=== PATIENT | female | born 1950 | race African-American/Black ===

== ENCOUNTER 2016-11-06 23:57 | Emergency (ER) | payer MEDICARE, MEDICAID ==
[~2016-11-06] VITALS: Ht 160 cm; Wt 67.0 kg
[~2016-11-06 23:57] MED LIST: ALBU8I INH; ALPR1 PO; ATOR10TA PO; BACT2OIN TOP; BENZ100 PO; CARI350T19 PO; CLOP75 PO; ENAL5TAB PO; GABA800T PO; LEVEMIR SQ; LIDO 2% TOP; MACR100C PO; METF-324 PO; PERC10TA27 PO
[2016-11-07] VITALS: BP 117/75; PULSE 95; RESP 20; TEMP 99.1; O2SAT 99
[2016-11-07 05:11] LABS: BLOOD, URINE NEG (NEG); COMMENT (UR) CATH-CULTURE IND; CULTURE IF INDICATED CATH CULTURE IND; GLUCOSE,URINE 1000 mg/dL (NEG); KETONE, URINE TRACE mg/dL (NEG); NITRITE,URINE NEG (NEG); PH, URINE 5.5 (5.0-8.5); SQUAMOUS EPITHELIAL CELL URINE 1 /hpf (0-5); URINE COLOR LIGHT-YELLOW (YELLW/STRAW)
--- NOTE | 2016-11-07 05:24 | PD ---
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 Patient has indwelling urinary catheter secondary to neurogenic bladder. Patient states intermittently the device will leak and she has to have the catheter replaced. No fever no chills no nausea no vomiting no abdominal pain. Patient states that she also had a fall on [place] and contused her right chest wall but did not have it evaluated at that time. Patient reports that she's here she would like to have this evaluated as well. Patient denies other concerns or complaints. Patient rates overall discomfort 6 /10 in intensity. PFSH Past Medical History Narrative Medical Arthritis anxiety depression urinary retention myocardial infarction Plavix dyslipidemia COPD CVA diabetes GERD herniated disc of the back and neck uterine enlargement diabetic foot wound sleep apnea CABG 3 hysterectomy ganglion cyst excision no tobacco use nursing notes reviewed Hx Anticoagulant Therapy: Yes (ASA) Arthritis: Yes (BILATERAL HANDS) Asthma: Yes Autoimmune Disease: No Anxiety: Yes Depression: Yes Heart Rhythm Problems: No Cancer: No Cardiovascular Problems: Yes (HTN, STENT, BY-PASS SURGERY) High Cholesterol: Yes Chest Pain: No Congestive Heart Failure: No COPD: Yes Cerebrovascular Accident: Yes Diabetes: Yes Patient Takes Glucophage: Yes Diminished Hearing: No GERD: Yes Genitourinary: No Headaches: No Hiatal Hernia: No Hypertension: Yes Implanted Vascular Access Dvce: No Musculoskeletal: Yes ("herniated discs,back and neck") Neurologic: Yes Psychiatric: Yes (GOES TO ACT EVERY 3 MONTHS) Reproductive: Yes (ENLARGED UTERUS) Respiratory: Yes (COPD) Integumentary: Yes (diabetic wound to right foot) Immunizations Current: No Migraines: No Myocardial Infarction: Yes Seizures: No Sleep Apnea: Yes Thyroid Disease: No Ulcer: No Tetanus Vaccination: > 5 Years Influenza Vaccination: No ?: Not Menopausal: Yes Past Surgical History Abdominal Surgery: Yes (CYST REMOVED) Cardiac Surgery: Yes Coronary Artery Bypass Graft: Yes (X3) Ear Surgery: No Endocrine Surgery: Yes (HYSTERECTOMY) Eye Surgery: Yes ("bilateral,retinopathy") Genitourinary Surgery: Yes (retention, damaged bladder) Hysterectomy: Yes Neurologic Surgery: No Oral Surgery: No Thoracic Surgery: No Other Surgery: Yes ("ganglion cyst removed from right arm" "cysts removed from back",axilla) Social History Alcohol Use: No Tobacco Use: No (QUIT 4 YEARS AGO) Substance Use: No Allergies-Medications (Allergen,Severity, Reaction): Coded Allergies: Contrast Media (Verified Allergy, Severe, 11/07/16) Sulfa (Verified Allergy, Unknown, 11/07/16) Penicillin (Verified Adverse Reaction, Severe, NAUSEA,DIZZINESS, 11/07/16) Reported Meds & Prescriptions Reported Meds & Active Scripts Active Macrobid (Nitrofurantoin Monoh/Nitrofur Macro) 100 Mg Cap 100 Mg PO BID 10 Days Macrobid (Nitrofurantoin Macrocrystals) 100 Mg Cap 100 Mg PO BID Tessalon [id number] 100 Mg Cap 100 Mg PO TID PRN Ventolin Hfa (Albuterol Sulfate) 8 Gm Aero 1 Puff INH Q4-6H PRN * SHAKE WELL BEFORE USE * Reported Percocet 10-325 mg (Oxycodone-Acetaminophen 10-325 mg) 1 Tab 1 Tab PO Q6H PRN Enalapril Maleate 5 Mg Tab 5 Mg PO DAILY Atorvastatin 10 mg (Atorvastatin Calcium) 10 Mg Tab 10 Mg PO HS 30 Days Levemir (Insulin Detemir) Inj 25 Units SQ DAILY Lidocaine Hcl [id number] 2 % Gel 1 Applic TOP DIRECTED FOR USE WITH WOUND CARE Mupirocin 2% Oint (22 gm) (Mupirocin) 2 % Oin 1 Applic TOP DIRECTED APPLY TO AFFECTED AREA(S) Ventolin Hfa (Albuterol Sulfate) 8 Gm Aero 1 Puff INH DIRECTED * SHAKE WELL BEFORE USE * Metformin ER 24 HR (Metformin HCl) 1,000 Mg Tab 1,000 Mg PO BID Xanax 1 Mg Tab (Alprazolam) 1 Mg Tab 1 Mg PO BID Carisoprodol 350 Mg Tab 350 Mg PO BID [id number] 800 Mg Tab 800 Mg PO TID Plavix (Clopidogrel Bisulfate) 75 Mg Tab 75 Mg PO DAILY Review of Systems Except as stated in HPI: all other systems reviewed are Neg General / Constitutional: No: Fever, Chills HENT: No: Congestion Cardiovascular: No: Chest Pain or Discomfort Respiratory: Positive: Pleuritic Pain (right rib pain), No: Cough, Shortness of Breath Gastrointestinal: No: Nausea, Vomiting, Abdominal Pain Genitourinary: No: Dysuria Musculoskeletal: No: Myalgias, Arthralgias Skin: No Rash Neurologic: No: Weakness Endocrine: No: Polyuria Hematologic/Lymphatic: No: Lymph Node Enlargement Physical Exam Narrative GENERAL: SKIN: Warm and dry. HEAD: Normocephalic. EYES: No scleral icterus. No injection or drainage. NECK: Supple, trachea midline. No JVD or lymphadenopathy. CARDIOVASCULAR: Regular rate and rhythm without murmurs, gallops, or rubs. RESPIRATORY: Breath sounds equal bilaterally. No accessory muscle use. GASTROINTESTINAL: Abdomen soft, non-tender, nondistended. MUSCULOSKELETAL: No cyanosis, or edema. BACK: Nontender without obvious deformity. No CVA tenderness. Data Data Last Documented VS Vital Signs Date Time Temp Pulse Resp B/P Pulse Ox O2 Delivery O2 Flow Rate FiO2 11/07/16 00:00 99.1 95 20 117/75 99 Orders Ribs, Uni (W/Exp Cxr-Min 3vw) (11/07/16 ) Urinary Catheter Insert/Apply (11/07/16 04:23) Remove Urinary Catheter .ONCE (11/07/16 04:23) Urinalysis - C+S If Indicated (11/07/16 04:23) Urine Culture (11/07/16 04:20) Nitrofurantoin Monohyd Macrocr (Macrobid (11/07/16 06:00) Labs Laboratory Tests Test 11/07/16 04:20 Urine Color LIGHT-YELLOW Urine Turbidity CLEAR Urine pH 5.5 Urine Specific [place] 1.022 Urine Protein TRACE mg/dL Urine Glucose (UA) 1000 mg/dL Urine Ketones TRACE mg/dL Urine Occult Blood NEG Urine Nitrite NEG Urine Bilirubin NEG Urine Urobilinogen LESS THAN 2.0 MG/DL Urine Leukocyte Esterase MOD Urine RBC 4 /hpf Urine WBC 20 /hpf Urine Squamous Epithelial 1 /hpf Cells Urine Yeast (Budding) OCC Microscopic Urinalysis Comment CATH-CULTURE IND MDM Medical Decision Making Medical Screen Exam Complete: Yes Emergency Medical Condition: Yes Medical Record Reviewed: Yes Interpretation(s) Laboratory Tests Test 11/07/16 04:20 Urine Color LIGHT-YELLOW Urine Turbidity CLEAR Urine pH 5.5 Urine Specific [place] 1.022 Urine Protein TRACE mg/dL Urine Glucose (UA) 1000 mg/dL Urine Ketones TRACE mg/dL Urine Occult Blood NEG Urine Nitrite NEG Urine Bilirubin NEG Urine Urobilinogen LESS THAN 2.0 MG/DL Urine Leukocyte Esterase MOD Urine RBC 4 /hpf Urine WBC 20 /hpf Urine Squamous Epithelial 1 /hpf Cells Urine Yeast (Budding) OCC Microscopic Urinalysis Comment CATH-CULTURE IND right rib xr: FINDINGS: Multiple views of the right ribs were performed. There is no evidence of displaced fracture. No destructive lesions or areas of periosteal thickening are seen. Expiratory view of the chest is negative for pneumothorax. The mediastinal structures are midline. CONCLUSION: No acute disease. Ruel Saeed Jr., MD on November 07, 2016 at 5:44 Board Certified Radiologist. This report was verified electronically. Differential Diagnosis Urinary bladder dysfunction UTI urinary retention atonic bladder rib fracture pneumothorax Narrative Course Urinary catheter exchanged; urinalysis ordered; right rib films ordered Chest x-ray right rib series does not reveal pneumothorax or rib fracture; urinalysis is abnormal and consistent with urinary tract infection patient given first dose of Macrobid in the emergency department Patient is stable for outpatient management Diagnosis Primary Impression: Complication, blocked Chavira catheter Qualified Code: T83.091A - Complication, blocked Chavira catheter, initial encounter Additional Impressions: UTI (urinary tract infection) Qualified Code: N39.0 - Urinary tract infection without hematuria, site unspecified Chest wall contusion Qualified Code: S20.211A - Chest wall contusion, right, initial encounter Referrals: Primary Care Physician call for appointment Urologist call for appointment Patient Instructions: General Instructions Additional Instructions: Follow-up with your primary care physician and your urologist Complete course of antibiotic as prescribed Return to the emergency department for any concerns or change in condition Take as tolerated acetaminophen/Tylenol for mild chest wall pain Med/Other Pt SpecificInfo: Prescription(s) given Scripts Nitrofurantoin Monohydrate Macrocrystals (Macrobid)100 Mg [id number] Mg PO BID 10 Days Ref 0 Prov:Lisset Kessler MD 11/07/16 Disposition: 01 DISCHARGE HOME Condition: Stable Lisset Kessler MD Nov 07, 2016 05:24
--- NOTE | 2016-11-07 05:46 | RADRPT ---
EXAM DATE/TIME: 11/07/2016 04:36 [facility] COMPARISON: No previous studies available for comparison. INDICATIONS : Right sided chest and rib pain post fall on 10/28/16. MEDICAL HISTORY : Congestive heart failure. SURGICAL HISTORY : CABG. ENCOUNTER: Initial ACUITY: 1 week PAIN SCORE: 7/10 LOCATION: Right ribs. FINDINGS: Multiple views of the right ribs were performed. There is no evidence of displaced fracture. No russell tructive lesions or areas of periosteal thickening are seen. Expiratory view of the chest is negativ e for pneumothorax. The mediastinal structures are midline. CONCLUSION: No acute disease. Ruel Saeed Jr., MD on November 07, 2016 at 5:44 Board Certified Radiologist. This report was verified electronically.
[2016-11-07] MEDS ORDERED: MACR100C2 PO (05:50)
[2016-11-07] MEDS ORDERED: NITROFURANTOIN MONOHYD MACROCR 100 MG CAP PO ONE (06:00)
== END 2016-11-07 07:09 | disposition home or self-care (01) ==
LOC: NEPC 23:57
DX: T83.098A Other mechanical complication of other urinary catheter, initial encounter (principal); N39.0 Urinary tract infection, site not specified; B95.7 Other staphylococcus as the cause of diseases classified elsewhere; R33.9 Retention of urine, unspecified; S20.211A Contusion of right front wall of thorax, initial encounter; S91.301A Unspecified open wound, right foot, initial encounter; E13.69 Other specified diabetes mellitus with other specified complication; W19.XXXA Unspecified fall, initial encounter; Y93.9 Activity, unspecified; Y92.9 Unspecified place or not applicable; Y99.9 Unspecified external cause status; I25.2 Old myocardial infarction; Z95.1 Presence of aortocoronary bypass graft; K21.9 Gastro-esophageal reflux disease without esophagitis; J44.9 Chronic obstructive pulmonary disease, unspecified; G47.30 Sleep apnea, unspecified; I10 Essential (primary) hypertension
CPT/HCPCS: 51702; 71101; 81001; 86403; 87077; 87086; 87186

== ENCOUNTER 2017-01-20 14:04 | Inpatient (IN) | payer MEDICARE, MEDICAID ==
[~2017-01-20] VITALS: Ht 160 cm; Wt 81.1 kg
[~2017-01-20 14:04] MED LIST changes: +MACR100C2 PO
[2017-01-20 14:06] VITALS: BP 82/45; PULSE 114; TEMP 98.3; O2SAT 99
[2017-01-20 15:00] VITALS: BP 128/86; PULSE 85; RESP 20; O2SAT 99
[2017-01-20] MEDS ORDERED: MORPHINE SULFATE 4 MG/ML INJ IV PUSH ONE ×2 (15:00→16:45)
[2017-01-20] MEDS ORDERED: CLINDAMYCIN INJ 600 MG in SODIUM CHLORIDE 0.9% INJ 100 ML IV ONE (15:00)
[2017-01-20] MEDS ORDERED: CIPROFLOXACIN 400 MG PREMIX 200 ML IV ONE (15:00)
[2017-01-20] MEDS ORDERED: SODIUM CHLOR 0.9% 1000 ML INJ 1,000 ML IV ONE ×2 (15:00→19:45)
[2017-01-20] MEDS ORDERED: PLAV75TA29 PO (15:09)
[2017-01-20] MEDS ORDERED: XANA1TAB2 PO (15:09)
[2017-01-20] MEDS ORDERED: METF1000 PO (15:09)
[2017-01-20] MEDS ORDERED: PERC10TA27 PO (15:09)
[2017-01-20] MEDS ORDERED: LEVEMIR SQ (15:09)
[2017-01-20] MEDS ORDERED: GABA800T PO (15:09)
[2017-01-20] MEDS ORDERED: VENTAER INH (15:09)
[2017-01-20] MEDS ORDERED: SOMA350T PO (15:09)
[2017-01-20] MEDS ORDERED: ATOR10TA15 PO (15:09)
[2017-01-20] MEDS ORDERED: ENAL5TAB98 PO (15:09)
[2017-01-20] MEDS ORDERED: ASPI1TAB91 PO (15:10)
--- NOTE | 2017-01-20 15:29 | RADRPT ---
EXAM DATE/TIME: 01/20/2017 15:13 [facility] COMPARISON: CHEST SINGLE AP, January 18, 2014, 5:53. INDICATIONS : Evaluate lung status. Possible UTI. MEDICAL HISTORY : Hypertension. Diabetes mellitus type II. Chronic obstructive pulmonary disease. SURGICAL HISTORY : CABG. ENCOUNTER: Initial ACUITY: 4 - 6 days PAIN SCORE: 0/10 LOCATION: Bilateral chest FINDINGS: A single view of the chest demonstrates the lungs to be symmetrically aerated without evidence of mas s, infiltrate or effusion. The cardiomediastinal contours are unremarkable. Osseous structures are intact. The patient is status post median sternotomy. CONCLUSION: No acute disease. Tavares Flores MD on January 20, 2017 at 15:28 Board Certified Radiologist. This report was verified electronically.
--- NOTE | 2017-01-20 15:33 | RADRPT ---
EXAM DATE/TIME: 01/20/2017 15:15 [facility] COMPARISON: No previous studies available for comparison. INDICATIONS : Right foot pain and inflammation. MEDICAL HISTORY : Diabetes mellitus type II. SURGICAL HISTORY : 5th digit amputation. ENCOUNTER: Initial ACUITY: 3 weeks PAIN SCORE: 10/10 LOCATION: Right foot. FINDINGS: AP, lateral and oblique views of the right foot were obtained and demonstrate the patient is status p ost amputation of the fifth digit to the level of the metatarsal head. There is diffuse osteopenia wi th no acute fracture or malalignment. There is no destructive change or periosteal new bone formation . There is diffuse osteopenia and mild osteoarthritic change. There is mild soft tissue swelling and apparent gas along the medial foot adjacent to the first metatarsal phalangeal joint. There are no ra diopaque foreign bodies. CONCLUSION: 1. That is post amputation of the fifth digit to the level of the metatarsal head. 2. Mild soft tissue swelling and gas over the medial first metatarsal phalangeal joint with no destru ctive change. Tavares Flores MD on January 20, 2017 at 15:29 Board Certified Radiologist. This report was verified electronically.
--- NOTE | 2017-01-20 15:38 | PD ---
HPI Chief Complaint: Complaint Time Seen by Provider: 14:23 Travel History International Travel<30 days: No Contact w/Intl Traveler<30days: No Traveled to known affect area: No History of Present Illness HPI 66-year-old woman with diabetes and peripheral vascular disease presents emergency department worsening pain from her right foot which she is a draining ulcerated wound. He was recently debrided a couple days ago and an outpatient office. She is on clindamycin and Cipro. She is having worsening pain in the foot. She is a trouble with diabetic foot infections in the past. History Past Medical History Narrative Medical Hypertension Diabetes, neuropathy PVD COPD Influenza Vaccination: No Menopausal: Yes : 1 Para: 1 Social History Alcohol Use: No Tobacco Use: No Allergies-Medications (Allergen,Severity, Reaction): Coded Allergies: Contrast Media (Verified Allergy, Severe, 01/20/17) Sulfa (Verified Allergy, Unknown, 01/20/17) Penicillin (Verified Adverse Reaction, Severe, NAUSEA,DIZZINESS, 01/20/17) Reported Meds & Prescriptions Reported Meds & Active Scripts Active Reported Aspirin Adult Low Strength (Aspirin) 81 Mg Tabdr 81 Mg PO DAILY Percocet (Oxycodone-Acetaminophen) 10-325 mg Tab 1 Tab PO Q6H PRN Metformin (Metformin HCl) 1,000 Mg Tab 1,000 Mg PO BID With meals Levemir Inj (Insulin Detemir) 1,000 unit/ 10 ML Vial 35 Units SQ DAILY Do not mix with any other Insulin. Gabapentin 800 Mg Tab 800 Mg PO TID Vasotec (Enalapril Maleate) 5 Mg Tab 5 Mg PO DAILY Plavix (Clopidogrel Bisulfate) 75 Mg Tab 75 Mg PO DAILY Soma (Carisoprodol) 350 Mg Tab 350 Mg PO BID Atorvastatin (Atorvastatin Calcium) 10 Mg Tab 10 Mg PO HS Xanax (Alprazolam) 1 Mg Tab 1 Mg PO BID Ventolin Hfa 18 GM Inh (Albuterol Sulfate) 90 Mcg/Act Aer 1 Puff INH Q4H PRN Review of Systems Except as stated in HPI: all other systems reviewed are Neg Physical Exam Narrative GENERAL: 66-year-old woman, appears chronically ill. SKIN: Warm and dry. HEAD: Atraumatic. Normocephalic. CARDIOVASCULAR: Heart rate rapid. No murmurs. RESPIRATORY: No accessory muscle use. Clear to auscultation. Breath sounds equal bilaterally. GASTROINTESTINAL: Abdomen soft, non-tender, nondistended. Hepatic and splenic margins not palpable. MUSCULOSKELETAL: No obvious deformities. Her right small toe is been amputated. She has an ulceration on the medial aspect of the foot. It tracks all the way down superficially and entire plantar surface of the foot with a purulent wound. There is malodorous purulent drainage coming from the wound. NEUROLOGICAL: Awake and alert. No obvious cranial nerve deficits. Motor grossly within normal limits. Normal speech. PSYCHIATRIC: Appropriate mood and affect; insight and judgment normal. Data Data Last Documented VS Vital Signs Date Time Temp Pulse Resp B/P Pulse Ox O2 Delivery O2 Flow Rate FiO2 01/20/17 15:45 20 01/20/17 14:06 98.3 114 82/45 99 Orders Complete Blood Count With Diff (01/20/17 14:51) Comprehensive Metabolic Panel (01/20/17 14:51) Westergren Sedimentation Rate (01/20/17 14:51) C-Reactive Protein (Crp) (01/20/17 14:51) Wound Culture And Gram Stain (01/20/17 14:51) Foot, Complete ([id number]) (01/20/17 ) Chest, Single Ap (01/20/17 ) Iv Access Insert/Monitor (01/20/17 14:51) Morphine Inj (Morphine Inj) (01/20/17 15:00) Ciprofloxacin 400 Mg Premix (Cipro 400 M (01/20/17 15:00) Clindamycin Inj (Cleocin Inj) (01/20/17 15:00) Sodium Chlor 0.9% 1000 Ml Inj (Ns 1000 M (01/20/17 15:00) Lactic Acid (01/20/17 14:54) Insulin Aspart Inj (Novolog Inj) (01/20/17 16:45) Morphine Inj (Morphine Inj) (01/20/17 16:45) Lactic Acid (01/20/17 17:30) Diet Diabetic (01/20/17 Dinner) Blood Gas Venous (Vbg) (01/20/17 16:54) Beta Hydroxybutyrate (Acetone) (01/20/17 16:54) Admit Order (Ed Use Only) (01/20/17 ) Urinalysis - C+S If Indicated (01/20/17 16:56) Labs Laboratory Tests Test 01/20/17 15:30 White Blood Count 23.4 TH/MM3 Red Blood Count 4.69 MIL/MM3 Hemoglobin 12.8 GM/DL Hematocrit 39.4 % Mean Corpuscular Volume 83.9 FL Mean Corpuscular Hemoglobin 27.2 PG Mean Corpuscular Hemoglobin 32.5 % Concent Red Cell Distribution Width 13.3 % Platelet Count 361 TH/MM3 Mean Platelet Volume 10.1 FL Neutrophils (%) (Auto) 89.9 % Lymphocytes (%) (Auto) 4.2 % Monocytes (%) (Auto) 5.6 % Eosinophils (%) (Auto) 0.0 % Basophils (%) (Auto) 0.3 % Neutrophils # (Auto) 21.0 TH/MM3 Lymphocytes # (Auto) 1.0 TH/MM3 Monocytes # (Auto) 1.3 TH/MM3 Eosinophils # (Auto) 0.0 TH/MM3 Basophils # (Auto) 0.1 TH/MM3 CBC Comment DIFF FINAL Differential Comment Erythrocyte Sedimentation Rate 16 mm/hr Sodium Level 135 MEQ/L Potassium Level 4.4 MEQ/L Chloride Level 95 MEQ/L Carbon Dioxide Level 21.9 MEQ/L Anion Gap 18 MEQ/L Blood Urea Nitrogen 17 MG/DL Creatinine 1.25 MG/DL Estimat Glomerular Filtration 52 ML/MIN Rate Random Glucose 610 MG/DL Lactic Acid Level 2.4 mmol/L Calcium Level 9.8 MG/DL Total Bilirubin 0.7 MG/DL Aspartate Amino Transf 30 U/L (AST/SGOT) Alanine Aminotransferase 14 U/L (ALT/SGPT) Alkaline Phosphatase 163 U/L C-Reactive Protein 35.40 MG/DL Total Protein 8.6 GM/DL Albumin 2.3 GM/DL [facility] Medical Decision Making Medical Screen Exam Complete: Yes Emergency Medical Condition: Yes Interpretation(s) Chest x-ray: No acute disease. Foot x-ray: Status post indication fifth digit to the level of the metatarsal head. Small soft tissue swelling and gas over the medial first MTP joint with no distractive change. LABS: CBC remarkable for white count 23,000 Said rate 16 CMP remarkable for elevated glucose CRP 35 Lactate 2.4 Differential Diagnosis Diabetic foot infection, osteomyelitis, abscess, other Narrative Course Medical decision making INITIAL: This 66-year-old woman presents emergent arm with a diabetic foot infection. She has an ulceration it's more chronic she also has purulent abscess draining into the plantar surface of the midfoot. Squeezing the midfoot will express a some purulent drainage from the ulcerated wound. This wound needs evaluation by podiatry and possible debridement. She's been on antibiotics and seems to be worsening. We'll check labs, x-ray, likely admission. Diagnosis Primary Impression: Diabetic foot infection Dung Pete MD Jan 20, 2017 15:38
[2017-01-20 16:14] LABS: BASOPHIL # 0.1 TH/MM3 (0-0.2); BASOPHIL % 0.3 % (0.0-2.0); HEMATOCRIT 39.4 % (35.0-46.0); HEMO FLAGS DIFF FINAL; LYMPH % 4.2 % (9.0-44.0); MEAN CELL VOLUME 83.9 FL (80.0-100.0); MEAN CORPUSCULAR HEMOGLOBIN 27.2 PG (27.0-34.0); MEAN CORPUSCULAR HGB CONC 32.5 % (32.0-36.0); MONO % 5.6 % (0.0-8.0); NEUT % 89.9 % (16.0-70.0); PLATELET COUNT 361 TH/MM3 (150-450); RED BLOOD COUNT 4.69 MIL/MM3 (4.00-5.30); RED CELL DISTRIBUTION WIDTH 13.3 % (11.6-17.2); WHITE BLOOD COUNT 23.4 TH/MM3 (4.0-11.0)
[2017-01-20 16:23] LABS: ALKALINE PHOSPHATASE 163 U/L (45-117); ALT (GPT) 14 U/L (10-53); ANION GAP 18 MEQ/L (5-15); AST (GOT) 30 U/L (15-37); BICARBONATE 21.9 MEQ/L (21.0-32.0); BLOOD UREA NITROGEN 17 MG/DL (7-18); CHLORIDE 95 MEQ/L (98-107); GLOMERULAR FILTRATION RATE 52 ML/MIN (>89); SODIUM (NA) 135 MEQ/L (136-145); TOTAL BILIRUBIN ADULT 0.7 MG/DL (0.2-1.0)
[2017-01-20 16:29] LABS: POTASSIUM 4.4 MEQ/L (3.5-5.1)
[2017-01-20] MEDS ORDERED: INSULIN ASPART 1,000 UNITS/10 ML VIAL SQ ONE (16:45)
[2017-01-20 17:00] VITALS: BP 123/77; PULSE 88; RESP 20; O2SAT 99
[2017-01-20 17:41] LABS: BACTERIA, URINE RARE /hpf; BLOOD, URINE NEG (NEG); COMMENT (UR) CULT NOT INDICATED; CULTURE IF INDICATED CULT NOT INDICATED; GLUCOSE,URINE 1000 mg/dL (NEG); KETONE, URINE 40 mg/dL (NEG); MUCUS URINE FEW /lpf (OCC); NITRITE,URINE NEG (NEG); PH, URINE 5.5 (5.0-8.5); SQUAMOUS EPITHELIAL CELL URINE 4 /hpf (0-5); URINE COLOR LIGHT-YELLOW (YELLW/STRAW)
[2017-01-20 18:29] VITALS: BP 88/58; PULSE 89; RESP 20; O2SAT 99
[2017-01-20 18:58] VITALS: BP 93/65; PULSE 96; RESP 20; O2SAT 99
[2017-01-20 19:10] LABS: BLOOD GAS VENOUS HCO3 26 mmol/L (22-26); BLOOD GAS VENOUS O2 CONTENT 2.1 Vol % (9.0-17.0); BLOOD GAS VENOUS O2 HGB SAT 11 % (70-76); BLOOD GAS VENOUS PCO2 48 mmHg (44-48); BLOOD GAS VENOUS PO2 14 mmHg (35-40); BLOOD GAS VENOUS pH 7.35 (7.360-7.400); TEMP CORR TO 98.6
[2017-01-20 19:12] LABS: CRITICAL VALUE YES; DRAW SITE LINE; FIO2 21 %; STAT YES
--- NOTE | 2017-01-20 19:43 | HHI.HP ---
HPI Service [facility] Primary Care Physician Arjun Lipscomb MD Admission Diagnosis Diabetic Foot Infection Diagnoses: (1) Sepsis Diagnosis: Principal (2) Diabetic foot infection Diagnosis: Principal (3) Renal insufficiency Diagnosis: Principal (4) Hypotension Diagnosis: Principal (5) DM (diabetes mellitus) Diagnosis: Principal Travel History International Travel<30 Days: No Contact w/Intl Traveler <30 Da: No Traveled to Known Affected Are: No History of Present Illness This is a 66-year-old female with a PMH of HTN, DM, Chronic Right Foot Ulcer and PVD who presented to the ER with complaints of right foot drainage. States symptoms started approx 3wks ago, has been following w/ [employer] [facility] in [place], s/p I&D in office on and has been on Cipro/Clinda for approx 1wk per patient, reports compliance w/ medications. States for the last 2-3 days has had worsening pain and drainage from right foot. Denies fever or chills. On arrival, BP 82/45, HR 114, O2 sat 99% on RA, Afebrile. S/p IVF w/ repeat BP 93/65, HR 96, reports chronic hypotension with baseline BP 90s systolic. WBC 23.4. Creatinine 1.25, previously 1.07 on 08/01/16. BS 610. CO2 21. AG 18. Lactic Acid 2.4, repeat 1.8. CRP 35.4. UA negative for UTI. CXR no acute findings. Foot X-ray status post amputation of fifth digit to level metatarsal head, mild soft tissue swelling Medial First Metatarsophalangeal Joint with no destructive change. S/p Clinda/Cipro IV in ER. Review of Systems Except as stated in HPI: all other systems reviewed are Neg ROS: 14 point review of systems otherwise negative. Past Family Social History Past Medical History PMH: HTN, DM, Chronic Right Foot Ulcer and PVD Past Surgical History PAST SURGICAL HISTORY: CABG, 5th Toe Amputation Allergies: Coded Allergies: Contrast Media (Verified Allergy, Severe, 01/20/17) Sulfa (Verified Allergy, Unknown, 01/20/17) Penicillin (Verified Adverse Reaction, Severe, NAUSEA,DIZZINESS, 01/20/17) Family History PAST FAMILY HISTORY: Reviewed, positive for DM and CAD Social History PAST SOCIAL HISTORY: Negative for alcohol, tobacco or drugs. Physical Exam Vital Signs Vital Signs Date Time Temp Pulse Resp B/P Pulse Ox O2 Delivery O2 Flow Rate FiO2 01/20/17 18:58 96 20 93/65 99 Room Air 01/20/17 18:29 89 20 88/58 99 Room Air 01/20/17 17:00 88 20 123/77 99 Room Air 01/20/17 17:00 20 01/20/17 15:45 20 01/20/17 15:00 85 20 128/86 99 Room Air 01/20/17 14:06 98.3 114 82/45 99 Physical Exam PE: GENERAL: Pleasant middle-aged black female in no acute distress. HEENT: PERRLA, EOMI. No scleral icterus or conjunctival pallor. No lid lag or facial droop. CARDIOVASCULAR: Regular rate and rhythm. No obvious murmurs to auscultation. No chest tenderness to palpation. RESPIRATORY: No obvious rhonchi or wheezing. Clear to auscultation. Breath sounds equal bilaterally. GASTROINTESTINAL: Abdomen soft, non-tender, nondistended. BS normal. MUSCULOSKELETAL: Extremities without clubbing or edema. Right foot 1st toe medial ulcer w/ surrounding necrosis, +purulent drainage, right 5th toe amputation. NEUROLOGICAL: Awake, alert and oriented x4. No focal neurologic deficits. Moving both upper and lower extremities spontaneously. Laboratory Laboratory Tests Test 01/20/17 01/20/17 01/20/17 01/20/17 15:30 17:15 17:28 18:58 White Blood Count 23.4 Red Blood Count 4.69 Hemoglobin 12.8 Hematocrit 39.4 Mean Corpuscular Volume 83.9 Mean Corpuscular Hemoglobin 27.2 Mean Corpuscular Hemoglobin 32.5 Concent Red Cell Distribution Width 13.3 Platelet Count 361 Mean Platelet Volume 10.1 Neutrophils (%) (Auto) 89.9 Lymphocytes (%) (Auto) 4.2 Monocytes (%) (Auto) 5.6 Eosinophils (%) (Auto) 0.0 Basophils (%) (Auto) 0.3 Neutrophils # (Auto) 21.0 Lymphocytes # (Auto) 1.0 Monocytes # (Auto) 1.3 Eosinophils # (Auto) 0.0 Basophils # (Auto) 0.1 CBC Comment DIFF FINAL Differential Comment Erythrocyte Sedimentation Rate 16 Sodium Level 135 Potassium Level 4.4 Chloride Level 95 Carbon Dioxide Level 21.9 Anion Gap 18 Blood Urea Nitrogen 17 Creatinine 1.25 Estimat Glomerular Filtration 52 Rate Random Glucose 610 Lactic Acid Level 2.4 1.8 Calcium Level 9.8 Total Bilirubin 0.7 Aspartate Amino Transf 30 (AST/SGOT) Alanine Aminotransferase 14 (ALT/SGPT) Alkaline Phosphatase 163 C-Reactive Protein 35.40 Total Protein 8.6 Albumin 2.3 B-Hydroxybutyrate 5.32 Urine Color LIGHT-YELLOW Urine Turbidity CLEAR Urine pH 5.5 Urine Specific [place] 1.019 Urine Protein TRACE Urine Glucose (UA) 1000 Urine Ketones 40 Urine Occult Blood NEG Urine Nitrite NEG Urine Bilirubin NEG Urine Urobilinogen LESS THAN 2.0 Urine Leukocyte Esterase NEG Urine RBC 1 Urine WBC 1 Urine Squamous Epithelial 4 Cells Urine Bacteria RARE Urine Mucus FEW Microscopic Urinalysis Comment CULT NOT INDICATED Blood Gas Puncture Site LINE Blood Gas Patient Temperature 98.6 Venous Blood pH 7.35 Venous Blood Partial Pressure 48 CO2 Venous Blood Partial Pressure 14 O2 Venous Blood HCO3 26 Venous Blood Oxygen Saturation 11 Venous Blood Oxygen Content 2.1 Venous Blood Base Excess 1.0 Blood Gas Inspired Oxygen 21 Date/Time Procedure Status Source Growth 01/20/17 15:30 Gram Stain Received Wound Foot Pending 01/20/17 15:30 Wound Culture Received Wound Foot Pending Result Diagram: 01/20/17 1530 01/20/17 1530 Assessment and Plan Problem List: (1) Sepsis ICD Code: A41.9 Status: Acute (2) Diabetic foot infection ICD Code: E11.69 Status: Acute (3) Hypotension ICD Code: I95.9 Status: Acute (4) Renal insufficiency ICD Code: N28.9 Status: Acute (5) DM (diabetes mellitus) ICD Code: E11.9 Status: Acute Assessment and Plan A/P: 1. Sepsis: HR 114, WBC 23.14, Lactic Acid 2.4, repeat 1.8, Source-Right Foot Infection. S/p Wound Cultures, IV Cipro/Clinda in ER, follow up cultures, continue IV Abx. 2. Diabetic Foot Infection: Chronic. Right Foot Infection, w/ failed outpatient tx, on Cipro/Clinda PO x1 wk, following w/ [employer] [facility] in [place] s/p I&D in office on , ongoing purulent drainage, follow up cultures, continue IV Abx, consult Wound Management, Consult Podiatry for further evaluation. 3. Renal Insufficiency: Acute on Chronic. Creatinine 1.25, previously 1.07 on 08/01/16, U/a negative, IVF for hydration, repeat labs in am. 4. Hypotension: BP 82/45, HR 114 on arrival, s/p IVF w/ repeat BP currently 93 /65, HR 96. Reports baseline BP usually 90's systolic. IVF for hydration, will monitor BP. 5. DM: Uncontrolled. BS 610, CO2 21.9, AG 18, s/p Insulin 10u and IVF, check Hgb A1c, Sliding Scale w/ Accu-Cheks, resume home Levemir. 6. DVT Prophylaxis: Mechanical contraindication in light of foot wound/ infection 7. Social work for d/c planning as needed. 8. Case discussed w/ ER physician at length. Physician Certification 2 Midnight Certification Type: Admission for Inpatient Services Order for Inpatient Services The services are ordered in accordance with Medicare regulations or non- Medicare payer requirements, as applicable. In the case of services not specified as inpatient-only, they are appropriately provided as inpatient services in accordance with the 2-midnight benchmark. Estimated LOS (days): 2 days is the estimated time the patient will need to remain in the hospital, assuming treatment plan goals are met and no additional complications. Post-Hospital Plan: Not yet determined Johnna Menjivar MD Jan 20, 2017 19:43
[2017-01-20] MEDS ORDERED: GLUCAGON 1 MG/ML VIAL OTHER PRN (19:45)
[2017-01-20] MEDS ORDERED: SODIUM CHLORIDE 0.9% FLUSH 5 ML FLUSH FLUSH PRN (19:45)
[2017-01-20] MEDS ORDERED: DEXTROSE 50% IN WATER 50 ML VIAL(D50) IV PUSH PRN (19:45)
[2017-01-20] MEDS ORDERED: INSULIN DETEMIR 100 UNITS/ML VIAL SQ ONE (19:45)
[2017-01-20] MEDS ORDERED: BISACODYL 10 MG SUPP PR PRN (19:45)
[2017-01-20] MEDS ORDERED: ACETAMINOPHEN 325 MG TAB PO PRN (19:45)
[2017-01-20] MEDS ORDERED: MORPHINE SULFATE 4 MG/ML INJ IV PRN (19:45)
[2017-01-20] MEDS ORDERED: ONDANSETRON HCL 4 MG/2 ML VIAL IVP PRN (19:45)
[2017-01-20] MEDS: SODIUM CHLORIDE 0.9% FLUSH 5 ML FLUSH FLUSH SCH (21:00)
[2017-01-20] MEDS: SODIUM CHLOR 0.9% 1000 ML INJ 1,000 ML IV SCH (21:38)
[2017-01-20] MEDS: CARISOPRODOL 350 MG TAB PO SCH (21:39)
[2017-01-20] MEDS: ATORVASTATIN 10 MG TAB PO SCH (21:39)
[2017-01-20] MEDS: ALPRAZolam 1 MG TAB PO SCH (21:39)
[2017-01-20] MEDS: INSULIN ASPART SUPPLEMENTAL SCALE SQ SCH (21:40)
[2017-01-21] VITALS (7 sets, daily range): BP systolic 108–119; BP diastolic 57–82; PULSE 85–113; RESP 18–22; TEMP 96.6–100; O2SAT 94–98
[2017-01-21] MEDS: CLINDAMYCIN INJ 900 MG in SODIUM CHLORIDE 0.9% INJ 100 ML IV SCH ×3 (02:21→15:58)
[2017-01-21] MEDS: SODIUM CHLOR 0.9% 1000 ML INJ 1,000 ML IV SCH ×3 (05:23→19:45)
[2017-01-21] MEDS: oxyCODONE/ACETAMINOPHEN 10 MG/325 MG TAB PO PRN (06:32)
[2017-01-21] MEDS: INSULIN ASPART SUPPLEMENTAL SCALE SQ SCH ×4 (06:32→21:10)
[2017-01-21 07:37] LABS: AUTOMATED NEUTROPHIL # 22.8 TH/MM3 (1.8-7.7); BASOPHIL # 0.1 TH/MM3 (0-0.2); BASOPHIL % 0.5 % (0.0-2.0); EOSINOPHIL % 0.1 % (0.0-4.0); HEMATOCRIT 37.8 % (35.0-46.0); HEMO FLAGS DIFF FINAL; LYMPH % 3.7 % (9.0-44.0); LYMPHOCYTE # 0.9 TH/MM3 (1.0-4.8); MEAN CELL VOLUME 80.8 FL (80.0-100.0); MEAN CORPUSCULAR HEMOGLOBIN 27.5 PG (27.0-34.0); MEAN CORPUSCULAR HGB CONC 34.1 % (32.0-36.0); MONO % 4.2 % (0.0-8.0); NEUT % 91.5 % (16.0-70.0); PLATELET COUNT 329 TH/MM3 (150-450); RED BLOOD COUNT 4.68 MIL/MM3 (4.00-5.30); RED CELL DISTRIBUTION WIDTH 13.2 % (11.6-17.2)
[2017-01-21 07:58] LABS: ALKALINE PHOSPHATASE 160 U/L (45-117); ALT (GPT) 13 U/L (10-53); ANION GAP 12 MEQ/L (5-15); AST (GOT) 13 U/L (15-37); BICARBONATE 22.2 MEQ/L (21.0-32.0); BLOOD UREA NITROGEN 13 MG/DL (7-18); CHLORIDE 105 MEQ/L (98-107); GLOMERULAR FILTRATION RATE 82 ML/MIN (>89); POTASSIUM 3.5 MEQ/L (3.5-5.1); SODIUM (NA) 139 MEQ/L (136-145); TOTAL BILIRUBIN ADULT 0.4 MG/DL (0.2-1.0)
[2017-01-21] MEDS: ALPRAZolam 1 MG TAB PO SCH ×4 (08:38→21:00)
[2017-01-21] MEDS: CLOPIDOGREL 75 MG TAB PO SCH ×3 (08:38→12:03)
[2017-01-21] MEDS: ASPIRIN EC 81 MG TABEC PO SCH ×3 (08:38→12:04)
[2017-01-21] MEDS: CARISOPRODOL 350 MG TAB PO SCH ×4 (08:38→21:00)
[2017-01-21] MEDS: GABAPENTIN 400 MG CAP PO SCH ×4 (08:38→17:10)
[2017-01-21] MEDS: SODIUM CHLORIDE 0.9% FLUSH 5 ML FLUSH FLUSH SCH ×2 (08:39→21:00)
[2017-01-21] MEDS: INSULIN DETEMIR 100 UNITS/ML VIAL SQ SCH (08:39)
[2017-01-21 09:34] LABS: HEMOGLOBIN A1a 1.4 %; HEMOGLOBIN A1b 0.7 %; HEMOGLOBIN F 1.6 %; HEMOGLOBIN LA1C 1.9 %; HEMOGLOBIN P3 3.7 %
[2017-01-21] MEDS ORDERED: PHENYLEPH/NS 1000 MCG/10 ML SYR IV ONE (12:00)
[2017-01-21] MEDS ORDERED: PROPOFOL 200 MG/20 ML AMP IV ONE (12:00)
[2017-01-21] MEDS ORDERED: ePHEDrine/NS 25 MG/5 ML SYR IV ONE (12:00)
--- NOTE | 2017-01-21 12:39 | HHI.PR ---
Subjective Remarks f/u for sepsis and diabetic foot infection. patient has no complaints. Seems to be a poor historian. She stated she is seeing a [employer] in [place]. Per tech patient has been sleeping. Patient is AAO X 3 with no complaints. Objective Vitals Vital Signs Date Time Temp Pulse Resp B/P Pulse Ox O2 Delivery O2 Flow Rate FiO2 01/21/17 08:15 97.9 101 22 109/67 94 01/21/17 04:00 100.0 106 18 115/82 95 01/21/17 00:00 99.5 113 18 108/69 97 01/20/17 23:02 Room Air 01/20/17 18:58 96 20 93/65 99 Room Air 01/20/17 18:29 89 20 88/58 99 Room Air 01/20/17 17:00 88 20 123/77 99 Room Air 01/20/17 17:00 20 01/20/17 15:45 20 01/20/17 15:00 85 20 128/86 99 Room Air 01/20/17 14:06 98.3 114 82/45 99 I/O 01/20/17 01/20/17 01/20/17 01/21/17 01/21/17 01/21/17 07:00 15:00 23:00 07:00 15:00 23:00 Intake Total 300 ml 100 ml Output Total 300 ml Balance -300 ml 300 ml 100 ml Intake Oral 300 ml 100 ml Output Urine Total 300 ml # Voids 1 1 # Bowel Movements 0 Result Diagram: 01/21/17 0711 01/21/17 0711 Objective Remarks GENERAL: in NAD CARDIOVASCULAR: Regular rate and rhythm without murmurs, gallops, or rubs. RESPIRATORY: Breath sounds equal bilaterally. No accessory muscle use. GASTROINTESTINAL: Abdomen soft, non-tender, nondistended. MUSCULOSKELETAL: right foot with fluid collections and ulcer on the medial aspect of 5th toe with clean base. BACK: Nontender without obvious deformity. No CVA tenderness. Medications and IVs Current Medications Morphine Sulfate 4 mg 4 mg ONCE ONCE IV PUSH Last administered on 01/20/17 15 :39; Start 01/20/17 at 15:00; Stop 01/20/17 at 15:01; Status DC Ciprofloxacin/ Dextrose 200 ml @ 200 mls/hr ONCE ONCE IV Last administered on 01/20/17 15:38; Start 01/20/17 at 15:00; Stop 01/20/17 at 15:59; Status DC Clindamycin Phosphate 600 mg/ Sodium Chloride 104 ml @ 208 mls/hr ONCE ONCE IV Last administered on 01/20/17 17:26; Start 01/20/17 at 15:00; Stop at 15:29; Status DC Sodium Chloride (NS 1000 ml Inj) 1,000 ml @ 2,000 mls/hr Q30M ONCE IV Last administered on 01/20/17 15:39; Start 01/20/17 at 15:00; Stop 01/20/17 at 15:29 ; Status DC Insulin Aspart (NovoLOG INJ) 10 units ONCE ONCE SQ Last administered on 16:55; Start 01/20/17 at 16:45; Stop 01/20/17 at 16:46; Status DC Morphine Sulfate 4 mg 4 mg ONCE ONCE IV PUSH Last administered on 01/20/17 16 :55; Start 01/20/17 at 16:45; Stop 01/20/17 at 16:46; Status DC Clindamycin Phosphate/Sodium Chloride (Cleocin Inj/NS Inj) 106 ml @ 212 mls/hr Q8H IV Last administered on 01/21/17 08:39; Start 01/21/17 at 01:00 Dextrose (D50w (Vial) Inj) 25 ml UNSCH PRN IV PUSH HYPOGLYCEMIA-SEE COMMENTS; Start 01/20/17 at 19:45 Glucagon (Glucagon Inj) 1 mg UNSCH PRN OTHER HYPOGLYCEMIA-SEE COMMENTS; Start 01/20/17 at 19:45 Insulin Aspart 1 1 ACHS SLIDING SCALE SQ Last administered on 01/21/17 06:32 ; Start 01/20/17 at 21:00 Sodium Chloride (NS 1000 ml Inj) 1,000 ml @ 100 mls/hr Q10H IV Last administered on 01/21/17 05:23; Start 01/20/17 at 19:36 IV Flush (NS Flush) 2 ml UNSCH PRN FLUSH FLUSH AFTER USING IV ACCESS; Start at 19:45 IV Flush (NS Flush) 2 ml BID FLUSH ; Start 01/20/17 at 21:00 Ondansetron HCl (Zofran Inj) 4 mg Q6H PRN IVP NAUSEA OR VOMITING; Start at 19:45 Bisacodyl (Dulcolax Supp) 10 mg DAILY PRN LA CONSTIPATION; Start 01/20/17 at 19 :45 Acetaminophen (Tylenol) 650 mg Q6H PRN PO FEVER/PAIN SCALE 1 TO 2; Start at 19:45 Morphine Sulfate 2 mg 2 mg Q3H PRN IV Pain 6-10; Start 01/20/17 at 19:45 Sodium Chloride (NS 1000 ml Inj) 1,000 ml @ 999 mls/hr BOLUS ONCE IV Last administered on 01/20/17 20:19; Start 01/20/17 at 19:45; Stop 01/20/17 at 20:45 ; Status DC Albuterol Sulfate (Proair Hfa Inh) 1 puff Q4H PRN INH SHORTNESS OF BREATH; Start 01/20/17 at 19:45 Alprazolam (Xanax) 1 mg BID PO Last administered on 01/20/17 21:39; Start at 21:00 Aspirin (Ecotrin Ec) 81 mg DAILY PO ; Start 01/21/17 at 09:00 Atorvastatin Calcium (Lipitor) 10 mg HS PO Last administered on 01/20/17 21:39 ; Start 01/20/17 at 21:00 Carisoprodol (Soma) 350 mg BID PO Last administered on 01/20/17 21:39; Start 01/20/17 at 21:00 Clopidogrel Bisulfate (Plavix) 75 mg DAILY PO ; Start 01/21/17 at 09:00 Gabapentin (Neurontin) 800 mg TID PO ; Start 01/21/17 at 09:00 Insulin Detemir (Levemir Inj) 35 units DAILY SQ Last administered on 01/21/17 08:39; Start 01/21/17 at 09:00 Oxycodone/ Acetaminophen (Percocet 10-325 Mg) 1 tab Q6H PRN PO PAIN 3-5 Last administered on 01/21/17 06:32; Start 01/20/17 at 19:45 Insulin Detemir (Levemir Inj) 10 units ONCE ONCE SQ Last administered on 20:12; Start 01/20/17 at 19:45; Stop 01/20/17 at 19:51; Status DC A/P Problem List: (1) Sepsis ICD Code: A41.9 Status: Acute (2) Diabetic foot infection ICD Code: E11.69 Status: Acute (3) Hypotension ICD Code: I95.9 Status: Acute (4) Renal insufficiency ICD Code: N28.9 Status: Acute (5) DM (diabetes mellitus) ICD Code: E11.9 Status: Acute Assessment and Plan Sepsis with hypotension -IMPROVING. -HR 114, WBC 23.14, Lactic Acid 2.4, repeat 1.8, Source-Right Foot Infection. S /p Wound Cultures, IV Cipro/Clinda in ER, follow up cultures, continue IV Abx. - see treatment as below. patient is on IVFs. Diabetic Foot Infection - -fluid collection noted. abscess and osteomyelitics. will get MRI. consult [employer] and ID. Renal Insufficiency -Acute on Chronic. Creatinine 1.25, previously 1.07 on 08/01/16, U/a negative, IVF for hydration. -IMPROVING. -strict I/O. -continue with IVFs. T2DM insulin dependent. -BS improved drastically. -continue to monitor. -continue to SSI. -will address accordingly. DVT Prophylaxis -Mechanical contraindication in light of foot wound/infection. Discharge Planning patient most likely will require IV antibiotics for a few days pending recommendations from ID and Pod. Diamond Arboleda MD Jan 21, 2017 12:39
[2017-01-21] MEDS ORDERED: Vancomycin Consult Pharmacy 1 EA OTHER SCH (13:15)
--- NOTE | 2017-01-21 13:40 | PD.CONS ---
History of Present Illness Service Infectious disease Consult Requested By Dr Mac Hoang Reason for Consult Evaluate patient with sepsis and right foot infection Primary Care Physician Arjun Lipscomb MD Diagnoses: History of Present Illness Patient seen and examined. Records reviewed. Patient is very lethargic and unable to give any good history. She is a 66-year-old female, with history of diabetes, and apparently he has had this right foot ulcer. Patient stated she developed the ulcer about 3 weeks ago. She has been seeing a specialty foods cook in [place] who has been managing her ulcer. She reportedly had I and D in the office about 3 days ago and patient apparently has been on Cipro and clindamycin for about a week prior to admission. Over the last several days she 's developed worsening pain, and increasing right foot drainage. She denied any fever or chills or any nausea or vomiting. She has not had any other complaint is far as respiratory, GI or any urinary complaints. On presentation she had a white count of 23,000, creatinine 1.25. Her sedimentation rate 36, C- reactive protein is 35. Admission she's had temperature of about 100. There was a wound culture that is growing strep at the lactate. Her WBC is up to 25. X-ray of the foot showing some soft tissue swelling, and there are some gas along medial aspect of the foot but no evidence of bony destructive changes. I spoke with patient's nurse. Patient was apparently very awake and agitated earlier today. She received her medication which included some Percocet, Soma, and Xanax, and patient currently is lethargic. Infectious disease consultation is requested to evaluate the patient. Review of Systems ROS Limitations: Clinical Condition, Altered Mental Status, Poor Historian ( Patient very lethargic) Constitutional: COMPLAINS OF: Fever Musculoskeletal: COMPLAINS OF: Joint pain, Joint Swelling Past Family Social History Allergies: Coded Allergies: Contrast Media (Verified Allergy, Severe, 01/20/17) Sulfa (Verified Allergy, Unknown, 01/20/17) Penicillin (Verified Adverse Reaction, Severe, NAUSEA,DIZZINESS, 01/20/17) Past Medical History Diabetes Previous diabetic foot infection Peripheral vascular disease COPD, asthma GERD Anxiety disorder Degenerative disc disease in the back and the neck Retinopathy There was mention at some point that she has neurogenic bladder and problem with urinary retention - There was actually an ED visit November 2016 for a blocked Chavira and her Chavira catheter was changed at that time. - Could not really get any good history from the patient regarding when her Chavira was discontinued since she is quite lethargic. Past Surgical History Hysterectomy Eye surgery for retinopathy Amputation of the right fifth toe for diabetic foot infection Active Ordered Medications Tylenol Albuterol Xanax Aspirin Lipitor Dulcolax Soma Clindamycin Plavix Neurontin Insulin Morphine Zofran Percocet Social History Patient lives at home with her mother There is history of smoking, unclear if the patient has stopped smoking No alcohol abuse No illicit drug use Physical Exam Vital Signs Vital Signs Date Time Temp Pulse Resp B/P Pulse Ox O2 Delivery O2 Flow Rate FiO2 01/21/17 12:16 98.9 109 21 119/80 94 01/21/17 08:15 97.9 101 22 109/67 94 01/21/17 04:00 100.0 106 18 115/82 95 01/21/17 00:00 99.5 113 18 108/69 97 01/20/17 23:02 Room Air 01/20/17 18:58 96 20 93/65 99 Room Air 01/20/17 18:29 89 20 88/58 99 Room Air 01/20/17 17:00 88 20 123/77 99 Room Air 01/20/17 17:00 20 01/20/17 15:45 20 01/20/17 15:00 85 20 128/86 99 Room Air 01/20/17 14:06 98.3 114 82/45 99 Physical Exam GENERAL: This is a well-nourished, well-developed female, she is very lethargic , and briefly opens her eyes when stimulated, not in respiratory distress. SKIN: Warm and dry, no generalized rash. HEAD: Atraumatic. Normocephalic. No temporal or scalp tenderness. EYES: [place] conjunctivae. Pupils equal round and reactive. Extraocular motions intact. No scleral icterus. No injection or drainage. ENT: Nose without bleeding, or purulent drainage. Slightly dry oral mucosa, she is edentulous. Throat without erythema, tonsillar hypertrophy or exudate. Uvula midline. Airway patent. NECK: Trachea midline. No JVD or lymphadenopathy. Supple, nontender, no meningeal signs. CARDIOVASCULAR: Regular rate and rhythm without murmurs, gallops, or rubs. RESPIRATORY: Clear to auscultation. Breath sounds equal bilaterally. No wheezes , rales, or rhonchi. Decreased breath sounds at the bases. GASTROINTESTINAL: Abdomen soft, has a distended bladder, the top of the bladder palpated just below the umbilicus, tender. No guarding. No rebound. After Chavira catheter inserted, repeat abdominal exam was done and it soft, no distention, and no tenderness. MUSCULOSKELETAL: LLE: without clubbing, cyanosis, or edema. No joint tenderness, effusion, or edema noted. No calf tenderness.Has scars on her L leg. RLE: R foot is edematous with bullous lesion on dorsum with yellow fluid , and there is also fluid filled areas on medial aspect of her foot. There is an ulcer about 1 inch diameter over her R 1st MT with serosanguineous drainage. There is a callus over her 5th MTP on plantar aspect. The whole R foot is very tender to touch, warm all the way to her R leg. Negative Homans sign bilaterally. NO foul odor noted NEUROLOGICAL: Very lethargic PSYCH: Unable to assess : Chavira in place, urine looks clear LINE: PIV with no evidence of infection Laboratory Laboratory Tests Test 01/20/17 01/20/17 01/20/17 01/20/17 15:30 17:15 17:28 18:58 White Blood Count 23.4 Red Blood Count 4.69 Hemoglobin 12.8 Hematocrit 39.4 Mean Corpuscular Volume 83.9 Mean Corpuscular Hemoglobin 27.2 Mean Corpuscular Hemoglobin 32.5 Concent Red Cell Distribution Width 13.3 Platelet Count 361 Mean Platelet Volume 10.1 Neutrophils (%) (Auto) 89.9 Lymphocytes (%) (Auto) 4.2 Monocytes (%) (Auto) 5.6 Eosinophils (%) (Auto) 0.0 Basophils (%) (Auto) 0.3 Neutrophils # (Auto) 21.0 Lymphocytes # (Auto) 1.0 Monocytes # (Auto) 1.3 Eosinophils # (Auto) 0.0 Basophils # (Auto) 0.1 CBC Comment DIFF FINAL Differential Comment Erythrocyte Sedimentation Rate 16 Sodium Level 135 Potassium Level 4.4 Chloride Level 95 Carbon Dioxide Level 21.9 Anion Gap 18 Blood Urea Nitrogen 17 Creatinine 1.25 Estimat Glomerular Filtration 52 Rate Random Glucose 610 Lactic Acid Level 2.4 1.8 Calcium Level 9.8 Total Bilirubin 0.7 Aspartate Amino Transf 30 (AST/SGOT) Alanine Aminotransferase 14 (ALT/SGPT) Alkaline Phosphatase 163 C-Reactive Protein 35.40 Total Protein 8.6 Albumin 2.3 B-Hydroxybutyrate 5.32 Urine Color LIGHT-YELLOW Urine Turbidity CLEAR Urine pH 5.5 Urine Specific [place] 1.019 Urine Protein TRACE Urine Glucose (UA) 1000 Urine Ketones 40 Urine Occult Blood NEG Urine Nitrite NEG Urine Bilirubin NEG Urine Urobilinogen LESS THAN 2.0 Urine Leukocyte Esterase NEG Urine RBC 1 Urine WBC 1 Urine Squamous Epithelial 4 Cells Urine Bacteria RARE Urine Mucus FEW Microscopic Urinalysis Comment CULT NOT INDICATED Blood Gas Puncture Site LINE Blood Gas Patient Temperature 98.6 Venous Blood pH 7.35 Venous Blood Partial Pressure 48 CO2 Venous Blood Partial Pressure 14 O2 Venous Blood HCO3 26 Venous Blood Oxygen Saturation 11 Venous Blood Oxygen Content 2.1 Venous Blood Base Excess 1.0 Blood Gas Inspired Oxygen 21 Test 01/21/17 07:11 White Blood Count 25.0 Red Blood Count 4.68 Hemoglobin 12.9 Hematocrit 37.8 Mean Corpuscular Volume 80.8 Mean Corpuscular Hemoglobin 27.5 Mean Corpuscular Hemoglobin 34.1 Concent Red Cell Distribution Width 13.2 Platelet Count 329 Mean Platelet Volume 9.6 Neutrophils (%) (Auto) 91.5 Lymphocytes (%) (Auto) 3.7 Monocytes (%) (Auto) 4.2 Eosinophils (%) (Auto) 0.1 Basophils (%) (Auto) 0.5 Neutrophils # (Auto) 22.8 Lymphocytes # (Auto) 0.9 Monocytes # (Auto) 1.1 Eosinophils # (Auto) 0.0 Basophils # (Auto) 0.1 CBC Comment DIFF FINAL Differential Comment Sodium Level 139 Potassium Level 3.5 Chloride Level 105 Carbon Dioxide Level 22.2 Anion Gap 12 Blood Urea Nitrogen 13 Creatinine 0.84 Estimat Glomerular Filtration 82 Rate Random Glucose 268 Hemoglobin A1c 11.4 Calcium Level 9.5 Total Bilirubin 0.4 Aspartate Amino Transf 13 (AST/SGOT) Alanine Aminotransferase 13 (ALT/SGPT) Alkaline Phosphatase 160 Total Protein 8.1 Albumin 2.1 Date/Time Procedure Status Source Growth 01/20/17 15:30 Gram Stain - Final Resulted Wound Foot 01/20/17 15:30 Wound Culture - Preliminary Resulted Group B Beta Strep Result Diagram: 01/21/17 0711 01/21/17 0711 Imaging RADIOLOGY STUDIES/FILMS REVIEWED Foot X-Ray 01/20/17 0000 Signed Impressions: Service Date/Time: Friday, January 20, 2017 15:15 - CONCLUSION: 1. That is post amputation of the fifth digit to the level of the metatarsal head. 2. Mild soft tissue swelling and gas over the medial first metatarsal phalangeal joint with no destructive change. Tavares Flores MD Chest X-Ray 01/20/17 0000 Signed Impressions: Service Date/Time: Friday, January 20, 2017 15:13 - CONCLUSION: No acute disease. Tavares Flores MD Assessment and Plan Assessment and Plan IMPRESSION Sepsis on admission, due to severe DFI R foot - has fever, lethargy, low BP, tachycardia, elevated lactic acid, elevated creatinine DFI DM, PVD Urinary retention - previous records mentioned neurogenic blader and problem with urinary retention Renal insufficiency due to sepsis, ?underlying DM nephropathy RECOMMENDATION Broaden Abx for DFI Cefepime, Flagyl and Vancomycin podiatry to take patient to surgery Follow C/S Agree with BC Monitor temps Monitor CBC Monitor progress I will follow along with you Thank you for this consultation Discussed Condition With Discussed with RN Discussed with the podiatry, Nadja Connor MD Jan 21, 2017 13:40
[2017-01-21] MEDS: metroNIDAZOLE 500 MG INJ 100 ML IV SCH ×2 (14:00→22:05)
--- NOTE | 2017-01-21 14:11 | MB ---
cc: CARMINE WOUSU DPM DATE OF CONSULTATION: 01/21/2017. REASON FOR CONSULTATION: Likely diabetic right foot infection with sepsis. HISTORY OF PRESENT ILLNESS: This a 66-year-old female who comes from [place]. She has been seeing a Dr. Chin for wound debridement. She has had increasing pain and drainage from the foot. Currently I am seeing the patient bedside. She is a poor historian. She is retired. She is borderline lethargic. I cannot get much of a past medical history or a history of present illness from her. PAST MEDICAL HISTORY: 1. Hypertension. 2. Diabetes. 3. Chronic right foot ulcer. 4. Peripheral vascular disease. 5. Possible neurogenic bladder. PAST SURGICAL HISTORY: 1. CABG with fifth toe amputation in 2011. CODED ALLERGIES: 1. SULFA. 2. PENICILLIN. PHYSICAL EXAMINATION: VITAL SIGNS: Highest temperature is 100 at 4:00 a.m. today; however, currently 98.9, pulse rate is 109, respiratory rate is 21, blood pressure 119/80. She is satting 94% on room air. GENERAL: This is a borderline alert but oriented female seen bedside. Right lower extremity there is significant soft tissue blistering and edema of the dorsum of the foot. There is no gas. There is no crepitus felt within the tissue. However, there are obvious clinical signs of an abscess that appear to be at the dorsum of the foot and the plantar foot. There is an ulcer which appears to be borderline full thickness of the medial first MPJ with likely exposed joint capsule with mild eschar formation. The foot is warm. The toes do have capillary fill time absent fifth digit. Pulses are hard to palpate for the edema. Sensation decreased to light touch. It appears that the calf is nontender and nondistended. LABORATORY DATA: White blood cells 25, hemoglobin and hematocrit of 12 and 37, platelet count is 329,000. Chem-7: Sodium 139, potassium 3.5, chloride 105, carbon dioxide 22.2, BUN is 13, random glucose 268, hemoglobin A1c is 11.4. IMAGING STUDIES: Foot x-ray: There is significant soft tissue inflammation without any obvious bony destructive process. There is noted to be mild gas over the medial first MPJ. ASSESSMENT AND PLAN: Severe right diabetic foot infection with sepsis. Blood cultures ordered. Discussed the case with medicine and infectious disease. Surgery will take place within the next few hours to evacuate the abscess and attempt a diabetic foot and limb salvage. The prognosis is poor given the extent of the infection; however, an attempt at limb salvage will take place. This may the first of many surgeries depending on the patient's intraoperative bleeding postop vascular consult may be indicated. Furthermore, the patient may need to recover in the post-anesthesia care unit and then proceed to the unit for observation for the next 24 to 48 hours. Medicine agreed. I will see the patient within the next few hours for surgery. TONG Contreras/ALAINA /1:16 PM /2:02 PM [email or web address]
[2017-01-21] MEDS: CEFEPIME INJ 2,000 MG in SODIUM CHLORIDE 0.9% INJ 100 ML IV SCH (15:00)
[2017-01-21] MEDS ORDERED: GADODIAMIDE PF 287 MG/ML 5 ML VIAL (for RAD MRI) IV PUSH ONE (15:28)
[2017-01-21] MEDS ORDERED: VANCOMYCIN INJ 1,000 MG in SODIUM CHLOR 0.9% 250 ML INJ 250 ML IV ONE (16:00)
--- NOTE | 2017-01-21 17:02 | RADRPT ---
EXAM DATE/TIME: 01/21/2017 14:57 [facility] COMPARISON: No previous studies available for comparison. INDICATIONS : Osteomyelitis. CONTRAST: 13 cc Omniscan (gadodiamide) IV MEDICAL HISTORY : Diabetes mellitus type 2. Chronic obstructive pulmonary disease. SURGICAL HISTORY : CABG Hysterectomy. Coronary artery stent. Right fifth toe amputation. ENCOUNTER: Initial ACUITY: 1 week PAIN SCORE: 0/10 LOCATION: Right foot TECHNIQUE: Multiplanar, multisequence MRI examination was performed without contrast and after the intravenous a dministration of gadolinium. FINDINGS: A focal ulcer is again noted along the medial foot at the level of the first metatarsal head. There i s no drainable fluid collection in this region. There is abnormal signal and enhancement involving th e medial sesamoid bone consistent with osteomyelitis. There is a small area of abnormal signal and en hancement involving the first metatarsal neck as well. There is enhancement of the abductor hallux mu scle consistent with infection. There is surrounding soft tissue swelling. The other osseous structures demonstrate normal marrow signal. CONCLUSION: 1. Osteomyelitis involving the first medial sesamoid bone. 2. Small focal area of abnormal enhancement and signal in the first metatarsal head also of concern f or osteomyelitis. 3. Enhancement of the abductor hallux muscle consistent with infection. 4. Focal ulcer and soft tissue swelling. Tavares Flores MD on January 21, 2017 at 16:55 Board Certified Radiologist. This report was verified electronically.
[2017-01-21] MEDS ORDERED: BUPIVACAINE HCL PF 0.25% 30 ML VIAL ONE (17:48)
--- NOTE | 2017-01-21 19:23 | HHI.PR ---
Immediate Post Op Note Procedure Date: Jan 21, 2017 Pre Op Diagnosis: (1) Osteomyelitis of ankle or foot, right, acute (2) Diabetic foot infection Post Op Diagnosis: (1) Diabetic foot infection (2) Osteomyelitis of ankle or foot, right, acute Surgeon: Bassam Zhou Wool Hanker(s): James Procedure: Incision drainage expansile right foot with incision bone cortex hallux and 1st metatarsal Findings: Severe infection putrid odor Complications: None Specimen(s) removed: bn for path x2 proximal phalanx hallux and 1st metatarsal head, x2 wd cx, one from 1st met head and one form the deep tissue Anesthesia: General, Local Drains: Other Tourniquet time (min at mmHg) none Patient to: Other Patient Condition: Poor Implant/Devices: SEE IMPLANT LOG (if applicable) Date/Time of Procedure: SEE SURGICAL CARE RECORD Bassam Zhou DPM Jan 21, 2017 19:23
[2017-01-21] MEDS ORDERED: *morphine SULFATE 8 MG/ML PERIprocedure ONLY ONE (19:45)
[2017-01-21] MEDS ORDERED: DO NOT ADM ANY ANTICOAGULANT DRUGS XX PRN (19:45)
[2017-01-21] MEDS ORDERED: SODIUM CHLORID 0.9% 500 ML INJ 500 ML IV ONE (20:45)
[2017-01-21] MEDS: ATORVASTATIN 10 MG TAB PO SCH (21:00)
[2017-01-22] MEDS: CLINDAMYCIN INJ 900 MG in SODIUM CHLORIDE 0.9% INJ 100 ML IV SCH ×3 (01:24→19:00)
[2017-01-22] MEDS: ALBUTEROL SULFATE 90 MCG/ACT HFA 8 GM INHALER INH PRN (01:56)
[2017-01-22] MEDS: CEFEPIME INJ 2,000 MG in SODIUM CHLORIDE 0.9% INJ 100 ML IV SCH ×2 (03:20→16:21)
[2017-01-22 04:00] VITALS: BP 123/63; PULSE 93; RESP 20; TEMP 99.2; O2SAT 97
[2017-01-22] MEDS: metroNIDAZOLE 500 MG INJ 100 ML IV SCH ×3 (05:10→21:47)
[2017-01-22] MEDS: INSULIN ASPART SUPPLEMENTAL SCALE SQ SCH ×4 (05:17→21:51)
[2017-01-22 08:00] VITALS: BP 159/78; PULSE 110; RESP 24; TEMP 98.9; O2SAT 98
--- NOTE | 2017-01-22 08:09 | PD.POD ---
Subjective Pain score: 5 Remarks Awake, very alert very hungry, seen with grand daughter bedside. Past Med/Surg/Social History Social History Smoking Status: Former Smoker Objective Vital Signs Vital Signs Date Time Temp Pulse Resp B/P Pulse Ox O2 Delivery O2 Flow Rate FiO2 01/22/17 04:00 99.2 93 20 123/63 97 01/21/17 23:08 85 01/21/17 23:00 96.6 86 18 113/57 96 01/21/17 22:15 87 23 114/63 100 Nasal Cannula 2 01/21/17 22:00 98.5 97 14 119/65 98 Nasal Cannula 2 01/21/17 21:45 99 20 123/64 98 Nasal Cannula 2 01/21/17 21:30 92 23 126/65 98 Nasal Cannula 2 01/21/17 21:15 97 14 83/60 99 Nasal Cannula 2 01/21/17 21:00 98.8 93 23 85/58 99 Nasal Cannula 2 01/21/17 20:45 90 24 116/80 100 Nasal Cannula 2 01/21/17 20:30 93 19 82/55 100 Nasal Cannula 3 01/21/17 20:05 95 16 120/84 100 Nasal Cannula 3 01/21/17 20:00 98.1 98 14 88/53 100 Nasal Cannula 3 01/21/17 19:45 96 16 71/50 100 Nasal Cannula 3 01/21/17 19:30 105 20 117/74 97 Nasal Cannula 3 01/21/17 19:15 99.2 106 16 98/74 98 Nasal Cannula 3 01/21/17 16:40 98.4 91 20 109/70 98 01/21/17 12:16 98.9 109 21 119/80 94 01/21/17 08:15 97.9 101 22 109/67 94 Coded Allergies: Contrast Media (Verified Allergy, Severe, 01/20/17) Sulfa (Verified Allergy, Unknown, 01/20/17) Penicillin (Verified Adverse Reaction, Severe, NAUSEA,DIZZINESS, 01/20/17) Medications and IVs Administered Medications Medications (Trade) Dose Ordered Sig/Aliyah Route PRN Reason Start Time Stop Time Status Last Admin Dose Admin Clindamycin Phosphate 900 mg/ Sodium Chloride 106 ml @ 212 mls/hr Q8H IV 01/21/17 01:00 01/22/17 17:29 01/22/17 01:24 Sodium Chloride (NS 1000 ml Inj) 1,000 ml @ 100 mls/hr Q10H IV 01/20/17 19:36 01/21/17 19:45 Morphine Sulfate (Morphine Inj) 2 mg Q3H PRN IV Pain 6-10 01/20/17 19:45 01/22/17 01:50 Albuterol Sulfate (Proair Hfa Inh) 1 puff Q4H PRN INH SHORTNESS OF BREATH 01/20/17 19:45 01/22/17 01:56 Alprazolam (Xanax) 1 mg BID PO 01/20/17 21:00 01/21/17 12:04 Aspirin (Ecotrin Ec) 81 mg DAILY PO 01/21/17 09:00 01/21/17 12:04 Atorvastatin Calcium (Lipitor) 10 mg HS PO 01/20/17 21:00 01/20/17 21:39 Carisoprodol (Soma) 350 mg BID PO 01/20/17 21:00 01/21/17 12:04 Clopidogrel Bisulfate (Plavix) 75 mg DAILY PO 01/21/17 09:00 01/21/17 12:03 Gabapentin (Neurontin) 800 mg TID PO 01/21/17 09:00 01/21/17 12:03 Insulin Detemir (Levemir Inj) 35 units DAILY SQ 01/21/17 09:00 01/21/17 08:39 Oxycodone/ Acetaminophen 1 tab 1 tab Q6H PRN PO PAIN 3-5 01/20/17 19:45 01/21/17 06:32 Cefepime HCl 2000 mg/Sodium Chloride 100 ml @ 200 mls/hr Q12H IV 01/21/17 15:00 01/22/17 03:20 Metronidazole (Flagyl 500 Mg Inj) 100 ml @ 100 mls/hr Q8H IV 01/21/17 14:00 01/22/17 05:10 Other Results Laboratory Tests Test 01/20/17 01/21/17 15:30 07:11 White Blood Count 23.4 TH/MM3 25.0 TH/MM3 Red Blood Count 4.69 MIL/MM3 4.68 MIL/MM3 Hemoglobin 12.8 GM/DL 12.9 GM/DL Hematocrit 39.4 % 37.8 % Mean Corpuscular Volume 83.9 FL 80.8 FL Mean Corpuscular Hemoglobin 27.2 PG 27.5 PG Mean Corpuscular Hemoglobin 32.5 % 34.1 % Concent Red Cell Distribution Width 13.3 % 13.2 % Platelet Count 361 TH/MM3 329 TH/MM3 Mean Platelet Volume 10.1 FL 9.6 FL Neutrophils (%) (Auto) 89.9 % 91.5 % Lymphocytes (%) (Auto) 4.2 % 3.7 % Monocytes (%) (Auto) 5.6 % 4.2 % Eosinophils (%) (Auto) 0.0 % 0.1 % Basophils (%) (Auto) 0.3 % 0.5 % Neutrophils # (Auto) 21.0 TH/MM3 22.8 TH/MM3 Lymphocytes # (Auto) 1.0 TH/MM3 0.9 TH/MM3 Monocytes # (Auto) 1.3 TH/MM3 1.1 TH/MM3 Eosinophils # (Auto) 0.0 TH/MM3 0.0 TH/MM3 Basophils # (Auto) 0.1 TH/MM3 0.1 TH/MM3 CBC Comment DIFF FINAL DIFF FINAL Differential Comment Erythrocyte Sedimentation Rate 16 mm/hr Laboratory Tests Test 01/20/17 01/20/17 01/21/17 15:30 17:28 07:11 Sodium Level 135 MEQ/L 139 MEQ/L Potassium Level 4.4 MEQ/L 3.5 MEQ/L Chloride Level 95 MEQ/L 105 MEQ/L Carbon Dioxide Level 21.9 MEQ/L 22.2 MEQ/L Anion Gap 18 MEQ/L 12 MEQ/L Blood Urea Nitrogen 17 MG/DL 13 MG/DL Creatinine 1.25 MG/DL 0.84 MG/DL Estimat Glomerular Filtration 52 ML/MIN 82 ML/MIN Rate Random Glucose 610 MG/DL 268 MG/DL Lactic Acid Level 2.4 mmol/L 1.8 mmol/L Calcium Level 9.8 MG/DL 9.5 MG/DL Total Bilirubin 0.7 MG/DL 0.4 MG/DL Aspartate Amino Transf 30 U/L 13 U/L (AST/SGOT) Alanine Aminotransferase 14 U/L 13 U/L (ALT/SGPT) Alkaline Phosphatase 163 U/L 160 U/L C-Reactive Protein 35.40 MG/DL Total Protein 8.6 GM/DL 8.1 GM/DL Albumin 2.3 GM/DL 2.1 GM/DL Hemoglobin A1c 11.4 % Microbiology Date/Time Procedure Status Source Growth 01/20/17 15:30 Gram Stain - Final Resulted Wound Foot 01/20/17 15:30 Wound Culture - Preliminary Resulted Group B Beta Strep 01/21/17 18:55 Gram Stain Received Wound Foot Pending 01/21/17 18:55 Wound Culture Received Wound Foot Pending 01/21/17 18:55 Acid Fast Stain Received Wound Foot Pending 01/21/17 18:55 Mycobacterial Culture Received Wound Foot Pending 01/21/17 18:55 Fungal Smear Received Wound Foot Pending 01/21/17 18:55 Fungal Culture Received Wound Foot Pending 01/21/17 18:55 Gram Stain Received Wound Foot Pending 01/21/17 18:55 Wound Culture Received Wound Foot Pending 01/21/17 18:55 Acid Fast Stain Received Wound Foot Pending 01/21/17 18:55 Mycobacterial Culture Received Wound Foot Pending 01/21/17 18:55 Fungal Smear Received Wound Foot Pending 01/21/17 18:55 Fungal Culture Received Wound Foot Pending Last 72 hours Impressions Foot MRI 01/21/17 0000 Signed Impressions: Service Date/Time: Saturday, January 21, 2017 14:57 - CONCLUSION: 1. Osteomyelitis involving the first medial sesamoid bone. 2. Small focal area of abnormal enhancement and signal in the first metatarsal head also of concern for osteomyelitis. 3. Enhancement of the abductor hallux muscle consistent with infection. 4. Focal ulcer and soft tissue swelling. Tavares Flores MD Foot X-Ray 01/20/17 0000 Signed Impressions: Service Date/Time: Friday, January 20, 2017 15:15 - CONCLUSION: 1. That is post amputation of the fifth digit to the level of the metatarsal head. 2. Mild soft tissue swelling and gas over the medial first metatarsal phalangeal joint with no destructive change. Tavares Flores MD Chest X-Ray 01/20/17 0000 Signed Impressions: Service Date/Time: Friday, January 20, 2017 15:13 - CONCLUSION: No acute disease. Tavares Flores MD Exam-Podiatry Remarks Right LE- Medial and plantar incision with mild drainage, packing intact, no odor, + exposed tendon and muscle medial foot, ischemia changes of hallux noted, no swelling of fluctuance above the ankle. Assessment & Plan A/P Severe DM right foot infection with likely OM. SP I and D and bone bx -. Advanced diet, patient appears in general improving, packing to be removed tomorrow, KALYAN's ordered, will need likely some form of hallux amp with wound vac , Path and Micro is pending. Will sign off to Dr Porras who will start care . Bassam Mishra DPM Jan 22, 2017 08:09
[2017-01-22] MEDS: SODIUM CHLORIDE 0.9% FLUSH 5 ML FLUSH FLUSH SCH ×2 (09:00→21:00)
[2017-01-22] MEDS: SODIUM CHLOR 0.9% 1000 ML INJ 1,000 ML IV SCH ×2 (09:08→21:49)
[2017-01-22] MEDS: INSULIN DETEMIR 100 UNITS/ML VIAL SQ SCH (09:10)
[2017-01-22] MEDS: ASPIRIN EC 81 MG TABEC PO SCH (09:11)
[2017-01-22] MEDS: GABAPENTIN 400 MG CAP PO SCH ×3 (09:11→16:10)
[2017-01-22] MEDS: CARISOPRODOL 350 MG TAB PO SCH ×2 (09:11→21:00)
[2017-01-22] MEDS: CLOPIDOGREL 75 MG TAB PO SCH (09:11)
[2017-01-22] MEDS: ALPRAZolam 1 MG TAB PO SCH ×2 (09:12→21:00)
[2017-01-22] MEDS: oxyCODONE/ACETAMINOPHEN 10 MG/325 MG TAB PO PRN ×2 (09:14→21:50)
[2017-01-22 09:28] LABS: HEMATOCRIT 38.6 % (35.0-46.0); MEAN CELL VOLUME 83.9 FL (80.0-100.0); MEAN CORPUSCULAR HEMOGLOBIN 27.2 PG (27.0-34.0); MEAN CORPUSCULAR HGB CONC 32.4 % (32.0-36.0); PLATELET COUNT 303 TH/MM3 (150-450); RED CELL DISTRIBUTION WIDTH 13.5 % (11.6-17.2); REVIEW FLAG FINAL; WHITE BLOOD COUNT 15.6 TH/MM3 (4.0-11.0)
[2017-01-22 09:34] LABS: BICARBONATE 20.6 MEQ/L (21.0-32.0); POTASSIUM 3.5 MEQ/L (3.5-5.1)
--- NOTE | 2017-01-22 10:12 | HHI.PR ---
Subjective Remarks Follow-up for infection of the right foot. Patient is much more alert today and has no complaints. She stated that she feels a lot better. Her granddaughter is at the bedside. Patient's daughter is on face time during the interview. Daughter requesting that medical record from [facility] [place] to be obtained when patient was hospitalized for her left leg infection. She remains afebrile in no acute events last night. Objective Vitals Vital Signs Date Time Temp Pulse Resp B/P Pulse Ox O2 Delivery O2 Flow Rate FiO2 01/22/17 09:37 Nasal Cannula 3.00 01/22/17 04:00 99.2 93 20 123/63 97 01/21/17 23:08 85 01/21/17 23:00 96.6 86 18 113/57 96 01/21/17 22:15 87 23 114/63 100 Nasal Cannula 2 01/21/17 22:00 98.5 97 14 119/65 98 Nasal Cannula 2 01/21/17 21:45 99 20 123/64 98 Nasal Cannula 2 01/21/17 21:30 92 23 126/65 98 Nasal Cannula 2 01/21/17 21:15 97 14 83/60 99 Nasal Cannula 2 01/21/17 21:00 98.8 93 23 85/58 99 Nasal Cannula 2 01/21/17 20:45 90 24 116/80 100 Nasal Cannula 2 01/21/17 20:30 93 19 82/55 100 Nasal Cannula 3 01/21/17 20:05 95 16 120/84 100 Nasal Cannula 3 01/21/17 20:00 98.1 98 14 88/53 100 Nasal Cannula 3 01/21/17 19:45 96 16 71/50 100 Nasal Cannula 3 01/21/17 19:30 105 20 117/74 97 Nasal Cannula 3 01/21/17 19:15 99.2 106 16 98/74 98 Nasal Cannula 3 01/21/17 16:40 98.4 91 20 109/70 98 01/21/17 12:16 98.9 109 21 119/80 94 I/O 01/21/17 01/21/17 01/21/17 01/22/17 01/22/17 01/22/17 07:00 15:00 23:00 07:00 15:00 23:00 Intake Total 100 ml 0 ml 1555 ml 1490 ml Output Total 1200 ml 875 ml 900 ml Balance 100 ml -1200 ml 680 ml 590 ml Intake Oral 100 ml 0 ml 55 ml 400 ml IV Total 1050 ml 1090 ml Other 450 ml Output Urine Total 1200 ml 425 ml 900 ml Estimated Blood Loss 50 ml Other 400 ml # Voids 1 # Bowel Movements 0 Result Diagram: 01/22/1785201/22/17852 Objective Remarks GENERAL: in NAD CARDIOVASCULAR: Regular rate and rhythm without murmurs, gallops, or rubs. RESPIRATORY: Breath sounds equal bilaterally. No accessory muscle use. GASTROINTESTINAL: Abdomen soft, non-tender, nondistended. MUSCULOSKELETAL: Right foot and bandage. BACK: Nontender without obvious deformity. No CVA tenderness. NEURO:alert and follow commands and answering questions appropriately. Medications and IVs Current Medications Morphine Sulfate 4 mg 4 mg ONCE ONCE IV PUSH Last administered on 01/20/17 15 :39; Start 01/20/17 at 15:00; Stop 01/20/17 at 15:01; Status DC Ciprofloxacin/ Dextrose 200 ml @ 200 mls/hr ONCE ONCE IV Last administered on 01/20/17 15:38; Start 01/20/17 at 15:00; Stop 01/20/17 at 15:59; Status DC Clindamycin Phosphate 600 mg/ Sodium Chloride 104 ml @ 208 mls/hr ONCE ONCE IV Last administered on 01/20/17 17:26; Start 01/20/17 at 15:00; Stop at 15:29; Status DC Sodium Chloride (NS 1000 ml Inj) 1,000 ml @ 2,000 mls/hr Q30M ONCE IV Last administered on 01/20/17 15:39; Start 01/20/17 at 15:00; Stop 01/20/17 at 15:29 ; Status DC Insulin Aspart (NovoLOG INJ) 10 units ONCE ONCE SQ Last administered on 16:55; Start 01/20/17 at 16:45; Stop 01/20/17 at 16:46; Status DC Morphine Sulfate 4 mg 4 mg ONCE ONCE IV PUSH Last administered on 01/20/17 16 :55; Start 01/20/17 at 16:45; Stop 01/20/17 at 16:46; Status DC Clindamycin Phosphate/Sodium Chloride (Cleocin Inj/NS Inj) 106 ml @ 212 mls/hr Q8H IV Last administered on 01/22/17 09:11; Start 01/21/17 at 01:00; Stop at 17:29 Dextrose (D50w (Vial) Inj) 25 ml UNSCH PRN IV PUSH HYPOGLYCEMIA-SEE COMMENTS; Start 01/20/17 at 19:45 Glucagon (Glucagon Inj) 1 mg UNSCH PRN OTHER HYPOGLYCEMIA-SEE COMMENTS; Start 01/20/17 at 19:45 Insulin Aspart 1 1 ACHS SLIDING SCALE SQ Last administered on 01/21/17 21:10 ; Start 01/20/17 at 21:00 Sodium Chloride (NS 1000 ml Inj) 1,000 ml @ 100 mls/hr Q10H IV Last administered on 01/22/17 09:08; Start 01/20/17 at 19:36 IV Flush (NS Flush) 2 ml UNSCH PRN FLUSH FLUSH AFTER USING IV ACCESS; Start at 19:45 IV Flush (NS Flush) 2 ml BID FLUSH ; Start 01/20/17 at 21:00 Ondansetron HCl (Zofran Inj) 4 mg Q6H PRN IVP NAUSEA OR VOMITING; Start at 19:45 Bisacodyl (Dulcolax Supp) 10 mg DAILY PRN [place] CONSTIPATION; Start 01/20/17 at 19 :45 Acetaminophen (Tylenol) 650 mg Q6H PRN PO FEVER/PAIN SCALE 1 TO 2; Start at 19:45 Morphine Sulfate 2 mg 2 mg Q3H PRN IV Pain 6-10 Last administered on 01/22/17 01:50; Start 01/20/17 at 19:45 Sodium Chloride (NS 1000 ml Inj) 1,000 ml @ 999 mls/hr BOLUS ONCE IV Last administered on 01/20/17 20:19; Start 01/20/17 at 19:45; Stop 01/20/17 at 20:45 ; Status DC Albuterol Sulfate (Proair Hfa Inh) 1 puff Q4H PRN INH SHORTNESS OF BREATH Last administered on 01/22/17 01:56; Start 01/20/17 at 19:45 Alprazolam (Xanax) 1 mg BID PO Last administered on 01/22/17 09:12; Start at 21:00 Aspirin (Ecotrin Ec) 81 mg DAILY PO Last administered on 01/22/17 09:11; Start 01/21/17 at 09:00 Atorvastatin Calcium (Lipitor) 10 mg HS PO Last administered on 01/20/17 21:39 ; Start 01/20/17 at 21:00 Carisoprodol (Soma) 350 mg BID PO Last administered on 01/22/17 09:11; Start 01/20/17 at 21:00 Clopidogrel Bisulfate (Plavix) 75 mg DAILY PO Last administered on 01/22/17 09 :11; Start 01/21/17 at 09:00 Gabapentin (Neurontin) 800 mg TID PO Last administered on 01/22/17 09:11; Start 01/21/17 at 09:00 Insulin Detemir (Levemir Inj) 35 units DAILY SQ Last administered on 01/22/17 09:10; Start 01/21/17 at 09:00 Oxycodone/ Acetaminophen (Percocet 10-325 Mg) 1 tab Q6H PRN PO PAIN 3-5 Last administered on 01/22/17 09:14; Start 01/20/17 at 19:45 Insulin Detemir 10 units 10 units ONCE ONCE SQ Last administered on 01/20/17 20:12; Start 01/20/17 at 19:45; Stop 01/20/17 at 19:51; Status DC Cefepime HCl 2000 mg/Sodium Chloride 100 ml @ 200 mls/hr Q12H IV Last administered on 01/22/17 03:20; Start 01/21/17 at 15:00 Metronidazole 100 ml @ 100 mls/hr Q8H IV Last administered on 01/22/17 05:10 ; Start 01/21/17 at 14:00 Vancomycin HCl 1000 mg/Sodium Chloride 250 ml @ 250 mls/hr ONCE ONCE IV Last administered on 01/21/17 17:10; Start 01/21/17 at 16:00; Stop 01/21/17 at 16:59 ; Status DC Pharmacy Profile Note 0 ml @ 0 mls/hr UNSCH OTHER ; Start 01/21/17 at 13:15 Vancomycin HCl/ Sodium Chloride (Vancomycin Inj/ NS 250 ml Inj) 250 ml @ 250 mls/hr Q18H IV ; Start 01/22/17 at 10:00 Miscellaneous Information SPECIFIC LAB TO BE DRAWN:VANCOMY... ONCE ONCE XX ; Start 01/23/17 at 21:45; Stop 01/23/17 at 21:46 Gadodiamide (Omniscan Pf Inj) 13 ml STK-MED ONCE IV PUSH Last administered on 15:28; Start 01/21/17 at 15:28; Stop 01/21/17 at 15:29; Status DC Bupivacaine HCl (Marcaine Pf 0.25% Inj) 30 ml STK-MED ONCE .ROUTE Last administered on 01/21/17 19:05; Start 01/21/17 at 17:48; Stop 01/21/17 at 17:49 ; Status DC Fentanyl Citrate (fentaNYL INJ) 100 mcg STK-MED ONCE .ROUTE ; Start 01/21/17 at 19:35; Stop 01/21/17 at 19:36; Status DC Miscellaneous Information ALL NURSING DEPARTME... UNSCH PRN XX SEE LABEL COMMENTS; Start 01/21/17 at 19:45; Stop 01/22/17 at 19:44 Morphine Sulfate 8 mg 8 mg STK-MED ONCE .ROUTE Last administered on 01/21/17 19:45; Start 01/21/17 at 19:45; Stop 01/21/17 at 19:46; Status DC Sodium Chloride (NS 500 ml Inj) 500 ml @ 0 mls/hr BOLUS ONCE IV Last administered on 01/21/17 20:45; Start 01/21/17 at 20:45; Stop 01/21/17 at 20:46 ; Status DC A/P Problem List: (1) Sepsis ICD Code: A41.9 Status: Acute (2) Diabetic foot infection ICD Code: E11.69 Status: Acute (3) Hypotension ICD Code: I95.9 Status: Acute (4) Renal insufficiency ICD Code: N28.9 Status: Acute (5) DM (diabetes mellitus) ICD Code: E11.9 Status: Acute Assessment and Plan Sepsis with hypotension -IMPROVING and hypotension resolved. -HR 114, WBC 23.14, Lactic Acid 2.4, repeat 1.8, Source-Right Foot Infection. - see treatment as below. patient is on IVFs. Diabetic Foot Infection -MRI -s/p Incision drainage expansile right foot with incision bone cortex hallux and 1st metatarsal on 01/21. -Pod and ID ff -cultures obtain in ED showed group B beta strep. will wait for cultures that were obtained from surgery. Blood cultures are so far negative. -patient on vancomycin, cefepime, and Flagyl per infectious disease. - Per nurse case management Dr. Mishra packing to be removed tomorrow, KALYAN's ordered, will need likely some form of hallux amp with wound vac, Path and Micro is pending. Will sign off to Dr Porras who will start care 01/23. Acute Renal Insufficiency -Most likely prerenal due to sepsis. -Resolved. Patient no longer an acute renal failure. -strict I/O. -continue with IVFs. T2DM insulin dependent. -BS improved drastically. -continue to monitor. -continue to SSI. -will address accordingly. DVT Prophylaxis -Mechanical contraindication in light of foot wound/infection. Discharge Planning patient most likely will require IV antibiotics for a few days pending recommendations from ID and Pod. Due to the severity infection including osteomyelitis patient will need long- term IV antibiotics. I also dealt with patient's nurse in regards to obtaining medical records from [facility] in which patient's daughter was adamant that we obtain this information so that infectious disease will have this information. Dealt with patient, her granddaughter at bedside, and her daughter over face time in regards to the management. Diamond Arboleda MD Jan 22, 2017 10:12
[2017-01-22] MEDS: VANCOMYCIN 1,000 MG/NS 250 ML IV SCH ×2 (10:31)
[2017-01-22 12:00] VITALS: BP 118/60; PULSE 92; RESP 24; TEMP 99.4; O2SAT 98
--- NOTE | 2017-01-22 13:40 | RADRPT ---
EXAM DATE/TIME: 01/22/2017 00:00 [facility] COMPARISON: No previous studies available for comparison. INDICATIONS : Diabetic foot infection TECHNIQUE: Five-station segmental examination of the lower extremities was performed. Pulsed-cuff waveform tracings and pressures were recorded. Ankle-brachial indices and toe-brachial indices were calculated. PRESSURES (mmHg): Brachial (arm): Right 121 Lower Thigh: Right 88 Left 87 Calf: Right 81 Left 70 Ankle: Right 69 Left 63 Toe: Right 0 Left 15 KALYAN: Right 0.57 Left 0.52 TBI: Right 0.00 Left 0.12 PULSED CUFF WAVEFORMS: Amplitude blunting of the waveforms below the knees bilaterally. CONCLUSION: 1. Markedly abnormal ABIs and TBI as bilaterally. 2. 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 This report was verified electronically.
--- NOTE | 2017-01-22 14:43 | EKG ---
Date Performed: 01/21/2017 Time Performed: 18:14:54 PTAGE: 66 years EKG: Sinus rhythm NONSPECIFIC ST & T-WAVE ABNORMALITY BORDERLINE ECG PREVIOUS TRACING : 08/01/2016 15.30 Compared to prior tracing no significant change DOCTOR: Enrrique Hall Interpretating Date/Time 01/22/2017 14:42:27
--- NOTE | 2017-01-22 14:55 | MP ---
cc: CARMINE OWUSU DPM DATE OF SURGERY: 01/21/2017 PREOPERATIVE DIAGNOSIS 1. Right diabetic foot infection. 2. Osteomyelitis likely of right foot first MPJ. POSTOPERATIVE DIAGNOSIS 1. Right diabetic foot infection. 2. Osteomyelitis likely of right foot first MPJ. PROCEDURE PERFORMED 1. Incision and drainage expansile dorsum of foot and plantar foot. 2. Incision bone cortex of the patient's right hallux and right first metatarsal head. FINDINGS Intraoperative necrosis, putrid odor, deep infection tracking along the extensor and flexor tendons stopping short of the alan pedis and did not go into the ankle. COMPLICATIONS Intraoperative none. ESTIMATED BLOOD LOSS Approximately 50 mL. SPECIMEN Bone from proximal phalanx and bone from first metatarsal head sent for pathological analysis. Microbial analysis: Two culture taken, one from the first metatarsal head bone only, and one from the deep tissue. ANESTHESIA General, however, at the conclusion of the procedure a high ankle block was performed utilizing 0.25% Marcaine plain approximately 15 cc to assist with postoperative pain. CONDITION The patient's overall condition is poor, however, stable. I spoke with medicine after the case and we opted to transfer the patient to a step-down type CIC unit for close observation. She is on telemetry. PROCEDURE IN DETAIL Under mild sedation the patient is brought into the operating room and placed on the operating table in a supine position. Following the induction of general anesthesia the patient's right lower extremity was scrubbed, prepped and draped in the usual aseptic fashion. The foot was elevated and examined. There was noted to be obvious fluctuant bulla blistering of the dorsum of the foot and plantar arch. There is a necrotic wound of the medial first MPJ that had a putrid odor. A full-thickness incision was made at the level the first MPJ which released an odor, likely gas within the tissue. This was sharply excised full-thickness down to the first MPJ. Immediately upon entering the first MPJ there was noted to be soft bony cortex. A biopsy was taken of the first metatarsal head as well as the base of the proximal phalanx. At this time the incision was deepened along the medial foot down below the epidermis and dermal junction. The abductor hallucis muscle was identified and there was noted to be purulent material tracking along this level. Furthermore, the incision was carried just below the medial malleolus. The anterior tibialis and posterior tibialis tendon were identified and there was no obvious tracking at this level. Further dissection took place plantar to the first metatarsal head tracking along the flexor hallucis longus tendon. There was noted to be pus that stopped just at the level of the z first cuneiform joint. The plantar arch was dissected at the level of the interossei and there is noted to be purulent material and necrotic tissue which was excised. A dorsal incision was made over the dorsal first metatarsal joint down to the level of the extensor hallucis longus and the extensor digitorum longus tendons. There was noted to be purulence that tracked along these tendons but they stopped just short of the ankle. Deep to the fascia dissection took place relieving all purulent material. All necrotic tissue was excised at this point. Utilizing pulse lavage the medial and plantar full-thickness wounds were evacuated. All nonviable tissue was excised. There actually was pretty good bleeding at the time of the surgery. No pulsatile bleeding. The wounds were loosely coapted and packed open. A bulky bandage was placed. The patient was transferred from the OR to PACU with all vital signs stable except for elevated heart rate. Immediately concluding the surgery I contacted the patient's attending who agreed with close monitoring. The patient will likely need 1-2 more surgeries. Will see how the patient's foot continues to respond to the incision and drainage. She may lead need a first ray amputation versus a transmetatarsal amputation. At this point I do not feel that a vascular consult is indicated, however, ABIs are likely a good idea to determine distal flow. She actually bled okay at the time of surgery. Will follow-up within the next 24 hours. TONG Contreras /7:21 PM /2:43 PM
[2017-01-22 16:00] VITALS: BP 115/64; PULSE 100; RESP 24; TEMP 99; O2SAT 98
[2017-01-22 20:00] VITALS: BP 118/69; PULSE 100; RESP 18; TEMP 99.6; O2SAT 94
[2017-01-22] MEDS: ATORVASTATIN 10 MG TAB PO SCH (21:46)
[2017-01-23] VITALS (8 sets, daily range): BP systolic 121–158; BP diastolic 58–84; PULSE 88–98; RESP 16–22; TEMP 96.5–100.5; O2SAT 93–99
[2017-01-23] MEDS: ALBUTEROL SULFATE 90 MCG/ACT HFA 8 GM INHALER INH PRN (03:32)
[2017-01-23] MEDS: oxyCODONE/ACETAMINOPHEN 10 MG/325 MG TAB PO PRN ×3 (03:34→15:27)
[2017-01-23] MEDS: VANCOMYCIN 1,000 MG/NS 250 ML IV SCH ×2 (03:36)
[2017-01-23] MEDS: CEFEPIME INJ 2,000 MG in SODIUM CHLORIDE 0.9% INJ 100 ML IV SCH ×2 (03:36→15:28)
[2017-01-23] MEDS: metroNIDAZOLE 500 MG INJ 100 ML IV SCH ×3 (05:00→23:20)
[2017-01-23] MEDS: INSULIN ASPART SUPPLEMENTAL SCALE SQ SCH ×4 (06:19→20:13)
[2017-01-23 06:53] LABS: HEMATOCRIT 31.3 % (35.0-46.0); MEAN CELL VOLUME 80.9 FL (80.0-100.0); MEAN CORPUSCULAR HEMOGLOBIN 26.9 PG (27.0-34.0); MEAN CORPUSCULAR HGB CONC 33.3 % (32.0-36.0); PLATELET COUNT 281 TH/MM3 (150-450); RED BLOOD COUNT 3.87 MIL/MM3 (4.00-5.30); RED CELL DISTRIBUTION WIDTH 13.6 % (11.6-17.2); REVIEW FLAG FINAL; WHITE BLOOD COUNT 14.3 TH/MM3 (4.0-11.0)
[2017-01-23] MEDS: SODIUM CHLOR 0.9% 1000 ML INJ 1,000 ML IV SCH ×2 (07:36→13:31)
[2017-01-23 07:38] LABS: BICARBONATE 21.9 MEQ/L (21.0-32.0)
[2017-01-23 08:03] LABS: POTASSIUM 2.9 MEQ/L (3.5-5.1)
[2017-01-23] MEDS: SODIUM CHLORIDE 0.9% FLUSH 5 ML FLUSH FLUSH SCH ×2 (09:00→20:21)
[2017-01-23] MEDS: CARISOPRODOL 350 MG TAB PO SCH ×2 (09:00→20:20)
[2017-01-23] MEDS: ASPIRIN EC 81 MG TABEC PO SCH (09:26)
[2017-01-23] MEDS: INSULIN DETEMIR 100 UNITS/ML VIAL SQ SCH (09:26)
[2017-01-23] MEDS: ALPRAZolam 1 MG TAB PO SCH ×2 (09:26→20:20)
[2017-01-23] MEDS: GABAPENTIN 400 MG CAP PO SCH ×3 (09:26→18:00)
[2017-01-23] MEDS: CLOPIDOGREL 75 MG TAB PO SCH (09:26)
[2017-01-23] MEDS ORDERED: POTASSIUM CHLORIDE 20 MEQ CONTROLLED RELEASE TAB PO ONE (09:45)
[2017-01-23] MEDS ORDERED: MAGNESIUM SULFATE 1 GM PREMIX 100 ML IV ONE (10:00)
--- NOTE | 2017-01-23 10:59 | HHI.PR ---
Subjective Remarks f/u for foot infection patient c/o about cough she had for months. She stated she was put on Tessalon and that did not help her. Denied any allergies or post nasal gtt. She also stated pain is not control. Patient asking for a decongestant. I d/w nurse who stated that yesterday she was given her soma and Ativan and was too sedative and was sleeping most of the time so medication was held. otherwise no other issues. Objective Vitals Vital Signs Date Time Temp Pulse Resp B/P Pulse Ox O2 Delivery O2 Flow Rate FiO2 01/23/17 04:00 96.5 88 17 137/69 97 01/23/17 01:23 96 01/23/17 00:00 100.5 89 17 121/58 93 01/22/17 21:04 Nasal Cannula 2.00 01/22/17 20:00 99.6 100 18 118/69 94 01/22/17 16:00 99.0 100 24 115/64 98 01/22/17 12:00 99.4 92 24 118/60 98 I/O 01/22/17 01/22/17 01/22/17 01/23/17 01/23/17 01/23/17 07:00 15:00 23:00 07:00 15:00 23:00 Intake Total 1490 ml 960 ml 240 ml 2750 ml Output Total 900 ml 875 ml 600 ml 650 ml Balance 590 ml 85 ml -360 ml 2100 ml Intake Oral 400 ml 960 ml 240 ml IV Total 1090 ml 2750 ml Output Urine Total 900 ml 875 ml 600 ml 650 ml Result Diagram: 01/23/1761901/23/1720 Objective Remarks GENERAL: in NAD CARDIOVASCULAR: Regular rate and rhythm without murmurs, gallops, or rubs. RESPIRATORY: Breath sounds equal bilaterally. No accessory muscle use. GASTROINTESTINAL: Abdomen soft, non-tender, nondistended. MUSCULOSKELETAL: Right foot and bandage. BACK: Nontender without obvious deformity. No CVA tenderness. NEURO:alert and follow commands and answering questions appropriately. Medications and IVs Current Medications Morphine Sulfate 4 mg 4 mg ONCE ONCE IV PUSH Last administered on 01/20/17t 15 :39; Start 01/20/17 at 15:00; Stop 01/20/17 at 15:01; Status DC Ciprofloxacin/ Dextrose 200 ml @ 200 mls/hr ONCE ONCE IV Last administered on 01/20/17 15:38; Start 01/20/17 at 15:00; Stop 01/20/17 at 15:59; Status DC Clindamycin Phosphate 600 mg/ Sodium Chloride 104 ml @ 208 mls/hr ONCE ONCE IV Last administered on 01/20/17 17:26; Start 01/20/17 at 15:00; Stop at 15:29; Status DC Sodium Chloride (NS 1000 ml Inj) 1,000 ml @ 2,000 mls/hr Q30M ONCE IV Last administered on 01/20/17 15:39; Start 01/20/17 at 15:00; Stop 01/20/17 at 15:29 ; Status DC Insulin Aspart (NovoLOG INJ) 10 units ONCE ONCE SQ Last administered on 16:55; Start 01/20/17 at 16:45; Stop 01/20/17 at 16:46; Status DC Morphine Sulfate 4 mg 4 mg ONCE ONCE IV PUSH Last administered on 01/20/17 16 :55; Start 01/20/17 at 16:45; Stop 01/20/17 at 16:46; Status DC Clindamycin Phosphate/Sodium Chloride (Cleocin Inj/NS Inj) 106 ml @ 212 mls/hr Q8H IV Last administered on 01/22/17 19:00; Start 01/21/17 at 01:00; Stop at 17:29; Status DC Dextrose (D50w (Vial) Inj) 25 ml UNSCH PRN IV PUSH HYPOGLYCEMIA-SEE COMMENTS; Start 01/20/17 at 19:45 Glucagon (Glucagon Inj) 1 mg UNSCH PRN OTHER HYPOGLYCEMIA-SEE COMMENTS; Start 01/20/17 at 19:45 Insulin Aspart 1 1 ACHS SLIDING SCALE SQ Last administered on 01/22/17 21:51 ; Start 01/20/17 at 21:00 Sodium Chloride (NS 1000 ml Inj) 1,000 ml @ 100 mls/hr Q10H IV Last administered on 01/23/17 07:36; Start 01/20/17 at 19:36 IV Flush (NS Flush) 2 ml UNSCH PRN FLUSH FLUSH AFTER USING IV ACCESS; Start at 19:45 IV Flush (NS Flush) 2 ml BID FLUSH ; Start 01/20/17 at 21:00 Ondansetron HCl (Zofran Inj) 4 mg Q6H PRN IVP NAUSEA OR VOMITING Last administered on 01/23/17 06:26; Start 01/20/17 at 19:45 Bisacodyl (Dulcolax Supp) 10 mg DAILY PRN SD CONSTIPATION; Start 01/20/17 at 19 :45 Acetaminophen (Tylenol) 650 mg Q6H PRN PO FEVER/PAIN SCALE 1 TO 2; Start at 19:45 Morphine Sulfate 2 mg 2 mg Q3H PRN IV Pain 6-10 Last administered on 01/22/17 01:50; Start 01/20/17 at 19:45 Sodium Chloride (NS 1000 ml Inj) 1,000 ml @ 999 mls/hr BOLUS ONCE IV Last administered on 01/20/17 20:19; Start 01/20/17 at 19:45; Stop 01/20/17 at 20:45 ; Status DC Albuterol Sulfate (Proair Hfa Inh) 1 puff Q4H PRN INH SHORTNESS OF BREATH Last administered on 01/23/17 03:32; Start 01/20/17 at 19:45 Alprazolam (Xanax) 1 mg BID PO Last administered on 01/23/17 09:26; Start at 21:00 Aspirin (Ecotrin Ec) 81 mg DAILY PO Last administered on 01/23/17 09:26; Start 01/21/17 at 09:00 Atorvastatin Calcium (Lipitor) 10 mg HS PO Last administered on 01/22/17 21:46 ; Start 01/20/17 at 21:00 Carisoprodol (Soma) 350 mg BID PO Last administered on 01/22/17 09:11; Start 01/20/17 at 21:00 Clopidogrel Bisulfate (Plavix) 75 mg DAILY PO Last administered on 01/23/17 09 :26; Start 01/21/17 at 09:00 Gabapentin (Neurontin) 800 mg TID PO Last administered on 01/23/17 09:26; Start 01/21/17 at 09:00 Insulin Detemir (Levemir Inj) 35 units DAILY SQ Last administered on 01/23/17 09:26; Start 01/21/17 at 09:00 Oxycodone/ Acetaminophen (Percocet 10-325 Mg) 1 tab Q6H PRN PO PAIN 3-5 Last administered on 01/23/17 09:30; Start 01/20/17 at 19:45 Insulin Detemir 10 units 10 units ONCE ONCE SQ Last administered on 01/20/17 20:12; Start 01/20/17 at 19:45; Stop 01/20/17 at 19:51; Status DC Cefepime HCl 2000 mg/Sodium Chloride 100 ml @ 200 mls/hr Q12H IV Last administered on 01/23/17 03:36; Start 01/21/17 at 15:00 Metronidazole 100 ml @ 100 mls/hr Q8H IV Last administered on 01/23/17 05:00 ; Start 01/21/17 at 14:00 Vancomycin HCl 1000 mg/Sodium Chloride 250 ml @ 250 mls/hr ONCE ONCE IV Last administered on 01/21/17 17:10; Start 01/21/17 at 16:00; Stop 01/21/17 at 16:59 ; Status DC Pharmacy Profile Note 0 ml @ 0 mls/hr UNSCH OTHER ; Start 01/21/17 at 13:15 Vancomycin HCl/ Sodium Chloride (Vancomycin Inj/ NS 250 ml Inj) 250 ml @ 250 mls/hr Q18H IV Last administered on 01/23/17 03:36; Start 01/22/17 at 10:00 Miscellaneous Information SPECIFIC LAB TO BE DRAWN:VANCOMY... ONCE ONCE XX ; Start 01/23/17 at 21:45; Stop 01/23/17 at 21:46 Gadodiamide (Omniscan Pf Inj) 13 ml STK-MED ONCE IV PUSH Last administered on 15:28; Start 01/21/17 at 15:28; Stop 01/21/17 at 15:29; Status DC Bupivacaine HCl (Marcaine Pf 0.25% Inj) 30 ml STK-MED ONCE .ROUTE Last administered on 01/21/17 19:05; Start 01/21/17 at 17:48; Stop 01/21/17 at 17:49 ; Status DC Fentanyl Citrate (fentaNYL INJ) 100 mcg STK-MED ONCE .ROUTE ; Start 01/21/17 at 19:35; Stop 01/21/17 at 19:36; Status DC Miscellaneous Information ALL NURSING DEPARTME... UNSCH PRN XX SEE LABEL COMMENTS; Start 01/21/17 at 19:45; Stop 01/22/17 at 19:44; Status DC Morphine Sulfate 8 mg 8 mg STK-MED ONCE .ROUTE Last administered on 01/21/17t 19:45; Start 01/21/17 at 19:45; Stop 01/21/17 at 19:46; Status DC Sodium Chloride (NS 500 ml Inj) 500 ml @ 0 mls/hr BOLUS ONCE IV Last administered on 01/21/17t 20:45; Start 01/21/17 at 20:45; Stop 01/21/17 at 20:46 ; Status DC Propofol (Diprivan 200 Mg/20 ml Inj) 200 mg STK-MED ONCE IV ; Start 01/21/17 at 12:00; Stop 01/22/17 at 11:19; Status DC Ephedrine Sulfate (ePHEDrine/NS 25 MG/5 ML SYR) 25 mg STK-MED ONCE IV ; Start at 12:00; Stop 01/22/17 at 11:19; Status DC Phenylephrine HCl 1000 mcg 1,000 mcg STK-MED ONCE IV ; Start 01/21/17 at 12:00; Stop 01/22/17 at 11:19; Status DC Magnesium Sulfate/ Dextrose (Magnesium Sulfate 1 Gm Premix) 100 ml @ 100 mls/ hr ONCE ONCE IV ; Start 01/23/17 at 10:00; Stop 01/23/17 at 10:59 Potassium Chloride (KCl) 40 meq NOW ONCE PO ; Start 01/23/17 at 09:45; Stop at 09:46; Status DC A/P Problem List: (1) Sepsis ICD Code: A41.9 Status: Acute (2) Diabetic foot infection ICD Code: E11.69 Status: Acute (3) Hypotension ICD Code: I95.9 Status: Acute (4) Renal insufficiency ICD Code: N28.9 Status: Acute (5) DM (diabetes mellitus) ICD Code: E11.9 Status: Acute Assessment and Plan Sepsis with hypotension -IMPROVING and hypotension resolved. -HR 114, WBC 23.14, Lactic Acid 2.4, repeat 1.8, Source-Right Foot Infection. - see treatment as below. patient is on IVFs. Diabetic Foot Infection -MRI + for osteomyelitis -s/p Incision drainage expansile right foot with incision bone cortex hallux and 1st metatarsal on 01/21. -Pod and ID ff -cultures obtain in ED showed group B beta strep. will wait for cultures that were obtained from surgery. Blood cultures are so far negative. -patient on vancomycin, cefepime, and Flagyl per infectious disease. - Per manager [employer] Dr. Mishra packing today, will need likely some form of hallux amp with wound vac, Path and Micro is pending. Will sign off to Dr Porras who will start care today. -KALYAN was severely abnormal. consult vascular. Acute Renal Insufficiency -Most likely prerenal due to sepsis. -Resolved. Patient no longer an acute renal failure. -strict I/O. -continue with IVFs. Cough -will try Hycodan. -start Mucinex chronic pain -due to sedation need to be careful with pain medication and soma. -d/w nurse in regards to that. anxiety -on ativan T2DM insulin dependent. -BS improved drastically. -continue to monitor. -continue to SSI. -will address accordingly. DVT Prophylaxis -Mechanical contraindication in light of foot wound/infection. Discharge Planning patient most likely will require IV antibiotics for a few days pending recommendations from ID and Pod. Due to the severity infection including osteomyelitis patient will need long- term IV antibiotics. Diamond Arboleda MD Jan 23, 2017 10:59
[2017-01-23] MEDS: guaiFENesin E.R. 600 MG TAB PO SCH ×2 (11:44→20:21)
--- NOTE | 2017-01-23 11:47 | HHI.IDPN ---
Subjective Subjective Remarks January 22, 2017 Late entry - patient seen after she had her surgery 01/22 Spoke with granddaughter Notes reviewed C/O pain Had surgery on her R foot C/S GBS Antibiotics Vancomycin Cefepime Flagyl Past Medical History Diabetes Previous diabetic foot infection Peripheral vascular disease COPD, asthma GERD Anxiety disorder Degenerative disc disease in the back and the neck Retinopathy There was mention at some point that she has neurogenic bladder and problem with urinary retention - There was actually an ED visit November 2016 for a blocked Vazquez and her Vazquez catheter was changed at that time. - Could not really get any good history from the patient regarding when her Vazquez was discontinued since she is quite lethargic. Past Surgical History Hysterectomy Eye surgery for retinopathy Amputation of the right fifth toe for diabetic foot infection Allergies: Coded Allergies: Contrast Media (Verified Allergy, Severe, 01/20/17) Sulfa (Verified Allergy, Unknown, 01/20/17) Penicillin (Verified Adverse Reaction, Severe, NAUSEA,DIZZINESS, 01/20/17) Objective . Vital Signs Date Time Temp Pulse Resp B/P Pulse Ox O2 Delivery O2 Flow Rate FiO2 01/23/17 04:00 96.5 88 17 137/69 97 01/23/17 01:23 96 01/23/17 00:00 100.5 89 17 121/58 93 01/22/17 21:04 Nasal Cannula 2.00 01/22/17 20:00 99.6 100 18 118/69 94 01/22/17 16:00 99.0 100 24 115/64 98 01/22/17 12:00 99.4 92 24 118/60 98 01/22/17 01/22/17 01/23/17 15:00 23:00 07:00 Intake Total 960 ml 240 ml 2750 ml Output Total 875 ml 600 ml 650 ml Balance 85 ml -360 ml 2100 ml Intake Oral 960 ml 240 ml IV Total 2750 ml Output Urine Total 875 ml 600 ml 650 ml . Laboratory Tests Test 01/22/17 01/23/17 08:53 06:20 White Blood Count 15.6 TH/MM3 14.3 TH/MM3 Red Blood Count 4.60 MIL/MM3 3.87 MIL/MM3 Hemoglobin 12.5 GM/DL 10.4 GM/DL Hematocrit 38.6 % 31.3 % Mean Corpuscular Volume 83.9 FL 80.9 FL Mean Corpuscular Hemoglobin 27.2 PG 26.9 PG Mean Corpuscular Hemoglobin 32.4 % 33.3 % Concent Red Cell Distribution Width 13.5 % 13.6 % Platelet Count 303 TH/MM3 281 TH/MM3 Mean Platelet Volume 9.4 FL 9.1 FL Laboratory Tests Test 01/22/17 01/23/17 08:53 06:20 Sodium Level 139 MEQ/L 142 MEQ/L Potassium Level 3.5 MEQ/L 2.9 MEQ/L Chloride Level 110 MEQ/L 109 MEQ/L Carbon Dioxide Level 20.6 MEQ/L 21.9 MEQ/L Anion Gap 8 MEQ/L 11 MEQ/L Blood Urea Nitrogen 11 MG/DL 8 MG/DL Creatinine 0.88 MG/DL 0.72 MG/DL Estimat Glomerular Filtration 78 ML/MIN 98 ML/MIN Rate Random Glucose 197 MG/DL 156 MG/DL Calcium Level 8.0 MG/DL 7.7 MG/DL Magnesium Level 1.3 MG/DL Microbiology Date/Time Procedure Status Source Growth 01/20/17 15:30 Gram Stain - Final Complete Wound Foot 01/20/17 15:30 Wound Culture - Final Complete Group B Beta Strep 01/21/17 18:55 Gram Stain - Final Resulted Wound Foot 01/21/17 18:55 Wound Culture - Preliminary Resulted Wound Foot 01/21/17 18:55 Acid Fast Stain Received Wound Foot Pending 01/21/17 18:55 Mycobacterial Culture Received Wound Foot Pending 01/21/17 18:55 Fungal Smear - Final Resulted Wound Foot NO FUNGAL ELEMENTS SEEN. 01/21/17 18:55 Fungal Culture Resulted Wound Foot Pending 01/21/17 18:55 Gram Stain - Final Resulted Wound Foot 01/21/17 18:55 Wound Culture - Preliminary Resulted Wound Foot 01/21/17 18:55 Acid Fast Stain Received Wound Foot Pending 01/21/17 18:55 Mycobacterial Culture Received Wound Foot Pending 01/21/17 18:55 Fungal Smear - Final Resulted Wound Foot NO FUNGAL ELEMENTS SEEN. 01/21/17 18:55 Fungal Culture Resulted Wound Foot Pending 01/22/17 16:25 Aerobic Blood Culture - Preliminary Resulted Blood Peripheral NO GROWTH IN 1 DAY 01/22/17 16:25 Anaerobic Blood Culture - Preliminary Resulted Blood Peripheral NO GROWTH IN 1 DAY 01/22/17 16:30 Aerobic Blood Culture - Preliminary Resulted Blood Peripheral NO GROWTH IN 1 DAY 01/22/17 16:30 Anaerobic Blood Culture - Preliminary Resulted Blood Peripheral NO GROWTH IN 1 DAY Imaging Last Impressions Foot MRI 01/21/17 0000 Signed Impressions: Service Date/Time: Saturday, January 21, 2017 14:57 - CONCLUSION: 1. Osteomyelitis involving the first medial sesamoid bone. 2. Small focal area of abnormal enhancement and signal in the first metatarsal head also of concern for osteomyelitis. 3. Enhancement of the abductor hallux muscle consistent with infection. 4. Focal ulcer and soft tissue swelling. Tavares Flores MD Foot X-Ray 01/20/17 0000 Signed Impressions: Service Date/Time: Friday, January 20, 2017 15:15 - CONCLUSION: 1. That is post amputation of the fifth digit to the level of the metatarsal head. 2. Mild soft tissue swelling and gas over the medial first metatarsal phalangeal joint with no destructive change. Tavares Flores MD Chest X-Ray 01/20/17 0000 Signed Impressions: Service Date/Time: Friday, January 20, 2017 15:13 - CONCLUSION: No acute disease. Tavares Flores MD Physical Exam GENERAL: More awake compared to previous day, NAD SKIN: Warm and dry, no generalized rash. HEAD: Atraumatic. Normocephalic. No temporal or scalp tenderness. EYES: [place] conjunctivae. No scleral icterus. No injection or drainage. ENT: Nose without bleeding, or purulent drainage. Slightly dry oral mucosa, she is edentulous. Throat without erythema, tonsillar hypertrophy or exudate. Uvula midline. Airway patent. NECK: Trachea midline. No JVD or lymphadenopathy. Supple, nontender, no meningeal signs. CARDIOVASCULAR: Regular rate and rhythm without murmurs, gallops, or rubs. RESPIRATORY: Clear to auscultation. Breath sounds equal bilaterally. No wheezes , rales, or rhonchi. Decreased breath sounds at the bases. GASTROINTESTINAL: Abdomen soft, not tender MUSCULOSKELETAL: LLE: without clubbing, cyanosis, or edema. No joint tenderness, effusion, or edema noted. No calf tenderness.Has scars on her L leg. RLE: Has dressing in place. NO foul odor noted NEUROLOGICAL: More awake than previous day, answering my questions PSYCH: Unable to assess : Vazquez in place, urine looks clear LINE: PIV with no evidence of infection Assessment & Plan Remarks IMPRESSION Sepsis on admission, due to severe DFI R foot - S/P surgery - looks better DFI, R foot, S/P surgery DM, PVD Urinary retention - previous records mentioned neurogenic blader and problem with urinary retention Renal insufficiency due to sepsis, ?underlying DM nephropathy RECOMMENDATION Continue Cefepime, Flagyl and Vancomycin Follow C/S Monitor temps Monitor CBC Monitor progress Will look at foot once ok with podiatry I asked the granddaughter regarding the patient's indwelling vazquez catheter - her mother was on the phone and said that patient was supposed to have it, and she thought it was in place. Patient states it was bothering her and fell out ( ?) Previous records have indicated that she has urinary retention due to neurogenic bladder Spoke with granddaughter Nadja Mendenhall MD Jan 23, 2017 11:47
--- NOTE | 2017-01-23 11:49 | HHI.IDPN ---
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 Has low grade temps C/O pain at foot Had surgery on her R foot 01/22 Intraop C/S pending First wound C/S GBS WBC better Antibiotics Vancomycin Cefepime Flagyl Past Medical History Diabetes Previous diabetic foot infection Peripheral vascular disease COPD, asthma GERD Anxiety disorder Degenerative disc disease in the back and the neck Retinopathy There was mention at some point that she has neurogenic bladder and problem with urinary retention - There was actually an ED visit November 2016 for a blocked Chavira and her Chavira catheter was changed at that time. - Could not really get any good history from the patient regarding when her Chavira was discontinued since she is quite lethargic. Past Surgical History Hysterectomy Eye surgery for retinopathy Amputation of the right fifth toe for diabetic foot infection Allergies: Coded Allergies: Contrast Media (Verified Allergy, Severe, 01/20/17) Sulfa (Verified Allergy, Unknown, 01/20/17) Penicillin (Verified Adverse Reaction, Severe, NAUSEA,DIZZINESS, 01/20/17) Objective . Vital Signs Date Time Temp Pulse Resp B/P Pulse Ox O2 Delivery O2 Flow Rate FiO2 01/23/17 04:00 96.5 88 17 137/69 97 01/23/17 01:23 96 01/23/17 00:00 100.5 89 17 121/58 93 01/22/17 21:04 Nasal Cannula 2.00 01/22/17 20:00 99.6 100 18 118/69 94 01/22/17 16:00 99.0 100 24 115/64 98 01/22/17 12:00 99.4 92 24 118/60 98 01/22/17 01/22/17 01/23/17 15:00 23:00 07:00 Intake Total 960 ml 240 ml 2750 ml Output Total 875 ml 600 ml 650 ml Balance 85 ml -360 ml 2100 ml Intake Oral 960 ml 240 ml IV Total 2750 ml Output Urine Total 875 ml 600 ml 650 ml . Laboratory Tests Test 01/22/17 01/23/17 08:53 06:20 White Blood Count 15.6 TH/MM3 14.3 TH/MM3 Red Blood Count 4.60 MIL/MM3 3.87 MIL/MM3 Hemoglobin 12.5 GM/DL 10.4 GM/DL Hematocrit 38.6 % 31.3 % Mean Corpuscular Volume 83.9 FL 80.9 FL Mean Corpuscular Hemoglobin 27.2 PG 26.9 PG Mean Corpuscular Hemoglobin 32.4 % 33.3 % Concent Red Cell Distribution Width 13.5 % 13.6 % Platelet Count 303 TH/MM3 281 TH/MM3 Mean Platelet Volume 9.4 FL 9.1 FL Laboratory Tests Test 01/22/17 01/23/17 08:53 06:20 Sodium Level 139 MEQ/L 142 MEQ/L Potassium Level 3.5 MEQ/L 2.9 MEQ/L Chloride Level 110 MEQ/L 109 MEQ/L Carbon Dioxide Level 20.6 MEQ/L 21.9 MEQ/L Anion Gap 8 MEQ/L 11 MEQ/L Blood Urea Nitrogen 11 MG/DL 8 MG/DL Creatinine 0.88 MG/DL 0.72 MG/DL Estimat Glomerular Filtration 78 ML/MIN 98 ML/MIN Rate Random Glucose 197 MG/DL 156 MG/DL Calcium Level 8.0 MG/DL 7.7 MG/DL Magnesium Level 1.3 MG/DL Microbiology Date/Time Procedure Status Source Growth 01/20/17 15:30 Gram Stain - Final Complete Wound Foot 01/20/17 15:30 Wound Culture - Final Complete Group B Beta Strep 01/21/17 18:55 Gram Stain - Final Resulted Wound Foot 01/21/17 18:55 Wound Culture - Preliminary Resulted Wound Foot 01/21/17 18:55 Acid Fast Stain Received Wound Foot Pending 01/21/17 18:55 Mycobacterial Culture Received Wound Foot Pending 01/21/17 18:55 Fungal Smear - Final Resulted Wound Foot NO FUNGAL ELEMENTS SEEN. 01/21/17 18:55 Fungal Culture Resulted Wound Foot Pending 01/21/17 18:55 Gram Stain - Final Resulted Wound Foot 01/21/17 18:55 Wound Culture - Preliminary Resulted Wound Foot 01/21/17 18:55 Acid Fast Stain Received Wound Foot Pending 01/21/17 18:55 Mycobacterial Culture Received Wound Foot Pending 01/21/17 18:55 Fungal Smear - Final Resulted Wound Foot NO FUNGAL ELEMENTS SEEN. 01/21/17 18:55 Fungal Culture Resulted Wound Foot Pending 01/22/17 16:25 Aerobic Blood Culture - Preliminary Resulted Blood Peripheral NO GROWTH IN 1 DAY 01/22/17 16:25 Anaerobic Blood Culture - Preliminary Resulted Blood Peripheral NO GROWTH IN 1 DAY 01/22/17 16:30 Aerobic Blood Culture - Preliminary Resulted Blood Peripheral NO GROWTH IN 1 DAY 01/22/17 16:30 Anaerobic Blood Culture - Preliminary Resulted Blood Peripheral NO GROWTH IN 1 DAY Imaging Last Impressions Foot MRI 01/21/17 0000 Signed Impressions: Service Date/Time: Saturday, January 21, 2017 14:57 - CONCLUSION: 1. Osteomyelitis involving the first medial sesamoid bone. 2. Small focal area of abnormal enhancement and signal in the first metatarsal head also of concern for osteomyelitis. 3. Enhancement of the abductor hallux muscle consistent with infection. 4. Focal ulcer and soft tissue swelling. Tavares Flores MD Foot X-Ray 01/20/17 0000 Signed Impressions: Service Date/Time: Friday, January 20, 2017 15:15 - CONCLUSION: 1. That is post amputation of the fifth digit to the level of the metatarsal head. 2. Mild soft tissue swelling and gas over the medial first metatarsal phalangeal joint with no destructive change. Tavares Flores MD Chest X-Ray 01/20/17 0000 Signed Impressions: Service Date/Time: Friday, January 20, 2017 15:13 - CONCLUSION: No acute disease. Tavares Flores MD Physical Exam GENERAL: Awake and alert, NAD SKIN: Warm and dry, no generalized rash. HEAD: Atraumatic. Normocephalic. No temporal or scalp tenderness. EYES: [place] conjunctivae. No scleral icterus. No injection or drainage. ENT: Nose without bleeding, or purulent drainage. Slightly dry oral mucosa, she is edentulous. Throat without erythema, or exudate. Uvula midline. Airway patent. NECK: Trachea midline. No JVD or lymphadenopathy. Supple, nontender, no meningeal signs. CARDIOVASCULAR: Regular rate and rhythm without murmurs, gallops, or rubs. RESPIRATORY: Clear to auscultation. Breath sounds equal bilaterally. No wheezes , rales, or rhonchi. Decreased breath sounds at the bases. GASTROINTESTINAL: Abdomen soft, not tender MUSCULOSKELETAL: LLE: without clubbing, cyanosis, or edema. No joint tenderness, effusion, or edema noted. No calf tenderness.Has scars on her L leg. RLE: Has dressing in place. NO foul odor noted NEUROLOGICAL: More awake than previous day, answering my questions PSYCH: Cooperative : Chavira in place, urine looks clear LINE: PIV with no evidence of infection Assessment & Plan Remarks IMPRESSION Sepsis on admission, due to severe DFI R foot - S/P surgery - looks better DFI, R foot, S/P surgery DM, PVD Urinary retention - previous records mentioned neurogenic blader and problem with urinary retention Renal insufficiency due to sepsis, ?underlying DM nephropathy Low grade temps RECOMMENDATION Continue Cefepime, Flagyl and Vancomycin Follow C/S Monitor temps Monitor CBC Monitor progress Will look at foot once ok with podiatry UA and C/S D/W Nadja King MD Jan 23, 2017 11:49
--- NOTE | 2017-01-23 15:16 | PD.VS.CON ---
History of Present Illness Chief Complaint: Mrs Lake is a pleasant 66/F pt who appears to be a poor historian She did report she came to the hospital for increased pain to her chronic Right foot ulcer Consult Requested by: Dr. Arboleda History of Present Illness This is a 66-year-old female with a PMH of HTN, DM, Chronic Right Foot Ulcer and PVD who presented to the ER with complaints of right foot drainage for a few days Pt reported symptom onset 3 weeks ago. Pr states she has been following w/ [facility] but is unsure of the name. Per pervious notes Pt is s/p I&D in office on and has been on Cipro/Clinda for approx 1wk per patient, reports compliance w/ medications. States for the last 2-3 days has had worsening pain and drainage from right foot. Denies fever or chills Foot X-ray status post amputation of fifth digit to level metatarsal head (1994 ) pt reported (Daniela Chirinos) Past/Family/Social History Past Medical History PMH: HTN, DM, Chronic Right Foot Ulcer and PVD Past Surgical History CABG, 5th Toe Amputation Social History denies ETOH, Smoking and drugs Pt did report she was a former smoker but quit 15 years ago Family History DM CAD (Daniela Chirinos) Home Medications Reported Medications Aspirin (Aspirin Adult Low Strength)81 Mg Tabdr81 Mg PO DAILY 01/20/17 Oxycodone-Acetaminophen (Percocet)10-325 mg Tab1 Tab PO Q6H PRN (PAIN) Ref 0 01/20/17 Metformin 1,000 Mg Tab1,000 Mg PO BID #60 TAB Ref 0 With meals 01/20/17 Insulin Detemir Inj (Levemir Inj)1,000 unit/ 10 ML Vial35 Units SQ DAILY Ref 0 Do not mix with any other Insulin. 01/20/17 Gabapentin 800 Mg Toz365 Mg PO TID #90 TAB Ref 0 01/20/17 Enalapril (Vasotec)5 Mg Tab5 Mg PO DAILY #30 TAB Ref 0 01/20/17 Clopidogrel (Plavix)75 Mg Tab75 Mg PO DAILY #30 TAB Ref 0 01/20/17 Carisoprodol (Soma)350 Mg Iat682 Mg PO BID Ref 0 01/20/17 Atorvastatin 10 Mg Tab10 Mg PO HS #30 TAB Ref 0 01/20/17 Alprazolam (Xanax)1 Mg Tab1 Mg PO BID Ref 0 01/20/17 Albuterol 18 GM Inh (Ventolin Hfa 18 GM Inh)90 Mcg/Act Aer1 Puff INH Q4H PRN ( SHORTNESS OF BREATH) #1 INHALER Ref 0 01/20/17 Discontinued Scripts Nitrofurantoin Monohydrate Macrocrystals (Macrobid)100 Mg Lub243 Mg PO BID 10 Days Ref 0 Prov:Lisset Kessler MD 1 Nitrofurantoin Monohyd Macro (Macrobid)100 Mg Hui217 Mg PO BID #10 CAP Prov:Frederic Howell MD 03/14/16 Benzonatate (Tessalon Perles)100 Mg Otp118 Mg PO TID PRN (cough) #20 CAP Prov:Frederic Howell MD 03/14/16 Coded Allergies: Contrast Media (Verified Allergy, Severe, 01/20/17) Sulfa (Verified Allergy, Unknown, 01/20/17) Penicillin (Verified Adverse Reaction, Severe, NAUSEA,DIZZINESS, 01/20/17) Review of Systems Musculoskeletal: COMPLAINS OF: Muscle aches (Pain to right foot) Integumentary: COMPLAINS OF: Abnormal pigmentation (Pt presents with a large ulcer to right foot medial region ) (Daniela Chirinos) Physical Exam Vitals/I&O Date Time Temp Pulse Resp B/P Pulse Ox O2 Delivery O2 Flow Rate FiO2 01/23/17 12:30 Nasal Cannula 01/23/17 12:00 99.3 96 22 129/68 98 01/23/17 08:00 99.3 96 20 158/84 98 01/23/17 04:00 96.5 88 17 137/69 97 01/23/17 01:23 96 01/23/17 00:00 100.5 89 17 121/58 93 01/22/17 21:04 Nasal Cannula 2.00 01/22/17 20:00 99.6 100 18 118/69 94 01/22/17 16:00 99.0 100 24 115/64 98 01/23/17 01/23/17 01/23/17 07:00 15:00 23:00 Intake Total 2750 ml Output Total 650 ml 625 ml Balance 2100 ml -625 ml Neuro: CN 2-12 intact Heart: RRR +S1, S2 Lungs: Upper lobes clear bilat Lower lobes are slightly diminished bilat Vascular: monophasic signals heard via doppler to L DP Triphasic signals heard via doppler to R DP Bilat LE warm with motor intact (Daniela Chirinos) Laboratory Tests Test 01/23/17 06:20 White Blood Count 14.3 Red Blood Count 3.87 Hemoglobin 10.4 Hematocrit 31.3 Mean Corpuscular Volume 80.9 Mean Corpuscular Hemoglobin 26.9 Mean Corpuscular Hemoglobin 33.3 Concent Red Cell Distribution Width 13.6 Platelet Count 281 Mean Platelet Volume 9.1 Sodium Level 142 Potassium Level 2.9 Chloride Level 109 Carbon Dioxide Level 21.9 Anion Gap 11 Blood Urea Nitrogen 8 Creatinine 0.72 Estimat Glomerular Filtration 98 Rate Random Glucose 156 Calcium Level 7.7 Magnesium Level 1.3 Date/Time Procedure Status Source Growth 01/22/17 16:30 Aerobic Blood Culture - Preliminary Resulted Blood Peripheral NO GROWTH IN 1 DAY 01/22/17 16:30 Anaerobic Blood Culture - Preliminary Resulted Blood Peripheral NO GROWTH IN 1 DAY 01/21/17 18:55 Gram Stain - Final Complete Wound Foot 01/21/17 18:55 Wound Culture - Final Complete Group B Beta Strep 01/21/17 18:55 Fungal Smear - Final Resulted Wound Foot NO FUNGAL ELEMENTS SEEN. 01/21/17 18:55 Fungal Culture Resulted Wound Foot Pending 01/21/17 18:55 Acid Fast Stain - Final Resulted Wound Foot NO ACID FAST BACILLI SEEN 01/21/17 18:55 Mycobacterial Culture Resulted Wound Foot Pending (Daniela Chirinos) Assessment and Plan Assessment: (1) PAD (peripheral artery disease) Status: Chronic Plan Plan: Pt to be scheduled for an angiogram for further evaluation of PAD Daniela JUARES [facility] [phone] (Daniela Chirinos) Plan ADDENDUM: PAD and no palpable foot pulse. H/o CABG but used L GSV. Palpable femoral pulse. Needs angiogram and revascularization. I discussed with patient but she was very somnolent. Will re-discuss tomorrow. I have her on my schedule for angiogram and potential intervention on . Will get vein map to know open surgical bypass options as well. Sami Olivier MD FACS processor [employer] [facility] [phone] (Sami Olivier MD) Daniela Chirinos Jan 23, 2017 15:16 Sami Olivier MD Jan 23, 2017 19:16
--- NOTE | 2017-01-23 16:13 | PD.POD ---
Subjective Podiatric Problems Pt in pain, no acute issue to address, mild cough at bedside Pain score: 5 Past Med/Surg/Social History Social History Smoking Status: Former Smoker Objective Vital Signs Vital Signs Date Time Temp Pulse Resp B/P Pulse Ox O2 Delivery O2 Flow Rate FiO2 01/23/17 12:30 Nasal Cannula 01/23/17 12:00 99.3 96 22 129/68 98 01/23/17 08:00 99.3 96 20 158/84 98 01/23/17 04:00 96.5 88 17 137/69 97 01/23/17 01:23 96 01/23/17 00:00 100.5 89 17 121/58 93 01/22/17 21:04 Nasal Cannula 2.00 01/22/17 20:00 99.6 100 18 118/69 94 Coded Allergies: Contrast Media (Verified Allergy, Severe, 01/20/17) Sulfa (Verified Allergy, Unknown, 01/20/17) Penicillin (Verified Adverse Reaction, Severe, NAUSEA,DIZZINESS, 01/20/17) Physical Exam Remarks Right foot- Suture intact medial arch Necrosis and deep drainage medial right open wound Packing removed medial incision and dorsal incision-hemosiderin deposit no vivi pus Foot mild edema, no ascending cellulitis Can move right ankle up and down Assessment & Plan A/P Right foot infection s/p I and D per Dr. Mishra It appears infection stabilized with remaining necrosis tissue Plan is I and D right foot with rotational TMA with plantar skin with possible wound vac versus open packing To OR tomorrow for TMA Consent created NPO at midnight Nursing order for betadine wet to dry today Deep Porras DPM Jan 23, 2017 16:13
[2017-01-23] MEDS: ATORVASTATIN 10 MG TAB PO SCH (20:21)
[2017-01-23] MEDS ORDERED: PHARMACY ORDERED LAB XX ONE (21:45)
[2017-01-23 22:45] LABS: BLOOD, URINE NEG (NEG); GLUCOSE,URINE 1000 mg/dL (NEG); HYALINE CAST, URINE 1 /lpf (RARE); KETONE, URINE NEG (NEG); MUCUS URINE FEW /lpf (OCC); NITRITE,URINE NEG (NEG); PH, URINE 5.5 (5.0-8.5); SQUAMOUS EPITHELIAL CELL URINE <1 /hpf (0-5); URINE COLOR LIGHT-YELLOW (YELLW/STRAW)
[2017-01-23 22:47] LABS: COMMENT (UR) CATH-CULT NOT IND; CULTURE IF INDICATED CATH CULTURE NOT IND
--- NOTE | 2017-01-23 23:16 | RADRPT ---
EXAM DATE/TIME: 01/23/2017 21:39 [facility] COMPARISON: No previous studies available for comparison. INDICATIONS : Bypass prep. Dislocation. MEDICAL HISTORY : Myocardial infarction. Hypercholesterolemia. Arthritis. Herniated disc. CVA. Numbness, hands and feet . COPD. HTN. Asthma. Sleep apnea. GERD. Enlarged uterus. Diabetes. Blood clots. Depression. Anxiety. Anticoagulant therapy, Plavix. MRSA. SURGICAL HISTORY : CABGHysterectomy. Bilateral retinopathy. Abdominal cyst removed. Genitourinary surgery, damaged bladd er. Fifth digit amputation. Ganglion cyst removed from right arm. Cysts removed from back. ENCOUNTER: Initial ACUITY: 1 day PAIN SCORE: 9/10 LOCATION: Bilateral arm. FINDINGS: RIGHT UPPER EXTREMITY: There is spontaneous flow documented in the brachial, basilic, cephalic, axillary, and subclavian vei ns. The vessels are compressible and augmentation response is documented. No filling defects are se en. The flow is phasic with respiration. Direction of flow in the jugular vein is caudal. LEFT UPPER EXTREMITY: There is spontaneous flow documented in the brachial, basilic, cephalic, axillary, and subclavian vei ns. The vessels are compressible and augmentation response is documented. No filling defects are se en. The flow is phasic with respiration. Direction of flow in the jugular vein is caudal. CONCLUSION: Normal examination. Singh Lorenzo MD on January 23, 2017 at 23:14 Board Certified Radiologist. This report was verified electronically.
--- NOTE | 2017-01-23 23:16 | RADRPT ---
EXAM DATE/TIME: 01/23/2017 20:45 [facility] COMPARISON: No previous studies available for comparison. INDICATIONS : Bypass prep. Dislocation. MEDICAL HISTORY : Myocardial infarction. Hypercholesterolemia. Arthritis. Herniated disc. CVA. Numbness, hands and feet . COPD. HTN. Asthma. Sleep apnea. GERD. Enlarged uterus. Diabetes. Blood clots. Depression. Anxiety. Anticoagulant therapy, Plavix. MRSA. SURGICAL HISTORY : CABGHysterectomy. Bilateral retinopathy. Abdominal cyst removed. Genitourinary surgery, damaged bladd er. Fifth digit amputation. Ganglion cyst removed from right arm. Cysts removed from back. ENCOUNTER: Initial ACUITY: 1 day PAIN SCORE: 9/10 LOCATION: Bilateral leg. TECHNIQUE: Venous ultrasound of the left and right leg was performed from the inguinal ligament to the proximal calf. Real-time, color Doppler and spectral tracing, compression and augmentation techniques were us ed. FINDINGS: RIGHT LEG: There is normal compressibility of the deep venous system from the inguinal region to the proximal ca lf. No echogenic clot is seen in the lumen of the common femoral, femoral, popliteal, and posterior tibial veins. There is a normal response of the venous system to proximal and distal augmentation an d respiration. LEFT LEG: There is normal compressibility of the deep venous system from the inguinal region to the proximal ca lf. No echogenic clot is seen in the lumen of the common femoral, femoral, popliteal, and posterior tibial veins. There is a normal response of the venous system to proximal and distal augmentation an d respiration. CONCLUSION: Normal examination. Singh Lorenzo MD on January 23, 2017 at 23:14 Board Certified Radiologist. This report was verified electronically.
[2017-01-24 00:07] VITALS: BP 176/85; PULSE 90; RESP 16; TEMP 99.7; O2SAT 100
[2017-01-24] MEDS: VANCOMYCIN 1,000 MG/NS 250 ML IV SCH ×2 (00:39)
[2017-01-24] MEDS: SODIUM CHLOR 0.9% 1000 ML INJ 1,000 ML IV SCH ×2 (00:42→14:03)
[2017-01-24] MEDS: CARISOPRODOL 350 MG TAB PO SCH ×2 (01:18→09:00)
[2017-01-24] MEDS: CEFEPIME INJ 2,000 MG in SODIUM CHLORIDE 0.9% INJ 100 ML IV SCH (03:41)
[2017-01-24 04:00] VITALS: BP 184/83; PULSE 96; RESP 16; TEMP 99; O2SAT 98
[2017-01-24] MEDS: HYDROcodone 5 MG/HOMATROPINE 1.5 MG SYRUP 5 ML CUP PO PRN ×3 (05:48→19:58)
[2017-01-24] MEDS: metroNIDAZOLE 500 MG INJ 100 ML IV SCH ×3 (05:55→22:00)
[2017-01-24] MEDS: INSULIN ASPART SUPPLEMENTAL SCALE SQ SCH ×4 (05:57→19:50)
--- NOTE | 2017-01-24 06:56 | RADRPT ---
EXAM DATE/TIME: 01/23/2017 21:56 [facility] COMPARISON: No previous studies available for comparison. INDICATIONS : Bypass prep. Dislocation. MEDICAL HISTORY : Myocardial infarction. Hypercholesterolemia. Arthritis. Herniated disc. CVA. Numbness, hands and feet . COPD. HTN. Asthma. Sleep apnea. GERD. Enlarged uterus. Diabetes. Blood clots. Depression. Anxiety. Anticoagulant therapy, Plavix. MRSA. SURGICAL HISTORY : CABG Hysterectomy. Bilateral retinopathy. Abdominal cyst removed. Genitourinary surgery, damaged angeline dder. Fifth digit amputation. Ganglion cyst removed from right arm. Cysts removed from back. ENCOUNTER: Initial ACUITY: 1 day PAIN SCORE: 9/10 LOCATION: Bilateral arm. CEPHALIC: ORIGIN: Right 1 mm Left 1 mm MID-ARM: Right 1 mm Left 1 mm ELBOW: Right Non-visualized Left Non-visualized FOREARM: Right Non-visualized Left Non-visualized WRIST: Right Non-visualized Left Non-visualized BASILIC: ORIGIN: Right 4 mm Left 3 mm MID-ARM: Right 3 mm Left 2 mm ELBOW: Right 3 mm Left 2 mm ARTERIES: BRACHIAL: Right 3 mm Left 3 mm ULNAR: Right 1 mm Left 2 mm RADIAL: Right 1 mm Left 1 mm VEINS: RADIAL: Right 1 mm Left 1 mm ULNAR: Right 1 mm Left 1 mm FINDINGS: The venous system of the upper extremities are patent by color Doppler imaging. Measurements of the arm veins (in mm) are listed above. CONCLUSION: 1. Venous mapping as above. Singh Lorenzo MD on January 24, 2017 at 6:54 Board Certified Radiologist. This report was verified electronically.
--- NOTE | 2017-01-24 06:57 | RADRPT ---
EXAM DATE/TIME: 01/23/2017 20:56 [facility] COMPARISON: No previous studies available for comparison. INDICATIONS : Bypass prep. Dislocation. MEDICAL HISTORY : Myocardial infarction. Hypercholesterolemia. Arthritis. Herniated disc. CVA. Numbness, hands and feet . COPD. HTN. Asthma. Sleep apnea. GERD. Enlarged uterus. Diabetes. Blood clots. Depression. Anxiety. Anticoagulant therapy, Plavix. MRSA. SURGICAL HISTORY : CABG Hysterectomy. Bilateral retinopathy. Abdominal cyst removed. Genitourinary surgery, damaged angeline dder. Fifth digit amputation. Ganglion cyst removed from right arm. Cysts removed from back. ENCOUNTER: Initial ACUITY: 1 day PAIN SCORE: 9/10 LOCATION: Bilateral leg. GREATER SAPHENOUS VEIN THIGH: PROXIMAL: Right 4 mm Left 3 mm MID: Right 3 mm Left 1 mm DISTAL: Right 2 mm Left Non-visualized CALF: PROXIMAL: Right 2 mm Left Non-visualized MID: Right 2 mm Left Non-visualized DISTAL: Right 2 mm Left Non-visualized FINDINGS: The venous system of the lower extremities are patent by color Doppler imaging. Measurements of the leg veins (in mm) are listed above. CONCLUSION: 1. Venous mapping as above. Singh Lorenzo MD on January 24, 2017 at 6:55 Board Certified Radiologist. This report was verified electronically.
[2017-01-24 07:29] LABS: HEMATOCRIT 33.7 % (35.0-46.0); MEAN CELL VOLUME 80.5 FL (80.0-100.0); MEAN CORPUSCULAR HEMOGLOBIN 26.6 PG (27.0-34.0); PLATELET COUNT 331 TH/MM3 (150-450); RED BLOOD COUNT 4.18 MIL/MM3 (4.00-5.30); RED CELL DISTRIBUTION WIDTH 13.4 % (11.6-17.2); REVIEW FLAG FINAL; WHITE BLOOD COUNT 12.5 TH/MM3 (4.0-11.0)
[2017-01-24 08:00] VITALS: BP 116/73; PULSE 90; PULSE 92; RESP 18; TEMP 95.7; O2SAT 98
[2017-01-24 08:18] LABS: ALKALINE PHOSPHATASE 138 U/L (45-117); ALT (GPT) 12 U/L (10-53); ANION GAP 9 MEQ/L (5-15); AST (GOT) 25 U/L (15-37); BICARBONATE 25.9 MEQ/L (21.0-32.0); BLOOD UREA NITROGEN 5 MG/DL (7-18); CHLORIDE 110 MEQ/L (98-107); GLOMERULAR FILTRATION RATE 108 ML/MIN (>89); MAGNESIUM 1.6 MG/DL (1.5-2.5); SODIUM (NA) 145 MEQ/L (136-145); TOTAL BILIRUBIN ADULT 0.3 MG/DL (0.2-1.0)
[2017-01-24 08:27] LABS: POTASSIUM 2.9 MEQ/L (3.5-5.1)
[2017-01-24] MEDS: SODIUM CHLORIDE 0.9% FLUSH 5 ML FLUSH FLUSH SCH ×2 (08:46→19:47)
[2017-01-24] MEDS: GABAPENTIN 400 MG CAP PO SCH ×3 (08:49→17:00)
[2017-01-24] MEDS: ASPIRIN EC 81 MG TABEC PO SCH (08:49)
[2017-01-24] MEDS: guaiFENesin E.R. 600 MG TAB PO SCH ×2 (08:49→19:46)
[2017-01-24] MEDS: oxyCODONE/ACETAMINOPHEN 10 MG/325 MG TAB PO PRN ×3 (08:50→22:00)
[2017-01-24] MEDS: INSULIN DETEMIR 100 UNITS/ML VIAL SQ SCH (08:50)
[2017-01-24] MEDS: CLOPIDOGREL 75 MG TAB PO SCH (08:50)
[2017-01-24] MEDS ORDERED: POTASSIUM CHLORIDE 10 MEQ CONTROLLED RELEASE TAB PO ONE (09:00)
[2017-01-24] MEDS: ALPRAZolam 1 MG TAB PO SCH (09:00)
--- NOTE | 2017-01-24 09:22 | HHI.IDPN ---
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 Has low grade temps C/O pain at foot Had surgery on her R foot 01/22 Intraop C/S GBS First wound C/S GBS WBC better Plans for OR noted - resched for tomorrow For TMA Antibiotics Vancomycin Cefepime Flagyl Lines PIV Past Medical History Diabetes Previous diabetic foot infection Peripheral vascular disease COPD, asthma GERD Anxiety disorder Degenerative disc disease in the back and the neck Retinopathy There was mention at some point that she has neurogenic bladder and problem with urinary retention - There was actually an ED visit November 2016 for a blocked Chavira and her Chavira catheter was changed at that time. - Could not really get any good history from the patient regarding when her Chavira was discontinued since she is quite lethargic. Past Surgical History Hysterectomy Eye surgery for retinopathy Amputation of the right fifth toe for diabetic foot infection Allergies: Coded Allergies: Contrast Media (Verified Allergy, Severe, 01/20/17) Sulfa (Verified Allergy, Unknown, 01/20/17) Penicillin (Verified Adverse Reaction, Severe, NAUSEA,DIZZINESS, 01/20/17) Objective . Vital Signs Date Time Temp Pulse Resp B/P Pulse Ox O2 Delivery O2 Flow Rate FiO2 01/24/17 04:00 99.0 96 16 184/83 98 01/24/17 00:07 99.7 90 16 176/85 100 01/23/17 20:38 96 01/23/17 20:00 97.8 98 16 135/74 99 01/23/17 16:00 99.0 98 22 137/68 98 01/23/17 12:30 Nasal Cannula 01/23/17 12:00 99.3 96 22 129/68 98 01/23/17 01/23/17 01/24/17 15:00 23:00 07:00 Intake Total 1920 ml 200 ml Output Total 625 ml 1200 ml 500 ml Balance -625 ml 720 ml -300 ml Intake Oral 200 ml 200 ml IV Total 1720 ml Output Urine Total 625 ml 1200 ml 500 ml # Bowel Movements 0 3 . Laboratory Tests Test 01/23/17 01/24/17 06:20 06:19 White Blood Count 14.3 TH/MM3 12.5 TH/MM3 Red Blood Count 3.87 MIL/MM3 4.18 MIL/MM3 Hemoglobin 10.4 GM/DL 11.1 GM/DL Hematocrit 31.3 % 33.7 % Mean Corpuscular Volume 80.9 FL 80.5 FL Mean Corpuscular Hemoglobin 26.9 PG 26.6 PG Mean Corpuscular Hemoglobin 33.3 % 33.0 % Concent Red Cell Distribution Width 13.6 % 13.4 % Platelet Count 281 TH/MM3 331 TH/MM3 Mean Platelet Volume 9.1 FL 9.0 FL Laboratory Tests Test 01/23/17 01/24/17 06:20 06:19 Sodium Level 142 MEQ/L 145 MEQ/L Potassium Level 2.9 MEQ/L 2.9 MEQ/L Chloride Level 109 MEQ/L 110 MEQ/L Carbon Dioxide Level 21.9 MEQ/L 25.9 MEQ/L Anion Gap 11 MEQ/L 9 MEQ/L Blood Urea Nitrogen 8 MG/DL 5 MG/DL Creatinine 0.72 MG/DL 0.66 MG/DL Estimat Glomerular Filtration 98 ML/MIN 108 ML/MIN Rate Random Glucose 156 MG/DL 99 MG/DL Calcium Level 7.7 MG/DL 8.3 MG/DL Magnesium Level 1.3 MG/DL 1.6 MG/DL Total Bilirubin 0.3 MG/DL Aspartate Amino Transf 25 U/L (AST/SGOT) Alanine Aminotransferase 12 U/L (ALT/SGPT) Alkaline Phosphatase 138 U/L Total Protein 6.7 GM/DL Albumin 1.7 GM/DL Microbiology Date/Time Procedure Status Source Growth 01/21/17 18:55 Gram Stain - Final Complete Wound Foot 01/21/17 18:55 Wound Culture - Final Complete Group B Beta Strep 01/21/17 18:55 Acid Fast Stain - Final Resulted Wound Foot NO ACID FAST BACILLI SEEN 01/21/17 18:55 Mycobacterial Culture Resulted Wound Foot Pending 01/21/17 18:55 Fungal Smear - Final Resulted Wound Foot NO FUNGAL ELEMENTS SEEN. 01/21/17 18:55 Fungal Culture Resulted Wound Foot Pending 01/21/17 18:55 Gram Stain - Final Complete Wound Foot 01/21/17 18:55 Wound Culture - Final Complete Group B Beta Strep 01/21/17 18:55 Acid Fast Stain - Final Resulted Wound Foot NO ACID FAST BACILLI SEEN 01/21/17 18:55 Mycobacterial Culture Resulted Wound Foot Pending 01/21/17 18:55 Fungal Smear - Final Resulted Wound Foot NO FUNGAL ELEMENTS SEEN. 01/21/17 18:55 Fungal Culture Resulted Wound Foot Pending 01/22/17 16:25 Aerobic Blood Culture - Preliminary Resulted Blood Peripheral NO GROWTH IN 1 DAY 01/22/17 16:25 Anaerobic Blood Culture - Preliminary Resulted Blood Peripheral NO GROWTH IN 1 DAY 01/22/17 16:30 Aerobic Blood Culture - Preliminary Resulted Blood Peripheral NO GROWTH IN 1 DAY 01/22/17 16:30 Anaerobic Blood Culture - Preliminary Resulted Blood Peripheral NO GROWTH IN 1 DAY Imaging Last Impressions Foot MRI 01/21/17 0000 Signed Impressions: Service Date/Time: Saturday, January 21, 2017 14:57 - CONCLUSION: 1. Osteomyelitis involving the first medial sesamoid bone. 2. Small focal area of abnormal enhancement and signal in the first metatarsal head also of concern for osteomyelitis. 3. Enhancement of the abductor hallux muscle consistent with infection. 4. Focal ulcer and soft tissue swelling. Tavares Flores MD Foot X-Ray 01/20/17 0000 Signed Impressions: Service Date/Time: Friday, January 20, 2017 15:15 - CONCLUSION: 1. That is post amputation of the fifth digit to the level of the metatarsal head. 2. Mild soft tissue swelling and gas over the medial first metatarsal phalangeal joint with no destructive change. Tavares Flores MD Chest X-Ray 01/20/17 0000 Signed Impressions: Service Date/Time: Friday, January 20, 2017 15:13 - CONCLUSION: No acute disease. Tavares Flores MD Physical Exam GENERAL: Awake and alert, NAD SKIN: Warm and dry, no generalized rash. HEENT: [place] conjunctivae. No scleral icterus. No injection or drainage. Nose without bleeding, or purulent drainage. Moist oral mucosa, she is edentulous. NECK: Trachea midline. No JVD or lymphadenopathy. Supple, nontender, no meningeal signs. CARDIOVASCULAR: Regular rate and rhythm without murmurs, gallops, or rubs. RESPIRATORY: Clear to auscultation. Breath sounds equal bilaterally. No wheezes , rales, or rhonchi. Decreased breath sounds at the bases. GASTROINTESTINAL: Abdomen soft, not tender MUSCULOSKELETAL: LLE: without clubbing, cyanosis, or edema. No joint tenderness, effusion, or edema noted. No calf tenderness.Has scars on her L leg. RLE: has open wound with packing, incisions dry, has areas of black color, and has some bullous lesions in lower ankle with dark fluid. No odor, not as tender, edema better. RLE warms all the way to the ankle NEUROLOGICAL: Awake and alert, speech normal. NO Babinski PSYCH: Cooperative : Chavira in place, urine looks clear LINE: PIV with no evidence of infection Assessment & Plan Remarks IMPRESSION Sepsis on admission, due to severe DFI R foot - S/P surgery - showing necrosis, black eschar DFI, R foot, S/P surgery - showing black eschar - likely has small vessel disease DM, PVD Urinary retention - previous records mentioned neurogenic blader and problem with urinary retention Renal insufficiency due to sepsis, ?underlying DM nephropathy - resolved Leukocytosis, improving RECOMMENDATION Continue Flagyl Change Cefepime to Rocephin Stop Vancomycin OR plans noted for tomorrow - if more necrosis, may need higher amputation Follow C/S Monitor temps Monitor CBC Monitor progress Spoke with granddaughter I also spoke with patient's daughter who informed me that patient had wound infection in her leg S/P CABG D/W Nadja King MD Jan 24, 2017 09:21
[2017-01-24] MEDS ORDERED: cefTRIAXone INJ 2,000 MG in SODIUM CHLORIDE 0.9% INJ 100 ML IV SCH (10:00)
[2017-01-24] MEDS ORDERED: MAGNESIUM SULFATE 1 GM PREMIX 100 ML IV ONE (10:00)
[2017-01-24 12:00] VITALS: BP 99/55; PULSE 82; TEMP 98.8; O2SAT 94
[2017-01-24] MEDS: cefTRIAXone INJ 2,000 MG in SODIUM CHLORIDE 0.9% INJ 100 ML IV SCH (12:13)
--- NOTE | 2017-01-24 16:32 | HHI.PR ---
Subjective Remarks f/u with infection right foot. patient was sedated last night so soma and Ativan held today and she is more alert. AAO X 3. She has no complaints. he grand-daughter at bedside and daughter on face time. she remains afebrile. Objective Vitals Vital Signs Date Time Temp Pulse Resp B/P Pulse Ox O2 Delivery O2 Flow Rate FiO2 01/24/17 12:00 98.8 82 99/55 94 01/24/17 08:00 90 01/24/17 08:00 95.7 92 18 116/73 98 01/24/17 08:00 Room Air 01/24/17 04:00 99.0 96 16 184/83 98 01/24/17 00:07 99.7 90 16 176/85 100 01/23/17 20:38 96 01/23/17 20:00 97.8 98 16 135/74 99 I/O 01/23/17 01/23/17 01/23/17 01/24/17 01/24/17 01/24/17 07:00 15:00 23:00 07:00 15:00 23:00 Intake Total 2750 ml 1920 ml 200 ml 853 ml Output Total 650 ml 625 ml 1200 ml 500 ml Balance 2100 ml -625 ml 720 ml -300 ml 853 ml Intake Oral 200 ml 200 ml IV Total 2750 ml 1720 ml 853 ml Output Urine Total 650 ml 625 ml 1200 ml 500 ml # Bowel Movements 0 3 Result Diagram: 01/24/1761801/24/17618 Objective Remarks GENERAL: in NAD CARDIOVASCULAR: Regular rate and rhythm without murmurs, gallops, or rubs. RESPIRATORY: Breath sounds equal bilaterally. No accessory muscle use. GASTROINTESTINAL: Abdomen soft, non-tender, nondistended. MUSCULOSKELETAL: Right foot and bandage. BACK: Nontender without obvious deformity. No CVA tenderness. NEURO:alert and follow commands and answering questions appropriately. Medications and IVs Current Medications Morphine Sulfate 4 mg 4 mg ONCE ONCE IV PUSH Last administered on 01/20/17 15 :39; Start 01/20/17 at 15:00; Stop 01/20/17 at 15:01; Status DC Ciprofloxacin/ Dextrose 200 ml @ 200 mls/hr ONCE ONCE IV Last administered on 01/20/17 15:38; Start 01/20/17 at 15:00; Stop 01/20/17 at 15:59; Status DC Clindamycin Phosphate 600 mg/ Sodium Chloride 104 ml @ 208 mls/hr ONCE ONCE IV Last administered on 01/20/17 17:26; Start 01/20/17 at 15:00; Stop at 15:29; Status DC Sodium Chloride (NS 1000 ml Inj) 1,000 ml @ 2,000 mls/hr Q30M ONCE IV Last administered on 01/20/17 15:39; Start 01/20/17 at 15:00; Stop 01/20/17 at 15:29 ; Status DC Insulin Aspart (NovoLOG INJ) 10 units ONCE ONCE SQ Last administered on 16:55; Start 01/20/17 at 16:45; Stop 01/20/17 at 16:46; Status DC Morphine Sulfate 4 mg 4 mg ONCE ONCE IV PUSH Last administered on 01/20/17 16 :55; Start 01/20/17 at 16:45; Stop 01/20/17 at 16:46; Status DC Clindamycin Phosphate/Sodium Chloride (Cleocin Inj/NS Inj) 106 ml @ 212 mls/hr Q8H IV Last administered on 01/22/17 19:00; Start 01/21/17 at 01:00; Stop at 17:29; Status DC Dextrose (D50w (Vial) Inj) 25 ml UNSCH PRN IV PUSH HYPOGLYCEMIA-SEE COMMENTS; Start 01/20/17 at 19:45 Glucagon (Glucagon Inj) 1 mg UNSCH PRN OTHER HYPOGLYCEMIA-SEE COMMENTS; Start 01/20/17 at 19:45 Insulin Aspart 1 1 ACHS SLIDING SCALE SQ Last administered on 01/23/17 20:13 ; Start 01/20/17 at 21:00 Sodium Chloride (NS 1000 ml Inj) 1,000 ml @ 100 mls/hr Q10H IV Last administered on 01/24/17 14:03; Start 01/20/17 at 19:36; Stop 01/24/17 at 22:59 IV Flush (NS Flush) 2 ml UNSCH PRN FLUSH FLUSH AFTER USING IV ACCESS; Start at 19:45 IV Flush (NS Flush) 2 ml BID FLUSH Last administered on 01/23/17 20:21; Start 01/20/17 at 21:00 Ondansetron HCl (Zofran Inj) 4 mg Q6H PRN IVP NAUSEA OR VOMITING Last administered on 01/23/17 06:26; Start 01/20/17 at 19:45 Bisacodyl (Dulcolax Supp) 10 mg DAILY PRN [place] CONSTIPATION Last administered on 01/23/17 15:26; Start 01/20/17 at 19:45 Acetaminophen (Tylenol) 650 mg Q6H PRN PO FEVER/PAIN SCALE 1 TO 2; Start at 19:45 Morphine Sulfate 2 mg 2 mg Q3H PRN IV Pain 6-10 Last administered on 01/22/17 01:50; Start 01/20/17 at 19:45 Sodium Chloride (NS 1000 ml Inj) 1,000 ml @ 999 mls/hr BOLUS ONCE IV Last administered on 01/20/17 20:19; Start 01/20/17 at 19:45; Stop 01/20/17 at 20:45 ; Status DC Albuterol Sulfate (Proair Hfa Inh) 1 puff Q4H PRN INH SHORTNESS OF BREATH Last administered on 01/23/17 03:32; Start 01/20/17 at 19:45 Alprazolam (Xanax) 1 mg BID PO Last administered on 01/23/17 20:20; Start at 21:00 Aspirin (Ecotrin Ec) 81 mg DAILY PO Last administered on 01/24/17 08:49; Start 01/21/17 at 09:00 Atorvastatin Calcium (Lipitor) 10 mg HS PO Last administered on 01/23/17 20:21 ; Start 01/20/17 at 21:00 Carisoprodol (Soma) 350 mg BID PO Last administered on 01/24/17 01:18; Start 01/20/17 at 21:00 Clopidogrel Bisulfate (Plavix) 75 mg DAILY PO Last administered on 01/24/17 08 :50; Start 01/21/17 at 09:00 Gabapentin (Neurontin) 800 mg TID PO Last administered on 01/24/17 13:44; Start 01/21/17 at 09:00 Insulin Detemir (Levemir Inj) 35 units DAILY SQ Last administered on 3/22/17at 08:50; Start 01/21/17 at 09:00 Oxycodone/ Acetaminophen (Percocet 10-325 Mg) 1 tab Q6H PRN PO PAIN 3-5 Last administered on 01/24/17 15:16; Start 01/20/17 at 19:45 Insulin Detemir 10 units 10 units ONCE ONCE SQ Last administered on 01/20/17 20:12; Start 01/20/17 at 19:45; Stop 01/20/17 at 19:51; Status DC Cefepime HCl 2000 mg/Sodium Chloride 100 ml @ 200 mls/hr Q12H IV Last administered on 01/24/17 03:41; Start 01/21/17 at 15:00; Stop 01/24/17 at 09:16 ; Status DC Metronidazole 100 ml @ 100 mls/hr Q8H IV Last administered on 01/24/17 13:45 ; Start 01/21/17 at 14:00 Vancomycin HCl 1000 mg/Sodium Chloride 250 ml @ 250 mls/hr ONCE ONCE IV Last administered on 01/21/17 17:10; Start 01/21/17 at 16:00; Stop 01/21/17 at 16:59 ; Status DC Pharmacy Profile Note 0 ml @ 0 mls/hr UNSCH OTHER ; Start 01/21/17 at 13:15; Stop 01/24/17 at 09:16; Status DC Vancomycin HCl/ Sodium Chloride (Vancomycin Inj/ NS 250 ml Inj) 250 ml @ 250 mls/hr Q18H IV Last administered on 01/24/17 00:39; Start 01/22/17 at 10:00; Stop 01/24/17 at 09:17; Status DC Miscellaneous Information SPECIFIC LAB TO BE DRAWN:VANCOMY... ONCE ONCE XX Last administered on 01/23/17 23:08; Start 01/23/17 at 21:45; Stop 01/23/17 at 21:46; Status DC Gadodiamide (Omniscan Pf Inj) 13 ml STK-MED ONCE IV PUSH Last administered on 15:28; Start 01/21/17 at 15:28; Stop 01/21/17 at 15:29; Status DC Bupivacaine HCl (Marcaine Pf 0.25% Inj) 30 ml STK-MED ONCE .ROUTE Last administered on 01/21/17 19:05; Start 01/21/17 at 17:48; Stop 01/21/17 at 17:49 ; Status DC Fentanyl Citrate (fentaNYL INJ) 100 mcg STK-MED ONCE .ROUTE ; Start 01/21/17 at 19:35; Stop 01/21/17 at 19:36; Status DC Miscellaneous Information ALL NURSING DEPARTME... UNSCH PRN XX SEE LABEL COMMENTS; Start 01/21/17 at 19:45; Stop 01/22/17 at 19:44; Status DC Morphine Sulfate 8 mg 8 mg STK-MED ONCE .ROUTE Last administered on 01/21/17 19:45; Start 01/21/17 at 19:45; Stop 01/21/17 at 19:46; Status DC Sodium Chloride (NS 500 ml Inj) 500 ml @ 0 mls/hr BOLUS ONCE IV Last administered on 01/21/17 20:45; Start 01/21/17 at 20:45; Stop 01/21/17 at 20:46 ; Status DC Propofol (Diprivan 200 Mg/20 ml Inj) 200 mg STK-MED ONCE IV ; Start 01/21/17 at 12:00; Stop 01/22/17 at 11:19; Status DC Ephedrine Sulfate (ePHEDrine/NS 25 MG/5 ML SYR) 25 mg STK-MED ONCE IV ; Start at 12:00; Stop 01/22/17 at 11:19; Status DC Phenylephrine HCl 1000 mcg 1,000 mcg STK-MED ONCE IV ; Start 01/21/17 at 12:00; Stop 01/22/17 at 11:19; Status DC Magnesium Sulfate/ Dextrose (Magnesium Sulfate 1 Gm Premix) 100 ml @ 100 mls/ hr ONCE ONCE IV Last administered on 01/23/17 11:44; Start 01/23/17 at 10:00 ; Stop 01/23/17 at 10:59; Status DC Potassium Chloride (KCl) 40 meq NOW ONCE PO Last administered on 01/23/17 11: 44; Start 01/23/17 at 09:45; Stop 01/23/17 at 09:46; Status DC Guaifenesin (Mucinex Er) 600 mg BID PO Last administered on 01/24/17 08:49; Start 01/23/17 at 11:00 Hydrocodone Bit/ Homatropine Methylb 5 ml 5 ml Q6H PRN PO cough Last administered on 01/24/17 13:54; Start 01/23/17 at 11:00 Lactated Ringer's 1,000 ml @ 42 mls/hr [id number] IV ; Start 01/24/17 at 23:00 Magnesium Sulfate/ Dextrose (Magnesium Sulfate 1 Gm Premix) 100 ml @ 100 mls/ hr ONCE ONCE IV Last administered on 01/24/17 09:47; Start 01/24/17 at 10:00 ; Stop 01/24/17 at 10:59; Status DC Potassium Chloride 60 meq 60 meq ONCE ONCE PO Last administered on 01/24/17 09:44; Start 01/24/17 at 09:00; Stop 01/24/17 at 09:09; Status DC Ceftriaxone Sodium/Sodium Chloride (Rocephin Inj/NS Inj) 100 ml @ 200 mls/hr Q24H IV ; Start 01/24/17 at 10:00; Stop 01/24/17 at 10:27; Status DC Prednisone (Deltasone) 50 mg Q6H PO ; Start 01/24/17 at 22:00; Stop 01/25/17 at 12:00 Diphenhydramine HCl 50 mg 50 mg ONCE ONCE PO ; Start 01/25/17 at 10:00; Stop at 10:01 Ceftriaxone Sodium/Sodium Chloride (Rocephin Inj/NS Inj) 100 ml @ 200 mls/hr Q24H IV Last administered on 01/24/17 12:13; Start 01/24/17 at 11:00 A/P Problem List: (1) Sepsis ICD Code: A41.9 Status: Acute (2) Diabetic foot infection ICD Code: E11.69 Status: Acute (3) Hypotension ICD Code: I95.9 Status: Acute (4) Renal insufficiency ICD Code: N28.9 Status: Acute (5) DM (diabetes mellitus) ICD Code: E11.9 Status: Acute Assessment and Plan Sepsis with hypotension -IMPROVING and hypotension resolved. -HR 114, WBC 23.14, Lactic Acid 2.4, repeat 1.8, Source-Right Foot Infection. - see treatment as below. patient is on IVFs. Diabetic Foot Infection -MRI + for osteomyelitis -s/p Incision drainage expansile right foot with incision bone cortex hallux and 1st metatarsal on 01/21. -Pod and ID ff -cultures obtain in ED showed group B beta strep. will wait for cultures that were obtained from surgery. Blood cultures are so far negative. -patient on vancomycin, cefepime, and Flagyl per infectious disease. - Per knitting machine fixer head Dr. Mishra packing today, will need likely some form of hallux amp with wound vac, Path and Micro is pending. -Dr. Porras ff now and stated Plan is I and D right foot with rotational TMA with plantar skin with possible wound vac versus open packing TMA today. PAD -KALYAN was severely abnormal. -vascular surgeon consulted and stated. -per vascular surgeon H/o CABG but used L GSV. Palpable femoral pulse. Needs angiogram and revascularization. she is on schedule for angiogram and potential intervention on . Will get vein map to know open surgical bypass options as well. Acute Renal Insufficiency -Most likely prerenal due to sepsis. -Resolved. Patient no longer an acute renal failure. -strict I/O. -continue with IVFs. Cough -on Hycodan. -on Mucinex chronic pain -due to sedation need to be careful with pain medication. -d/c soma and ativan -d/w nurse in regards to that. anxiety -d/c ativan due to sedation. T2DM insulin dependent. -BS improved drastically. -continue to monitor. -continue to SSI. -will address accordingly. DVT Prophylaxis -Mechanical contraindication in light of foot wound/infection. Discharge Planning patient scheduled for OR today with Pod. Due to severity of infection she will required long hospitalization. Diamond Arboleda MD Jan 24, 2017 16:32
[2017-01-24] MEDS: ATORVASTATIN 10 MG TAB PO SCH (19:47)
[2017-01-24 20:00] VITALS: BP 158/89; PULSE 102; RESP 18; TEMP 97.6; O2SAT 96
[2017-01-24] MEDS: predniSONE 50 MG TAB PO SCH (22:00)
[2017-01-24] MEDS: LACTATED RINGER'S 1000 ML INJ 1,000 ML IV SCH (23:00)
[2017-01-25] VITALS: BP 104/77; PULSE 82; RESP 17; TEMP 97.3; O2SAT 94
[2017-01-25 04:00] VITALS: BP 107/84; PULSE 81; RESP 17; TEMP 96.6; O2SAT 95
[2017-01-25] MEDS: predniSONE 50 MG TAB PO SCH ×2 (04:09→10:34)
[2017-01-25] MEDS: metroNIDAZOLE 500 MG INJ 100 ML IV SCH ×3 (04:09→21:56)
[2017-01-25] MEDS: INSULIN ASPART SUPPLEMENTAL SCALE SQ SCH ×4 (06:15→22:06)
[2017-01-25] MEDS: ALBUTEROL SULFATE 90 MCG/ACT HFA 8 GM INHALER INH PRN (06:49)
[2017-01-25] MEDS: oxyCODONE/ACETAMINOPHEN 10 MG/325 MG TAB PO PRN ×3 (06:56→21:55)
[2017-01-25 08:00] VITALS: BP 110/74; PULSE 85; RESP 20; TEMP 98.6; O2SAT 96
[2017-01-25] MEDS: guaiFENesin E.R. 600 MG TAB PO SCH ×2 (08:47→21:55)
[2017-01-25] MEDS: SODIUM CHLORIDE 0.9% FLUSH 5 ML FLUSH FLUSH SCH ×2 (08:47→21:00)
[2017-01-25] MEDS: GABAPENTIN 400 MG CAP PO SCH ×3 (08:47→17:46)
[2017-01-25] MEDS: CLOPIDOGREL 75 MG TAB PO SCH (09:00)
[2017-01-25] MEDS: ASPIRIN EC 81 MG TABEC PO SCH (09:00)
[2017-01-25] MEDS: INSULIN DETEMIR 100 UNITS/ML VIAL SQ SCH (09:00)
[2017-01-25 09:48] VITALS: PULSE 85
[2017-01-25] MEDS ORDERED: diphenhydrAMINE HCL 50 MG CAP PO ONE (10:00)
[2017-01-25 10:29] LABS: AUTOMATED NEUTROPHIL # 11.3 TH/MM3 (1.8-7.7); BASOPHIL % 0.4 % (0.0-2.0); HEMATOCRIT 32.9 % (35.0-46.0); HEMO FLAGS DIFF FINAL; LYMPH % 5.6 % (9.0-44.0); LYMPHOCYTE # 0.7 TH/MM3 (1.0-4.8); MEAN CELL VOLUME 80.9 FL (80.0-100.0); MEAN CORPUSCULAR HEMOGLOBIN 26.6 PG (27.0-34.0); MEAN CORPUSCULAR HGB CONC 32.9 % (32.0-36.0); MONO % 1.7 % (0.0-8.0); NEUT % 92.3 % (16.0-70.0); PLATELET COUNT 391 TH/MM3 (150-450); RED BLOOD COUNT 4.06 MIL/MM3 (4.00-5.30); RED CELL DISTRIBUTION WIDTH 13.8 % (11.6-17.2); WHITE BLOOD COUNT 12.2 TH/MM3 (4.0-11.0)
[2017-01-25 11:22] LABS: BICARBONATE 26.4 MEQ/L (21.0-32.0); MAGNESIUM 1.7 MG/DL (1.5-2.5); POTASSIUM 3.9 MEQ/L (3.5-5.1)
[2017-01-25] MEDS ORDERED: HEPARIN-NS/PF INJ 500 ML ONE (11:58)
[2017-01-25] MEDS ORDERED: MIDAZOLAM HCL 2 MG/2 ML VIAL ONE (11:58)
[2017-01-25] MEDS ORDERED: HEPARIN SODIUM - IV 10,000 UNITS/10 ML VIAL ONE (11:59)
--- NOTE | 2017-01-25 12:52 | HHI.PR ---
Immediate Post Op Note Procedure Date: Jan 25, 2017 Pre Op Diagnosis: R LE PAD with tissue loss Post Op Diagnosis: R LE PAD with tissue loss Surgeon: Sami Olivier Rivet Hole Puncher(s): none Procedure: Aortogram w/ R LE Angiogram R SFA PRODUCT LEAD (5mm) Findings: 1. Patent B iliac stents 2. Occluded R SFA - recanalized and PRODUCT LEAD with excellent result and 2 vessel runoff to foot (PT/peroneal) Additional Information: L COAL WHEELER closed with Angioseal Complications: none apparent Specimen(s) removed: none Estimated blood loss: 5 mL Anesthesia: MAC Drains: None Patient to: Other (DOCU) Patient Condition: Good Implant/Devices: SEE IMPLANT LOG (if applicable) Date/Time of Procedure: SEE SURGICAL CARE RECORD Sami Olivier MD Jan 25, 2017 12:52
[2017-01-25] MEDS: SODIUM BICARBONATE 8.4% INJ 100 MEQ in DEXTROSE 5% IN WATE 1000ML INJ 1,000 ML IV SCH ×2 (13:00)
[2017-01-25] MEDS ORDERED: IOHEXOL 350 MG/ML 100 ML BTL (for Cath Lab) OTHER ONE (13:42)
--- NOTE | 2017-01-25 14:01 | HHI.PR ---
Subjective Remarks f/u for right foot infection and PVD. Patient stated she is worry about losing her foot. She stated pain is controlled and that she is more awake with the decrease in medication. Otherwise she has no complaints. She remains afebrile. Her grand daughter is at the bedside and her daughter is on facetime. Objective Vitals Vital Signs Date Time Temp Pulse Resp B/P Pulse Ox O2 Delivery O2 Flow Rate FiO2 01/25/17 08:40 Room Air 2.00 01/25/17 08:00 98.6 85 20 110/74 96 01/25/17 04:00 96.6 81 17 107/84 95 01/25/17 00:00 97.3 82 17 104/77 94 01/24/17 20:00 97.6 102 18 158/89 96 01/24/17 20:00 Room Air I/O 01/24/17 01/24/17 01/24/17 01/25/17 01/25/17 01/25/17 07:00 15:00 23:00 07:00 15:00 23:00 Intake Total 200 ml 480 ml 853 ml 1124 ml 0 ml Output Total 500 ml 450 ml 1100 ml Balance -300 ml 480 ml 403 ml 24 ml 0 ml Intake Oral 200 ml 480 ml 0 ml IV Total 853 ml 1124 ml Output Urine Total 500 ml 450 ml 1100 ml # Bowel Movements 3 1 1 Result Diagram: 01/25/17 0950 01/25/17 0950 Objective Remarks GENERAL: in NAD CARDIOVASCULAR: Regular rate and rhythm without murmurs, gallops, or rubs. RESPIRATORY: Breath sounds equal bilaterally. No accessory muscle use. GASTROINTESTINAL: Abdomen soft, non-tender, nondistended. MUSCULOSKELETAL: Right foot and bandage. BACK: Nontender without obvious deformity. No CVA tenderness. NEURO:alert and follow commands and answering questions appropriately. Medications and IVs Current Medications Morphine Sulfate 4 mg 4 mg ONCE ONCE IV PUSH Last administered on 01/20/17 15 :39; Start 01/20/17 at 15:00; Stop 01/20/17 at 15:01; Status DC Ciprofloxacin/ Dextrose 200 ml @ 200 mls/hr ONCE ONCE IV Last administered on 01/20/17 15:38; Start 01/20/17 at 15:00; Stop 01/20/17 at 15:59; Status DC Clindamycin Phosphate 600 mg/ Sodium Chloride 104 ml @ 208 mls/hr ONCE ONCE IV Last administered on 01/20/17 17:26; Start 01/20/17 at 15:00; Stop at 15:29; Status DC Sodium Chloride (NS 1000 ml Inj) 1,000 ml @ 2,000 mls/hr Q30M ONCE IV Last administered on 01/20/17 15:39; Start 01/20/17 at 15:00; Stop 01/20/17 at 15:29 ; Status DC Insulin Aspart (NovoLOG INJ) 10 units ONCE ONCE SQ Last administered on 16:55; Start 01/20/17 at 16:45; Stop 01/20/17 at 16:46; Status DC Morphine Sulfate 4 mg 4 mg ONCE ONCE IV PUSH Last administered on 01/20/17 16 :55; Start 01/20/17 at 16:45; Stop 01/20/17 at 16:46; Status DC Clindamycin Phosphate/Sodium Chloride (Cleocin Inj/NS Inj) 106 ml @ 212 mls/hr Q8H IV Last administered on 01/22/17 19:00; Start 01/21/17 at 01:00; Stop at 17:29; Status DC Dextrose (D50w (Vial) Inj) 25 ml UNSCH PRN IV PUSH HYPOGLYCEMIA-SEE COMMENTS; Start 01/20/17 at 19:45 Glucagon (Glucagon Inj) 1 mg UNSCH PRN OTHER HYPOGLYCEMIA-SEE COMMENTS; Start 01/20/17 at 19:45 Insulin Aspart 1 1 ACHS SLIDING SCALE SQ Last administered on 01/24/17 19:50 ; Start 01/20/17 at 21:00 Sodium Chloride (NS 1000 ml Inj) 1,000 ml @ 100 mls/hr Q10H IV Last administered on 01/24/17 14:03; Start 01/20/17 at 19:36; Stop 01/24/17 at 22:59 ; Status DC IV Flush (NS Flush) 2 ml UNSCH PRN FLUSH FLUSH AFTER USING IV ACCESS; Start at 19:45 IV Flush (NS Flush) 2 ml BID FLUSH Last administered on 01/25/17 08:47; Start 01/20/17 at 21:00 Ondansetron HCl (Zofran Inj) 4 mg Q6H PRN IVP NAUSEA OR VOMITING Last administered on 01/23/17 06:26; Start 01/20/17 at 19:45 Bisacodyl (Dulcolax Supp) 10 mg DAILY PRN [place] CONSTIPATION Last administered on 01/23/17 15:26; Start 01/20/17 at 19:45 Acetaminophen (Tylenol) 650 mg Q6H PRN PO FEVER/PAIN SCALE 1 TO 2; Start at 19:45 Morphine Sulfate 2 mg 2 mg Q3H PRN IV Pain 6-10 Last administered on 01/22/17 01:50; Start 01/20/17 at 19:45 Sodium Chloride (NS 1000 ml Inj) 1,000 ml @ 999 mls/hr BOLUS ONCE IV Last administered on 01/20/17 20:19; Start 01/20/17 at 19:45; Stop 01/20/17 at 20:45 ; Status DC Albuterol Sulfate (Proair Hfa Inh) 1 puff Q4H PRN INH SHORTNESS OF BREATH Last administered on 01/25/17 06:49; Start 01/20/17 at 19:45 Alprazolam (Xanax) 1 mg BID PO Last administered on 01/23/17 20:20; Start at 21:00; Status Hold Aspirin (Ecotrin Ec) 81 mg DAILY PO Last administered on 01/24/17 08:49; Start 01/21/17 at 09:00 Atorvastatin Calcium (Lipitor) 10 mg HS PO Last administered on 01/24/17 19:47 ; Start 01/20/17 at 21:00 Carisoprodol (Soma) 350 mg BID PO Last administered on 01/24/17 01:18; Start 01/20/17 at 21:00; Status Hold Clopidogrel Bisulfate (Plavix) 75 mg DAILY PO Last administered on 01/24/17 08 :50; Start 01/21/17 at 09:00 Gabapentin (Neurontin) 800 mg TID PO Last administered on 01/25/17 08:47; Start 01/21/17 at 09:00 Insulin Detemir (Levemir Inj) 35 units DAILY SQ Last administered on 01/24/17 08:50; Start 01/21/17 at 09:00 Oxycodone/ Acetaminophen (Percocet 10-325 Mg) 1 tab Q6H PRN PO PAIN 3-5 Last administered on 01/25/17 06:56; Start 01/20/17 at 19:45 Insulin Detemir 10 units 10 units ONCE ONCE SQ Last administered on 01/20/17 20:12; Start 01/20/17 at 19:45; Stop 01/20/17 at 19:51; Status DC Cefepime HCl 2000 mg/Sodium Chloride 100 ml @ 200 mls/hr Q12H IV Last administered on 01/24/17 03:41; Start 01/21/17 at 15:00; Stop 01/24/17 at 09:16 ; Status DC Metronidazole 100 ml @ 100 mls/hr Q8H IV Last administered on 01/25/17 04:09 ; Start 01/21/17 at 14:00 Vancomycin HCl 1000 mg/Sodium Chloride 250 ml @ 250 mls/hr ONCE ONCE IV Last administered on 01/21/17 17:10; Start 01/21/17 at 16:00; Stop 01/21/17 at 16:59 ; Status DC Pharmacy Profile Note 0 ml @ 0 mls/hr UNSCH OTHER ; Start 01/21/17 at 13:15; Stop 01/24/17 at 09:16; Status DC Vancomycin HCl/ Sodium Chloride (Vancomycin Inj/ NS 250 ml Inj) 250 ml @ 250 mls/hr Q18H IV Last administered on 01/24/17 00:39; Start 01/22/17 at 10:00; Stop 01/24/17 at 09:17; Status DC Miscellaneous Information SPECIFIC LAB TO BE DRAWN:VANCOMY... ONCE ONCE XX Last administered on 01/23/17 23:08; Start 01/23/17 at 21:45; Stop 01/23/17 at 21:46; Status DC Gadodiamide (Omniscan Pf Inj) 13 ml STK-MED ONCE IV PUSH Last administered on 15:28; Start 01/21/17 at 15:28; Stop 01/21/17 at 15:29; Status DC Bupivacaine HCl (Marcaine Pf 0.25% Inj) 30 ml STK-MED ONCE .ROUTE Last administered on 01/21/17 19:05; Start 01/21/17 at 17:48; Stop 01/21/17 at 17:49 ; Status DC Fentanyl Citrate (fentaNYL INJ) 100 mcg STK-MED ONCE .ROUTE ; Start 01/21/17 at 19:35; Stop 01/21/17 at 19:36; Status DC Miscellaneous Information ALL NURSING DEPARTME... UNSCH PRN XX SEE LABEL COMMENTS; Start 01/21/17 at 19:45; Stop 01/22/17 at 19:44; Status DC Morphine Sulfate 8 mg 8 mg STK-MED ONCE .ROUTE Last administered on 01/21/17 19:45; Start 01/21/17 at 19:45; Stop 01/21/17 at 19:46; Status DC Sodium Chloride (NS 500 ml Inj) 500 ml @ 0 mls/hr BOLUS ONCE IV Last administered on 01/21/17 20:45; Start 01/21/17 at 20:45; Stop 01/21/17 at 20:46 ; Status DC Propofol (Diprivan 200 Mg/20 ml Inj) 200 mg STK-MED ONCE IV ; Start 01/21/17 at 12:00; Stop 01/22/17 at 11:19; Status DC Ephedrine Sulfate (ePHEDrine/NS 25 MG/5 ML SYR) 25 mg STK-MED ONCE IV ; Start at 12:00; Stop 01/22/17 at 11:19; Status DC Phenylephrine HCl 1000 mcg 1,000 mcg STK-MED ONCE IV ; Start 01/21/17 at 12:00; Stop 01/22/17 at 11:19; Status DC Magnesium Sulfate/ Dextrose (Magnesium Sulfate 1 Gm Premix) 100 ml @ 100 mls/ hr ONCE ONCE IV Last administered on 01/23/17 11:44; Start 01/23/17 at 10:00 ; Stop 01/23/17 at 10:59; Status DC Potassium Chloride (KCl) 40 meq NOW ONCE PO Last administered on 01/23/17 11: 44; Start 01/23/17 at 09:45; Stop 01/23/17 at 09:46; Status DC Guaifenesin (Mucinex Er) 600 mg BID PO Last administered on 01/25/17 08:47; Start 01/23/17 at 11:00 Hydrocodone Bit/ Homatropine Methylb 5 ml 5 ml Q6H PRN PO cough Last administered on 01/24/17 19:58; Start 01/23/17 at 11:00 Lactated Ringer's 1,000 ml @ 42 mls/hr [id number] IV Last administered on 23:00; Start 01/24/17 at 23:00 Magnesium Sulfate/ Dextrose (Magnesium Sulfate 1 Gm Premix) 100 ml @ 100 mls/ hr ONCE ONCE IV Last administered on 01/24/17 09:47; Start 01/24/17 at 10:00 ; Stop 01/24/17 at 10:59; Status DC Potassium Chloride 60 meq 60 meq ONCE ONCE PO Last administered on 01/24/17 09:44; Start 01/24/17 at 09:00; Stop 01/24/17 at 09:09; Status DC Ceftriaxone Sodium/Sodium Chloride (Rocephin Inj/NS Inj) 100 ml @ 200 mls/hr Q24H IV ; Start 01/24/17 at 10:00; Stop 01/24/17 at 10:27; Status DC Prednisone (Deltasone) 50 mg Q6H PO Last administered on 01/25/17 10:34; Start 01/24/17 at 22:00; Stop 01/25/17 at 12:00; Status DC Diphenhydramine HCl 50 mg 50 mg ONCE ONCE PO Last administered on 01/25/17 11 :19; Start 01/25/17 at 10:00; Stop 01/25/17 at 10:02; Status DC Ceftriaxone Sodium 2000 mg/ Sodium Chloride 100 ml @ 200 mls/hr Q24H IV Last administered on 01/24/17 12:13; Start 01/24/17 at 11:00 Sodium Bicarbonate 100 meq/Dextrose 1,100 ml @ 42 mls/hr Q24H IV ; Start at 13:00 Heparin Sodium/ Sodium Chloride (Heparin-NS/Pf Inj) 500 ml @ As Directed STK- MED ONCE .ROUTE ; Start 01/25/17 at 11:58; Stop 01/25/17 at 11:59; Status DC Midazolam HCl (Versed Inj) 2 mg STK-MED ONCE .ROUTE ; Start 01/25/17 at 11:58; Stop 01/25/17 at 11:59; Status DC Fentanyl Citrate (fentaNYL INJ) 100 mcg STK-MED ONCE .ROUTE ; Start 01/25/17 at 11:58; Stop 01/25/17 at 11:59; Status DC Heparin Sodium (Porcine) (Heparin Inj) 10,000 units STK-MED ONCE .ROUTE ; Start 01/25/17 at 11:59; Stop 01/25/17 at 12:00; Status DC Iohexol (OMNIPAQUE 350 INJ (Pump House Operator)) 100 ml STK-MED ONCE OTHER ; Start at 13:42; Stop 01/25/17 at 13:43; Status DC A/P Problem List: (1) Sepsis ICD Code: A41.9 Status: Acute (2) Diabetic foot infection ICD Code: E11.69 Status: Acute (3) Hypotension ICD Code: I95.9 Status: Acute (4) Renal insufficiency ICD Code: N28.9 Status: Acute (5) DM (diabetes mellitus) ICD Code: E11.9 Status: Acute Assessment and Plan Sepsis with hypotension -RESOLVED. -initially HR 114, WBC 23.14, Lactic Acid 2.4, repeat 1.8, Source-Right Foot Infection. - see treatment as below. Diabetic Foot Infection -MRI + for osteomyelitis -s/p Incision drainage expansile right foot with incision bone cortex hallux and 1st metatarsal on 01/21. -Pod and ID ff -wound culture from surgery growing Group B beta strep. Blood cultures are so far negative. -patient on vancomycin, cefepime, and Flagyl per infectious disease. - Per director clinical operations Dr. Mishra stated will likely need some form of hallux amp with wound vac. -Dr. Porras ff now and stated Plan is I and D right foot with rotational TMA with plantar skin with possible wound vac versus open packing TMA. Peripheral arterial Disease. -KALYAN was severely abnormal. -vascular surgeon consulted. -patient had aortogram w/ R LE Angiogram, and R SFA COURT USHER. Finding included patent B iliac stents and Occluded R SFA - recanalized and COURT USHER with excellent result and 2 vessel runoff to foot (PT/peroneal). Acute Renal Insufficiency -Most likely prerenal due to sepsis. -Resolved. Patient no longer an acute renal failure. -strict I/O. -continue with IVFs. Cough -on Hycodan. -on Mucinex chronic pain -due to sedation need to be careful with pain medication. -d/c soma and Ativan anxiety -d/c Ativan due to sedation. T2DM insulin dependent. -BS improved drastically. -continue to monitor. -continue to SSI. -will address accordingly. DVT Prophylaxis -Mechanical contraindication in light of foot wound/infection. Discharge Planning Due to severity of infection patient will required long hospitalization. Diamond Arboleda MD Jan 25, 2017 14:01 Diamond Arboleda MD Jan 25, 2017 14:01 Diamond Arboleda MD Jan 25, 2017 14:01 Diamond Arboleda MD Jan 25, 2017 14:01
--- NOTE | 2017-01-25 14:38 | HHI.IDPN ---
Subjective Subjective Remarks Notes reviewed Had aortogram today and SUPERINTENDENT RECREATION RSFA Temps ok Had surgery on her R foot 01/22 Intraop C/S GBS First wound C/S GBS Biopsy C/W acute osteomyelitis WBC better Antibiotics Rocephin Flagyl Lines PIV Past Medical History Diabetes Previous diabetic foot infection Peripheral vascular disease COPD, asthma GERD Anxiety disorder Degenerative disc disease in the back and the neck Retinopathy There was mention at some point that she has neurogenic bladder and problem with urinary retention - There was actually an ED visit November 2016 for a blocked Chavira and her Chavira catheter was changed at that time. - Could not really get any good history from the patient regarding when her Chavira was discontinued since she is quite lethargic. Past Surgical History Hysterectomy Eye surgery for retinopathy Amputation of the right fifth toe for diabetic foot infection Allergies: Coded Allergies: Contrast Media (Verified Allergy, Severe, 01/20/17) Sulfa (Verified Allergy, Unknown, 01/20/17) Penicillin (Verified Adverse Reaction, Severe, NAUSEA,DIZZINESS, 01/20/17) Objective . Vital Signs Date Time Temp Pulse Resp B/P Pulse Ox O2 Delivery O2 Flow Rate FiO2 01/25/17 14:33 97 Room Air 01/25/17 09:48 85 01/25/17 08:40 Room Air 2.00 01/25/17 08:00 98.6 85 20 110/74 96 01/25/17 04:00 96.6 81 17 107/84 95 01/25/17 00:00 97.3 82 17 104/77 94 01/24/17 20:00 97.6 102 18 158/89 96 01/24/17 20:00 Room Air 01/24/17 01/24/17 01/25/17 15:00 23:00 07:00 Intake Total 480 ml 853 ml 1124 ml Output Total 450 ml 1100 ml Balance 480 ml 403 ml 24 ml Intake Oral 480 ml IV Total 853 ml 1124 ml Output Urine Total 450 ml 1100 ml # Bowel Movements 1 . Laboratory Tests Test 01/24/17 01/25/17 06:19 09:50 White Blood Count 12.5 TH/MM3 12.2 TH/MM3 Red Blood Count 4.18 MIL/MM3 4.06 MIL/MM3 Hemoglobin 11.1 GM/DL 10.8 GM/DL Hematocrit 33.7 % 32.9 % Mean Corpuscular Volume 80.5 FL 80.9 FL Mean Corpuscular Hemoglobin 26.6 PG 26.6 PG Mean Corpuscular Hemoglobin 33.0 % 32.9 % Concent Red Cell Distribution Width 13.4 % 13.8 % Platelet Count 331 TH/MM3 391 TH/MM3 Mean Platelet Volume 9.0 FL 9.1 FL Neutrophils (%) (Auto) 92.3 % Lymphocytes (%) (Auto) 5.6 % Monocytes (%) (Auto) 1.7 % Eosinophils (%) (Auto) 0.0 % Basophils (%) (Auto) 0.4 % Neutrophils # (Auto) 11.3 TH/MM3 Lymphocytes # (Auto) 0.7 TH/MM3 Monocytes # (Auto) 0.2 TH/MM3 Eosinophils # (Auto) 0.0 TH/MM3 Basophils # (Auto) 0.0 TH/MM3 CBC Comment DIFF FINAL Differential Comment Laboratory Tests Test 01/24/17 01/25/17 06:19 09:50 Sodium Level 145 MEQ/L 144 MEQ/L Potassium Level 2.9 MEQ/L 3.9 MEQ/L Chloride Level 110 MEQ/L 110 MEQ/L Carbon Dioxide Level 25.9 MEQ/L 26.4 MEQ/L Anion Gap 9 MEQ/L 8 MEQ/L Blood Urea Nitrogen 5 MG/DL 10 MG/DL Creatinine 0.66 MG/DL 0.60 MG/DL Estimat Glomerular Filtration 108 ML/MIN 121 ML/MIN Rate Random Glucose 99 MG/DL 168 MG/DL Calcium Level 8.3 MG/DL 8.5 MG/DL Magnesium Level 1.6 MG/DL 1.7 MG/DL Total Bilirubin 0.3 MG/DL Aspartate Amino Transf 25 U/L (AST/SGOT) Alanine Aminotransferase 12 U/L (ALT/SGPT) Alkaline Phosphatase 138 U/L Total Protein 6.7 GM/DL Albumin 1.7 GM/DL Microbiology Date/Time Procedure Status Source Growth 01/22/17 16:25 Aerobic Blood Culture - Preliminary Resulted Blood Peripheral NO GROWTH IN 3 DAYS 01/22/17 16:25 Anaerobic Blood Culture - Preliminary Resulted Blood Peripheral NO GROWTH IN 3 DAYS 01/22/17 16:30 Aerobic Blood Culture - Preliminary Resulted Blood Peripheral NO GROWTH IN 3 DAYS 01/22/17 16:30 Anaerobic Blood Culture - Preliminary Resulted Blood Peripheral NO GROWTH IN 3 DAYS Imaging Last Impressions Foot MRI 01/21/17 0000 Signed Impressions: Service Date/Time: Saturday, January 21, 2017 14:57 - CONCLUSION: 1. Osteomyelitis involving the first medial sesamoid bone. 2. Small focal area of abnormal enhancement and signal in the first metatarsal head also of concern for osteomyelitis. 3. Enhancement of the abductor hallux muscle consistent with infection. 4. Focal ulcer and soft tissue swelling. Tavares Flores MD Foot X-Ray 01/20/17 0000 Signed Impressions: Service Date/Time: Friday, January 20, 2017 15:15 - CONCLUSION: 1. That is post amputation of the fifth digit to the level of the metatarsal head. 2. Mild soft tissue swelling and gas over the medial first metatarsal phalangeal joint with no destructive change. Tavares Flores MD Chest X-Ray 01/20/17 0000 Signed Impressions: Service Date/Time: Friday, January 20, 2017 15:13 - CONCLUSION: No acute disease. Tavares Flores MD Physical Exam GENERAL: , NAD SKIN: Warm and dry, no generalized rash. HEENT: [place] conjunctivae. No scleral icterus. Moist oral mucosa, she is edentulous. NECK: Supple, nontender, no meningeal signs. CARDIOVASCULAR: Regular rate and rhythm without murmurs, gallops, or rubs. RESPIRATORY: Clear to auscultation. . Decreased breath sounds at the bases. GASTROINTESTINAL: Abdomen soft, not tender MUSCULOSKELETAL: RLE: dressing in place on her R foot/ankle. RLE warm all the way to the ankle NEUROLOGICAL: Awake and alert, speech normal. NO Babinski PSYCH: Cooperative : Chavira in place, urine looks clear LINE: PIV with no evidence of infection Assessment & Plan Remarks IMPRESSION Sepsis on admission, due to severe DFI R foot - S/P surgery - showing necrosis, black eschar DFI, R foot, S/P surgery - showing black eschar - likely has small vessel disease DM, PVD - S/P revasculariztion RLE Urinary retention - previous records mentioned neurogenic blader and problem with urinary retention Renal insufficiency due to sepsis, ?underlying DM nephropathy - resolved Leukocytosis, improving RECOMMENDATION Continue Flagyl Continue Rocephin Further OR per podiatry Follow C/S Monitor temps Monitor CBC Monitor progress Nadja Mendenhall MD Jan 25, 2017 14:38
[2017-01-25 15:30] VITALS: BP 118/77; PULSE 89; RESP 20; TEMP 96.9; O2SAT 95
[2017-01-25] MEDS: cefTRIAXone INJ 2,000 MG in SODIUM CHLORIDE 0.9% INJ 100 ML IV SCH (16:43)
[2017-01-25] MEDS: HYDROcodone 5 MG/HOMATROPINE 1.5 MG SYRUP 5 ML CUP PO PRN (17:50)
--- NOTE | 2017-01-25 17:51 | PD.POD ---
Subjective Podiatric Problems Pt in pain, no acute issue to address, with two grandkids at bedside and nurse Pain score: 3 Past Med/Surg/Social History Social History Smoking Status: Former Smoker Objective Vital Signs Vital Signs Date Time Temp Pulse Resp B/P Pulse Ox O2 Delivery O2 Flow Rate FiO2 01/25/17 14:33 97 Room Air 01/25/17 09:48 85 01/25/17 08:40 Room Air 2.00 01/25/17 08:00 98.6 85 20 110/74 96 01/25/17 04:00 96.6 81 17 107/84 95 01/25/17 00:00 97.3 82 17 104/77 94 01/24/17 20:00 97.6 102 18 158/89 96 01/24/17 20:00 Room Air Coded Allergies: Contrast Media (Verified Allergy, Severe, 01/20/17) Sulfa (Verified Allergy, Unknown, 01/20/17) Penicillin (Verified Adverse Reaction, Severe, NAUSEA,DIZZINESS, 01/20/17) Physical Exam Remarks Right foot edema improved MEdial ulcer with necrosis and dorsal dusky tissue not extending to ankle CAn move ankle up and down Assessment & Plan A/P Right foot infection s/p I and D per Dr. Mishra and angio by Vascular today -Plan is KALYAN tomorrow to assess blood flow -Plan TMA/Chopart's/rotational flap potnetially this weekend with potential wound vac -Regular diet until surgery planned -Medical managment Deep Porras DPM Jan 25, 2017 17:51
[2017-01-25 20:00] VITALS: BP 141/70; PULSE 83; RESP 16; TEMP 99; O2SAT 96
[2017-01-25 21:33] LABS: BICARBONATE 23.7 MEQ/L (21.0-32.0); POTASSIUM 4.2 MEQ/L (3.5-5.1)
[2017-01-25] MEDS: ATORVASTATIN 10 MG TAB PO SCH (22:00)
[2017-01-25] MEDS: LACTATED RINGER'S 1000 ML INJ 1,000 ML IV SCH (22:49)
[2017-01-26] VITALS: BP 118/62; PULSE 99; RESP 16; TEMP 98.3; O2SAT 92
[2017-01-26 05:08] VITALS: BP 145/81; PULSE 97; RESP 16; TEMP 97.5; O2SAT 98
[2017-01-26] MEDS: INSULIN ASPART SUPPLEMENTAL SCALE SQ SCH ×4 (05:24→20:55)
[2017-01-26] MEDS: oxyCODONE/ACETAMINOPHEN 10 MG/325 MG TAB PO PRN ×2 (05:25→20:44)
[2017-01-26] MEDS: metroNIDAZOLE 500 MG INJ 100 ML IV SCH ×3 (06:00→23:52)
[2017-01-26 06:59] LABS: MEAN CELL VOLUME 81.3 FL (80.0-100.0); MEAN CORPUSCULAR HEMOGLOBIN 26.7 PG (27.0-34.0); MEAN CORPUSCULAR HGB CONC 32.9 % (32.0-36.0); PLATELET COUNT 421 TH/MM3 (150-450); RED BLOOD COUNT 3.69 MIL/MM3 (4.00-5.30); REVIEW FLAG FINAL; WHITE BLOOD COUNT 12.7 TH/MM3 (4.0-11.0)
--- NOTE | 2017-01-26 07:51 | PD.VS.PN ---
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 LEADER Feels well; no complaints Objective Vitals/I&O Date Time Temp Pulse Resp B/P Pulse Ox O2 Delivery O2 Flow Rate FiO2 01/26/17 05:08 97.5 97 16 145/81 98 01/26/17 00:00 98.3 99 16 118/62 92 01/25/17 21:56 92 Room Air 01/25/17 20:00 99.0 83 16 141/70 96 01/25/17 15:30 96.9 89 20 118/77 95 01/25/17 14:33 97 Room Air 01/25/17 09:48 85 01/25/17 08:40 Room Air 2.00 01/25/17 08:00 98.6 85 20 110/74 96 01/26/17 01/26/17 01/26/17 06:59 14:59 22:59 Intake Total 500 ml Output Total 1200 ml Balance -700 ml Physical Exam R foot warmer; L groin ok Laboratory Laboratory Tests Test 01/25/17 01/25/17 01/26/17 09:50 20:31 05:55 White Blood Count 12.2 12.7 Red Blood Count 4.06 3.69 Hemoglobin 10.8 9.9 Hematocrit 32.9 30.0 Mean Corpuscular Volume 80.9 81.3 Mean Corpuscular Hemoglobin 26.6 26.7 Mean Corpuscular Hemoglobin 32.9 32.9 Concent Red Cell Distribution Width 13.8 14.0 Platelet Count 391 421 Mean Platelet Volume 9.1 9.1 Neutrophils (%) (Auto) 92.3 Lymphocytes (%) (Auto) 5.6 Monocytes (%) (Auto) 1.7 Eosinophils (%) (Auto) 0.0 Basophils (%) (Auto) 0.4 Neutrophils # (Auto) 11.3 Lymphocytes # (Auto) 0.7 Monocytes # (Auto) 0.2 Eosinophils # (Auto) 0.0 Basophils # (Auto) 0.0 CBC Comment DIFF FINAL Differential Comment Sodium Level 144 137 Potassium Level 3.9 4.2 Chloride Level 110 103 Carbon Dioxide Level 26.4 23.7 Anion Gap 8 10 Blood Urea Nitrogen 10 18 Creatinine 0.60 1.07 Estimat Glomerular Filtration 121 62 Rate Random Glucose 168 543 Calcium Level 8.5 7.9 Magnesium Level 1.7 Date/Time Procedure Status Source Growth 3/20/17 16:30 Aerobic Blood Culture - Preliminary Resulted Blood Peripheral NO GROWTH IN 3 DAYS 01/22/17 16:30 Anaerobic Blood Culture - Preliminary Resulted Blood Peripheral NO GROWTH IN 3 DAYS 01/21/17 18:55 Gram Stain - Final Complete Wound Foot 01/21/17 18:55 Wound Culture - Final Complete Group B Beta Strep 01/21/17 18:55 Fungal Smear - Final Resulted Wound Foot NO FUNGAL ELEMENTS SEEN. 01/21/17 18:55 Fungal Culture Resulted Wound Foot Pending 01/21/17 18:55 Acid Fast Stain - Final Resulted Wound Foot NO ACID FAST BACILLI SEEN 01/21/17 18:55 Mycobacterial Culture Resulted Wound Foot Pending Assessment and Plan Assessment: (1) PAD (peripheral artery disease) Status: Chronic Plan Plan for repeat ABIs today Discussed with podiatry - if ABIs improve as anticipated, ok to proceed with more foot surgery as needed Sami Olivier MD FACS dust collector ore crushing [facility] [phone] Sami Olivier MD Jan 26, 2017 07:51
[2017-01-26 08:00] VITALS: BP 101/70; PULSE 82; RESP 16; TEMP 97.2; O2SAT 99
[2017-01-26] MEDS: guaiFENesin E.R. 600 MG TAB PO SCH ×2 (10:04→20:44)
[2017-01-26] MEDS: ASPIRIN EC 81 MG TABEC PO SCH (10:04)
[2017-01-26] MEDS: GABAPENTIN 400 MG CAP PO SCH ×3 (10:04→17:09)
[2017-01-26] MEDS: CLOPIDOGREL 75 MG TAB PO SCH (10:04)
[2017-01-26] MEDS: INSULIN DETEMIR 100 UNITS/ML VIAL SQ SCH ×2 (10:04→20:54)
[2017-01-26] MEDS: SODIUM CHLORIDE 0.9% FLUSH 5 ML FLUSH FLUSH SCH ×2 (10:05→20:44)
[2017-01-26] MEDS: cefTRIAXone INJ 2,000 MG in SODIUM CHLORIDE 0.9% INJ 100 ML IV SCH (10:07)
--- NOTE | 2017-01-26 10:08 | HHI.IDPN ---
Subjective Subjective Remarks Notes reviewed Had aortogram and TALENT ACQUISITION PROJECT MANAGER RSFA yesterday To have KALYAN and if ok per vascular ok to proceed with surgery by podiatry Temps ok Had surgery on her R foot 01/22 Intraop C/S GBS First wound C/S GBS Biopsy C/W acute osteomyelitis WBC staying 12K Antibiotics Rocephin Flagyl Lines PIV Past Medical History Diabetes Previous diabetic foot infection Peripheral vascular disease COPD, asthma GERD Anxiety disorder Degenerative disc disease in the back and the neck Retinopathy There was mention at some point that she has neurogenic bladder and problem with urinary retention - There was actually an ED visit November 2016 for a blocked Chvaira and her Chavira catheter was changed at that time. - Could not really get any good history from the patient regarding when her Chavira was discontinued since she is quite lethargic. Past Surgical History Hysterectomy Eye surgery for retinopathy Amputation of the right fifth toe for diabetic foot infection Allergies: Coded Allergies: Contrast Media (Verified Allergy, Severe, 01/20/17) Sulfa (Verified Allergy, Unknown, 01/20/17) Penicillin (Verified Adverse Reaction, Severe, NAUSEA,DIZZINESS, 01/20/17) Objective . Vital Signs Date Time Temp Pulse Resp B/P Pulse Ox O2 Delivery O2 Flow Rate FiO2 01/26/17 08:00 97.2 82 16 101/70 99 01/26/17 05:08 97.5 97 16 145/81 98 01/26/17 00:00 98.3 99 16 118/62 92 01/25/17 21:56 92 Room Air 01/25/17 20:00 99.0 83 16 141/70 96 01/25/17 15:30 96.9 89 20 118/77 95 01/25/17 14:33 97 Room Air 01/25/17 01/25/17 01/26/17 15:00 23:00 07:00 Intake Total 294 ml 500 ml 500 ml Output Total 300 ml 950 ml 1200 ml Balance -6 ml -450 ml -700 ml Intake Oral 0 ml 500 ml 500 ml IV Total 294 ml Output Urine Total 300 ml 950 ml 1200 ml # Bowel Movements 1 2 . Laboratory Tests Test 01/25/17 01/26/17 09:50 05:55 White Blood Count 12.2 TH/MM3 12.7 TH/MM3 Red Blood Count 4.06 MIL/MM3 3.69 MIL/MM3 Hemoglobin 10.8 GM/DL 9.9 GM/DL Hematocrit 32.9 % 30.0 % Mean Corpuscular Volume 80.9 FL 81.3 FL Mean Corpuscular Hemoglobin 26.6 PG 26.7 PG Mean Corpuscular Hemoglobin 32.9 % 32.9 % Concent Red Cell Distribution Width 13.8 % 14.0 % Platelet Count 391 TH/MM3 421 TH/MM3 Mean Platelet Volume 9.1 FL 9.1 FL Neutrophils (%) (Auto) 92.3 % Lymphocytes (%) (Auto) 5.6 % Monocytes (%) (Auto) 1.7 % Eosinophils (%) (Auto) 0.0 % Basophils (%) (Auto) 0.4 % Neutrophils # (Auto) 11.3 TH/MM3 Lymphocytes # (Auto) 0.7 TH/MM3 Monocytes # (Auto) 0.2 TH/MM3 Eosinophils # (Auto) 0.0 TH/MM3 Basophils # (Auto) 0.0 TH/MM3 CBC Comment DIFF FINAL Differential Comment Laboratory Tests Test 01/25/17 01/25/17 09:50 20:31 Sodium Level 144 MEQ/L 137 MEQ/L Potassium Level 3.9 MEQ/L 4.2 MEQ/L Chloride Level 110 MEQ/L 103 MEQ/L Carbon Dioxide Level 26.4 MEQ/L 23.7 MEQ/L Anion Gap 8 MEQ/L 10 MEQ/L Blood Urea Nitrogen 10 MG/DL 18 MG/DL Creatinine 0.60 MG/DL 1.07 MG/DL Estimat Glomerular Filtration 121 ML/MIN 62 ML/MIN Rate Random Glucose 168 MG/DL 543 MG/DL Calcium Level 8.5 MG/DL 7.9 MG/DL Magnesium Level 1.7 MG/DL Imaging Last Impressions Foot MRI 01/21/17 0000 Signed Impressions: Service Date/Time: Saturday, January 21, 2017 14:57 - CONCLUSION: 1. Osteomyelitis involving the first medial sesamoid bone. 2. Small focal area of abnormal enhancement and signal in the first metatarsal head also of concern for osteomyelitis. 3. Enhancement of the abductor hallux muscle consistent with infection. 4. Focal ulcer and soft tissue swelling. Tavares Flores MD Foot X-Ray 01/20/17 0000 Signed Impressions: Service Date/Time: Friday, January 20, 2017 15:15 - CONCLUSION: 1. That is post amputation of the fifth digit to the level of the metatarsal head. 2. Mild soft tissue swelling and gas over the medial first metatarsal phalangeal joint with no destructive change. Tavares Flores MD Chest X-Ray 01/20/17 0000 Signed Impressions: Service Date/Time: Sunday, January 20, 2017 15:13 - CONCLUSION: No acute disease. Tavares Flores MD Physical Exam GENERAL: awake and alert, NAD SKIN: Warm and dry, no generalized rash. HEENT: [place] conjunctivae. No scleral icterus. Moist oral mucosa, she is edentulous. NECK: Supple, nontender, no meningeal signs. CARDIOVASCULAR: Regular rate and rhythm without murmurs, gallops, or rubs. RESPIRATORY: Clear to auscultation. . Decreased breath sounds at the bases. GASTROINTESTINAL: Abdomen soft, not tender MUSCULOSKELETAL: RLE: has open wound on medial aspect, skin is black and dry , and there is a black eschar on dorsum, tissue not healthy looking. Has some redness on plantar aspect of that foot. No odor. NEUROLOGICAL: Awake and alert, speech normal. NO Babinski PSYCH: Cooperative : Chavira in place, urine looks clear LINE: PIV with no evidence of infection Assessment & Plan Remarks IMPRESSION Sepsis on admission, due to severe DFI R foot - S/P surgery - showing necrosis, black eschar DFI, R foot, S/P surgery - showing black eschar - likely has small vessel disease DM, PVD - S/P revasculariztion RLE Urinary retention - previous records mentioned neurogenic blader and problem with urinary retention Renal insufficiency due to sepsis, ?underlying DM nephropathy - resolved Leukocytosis, stable but persistent RECOMMENDATION Continue Flagyl Continue Rocephin Further OR per podiatry Vascular work-up in progress Monitor temps Monitor CBC Monitor progress D/W Dr Osorio Explained plan to patient, granddaughter Nadja Mendenhall MD Jan 26, 2017 10:08
[2017-01-26 12:00] VITALS: BP 85/58; PULSE 100; RESP 19; TEMP 97.4; O2SAT 96
[2017-01-26] MEDS: SODIUM BICARBONATE 8.4% INJ 100 MEQ in DEXTROSE 5% IN WATE 1000ML INJ 1,000 ML IV SCH ×2 (13:00)
--- NOTE | 2017-01-26 15:15 | HHI.PR ---
Subjective Remarks Patient reports that she is feeling okay today except for discomfort at the foot. She is awake and alert. Afebrile. Concerned about losing the foot. Objective Vitals Vital Signs Date Time Temp Pulse Resp B/P Pulse Ox O2 Delivery O2 Flow Rate FiO2 01/26/17 12:00 97.4 100 19 85/58 96 01/26/17 08:00 97.2 82 16 101/70 99 01/26/17 05:08 97.5 97 16 145/81 98 01/26/17 00:00 98.3 99 16 118/62 92 01/25/17 21:56 92 Room Air 01/25/17 20:00 99.0 83 16 141/70 96 01/25/17 15:30 96.9 89 20 118/77 95 I/O 01/25/17 01/25/17 01/25/17 01/26/17 01/26/17 01/26/17 07:00 15:00 23:00 07:00 15:00 23:00 Intake Total 1124 ml 294 ml 500 ml 500 ml Output Total 1100 ml 300 ml 950 ml 1200 ml Balance 24 ml -6 ml -450 ml -700 ml Intake Oral 0 ml 500 ml 500 ml IV Total 1124 ml 294 ml Output Urine Total 1100 ml 300 ml 950 ml 1200 ml # Bowel Movements 1 2 Result Diagram: 01/26/17 0555 01/25/172030 Imaging Last Impressions Upper Extremity Ultrasound 01/23/17 0000 Signed Impressions: Service Date/Time: Monday, January 23, 2017 21:39 - CONCLUSION: Normal examination. Singh Lorenzo MD Lower Extremity Ultrasound 01/23/17 0000 Signed Impressions: Service Date/Time: Monday, January 23, 2017 20:45 - CONCLUSION: Normal examination. Singh Lorenzo MD Foot MRI 01/21/17 0000 Signed Impressions: Service Date/Time: Saturday, January 21, 2017 14:57 - CONCLUSION: 1. Osteomyelitis involving the first medial sesamoid bone. 2. Small focal area of abnormal enhancement and signal in the first metatarsal head also of concern for osteomyelitis. 3. Enhancement of the abductor hallux muscle consistent with infection. 4. Focal ulcer and soft tissue swelling. Tavares Flores MD Foot X-Ray 01/20/17 0000 Signed Impressions: Service Date/Time: Friday, January 20, 2017 15:15 - CONCLUSION: 1. That is post amputation of the fifth digit to the level of the metatarsal head. 2. Mild soft tissue swelling and gas over the medial first metatarsal phalangeal joint with no destructive change. Tavares Flores MD Chest X-Ray 01/20/17 0000 Signed Impressions: Service Date/Time: Friday, January 20, 2017 15:13 - CONCLUSION: No acute disease. Tavares Flores MD Objective Remarks GENERAL: Patient appear older than stated age, in no apparent distress. CARDIOVASCULAR: Normal rate and regular rhythm without murmurs, gallops, or rubs. RESPIRATORY: Good respiratory efforts. Breath sounds equal and clear to auscultation bilaterally. GASTROINTESTINAL: Abdomen soft, non-tender, non-distended. Normal active bowel sounds MUSCULOSKELETAL: Right foot with large open wound on the medial aspect of the foot. Tissue appeared to be macerated. There is black eschar on the dorsum of the foot. Cannot palpate a pedal pulse bilaterally. NEURO: Alert & Oriented x4 to person, place, time, situation. Moves all ext x4 PSYCH: Anxious A/P Problem List: (1) Sepsis ICD Code: A41.9 Status: Acute (2) Diabetic foot infection ICD Code: E11.69 Status: Acute (3) Hypotension ICD Code: I95.9 Status: Acute (4) Renal insufficiency ICD Code: N28.9 Status: Acute (5) DM (diabetes mellitus) ICD Code: E11.9 Status: Acute Assessment and Plan 66-year-old female with: Sepsis with hypotension: Due to severe diabetic foot infection. Sepsis improving but the patient needs further surgical intervention. See below Diabetic Foot Infection -MRI + for osteomyelitis -s/p Incision drainage expansile right foot with incision bone cortex hallux and 1st metatarsal on 01/21. -Pod and ID ff - wound culture from surgery growing Group B beta strep. Blood cultures are so far negative. - patient on vancomycin, cefepime, and Flagyl per infectious disease. - Per prison warden Dr. Mishra stated will likely need some form of hallux amp with wound vac. - Dr. Porras following and stated Plan is I and D right foot with rotational TMA with plantar skin with possible wound vac versus open packing TMA. Patient to have repeat KALYAN today. If okay, per vascular, podiatry may proceed with surgery. Peripheral arterial Disease. -KALYAN was severely abnormal. - Vascular surgery following. Patient had aortogram w/ R LE Angiogram, and R SFA BOWLING ALLEY ATTENDANT. Finding included patent B iliac stents and Occluded R SFA - recanalized and BOWLING ALLEY ATTENDANT with excellent result and 2 vessel runoff to foot (PT/ peroneal). Acute Renal Insufficiency -Most likely prerenal due to sepsis. -Improved. - F/U BMP Cough -on Hycodan. -on Mucinex chronic pain -due to sedation need to be careful with pain medication. -Soma and Ativan previously discontinued. Patient is more awake today. anxiety -Ativan dced due to sedation. T2DM insulin dependent: Uncontrolled -continue Levemir 35 units in a.m. Add Levemir 10 units daily at bedtime -continue to SSI. -Diabetic diet. DVT Prophylaxis -Mechanical contraindication in light of foot wound/infection. Chemoprophylaxis on hold Pending further surgery. Rodo Osorio MD Jan 26, 2017 15:15
[2017-01-26 16:00] VITALS: BP 84/66; PULSE 99; RESP 19; TEMP 97.5; O2SAT 97
--- NOTE | 2017-01-26 17:06 | PD.POD ---
Subjective Podiatric Problems Pt in pain, no acute issue to address, nurses in room at time of visit Pain score: 3 Past Med/Surg/Social History Social History Smoking Status: Former Smoker Objective Vital Signs Vital Signs Date Time Temp Pulse Resp B/P Pulse Ox O2 Delivery O2 Flow Rate FiO2 01/26/17 16:00 97.5 99 19 84/66 97 01/26/17 12:00 97.4 100 19 85/58 96 01/26/17 08:00 97.2 82 16 101/70 99 01/26/17 05:08 97.5 97 16 145/81 98 01/26/17 00:00 98.3 99 16 118/62 92 01/25/17 21:56 92 Room Air 01/25/17 20:00 99.0 83 16 141/70 96 Coded Allergies: Contrast Media (Verified Allergy, Severe, 01/20/17) Sulfa (Verified Allergy, Unknown, 01/20/17) Penicillin (Verified Adverse Reaction, Severe, NAUSEA,DIZZINESS, 01/20/17) Physical Exam Remarks RLE- dressing intact no proximal swelling or redness, no strikethrough through dressing Assessment & Plan A/P Right foot necrosis s/p I and D for infection and POD 1 angio/stent per vascular -Plan is KALYAN to confirm successful angio Once KALYAN reviewed will schedule surgery for right TMA with rotational flap, I and D and wound vac DM diet tonight, will follow Deep Roth DPM Jan 26, 2017 17:06
[2017-01-26] MEDS: HYDROcodone 5 MG/HOMATROPINE 1.5 MG SYRUP 5 ML CUP PO PRN (17:09)
[2017-01-26 20:00] VITALS: BP 114/79; PULSE 95; RESP 19; TEMP 97.3; O2SAT 99
[2017-01-26] MEDS: ATORVASTATIN 10 MG TAB PO SCH (20:44)
[2017-01-26] MEDS: LACTATED RINGER'S 1000 ML INJ 1,000 ML IV SCH (22:38)
[2017-01-27] VITALS (7 sets, daily range): BP systolic 96–155; BP diastolic 62–87; PULSE 78–101; RESP 18–20; TEMP 96.7–99.5; O2SAT 96–99
[2017-01-27] MEDS: INSULIN ASPART SUPPLEMENTAL SCALE SQ SCH ×4 (05:37→20:06)
[2017-01-27] MEDS: metroNIDAZOLE 500 MG INJ 100 ML IV SCH ×3 (05:44→20:06)
[2017-01-27] MEDS: oxyCODONE/ACETAMINOPHEN 10 MG/325 MG TAB PO PRN ×2 (05:44→13:53)
[2017-01-27 07:13] LABS: HEMATOCRIT 28.9 % (35.0-46.0); MEAN CORPUSCULAR HEMOGLOBIN 27.2 PG (27.0-34.0); PLATELET COUNT 443 TH/MM3 (150-450); RED BLOOD COUNT 3.61 MIL/MM3 (4.00-5.30); RED CELL DISTRIBUTION WIDTH 13.7 % (11.6-17.2); REVIEW FLAG FINAL; WHITE BLOOD COUNT 10.4 TH/MM3 (4.0-11.0)
[2017-01-27 07:46] LABS: BICARBONATE 29.1 MEQ/L (21.0-32.0); POTASSIUM 3.3 MEQ/L (3.5-5.1)
[2017-01-27] MEDS ORDERED: POTASSIUM CHLORIDE 10 MEQ CONTROLLED RELEASE TAB PO ONE (08:15)
[2017-01-27] MEDS: ASPIRIN EC 81 MG TABEC PO SCH (09:06)
[2017-01-27] MEDS: GABAPENTIN 400 MG CAP PO SCH ×3 (09:07→17:13)
[2017-01-27] MEDS: CLOPIDOGREL 75 MG TAB PO SCH (09:07)
[2017-01-27] MEDS: guaiFENesin E.R. 600 MG TAB PO SCH ×2 (09:07→20:05)
[2017-01-27] MEDS: SODIUM CHLORIDE 0.9% FLUSH 5 ML FLUSH FLUSH SCH ×2 (09:07→20:06)
[2017-01-27] MEDS: INSULIN DETEMIR 100 UNITS/ML VIAL SQ SCH ×2 (09:08→20:06)
[2017-01-27] MEDS: cefTRIAXone INJ 2,000 MG in SODIUM CHLORIDE 0.9% INJ 100 ML IV SCH (09:11)
--- NOTE | 2017-01-27 12:31 | RADRPT ---
EXAM DATE/TIME: 01/26/2017 00:00 [facility] COMPARISON: ARTERIAL SEGMENTAL DOPPLER COMP W/TBI, January 22, 2017, 0:00. INDICATIONS : Diabetic Foot Infection TECHNIQUE: Four-cuff ankle and brachial pressures were obtained. Pulse cuff waveform tracings of the ankles were recorded, and ankle-brachial indices were calculated. PRESSURES (mmHg): Brachial (arm): Right IV SITE Left 127 Ankle: Right 125 Left 102 KALYAN: Right 0.98 Left 0.80 TBI: Right 0.00 Left 0.55 PULSED CUFF WAVEFORMS: Demonstrate diminished amplitude of the waveform bilaterally. CONCLUSION: 1. The KALYAN on the right is normal. 2. The KALYAN on the left is mildly diminished. 3. There has been very significant interval improvement when compared to previous dated 01/22/17. Elias Croft MD on January 27, 2017 at 12:28 Board Certified Radiologist. This report was verified electronically.
--- NOTE | 2017-01-27 12:50 | HHI.PR ---
Subjective Remarks Patient reports that she is doing okay. Pain is controlled. Afebrile. Objective Vitals Vital Signs Date Time Temp Pulse Resp B/P Pulse Ox O2 Delivery O2 Flow Rate FiO2 01/27/17 10:29 Nasal Cannula 01/27/17 08:00 97.7 91 20 104/69 96 01/27/17 04:00 97.0 80 19 97/63 99 01/27/17 00:00 96.7 78 18 97/62 98 01/26/17 20:55 98 Room Air 01/26/17 20:00 97.3 95 19 114/79 99 01/26/17 16:00 97.5 99 19 84/66 97 I/O 01/26/17 01/26/17 01/26/17 01/27/17 01/27/17 01/27/17 07:00 15:00 23:00 07:00 15:00 23:00 Intake Total 500 ml 1170 ml 240 ml 480 ml Output Total 1200 ml 1400 ml 600 ml 600 ml Balance -700 ml -230 ml -360 ml -120 ml Intake Oral 500 ml 960 ml 240 ml 480 ml IV Total 210 ml Output Urine Total 1200 ml 1400 ml 600 ml 600 ml # Bowel Movements 1 1 Result Diagram: 01/27/17 0611 01/27/17 0611 Objective Remarks GENERAL: Patient appear older than stated age, in no apparent distress. CARDIOVASCULAR: Normal rate and regular rhythm without murmurs, gallops, or rubs. RESPIRATORY: Good respiratory efforts. Breath sounds equal and clear to auscultation bilaterally. GASTROINTESTINAL: Abdomen soft, non-tender, non-distended. Normal active bowel sounds MUSCULOSKELETAL: Right foot with large open wound on the medial aspect of the foot. Tissue appeared to be macerated. There is black eschar on the dorsum of the foot. Cannot palpate a pedal pulse bilaterally. NEURO: Alert & Oriented x4 to person, place, time, situation. Moves all ext x4 PSYCH: Anxious A/P Problem List: (1) Sepsis ICD Code: A41.9 Status: Acute (2) Diabetic foot infection ICD Code: E11.69 Status: Acute (3) Hypotension ICD Code: I95.9 Status: Acute (4) Renal insufficiency ICD Code: N28.9 Status: Acute (5) DM (diabetes mellitus) ICD Code: E11.9 Status: Acute Assessment and Plan 66-year-old female with: Sepsis with hypotension: Due to severe diabetic foot infection. Sepsis improving but the patient needs further surgical intervention. See below Diabetic Foot Infection -MRI + for osteomyelitis -s/p Incision drainage expansile right foot with incision bone cortex hallux and 1st metatarsal on 01/21. -Pod and ID ff - wound culture from surgery growing Group B beta strep. Blood cultures are so far negative. - patient on vancomycin, cefepime, and Flagyl per infectious disease. - Per servicenow administrator developer Dr. Mishra stated will likely need some form of hallux amp with wound vac. - Dr. Porras following, plans for midfoot amputation with primary closure versus wound VAC. Peripheral arterial Disease. -KALYAN was severely abnormal. - Vascular surgery following. Patient had aortogram w/ R LE Angiogram, and R SFA QUALITY CONTROL TECH. Finding included patent B iliac stents and Occluded R SFA - recanalized and QUALITY CONTROL TECH with excellent result and 2 vessel runoff to foot (PT/ peroneal). Acute Renal Insufficiency -Most likely prerenal due to sepsis. -Improved. - F/U BMP Hypokalemia: Replace and monitor. Cough -on Hycodan. -on Mucinex chronic pain -due to sedation need to be careful with pain medication. -Soma and Ativan previously discontinued. Patient is more awake. anxiety -Ativan dced due to sedation. Patient is stable. T2DM insulin dependent: Uncontrolled -continue Levemir 35 units in a.m. Blood glucoses better after adding Levemir 10 units daily at bedtime -continue to SSI. -Diabetic diet. DVT Prophylaxis -Mechanical contraindication in light of foot wound/infection. Chemoprophylaxis on hold Pending further surgery. Rodo Osorio MD Jan 27, 2017 12:50
[2017-01-27] MEDS: SODIUM BICARBONATE 8.4% INJ 100 MEQ in DEXTROSE 5% IN WATE 1000ML INJ 1,000 ML IV SCH ×2 (13:00)
[2017-01-27] MEDS: ATORVASTATIN 10 MG TAB PO SCH (20:05)
[2017-01-27] MEDS: LACTATED RINGER'S 1000 ML INJ 1,000 ML IV SCH (22:27)
[2017-01-28] VITALS (7 sets, daily range): BP systolic 91–140; BP diastolic 52–89; PULSE 86–113; RESP 15–19; TEMP 98.1–99.9; O2SAT 96–99
[2017-01-28] MEDS: oxyCODONE/ACETAMINOPHEN 10 MG/325 MG TAB PO PRN ×3 (02:15→23:00)
[2017-01-28 04:35] LABS: C. DIFF EPI 027 PRESUMPTIVE NEGATIVE (NEGATIVE); C. DIFF TOXIN PCR NEGATIVE (NEGATIVE)
[2017-01-28] MEDS ORDERED: LOPERAMIDE HCL 2 MG CAP PO ONE (05:15)
[2017-01-28] MEDS: metroNIDAZOLE 500 MG INJ 100 ML IV SCH ×3 (05:23→22:13)
[2017-01-28] MEDS: INSULIN ASPART SUPPLEMENTAL SCALE SQ SCH ×4 (05:26→20:06)
[2017-01-28 07:06] LABS: HEMATOCRIT 29.7 % (35.0-46.0); MEAN CELL VOLUME 80.1 FL (80.0-100.0); MEAN CORPUSCULAR HEMOGLOBIN 27.2 PG (27.0-34.0); MEAN CORPUSCULAR HGB CONC 33.9 % (32.0-36.0); PLATELET COUNT 501 TH/MM3 (150-450); RED BLOOD COUNT 3.71 MIL/MM3 (4.00-5.30); RED CELL DISTRIBUTION WIDTH 13.7 % (11.6-17.2); REVIEW FLAG FINAL; WHITE BLOOD COUNT 11.3 TH/MM3 (4.0-11.0)
[2017-01-28] MEDS ORDERED: BUPIVACAINE HCL PF 0.5% 30 ML VIAL ONE ×2 (07:19→17:48)
[2017-01-28] MEDS ORDERED: LIDOCAINE HCL 1% 50 ML VIAL ONE ×2 (07:19→17:48)
[2017-01-28] MEDS ORDERED: BUPIVACAINE HCL PF 0.25% 30 ML VIAL ONE (07:19)
[2017-01-28] MEDS: CLOPIDOGREL 75 MG TAB PO SCH (07:19)
[2017-01-28] MEDS: ASPIRIN EC 81 MG TABEC PO SCH (07:20)
[2017-01-28] MEDS ORDERED: METOCLOPRAMIDE HCL 10 MG/2 ML VIAL ONE ×2 (07:49→17:49)
[2017-01-28] MEDS ORDERED: Post-op Orders (for Pharmacy) MISC XX ONE (08:00)
[2017-01-28] MEDS ORDERED: NALOXONE HCL 0.4 MG/ML AMP IV PRN (08:00)
[2017-01-28 08:25] LABS: BICARBONATE 28.5 MEQ/L (21.0-32.0); POTASSIUM 3.6 MEQ/L (3.5-5.1)
[2017-01-28] MEDS ORDERED: NEOMYCIN/POLYMYXIN 1 ML G.U. IRRIGANT XX ONE (08:30)
[2017-01-28] MEDS: SODIUM CHLORIDE 0.9% FLUSH 5 ML FLUSH FLUSH SCH ×2 (09:00→20:02)
[2017-01-28] MEDS: guaiFENesin E.R. 600 MG TAB PO SCH ×2 (09:00→20:02)
--- NOTE | 2017-01-28 09:14 | RADRPT ---
EXAM DATE/TIME: 01/28/2017 08:43 [facility] COMPARISON: MRI FOOT RIGHT W & W/O CONTRAST, January 21, 2017, 14:57. FOOT RIGHT COMPLETE ([id number]), January 20 7, 15:15. INDICATIONS : Partial amputation. MEDICAL HISTORY : None. SURGICAL HISTORY : None. ENCOUNTER: Initial ACUITY: 1 day PAIN SCORE: Non-responsive. LOCATION: Right foot. FINDINGS: Single AP view of the right foot demonstrates normal alignment of the tarsal bones. The distal aspect of the metatarsals are not well visualized but appear to demonstrate amputation of the metatarsals j ust above the MTP joints. CONCLUSION: Fluoroscopic single view appears to demonstrate distal amputation of the metatarsals just above the l evel of the MTP joints. Vaishali Ellis MD on January 28, 2017 at 9:10 Board Certified Radiologist. This report was verified electronically.
[2017-01-28] MEDS ORDERED: fentaNYL CITRATE 250 MCG/5 ML AMP ONE (09:44)
--- NOTE | 2017-01-28 10:05 | RADRPT ---
EXAM DATE/TIME: 01/28/2017 09:27 [facility] COMPARISON: FOOT RIGHT COMPLETE ([id number]), January 20, 2017, 15:15. INDICATIONS : Post operative films for partial amputation. MEDICAL HISTORY : Diabetes mellitus type II. SURGICAL HISTORY : None. ENCOUNTER: Initial ACUITY: 1 day PAIN SCORE: Non-responsive. LOCATION: Right foot. FINDINGS: 3 views of the postoperative right foot demonstrate resection of the first through fifth metatarsals just above the level of the MTP joint. Remainder the osseous structures are unremarkable. The bones a ppear normal in mineralization. CONCLUSION: Status post amputation of the metatarsals just above the level of the MTP joint. Vaishali Ellis MD on January 28, 2017 at 10:03 Board Certified Radiologist. This report was verified electronically.
[2017-01-28] MEDS: GABAPENTIN 400 MG CAP PO SCH ×3 (11:00→18:00)
[2017-01-28] MEDS: INSULIN DETEMIR 100 UNITS/ML VIAL SQ SCH ×2 (11:01→20:02)
[2017-01-28] MEDS: cefTRIAXone INJ 2,000 MG in SODIUM CHLORIDE 0.9% INJ 100 ML IV SCH (11:09)
[2017-01-28] MEDS ORDERED: ePHEDrine/NS 25 MG/5 ML SYR IV ONE ×2 (12:27→12:34)
[2017-01-28] MEDS ORDERED: PHENYLEPH/NS 1000 MCG/10 ML SYR IV ONE ×2 (12:27→12:34)
[2017-01-28] MEDS ORDERED: PROPOFOL 200 MG/20 ML AMP IV ONE ×2 (12:27→12:34)
[2017-01-28] MEDS ORDERED: ONDANSETRON HCL 4 MG/2 ML VIAL IV PUSH ONE (12:27)
[2017-01-28] MEDS: SODIUM BICARBONATE 8.4% INJ 100 MEQ in DEXTROSE 5% IN WATE 1000ML INJ 1,000 ML IV SCH ×2 (12:53)
--- NOTE | 2017-01-28 13:02 | HHI.PR ---
Subjective Remarks Patient is seen postop, status post right midfoot amputation with wound VAC placement. Pain is controlled. Objective Vitals Vital Signs Date Time Temp Pulse Resp B/P Pulse Ox O2 Delivery O2 Flow Rate FiO2 01/28/17 10:32 Room Air 01/28/17 09:45 88 14 99/69 99 Nasal Cannula 2 01/28/17 09:30 91 14 114/74 99 Nasal Cannula 2 01/28/17 09:20 98.1 95 14 108/79 99 Nasal Cannula 2 01/28/17 07:30 98.2 86 15 128/80 97 01/28/17 04:00 99.0 94 19 140/89 98 01/28/17 00:00 98.1 97 18 106/68 98 01/27/17 20:00 Room Air 01/27/17 20:00 101 01/27/17 20:00 99.0 96 18 96/69 99 01/27/17 16:00 97.6 98 20 155/87 99 01/27/17 14:44 93 I/O 01/27/17 01/27/17 01/27/17 01/28/17 01/28/17 01/28/17 07:00 15:00 23:00 07:00 15:00 23:00 Intake Total 480 ml 1080 ml 480 ml 700 ml Output Total 600 ml 800 ml 1200 ml 1475 ml 555 ml Balance -120 ml 280 ml -720 ml -1475 ml 145 ml Intake Oral 480 ml 1080 ml 480 ml 0 ml IV Total 0 ml Other 700 ml Output Urine Total 600 ml 800 ml 1200 ml 1475 ml 0 ml Estimated Blood Loss 5 ml Other 550 ml # Bowel Movements 2 2 Result Diagram: 01/28/17 0546 01/28/17 0546 Objective Remarks GENERAL: Patient appear older than stated age, in no apparent distress. CARDIOVASCULAR: Normal rate and regular rhythm without murmurs, gallops, or rubs. RESPIRATORY: Good respiratory efforts. Breath sounds equal and clear to auscultation bilaterally. GASTROINTESTINAL: Abdomen soft, non-tender, non-distended. Normal active bowel sounds MUSCULOSKELETAL: Status post right midfoot amputation. Wound VAC in place. NEURO: Alert & Oriented x4 to person, place, time, situation. Moves all ext x4 PSYCH: Calm A/P Problem List: (1) Sepsis ICD Code: A41.9 Status: Acute (2) Diabetic foot infection ICD Code: E11.69 Status: Acute (3) Hypotension ICD Code: I95.9 Status: Acute (4) Renal insufficiency ICD Code: N28.9 Status: Acute (5) DM (diabetes mellitus) ICD Code: E11.9 Status: Acute Assessment and Plan 66-year-old female with: Sepsis with hypotension: Due to severe diabetic foot infection. Sepsis improving. See below Diabetic Foot Infection -MRI + for osteomyelitis -s/p Incision drainage expansile right foot with incision bone cortex hallux and 1st metatarsal on 01/21. - Status post right midfoot amputation and wound VAC placement on 01/28/17 -Pod and ID ff - wound culture from surgery growing Group B beta strep. Blood cultures are so far negative. - patient on vancomycin, cefepime, and Flagyl per infectious disease Peripheral arterial Disease. - KALYAN was severely abnormal. - Vascular surgery following. Patient had aortogram w/ R LE Angiogram, and R SFA HOSPITAL INSURANCE REPRESENTATIVE. Finding included patent B iliac stents and Occluded R SFA - recanalized and HOSPITAL INSURANCE REPRESENTATIVE with excellent result and 2 vessel runoff to foot (PT/ peroneal). Acute Renal Insufficiency: Resolved This was most likely prerenal due to sepsis. - Avoid nephrotoxins. Continue to monitor. Cough -on Hycodan. as needed. -on Mucinex chronic pain -Fluid narcotics. She can be easily oversedated. -Soma and Ativan previously discontinued. He did that - Lortab as needed. anxiety -Ativan dced due to sedation. Patient is stable. T2DM insulin dependent: Uncontrolled -continue Levemir 35 units in a.m. Blood glucoses better after adding Levemir 10 units daily at bedtime -continue to SSI. -Diabetic diet. DVT Prophylaxis -Mechanical contraindication in light of foot wound/infection. Chemoprophylaxis when cleared by surgical service. Rodo Osorio MD Jan 28, 2017 13:02
--- NOTE | 2017-01-28 14:56 | EKG ---
Date Performed: 01/28/2017 Time Performed: 03:08:21 PTAGE: 66 years EKG: Sinus rhythm NONSPECIFIC T-WAVE ABNORMALITY Since previous tracing, no significant change noted BORDERLINE ECG PREVIOUS TRACING : 01/21/17 18.14.54 DOCTOR: Flaco Valerio Interpretating Date/Time 01/28/2017 14:55:53
[2017-01-28] MEDS ORDERED: HYDROmorphone HCL PF 1 MG/ML VIAL IV PRN ×2 (17:00→19:45)
[2017-01-28] MEDS ORDERED: FAMOTIDINE 20 MG/2 ML VIAL ONE (17:48)
[2017-01-28] MEDS ORDERED: SUGAMMADEX SODIUM 200 MG/2 ML VIAL IV PUSH ONE ×2 (18:37)
[2017-01-28] MEDS ORDERED: DO NOT ADM ANY ANTICOAGULANT DRUGS XX PRN ×2 (20:00→20:15)
[2017-01-28] MEDS: ATORVASTATIN 10 MG TAB PO SCH (20:02)
[2017-01-28] MEDS: LACTATED RINGER'S 1000 ML INJ 1,000 ML IV SCH (22:16)
[2017-01-29] VITALS (9 sets, daily range): BP systolic 85–102; BP diastolic 52–75; PULSE 96–112; RESP 17–20; TEMP 97.7–101.2; O2SAT 94–98
[2017-01-29] MEDS: oxyCODONE/ACETAMINOPHEN 10 MG/325 MG TAB PO PRN ×3 (04:02→12:58)
[2017-01-29] MEDS: metroNIDAZOLE 500 MG INJ 100 ML IV SCH ×3 (05:08→22:08)
[2017-01-29] MEDS: INSULIN ASPART SUPPLEMENTAL SCALE SQ SCH ×4 (05:11→20:46)
[2017-01-29 06:29] LABS: HEMATOCRIT 26.3 % (35.0-46.0); MEAN CELL VOLUME 81.2 FL (80.0-100.0); MEAN CORPUSCULAR HEMOGLOBIN 27.6 PG (27.0-34.0); PLATELET COUNT 507 TH/MM3 (150-450); RED BLOOD COUNT 3.24 MIL/MM3 (4.00-5.30); RED CELL DISTRIBUTION WIDTH 13.5 % (11.6-17.2); REVIEW FLAG FINAL; WHITE BLOOD COUNT 13.7 TH/MM3 (4.0-11.0)
[2017-01-29 06:46] LABS: BICARBONATE 28.8 MEQ/L (21.0-32.0); POTASSIUM 3.5 MEQ/L (3.5-5.1)
[2017-01-29] MEDS: SODIUM BICARBONATE 8.4% INJ 100 MEQ in DEXTROSE 5% IN WATE 1000ML INJ 1,000 ML IV SCH ×2 (07:40)
[2017-01-29] MEDS: CLOPIDOGREL 75 MG TAB PO SCH (07:41)
[2017-01-29] MEDS: ASPIRIN EC 81 MG TABEC PO SCH (08:31)
[2017-01-29] MEDS: INSULIN DETEMIR 100 UNITS/ML VIAL SQ SCH ×2 (08:31→20:45)
[2017-01-29] MEDS: guaiFENesin E.R. 600 MG TAB PO SCH ×2 (08:31→20:45)
[2017-01-29] MEDS: GABAPENTIN 400 MG CAP PO SCH ×3 (08:31→17:56)
[2017-01-29] MEDS: SODIUM CHLORIDE 0.9% FLUSH 5 ML FLUSH FLUSH SCH ×2 (08:32→20:45)
[2017-01-29] MEDS ORDERED: CARISOPRODOL 350 MG TAB PO SCH (09:00)
[2017-01-29] MEDS ORDERED: ALPRAZolam 0.5 MG TAB PO PRN (09:00)
--- NOTE | 2017-01-29 09:47 | MP ---
cc: LE OLIVEIR MD DATE OF SURGERY January 25, 2017 PREOPERATIVE DIAGNOSES 1. Right lower extremity tissue loss. 2. Peripheral arterial occlusive disease. POSTOPERATIVE DIAGNOSES 1. Right lower extremity tissue loss. 2. Peripheral arterial occlusive disease. PROCEDURE 1. Aortogram with right lower extremity angiograms. 2. Right SFA angioplasty with 5-mm balloon. 3. Left common femoral artery closure with AngioSeal. ATTENDING SURGEON Le Olivier MD ENTERPRISE APPLICATION DEVELOPER SURGEON None. ANESTHESIA Local with sedation. INDICATIONS Ms. Lake is a 66-year-old lady who has a right toe wound. She has had an amputation and she has no palpable pulses, is taken to the operating room for angiographic evaluation and treatment. There is no prior catheterization or imaging available for my review. DESCRIPTION OF PROCEDURE Informed consent was obtained from the patient. She was taken to the operating room, laid supine on the operating room table and appropriate time-out was taken to insure the correct patient, the operative site and the planned procedure. No antibiotics were necessary since it is a clean procedure, without planned implantation or any foreign object. However, the patient was already on systemic antibiotics for her foot infection. Everyone in the room agreed with the time-out and we proceeded. Her bilateral groins were prepped and draped. The left groin was anesthetized with 1% lidocaine. A 21-gauge micropuncture needle was used to access the left common femoral artery. This was exchanged using Seldinger technique through the micropuncture sheath, through which was a 0.025 Glidewire was introduced and the micropuncture sheath was exchanged for a 4-Polish sheath. A VCF catheter was placed over the wire into the sheath and the aortogram and pelvic arteriogram was obtained. The Glidewire was reintroduced, navigated down to the right common femoral artery and a VCF catheter was advanced over this and the right lower extremity arteriogram was obtained. The patient was systemically heparinized with 5000 units of IV heparin. A 0.035 Kaba wire was introduced. The VCF catheter and 4-Polish sheath were removed and the 6-Polish, 55-cm Victoriano sheath was introduced. The CXI catheter was placed over the Kaba. The Kaba was exchanged for a PALLIATIVE CARE PHYSICIAN wire. The PALLIATIVE CARE PHYSICIAN wire and CXI catheter were used to recanalize the SFA and an angiogram confirmed we were indeed in the popliteal artery in the lumen. Thr Kaba wire was reintroduced. The CXI was removed and the entire SFA and popliteal artery were angioplastied with a 5-mm balloon. At the completion, the angiograms showed excellent result, without any recoil or extravasation. The wire, catheter and sheath were removed and the groin was closed with AngioSeal. There were no complications. I was present and scrubbed and performed the entire procedure. INTERPRETATION OF IMAGES This patient has patent renal arteries, patent infrarenal aorta, patent common iliac arteries, external iliac arteries and hypogastric arteries bilaterally. There are bilateral iliac stents that are widely patent. The right common femoral artery and profunda are patent. The proximal SFA is diminutive in size and maybe just under-filled. The mid to distal SFA is occluded with profunda-based collaterals reconstituting the proximal popliteal artery. The popliteal artery is patent. There is a patent peroneal and posterior tibial artery. The anterior tibial artery is occluded. The posterior tibial artery continues on down to the level of the foot. After recanalizing and angioplasty of the entire SFA, there is an excellent technical result without any recoil or extravasation. MD RANDI Vences/SILVANA /12:58 PM /9:27 AM
--- NOTE | 2017-01-29 09:57 | HHI.PR ---
Subjective Remarks Patient requesting that we restart her Soma and Xanax for anxiety. She reports having muscle spasm. Pain is better controlled. Objective Vitals Vital Signs Date Time Temp Pulse Resp B/P Pulse Ox O2 Delivery O2 Flow Rate FiO2 01/29/17 08:15 97.7 106 20 102/71 98 01/29/17 07:56 97 Nasal Cannula 2.00 01/29/17 04:00 98.5 100 19 92/56 97 01/29/17 00:00 101.2 112 18 91/52 95 01/28/17 20:00 103 01/28/17 20:00 98.4 113 18 107/55 99 01/28/17 20:00 Nasal Cannula 2.00 01/28/17 19:46 99.8 108 17 103/74 99 Nasal Cannula 3 01/28/17 19:31 120 16 128/84 97 Nasal Cannula 3 01/28/17 19:26 100 01/28/17 19:15 112 17 107/78 98 Nasal Cannula 3 01/28/17 19:13 99.3 100 18 107/76 98 Nasal Cannula 3 01/28/17 16:00 99.9 107 16 98/63 98 01/28/17 12:00 98.9 102 18 91/52 96 01/28/17 10:32 Room Air I/O 01/28/17 01/28/17 01/28/17 01/29/17 01/29/17 01/29/17 07:00 15:00 23:00 07:00 15:00 23:00 Intake Total 940 ml 1330 ml 965 ml Output Total 1475 ml 1055 ml 920 ml 1000 ml 1600 ml Balance -1475 ml -115 ml 410 ml -35 ml -1600 ml Intake Oral 240 ml 480 ml 480 ml IV Total 0 ml 485 ml Other 700 ml 850 ml Output Urine Total 1475 ml 500 ml 900 ml 1000 ml 1600 ml Estimated Blood Loss 5 ml 20 ml Other 550 ml # Bowel Movements 2 1 1 Result Diagram: 01/29/1752901/29/17529 Objective Remarks GENERAL: Patient appear older than stated age, in no apparent distress. CARDIOVASCULAR: Normal rate and regular rhythm without murmurs, gallops, or rubs. RESPIRATORY: Good respiratory efforts. Breath sounds equal and clear to auscultation bilaterally. GASTROINTESTINAL: Abdomen soft, non-tender, non-distended. Normal active bowel sounds MUSCULOSKELETAL: Status post right midfoot amputation. Wound VAC in place. NEURO: Alert & Oriented x4 to person, place, time, situation. Moves all ext x4 PSYCH: Calm A/P Problem List: (1) Sepsis ICD Code: A41.9 Status: Acute (2) Diabetic foot infection ICD Code: E11.69 Status: Acute (3) Hypotension ICD Code: I95.9 Status: Acute (4) Renal insufficiency ICD Code: N28.9 Status: Acute (5) DM (diabetes mellitus) ICD Code: E11.9 Status: Acute Assessment and Plan 66-year-old female with: Sepsis with hypotension: Due to severe diabetic foot infection. Sepsis improving. See below Diabetic Foot Infection -MRI + for osteomyelitis -s/p Incision drainage expansile right foot with incision bone cortex hallux and 1st metatarsal on 01/21. - Status post right midfoot amputation and wound VAC placement on 01/28/17 -Pod and ID ff - wound culture from surgery growing Group B beta strep. Blood cultures are so far negative. - patient on vancomycin, cefepime, and Flagyl per infectious disease Peripheral arterial Disease. - KALYAN was severely abnormal. - Vascular surgery following. Patient had aortogram w/ R LE Angiogram, and R SFA FISHING VESSEL CAPTAIN. Finding included patent B iliac stents and Occluded R SFA - recanalized and FISHING VESSEL CAPTAIN with excellent result and 2 vessel runoff to foot (PT/ peroneal). Acute Renal Insufficiency: Resolved This was most likely prerenal due to sepsis. - Avoid nephrotoxins. Continue to monitor. Cough -on Hycodan. as needed. -on Mucinex chronic pain -Cautious with narcotics. She can be easily oversedated. -Soma and Xanax resumed at a lower dose. - Lortab as needed. anxiety -Xanax at a lower dose as needed only. T2DM insulin dependent: Uncontrolled -continue Levemir 35 units in a.m. Blood glucoses better after adding Levemir 10 units daily at bedtime -continue to SSI. -Diabetic diet. DVT Prophylaxis -Mechanical contraindication in light of foot wound/infection. Chemoprophylaxis when cleared by surgical service. Rodo Osorio MD Jan 29, 2017 09:57
[2017-01-29] MEDS ORDERED: PILL SPLITTER OTHER PRN (10:00)
[2017-01-29] MEDS: cefTRIAXone INJ 2,000 MG in SODIUM CHLORIDE 0.9% INJ 100 ML IV SCH (10:05)
--- NOTE | 2017-01-29 10:16 | HHI.IDPN ---
Subjective Subjective Remarks Notes reviewed Had OR this weekend - right midfoot amputation, and wound vac placement Has fever this morning Pain under control C/O spasm on her RLE Not SOB Not coughing No rash ot itching Antibiotics Rocephin Flagyl Lines PIV Past Medical History Diabetes Previous diabetic foot infection Peripheral vascular disease COPD, asthma GERD Anxiety disorder Degenerative disc disease in the back and the neck Retinopathy There was mention at some point that she has neurogenic bladder and problem with urinary retention - There was actually an ED visit November 2016 for a blocked Chavira and her Chavira catheter was changed at that time. - Could not really get any good history from the patient regarding when her Chavira was discontinued since she is quite lethargic. Past Surgical History Hysterectomy Eye surgery for retinopathy Amputation of the right fifth toe for diabetic foot infection Allergies: Coded Allergies: Contrast Media (Verified Allergy, Severe, 01/20/17) Sulfa (Verified Allergy, Unknown, 01/20/17) Penicillin (Verified Adverse Reaction, Severe, NAUSEA,DIZZINESS, 01/20/17) Objective . Vital Signs Date Time Temp Pulse Resp B/P Pulse Ox O2 Delivery O2 Flow Rate FiO2 01/29/17 08:15 97.7 106 20 102/71 98 01/29/17 07:56 97 Nasal Cannula 2.00 01/29/17 04:00 98.5 100 19 92/56 97 01/29/17 00:00 101.2 112 18 91/52 95 01/28/17 20:00 103 01/28/17 20:00 98.4 113 18 107/55 99 01/28/17 20:00 Nasal Cannula 2.00 01/28/17 19:46 99.8 108 17 103/74 99 Nasal Cannula 3 01/28/17 19:31 120 16 128/84 97 Nasal Cannula 3 01/28/17 19:26 100 01/28/17 19:15 112 17 107/78 98 Nasal Cannula 3 01/28/17 19:13 99.3 100 18 107/76 98 Nasal Cannula 3 01/28/17 16:00 99.9 107 16 98/63 98 01/28/17 12:00 98.9 102 18 91/52 96 01/28/17 10:32 Room Air 01/28/17 01/28/17 01/29/17 15:00 23:00 07:00 Intake Total 940 ml 1330 ml 965 ml Output Total 1055 ml 920 ml 1000 ml Balance -115 ml 410 ml -35 ml Intake Oral 240 ml 480 ml 480 ml IV Total 0 ml 485 ml Other 700 ml 850 ml Output Urine Total 500 ml 900 ml 1000 ml Estimated Blood Loss 5 ml 20 ml Other 550 ml # Bowel Movements 1 1 . Laboratory Tests Test 01/28/17 01/29/17 05:46 05:30 White Blood Count 11.3 TH/MM3 13.7 TH/MM3 Red Blood Count 3.71 MIL/MM3 3.24 MIL/MM3 Hemoglobin 10.1 GM/DL 9.0 GM/DL Hematocrit 29.7 % 26.3 % Mean Corpuscular Volume 80.1 FL 81.2 FL Mean Corpuscular Hemoglobin 27.2 PG 27.6 PG Mean Corpuscular Hemoglobin 33.9 % 34.0 % Concent Red Cell Distribution Width 13.7 % 13.5 % Platelet Count 501 TH/MM3 507 TH/MM3 Mean Platelet Volume 8.3 FL 8.3 FL Laboratory Tests Test 01/28/17 01/29/17 05:46 05:30 Sodium Level 143 MEQ/L 142 MEQ/L Potassium Level 3.6 MEQ/L 3.5 MEQ/L Chloride Level 107 MEQ/L 105 MEQ/L Carbon Dioxide Level 28.5 MEQ/L 28.8 MEQ/L Anion Gap 8 MEQ/L 8 MEQ/L Blood Urea Nitrogen 6 MG/DL 6 MG/DL Creatinine 0.53 MG/DL 0.67 MG/DL Estimat Glomerular Filtration 140 ML/MIN 107 ML/MIN Rate Random Glucose 112 MG/DL 103 MG/DL Calcium Level 8.2 MG/DL 8.1 MG/DL Microbiology Date/Time Procedure Status Source Growth 01/28/17 12:49 Gram Stain - Final Resulted Wound Foot 01/28/17 12:49 Wound Culture Resulted Wound Foot Pending 01/28/17 12:49 Acid Fast Stain Received Wound Foot Pending 01/28/17 12:49 Mycobacterial Culture Received Wound Foot Pending 01/28/17 12:49 Fungal Smear - Final Resulted Wound Foot NO FUNGAL ELEMENTS SEEN. 01/28/17 12:49 Fungal Culture Resulted Wound Foot Pending 01/29/17 05:25 Aerobic Blood Culture Received Blood Peripheral Pending 01/29/17 05:25 Anaerobic Blood Culture Received Blood Peripheral Pending 01/29/17 05:30 Aerobic Blood Culture Received Blood Peripheral Pending 01/29/17 05:30 Anaerobic Blood Culture Received Blood Peripheral Pending Imaging Last Impressions Foot MRI 01/21/17 0000 Signed Impressions: Service Date/Time: Saturday, January 21, 2017 14:57 - CONCLUSION: 1. Osteomyelitis involving the first medial sesamoid bone. 2. Small focal area of abnormal enhancement and signal in the first metatarsal head also of concern for osteomyelitis. 3. Enhancement of the abductor hallux muscle consistent with infection. 4. Focal ulcer and soft tissue swelling. Tavares Flores MD Foot X-Ray 01/20/17 0000 Signed Impressions: Service Date/Time: Friday, January 20, 2017 15:15 - CONCLUSION: 1. That is post amputation of the fifth digit to the level of the metatarsal head. 2. Mild soft tissue swelling and gas over the medial first metatarsal phalangeal joint with no destructive change. Tavares Flores MD Chest X-Ray 01/20/17 0000 Signed Impressions: Service Date/Time: Friday, January 20, 2017 15:13 - CONCLUSION: No acute disease. Tavares Flores MD Physical Exam GENERAL: awake and alert, NAD SKIN: Warm and dry, no generalized rash. HEENT: [place] conjunctivae. No scleral icterus. Moist oral mucosa, she is edentulous. NECK: Supple, nontender, no meningeal signs. CARDIOVASCULAR: Regular rate and rhythm without murmurs, gallops, or rubs. RESPIRATORY: Clear to auscultation. . Decreased breath sounds at the bases. GASTROINTESTINAL: Abdomen soft, not tender MUSCULOSKELETAL: RLE: has intact dressing R foot with wound vac in place, not a lot of output NEUROLOGICAL: Awake and alert, speech normal. NO Babinski PSYCH: Cooperative : Chavira in place, urine looks clear LINE: PIV with no evidence of infection Assessment & Plan Remarks IMPRESSION Sepsis on admission, due to severe DFI R foot - S/P surgery - showing necrosis, black eschar DFI, R foot, S/P 2 surgery - S/P midfoot amputation and has wound vac in place - repeat C/S pending Fever post-op DM, PVD - S/P revasculariztion RLE Urinary retention - previous records mentioned neurogenic blader and problem with urinary retention Renal insufficiency due to sepsis, ?underlying DM nephropathy - resolved Leukocytosis, stable but persistent RECOMMENDATION Continue Flagyl Continue Rocephin Follow new C/S Monitor temps Monitor CBC Monitor progress Nadja Mendenhall MD Jan 29, 2017 10:15
--- NOTE | 2017-01-29 11:33 | PD.VS.PN ---
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 Pt in good spirits this am states she feels well No other complaints reported Objective Vitals/I&O Date Time Temp Pulse Resp B/P Pulse Ox O2 Delivery O2 Flow Rate FiO2 01/29/17 08:15 97.7 106 20 102/71 98 01/29/17 07:56 97 Nasal Cannula 2.00 01/29/17 04:00 98.5 100 19 92/56 97 01/29/17 00:00 101.2 112 18 91/52 95 01/28/17 20:00 103 01/28/17 20:00 98.4 113 18 107/55 99 01/28/17 20:00 Nasal Cannula 2.00 01/28/17 19:46 99.8 108 17 103/74 99 Nasal Cannula 3 01/28/17 19:31 120 16 128/84 97 Nasal Cannula 3 01/28/17 19:26 100 01/28/17 19:15 112 17 107/78 98 Nasal Cannula 3 01/28/17 19:13 99.3 100 18 107/76 98 Nasal Cannula 3 01/28/17 16:00 99.9 107 16 98/63 98 01/28/17 12:00 98.9 102 18 91/52 96 01/29/17 01/29/17 01/29/17 07:00 15:00 23:00 Intake Total 965 ml 480 ml Output Total 1000 ml 1600 ml Balance -35 ml -1120 ml Physical Exam GENERAL: A&OX3, speech clear, pleasant obese 66/F, NAD noted SKIN: Warm and dry NECK: Supple, No JVD or lymphadenopathy. CARDIOVASCULAR: +S1,S2 with RRR, No murmurs, gallops, or rubs. RESPIRATORY: Bilat Breath sounds clear to auscultation/equal. No accessory muscle use. GASTROINTESTINAL: Abdomen soft, non-tender, nondistended. left groin healed with no R/D/S MUSCULOSKELETAL: No cyanosis, or edema. Right foot dressing intact with wound vac placed. Dressing clean and dry, BLE warm with motor intact Laboratory Laboratory Tests Test 01/29/17 05:30 White Blood Count 13.7 Red Blood Count 3.24 Hemoglobin 9.0 Hematocrit 26.3 Mean Corpuscular Volume 81.2 Mean Corpuscular Hemoglobin 27.6 Mean Corpuscular Hemoglobin 34.0 Concent Red Cell Distribution Width 13.5 Platelet Count 507 Mean Platelet Volume 8.3 Sodium Level 142 Potassium Level 3.5 Chloride Level 105 Carbon Dioxide Level 28.8 Anion Gap 8 Blood Urea Nitrogen 6 Creatinine 0.67 Estimat Glomerular Filtration 107 Rate Random Glucose 103 Calcium Level 8.1 Date/Time Procedure Status Source Growth 01/29/17 05:30 Aerobic Blood Culture Received Blood Peripheral Pending 01/29/17 05:30 Anaerobic Blood Culture Received Blood Peripheral Pending 01/28/17 12:49 Gram Stain - Final Resulted Wound Foot 01/28/17 12:49 Wound Culture Resulted Wound Foot Pending 01/28/17 12:49 Fungal Smear - Final Resulted Wound Foot NO FUNGAL ELEMENTS SEEN. 01/28/17 12:49 Fungal Culture Resulted Wound Foot Pending 01/28/17 12:49 Acid Fast Stain Received Wound Foot Pending 01/28/17 12:49 Mycobacterial Culture Received Wound Foot Pending Imaging Last 48 hours Impressions Foot X-Ray 01/28/17 0000 Signed Impressions: Service Date/Time: Saturday, January 28, 2017 08:43 - CONCLUSION: Fluoroscopic single view appears to demonstrate distal amputation of the metatarsals just above the level of the MTP joints. Vaishali Ellis MD Foot X-Ray 01/28/17 0000 Signed Impressions: Service Date/Time: Saturday, January 28, 2017 09:27 - CONCLUSION: Status post amputation of the metatarsals just above the level of the MTP joint. Vaishali Ellis MD Assessment and Plan Assessment: (1) PAD (peripheral artery disease) Status: Chronic Plan Will see pt in our Out Patient Clinic in 1M Will repeat KALYAN study in 1M (out patient) F/U appointment given to patient (03/02/17) Daniela JUARES [facility] [phone] Daniela Chirinos Jan 29, 2017 11:33
[2017-01-29] MEDS ORDERED: SODIUM CHLORID 0.9% 500 ML INJ 500 ML IV ONE (18:00)
[2017-01-29] MEDS: ATORVASTATIN 10 MG TAB PO SCH (20:45)
[2017-01-29] MEDS: LACTATED RINGER'S 1000 ML INJ 1,000 ML IV SCH (22:05)
[2017-01-30] VITALS (8 sets, daily range): BP systolic 80–129; BP diastolic 60–68; PULSE 89–107; RESP 17–22; TEMP 96.7–100.4; O2SAT 94–100
[2017-01-30] MEDS: oxyCODONE/ACETAMINOPHEN 10 MG/325 MG TAB PO PRN ×3 (02:02→21:20)
[2017-01-30] MEDS: metroNIDAZOLE 500 MG INJ 100 ML IV SCH ×3 (05:33→21:22)
[2017-01-30] MEDS: INSULIN ASPART SUPPLEMENTAL SCALE SQ SCH ×4 (05:33→21:21)
[2017-01-30 07:04] LABS: HEMATOCRIT 22.7 % (35.0-46.0); MEAN CELL VOLUME 80.4 FL (80.0-100.0); MEAN CORPUSCULAR HGB CONC 33.5 % (32.0-36.0); PLATELET COUNT 461 TH/MM3 (150-450); RED BLOOD COUNT 2.82 MIL/MM3 (4.00-5.30); RED CELL DISTRIBUTION WIDTH 13.6 % (11.6-17.2); REVIEW FLAG FINAL; WHITE BLOOD COUNT 11.5 TH/MM3 (4.0-11.0)
[2017-01-30 07:14] LABS: POTASSIUM 3.6 MEQ/L (3.5-5.1)
[2017-01-30] MEDS: guaiFENesin E.R. 600 MG TAB PO SCH ×2 (07:49→21:20)
[2017-01-30] MEDS: CLOPIDOGREL 75 MG TAB PO SCH (07:49)
[2017-01-30] MEDS: GABAPENTIN 400 MG CAP PO SCH ×3 (07:49→18:32)
[2017-01-30] MEDS: INSULIN DETEMIR 100 UNITS/ML VIAL SQ SCH ×2 (07:49→21:21)
[2017-01-30] MEDS: SODIUM CHLORIDE 0.9% FLUSH 5 ML FLUSH FLUSH SCH ×2 (07:49→21:00)
[2017-01-30] MEDS: ASPIRIN EC 81 MG TABEC PO SCH (07:49)
[2017-01-30] MEDS ORDERED: WHEEMIS3 (09:00)
--- NOTE | 2017-01-30 09:12 | HHI.PR ---
Subjective Remarks Blood pressure dropped yesterday even on a lower dose of Soma and Xanax. This was discontinued. Pain is controlled this morning. Patient concerned about how she will get around when she gets home. Objective Vitals Vital Signs Date Time Temp Pulse Resp B/P Pulse Ox O2 Delivery O2 Flow Rate FiO2 01/30/17 04:00 96.7 97 17 99/67 96 01/30/17 00:00 97.7 104 18 92/60 100 01/29/17 20:18 94 01/29/17 20:00 Room Air 01/29/17 20:00 107 01/29/17 20:00 100.5 109 17 93/70 96 01/29/17 16:37 98.1 96 20 85/63 96 01/29/17 12:00 98.7 96 20 92/75 96 I/O 01/29/17 01/29/17 01/29/17 01/30/17 01/30/17 01/30/17 07:00 15:00 23:00 07:00 15:00 23:00 Intake Total 965 ml 720 ml 840 ml 240 ml 1574 ml Output Total 1000 ml 2450 ml 1900 ml 1950 ml Balance -35 ml -1730 ml -1060 ml -1710 ml 1574 ml Intake Oral 480 ml 720 ml 840 ml 240 ml IV Total 485 ml 1574 ml Output Urine Total 1000 ml 2450 ml 1900 ml 1950 ml # Bowel Movements 1 2 Result Diagram: 01/30/17 0610 01/30/17 0610 Objective Remarks GENERAL: Patient appear older than stated age, in no apparent distress. CARDIOVASCULAR: Normal rate and regular rhythm without murmurs, gallops, or rubs. RESPIRATORY: Good respiratory efforts. Breath sounds equal and clear to auscultation bilaterally. GASTROINTESTINAL: Abdomen soft, non-tender, non-distended. Normal active bowel sounds MUSCULOSKELETAL: Status post right midfoot amputation. Wound VAC in place. NEURO: Alert & Oriented x4 to person, place, time, situation. Moves all ext x4 PSYCH: Calm A/P Problem List: (1) Sepsis ICD Code: A41.9 Status: Acute (2) Diabetic foot infection ICD Code: E11.69 Status: Acute (3) Hypotension ICD Code: I95.9 Status: Acute (4) Renal insufficiency ICD Code: N28.9 Status: Acute (5) DM (diabetes mellitus) ICD Code: E11.9 Status: Acute Assessment and Plan 66-year-old female with: Sepsis with hypotension: Due to severe diabetic foot infection. Sepsis improving. See below - Continue IVF Diabetic Foot Infection -MRI + for osteomyelitis -s/p Incision drainage expansile right foot with incision bone cortex hallux and 1st metatarsal on 01/21. - Status post right midfoot amputation and wound VAC placement on 01/28/17 -Pod and ID ff - wound culture from surgery growing Group B beta strep. Blood cultures are so far negative. - patient on vancomycin, cefepime, and Flagyl per infectious disease Peripheral arterial Disease. - KALYAN was severely abnormal. - Vascular surgery following. Patient had aortogram w/ R LE Angiogram, and R SFA FOREST ECONOMIST. Finding included patent B iliac stents and Occluded R SFA - recanalized and FOREST ECONOMIST with excellent result and 2 vessel runoff to foot (PT/ peroneal). Acute Renal Insufficiency: Resolved This was most likely prerenal due to sepsis. - Avoid nephrotoxins. Continue to monitor. Cough -on Hycodan. as needed. -on Mucinex Chronic pain: Patient follows with Pain management. She does get Lethargic and Hypotensive with Soma and Xanax. They were discontinued. Advised not continuing these meds on discharge. - Cautious with narcotics. She can be easily oversedated. - Lortab as needed. anxiety -Stable T2DM insulin dependent: Uncontrolled -continue Levemir 35 units in a.m. Blood glucoses better after adding Levemir 10 units daily at bedtime -continue to SSI. -Diabetic diet. DVT Prophylaxis -Chemoprophylaxis when cleared by surgical service. Discharge Planning Anticipate DC to [place] in the following days once antibiotics course is known and patient cleared by all surgical services. Rodo Osorio MD Jan 30, 2017 09:12
[2017-01-30] MEDS ORDERED: SODIUM CHLOR 0.9% 1000 ML INJ 1,000 ML IV SCH (09:15)
[2017-01-30] MEDS: cefTRIAXone INJ 2,000 MG in SODIUM CHLORIDE 0.9% INJ 100 ML IV SCH (09:16)
--- NOTE | 2017-01-30 12:43 | HHI.IDPN ---
Subjective Subjective Remarks Notes reviewed One low grade temps overnight Had OR this weekend - right midfoot amputation, and wound vac placement Path pending Repeat OR C/S GBS Pain under control Antibiotics Rocephin Flagyl Lines PIV Past Medical History Diabetes Previous diabetic foot infection Peripheral vascular disease COPD, asthma GERD Anxiety disorder Degenerative disc disease in the back and the neck Retinopathy There was mention at some point that she has neurogenic bladder and problem with urinary retention - There was actually an ED visit November 2016 for a blocked Chavira and her Chavira catheter was changed at that time. - Could not really get any good history from the patient regarding when her Chavira was discontinued since she is quite lethargic. Past Surgical History Hysterectomy Eye surgery for retinopathy Amputation of the right fifth toe for diabetic foot infection Allergies: Coded Allergies: Contrast Media (Verified Allergy, Severe, 01/20/17) Sulfa (Verified Allergy, Unknown, 01/20/17) Penicillin (Verified Adverse Reaction, Severe, NAUSEA,DIZZINESS, 01/20/17) Objective . Vital Signs Date Time Temp Pulse Resp B/P Pulse Ox O2 Delivery O2 Flow Rate FiO2 01/30/17 12:04 97.0 102 22 100/68 98 01/30/17 10:03 94 21 01/30/17 08:00 97.5 102 18 80/68 96 01/30/17 04:00 96.7 97 17 99/67 96 01/30/17 00:00 97.7 104 18 92/60 100 01/29/17 20:18 94 01/29/17 20:00 Room Air 01/29/17 20:00 107 01/29/17 20:00 100.5 109 17 93/70 96 01/29/17 16:37 98.1 96 20 85/63 96 01/29/17 01/29/17 01/30/17 15:00 23:00 07:00 Intake Total 720 ml 840 ml 240 ml Output Total 2450 ml 1900 ml 1950 ml Balance -1730 ml -1060 ml -1710 ml Intake Oral 720 ml 840 ml 240 ml Output Urine Total 2450 ml 1900 ml 1950 ml # Bowel Movements 2 . Laboratory Tests Test 01/29/17 01/30/17 05:30 06:10 White Blood Count 13.7 TH/MM3 11.5 TH/MM3 Red Blood Count 3.24 MIL/MM3 2.82 MIL/MM3 Hemoglobin 9.0 GM/DL 7.6 GM/DL Hematocrit 26.3 % 22.7 % Mean Corpuscular Volume 81.2 FL 80.4 FL Mean Corpuscular Hemoglobin 27.6 PG 27.0 PG Mean Corpuscular Hemoglobin 34.0 % 33.5 % Concent Red Cell Distribution Width 13.5 % 13.6 % Platelet Count 507 TH/MM3 461 TH/MM3 Mean Platelet Volume 8.3 FL 8.1 FL Laboratory Tests Test 01/29/17 01/30/17 05:30 06:10 Sodium Level 142 MEQ/L 142 MEQ/L Potassium Level 3.5 MEQ/L 3.6 MEQ/L Chloride Level 105 MEQ/L 107 MEQ/L Carbon Dioxide Level 28.8 MEQ/L 27.0 MEQ/L Anion Gap 8 MEQ/L 8 MEQ/L Blood Urea Nitrogen 6 MG/DL 5 MG/DL Creatinine 0.67 MG/DL 0.57 MG/DL Estimat Glomerular Filtration 107 ML/MIN 128 ML/MIN Rate Random Glucose 103 MG/DL 100 MG/DL Calcium Level 8.1 MG/DL 7.9 MG/DL Microbiology Date/Time Procedure Status Source Growth 01/28/17 12:49 Gram Stain - Final Complete Wound Foot 01/28/17 12:49 Wound Culture - Final Complete Group B Beta Strep 01/28/17 12:49 Acid Fast Stain - Final Resulted Wound Foot NO ACID FAST BACILLI SEEN 01/28/17 12:49 Mycobacterial Culture Resulted Wound Foot Pending 01/28/17 12:49 Fungal Smear - Final Resulted Wound Foot NO FUNGAL ELEMENTS SEEN. 01/28/17 12:49 Fungal Culture Resulted Wound Foot Pending 01/29/17 05:25 Aerobic Blood Culture - Preliminary Resulted Blood Peripheral NO GROWTH IN 1 DAY 01/29/17 05:25 Anaerobic Blood Culture - Preliminary Resulted Blood Peripheral NO GROWTH IN 1 DAY 01/29/17 05:30 Aerobic Blood Culture - Preliminary Resulted Blood Peripheral NO GROWTH IN 1 DAY 01/29/17 05:30 Anaerobic Blood Culture - Preliminary Resulted Blood Peripheral NO GROWTH IN 1 DAY Imaging Last Impressions Foot MRI 01/21/17 0000 Signed Impressions: Service Date/Time: Saturday, January 21, 2017 14:57 - CONCLUSION: 1. Osteomyelitis involving the first medial sesamoid bone. 2. Small focal area of abnormal enhancement and signal in the first metatarsal head also of concern for osteomyelitis. 3. Enhancement of the abductor hallux muscle consistent with infection. 4. Focal ulcer and soft tissue swelling. Tavares Flores MD Foot X-Ray 01/20/17 0000 Signed Impressions: Service Date/Time: Friday, January 20, 2017 15:15 - CONCLUSION: 1. That is post amputation of the fifth digit to the level of the metatarsal head. 2. Mild soft tissue swelling and gas over the medial first metatarsal phalangeal joint with no destructive change. Tavares Flores MD Chest X-Ray 01/20/17 0000 Signed Impressions: Service Date/Time: Friday, January 20, 2017 15:13 - CONCLUSION: No acute disease. Tavares Flores MD Physical Exam GENERAL: awake and alert, NAD SKIN: Warm and dry, no generalized rash. HEENT: [place] conjunctivae. No scleral icterus. Moist oral mucosa, she is edentulous. NECK: Supple, nontender, no meningeal signs. CARDIOVASCULAR: Regular rate and rhythm without murmurs, gallops, or rubs. RESPIRATORY: Clear to auscultation. . Decreased breath sounds at the bases. GASTROINTESTINAL: Abdomen soft, not tender MUSCULOSKELETAL: RLE: has intact dressing R foot with wound vac in place, not a lot of output NEUROLOGICAL: Awake and alert, speech normal. NO Babinski PSYCH: Cooperative : Chavira in place, urine looks clear LINE: PIV with no evidence of infection Assessment & Plan Remarks IMPRESSION Sepsis on admission, due to severe DFI R foot - S/P surgery - showing necrosis, black eschar DFI, R foot, S/P 2 surgery - S/P midfoot amputation and has wound vac in place - repeat C/S pending Fever post-op - prob atelectasis DM, PVD - S/P revasculariztion RLE Urinary retention - previous records mentioned neurogenic blader and problem with urinary retention Renal insufficiency due to sepsis, ?underlying DM nephropathy - resolved Leukocytosis, stable but persistent RECOMMENDATION Continue Flagyl Continue Rocephin Follow new C/S Recheck UA and C/S Monitor temps Monitor progress D/W Nadja Ibrahim MD Jan 30, 2017 12:43
[2017-01-30] MEDS: SODIUM BICARBONATE 8.4% INJ 100 MEQ in DEXTROSE 5% IN WATE 1000ML INJ 1,000 ML IV SCH ×2 (13:00)
--- NOTE | 2017-01-30 21:06 | PD.POD ---
Subjective Podiatric Problems s/p Right TMA with DR Porras. Patient seen at bedside this pm Pain scale used: 0-10 numeric scale Pain score: 3 Past Med/Surg/Social History Social History Smoking Status: Former Smoker Objective Vital Signs Vital Signs Date Time Temp Pulse Resp B/P Pulse Ox O2 Delivery O2 Flow Rate FiO2 01/30/17 17:57 97 21 01/30/17 16:00 97.0 106 22 85/62 97 01/30/17 12:04 97.0 102 22 100/68 98 01/30/17 10:03 94 21 01/30/17 08:00 97.5 102 18 80/68 96 01/30/17 08:00 Room Air 2.00 01/30/17 08:00 89 01/30/17 04:00 96.7 97 17 99/67 96 01/30/17 00:00 97.7 104 18 92/60 100 Coded Allergies: Contrast Media (Verified Allergy, Severe, 01/20/17) Sulfa (Verified Allergy, Unknown, 01/20/17) Penicillin (Verified Adverse Reaction, Severe, NAUSEA,DIZZINESS, 01/20/17) Other Results Laboratory Tests Test 01/27/17 01/28/17 01/28/17 01/28/17 06:11 02:15 05:46 06:59 Magnesium Level 1.8 MG/DL Stool C. difficile Toxin (PCR) NEGATIVE Stl C. difficile Toxin PRESUMPTIVE Epiderm 027 NEGATIVE Antibody Screen POSITIVE Direct Antiglobulin Test NEGATIVE (Kimani) Crossmatch Leukocyte-Reduced Red Blood Cells Blood Bank Comment Antibody Identification Non-Specific Agglutinin Test 01/28/17 01/30/17 07:34 06:10 Blood Type B POSITIVE White Blood Count 11.5 TH/MM3 Red Blood Count 2.82 MIL/MM3 Hemoglobin 7.6 GM/DL Hematocrit 22.7 % Mean Corpuscular Volume 80.4 FL Mean Corpuscular Hemoglobin 27.0 PG Mean Corpuscular Hemoglobin 33.5 % Concent Red Cell Distribution Width 13.6 % Platelet Count 461 TH/MM3 Mean Platelet Volume 8.1 FL Sodium Level 142 MEQ/L Potassium Level 3.6 MEQ/L Chloride Level 107 MEQ/L Carbon Dioxide Level 27.0 MEQ/L Anion Gap 8 MEQ/L Blood Urea Nitrogen 5 MG/DL Creatinine 0.57 MG/DL Estimat Glomerular Filtration 128 ML/MIN Rate Random Glucose 100 MG/DL Calcium Level 7.9 MG/DL Physical Exam Details RLE No strikethrough to outer dressing. Intact VAC, minimal drainage. Assessment & Plan Diagnosis: (1) Osteomyelitis of ankle or foot, right, acute Status: Acute (2) PAD (peripheral artery disease) Status: Chronic (3) Amputation at midfoot Status: Acute A/P OK to d/c per Podiatry. D/C home with wound VAC: change m/w/f F/U with Dr Porras with in 1 week of d/c Lili Mercado DPM Jan 30, 2017 21:06
[2017-01-30] MEDS: ATORVASTATIN 10 MG TAB PO SCH (21:20)
[2017-01-31] VITALS (9 sets, daily range): BP systolic 102–145; BP diastolic 65–78; PULSE 91–100; RESP 17–20; TEMP 95.8–99; O2SAT 94–100
[2017-01-31] MEDS: metroNIDAZOLE 500 MG INJ 100 ML IV SCH ×2 (05:23→13:49)
[2017-01-31] MEDS: oxyCODONE/ACETAMINOPHEN 10 MG/325 MG TAB PO PRN ×4 (05:23→21:04)
[2017-01-31] MEDS: INSULIN ASPART SUPPLEMENTAL SCALE SQ SCH ×4 (05:34→23:09)
--- NOTE | 2017-01-31 07:47 | MP ---
cc: DANIELLE RODRIGUEZ DPM DATE OF 1950 DATE OF SERVICE 01/27/2017 PREOPERATIVE DIAGNOSES Right foot diabetic infection. Right foot gangrene. POSTOPERATIVE DIAGNOSES Right foot diabetic infection. Right foot gangrene. PROCEDURE 1. Right transmetatarsal amputation. 2. Wound VAC application SURGEON TONG Rodriguez IT CONSULTING MANAGER Staff. SPECIMEN Right transmetatarsal amputation site for pathology and deep right transmetatarsal culture. ESTIMATED BLOOD LOSS 20 cc. ANESTHESIA LMA with 20 cc of 0.5% Marcaine, 1% lidocaine plain. COMPLICATIONS No complications. TOTAL TOURNIQUET TIME Tourniquet was inflated for 41 minutes but INDICATIONS This patient is a 66-year-old female with severe PVD with a right foot infection that was initially irrigated and debrided and then Vascular several days later took her back for revascularization. Angio most recent DENNY showed 0.98 on the right foot, up from 0.5, so the patient is requiring surgical intervention for this problem at this time due to necrosis and infection. The patient understands the procedure to be performed today as well as the potential risks and complications. All their questions were answered, the risks versus benefits discussed at length. OPERATIVE PROCEDURE The patient was brought to the operating room, placed on the operating room table in supine position. Pneumatic calf tourniquet was placed about the right calf. Once the foot was scrubbed, prepped and draped in the usual sterile manner and 20 cc of 0.5 Marcaine plain and 1% lidocaine plain was injected as an ankle block, the tourniquet was inflated and the procedure was started. First attention was directed in which C-arm was used to reveal transmetatarsal location. Due to the necrosis on the dorsal foot and medial foot, the incision was placed about mid-shaft and reflected proximally and distally. The metatarsophalangeal joints of all digits were disarticulated. The plantar flap was taken into the digit sulcus. The toes were removed with sharp dissection at the metatarsophalangeal joint. Griffin elevator was used to expose the metatarsals. C-arm was used to reveal in which a proximal transmetatarsal amputation was performed. C-arm was used to reveal good position. Rongeur was used to smooth all the bones, 1 through 5. Good parabola was indicated on the C-arm. Next, using sharp dissection, the wound went medially to approximate the talonavicular joint. Once debrided, there was no vivi pus but significant necrosis and fibrosis. All necrotic tissue was debrided from the medial wound as well as dorsal necrosis of the mid-foot was transected away. The plantar flap was brought dorsally and it was found to be approximated with the exception of about 3.5 cm x 3 cm dorsal mid-foot that was not able to be closed by the flap. Copiously irrigation was performed, flushed significantly and a few Vicryl was used to close subcutaneous tissue and nylon was used to close the lateral portion of the incision and the medial wound more proximally to get well approximated. Next, a medium wound VAC was used in which a bridge was created and a triangular VAC was placed both in the wound dorsally as well as in the wound medially and a strip of padding was bridged to the two and the wound VAC was placed on the dorsal part of the foot. It was sealed and checked for good pressure. The wound VAC was reinforced with 4x4 and cast padding and an Brian and the patient handled the anesthesia well. TONG Wilkinson/SILVANA /9:19 AM /7:26 AM MTDCatherine
--- NOTE | 2017-01-31 08:23 | MP ---
cc: DANIELLE RODRIGUEZ, TONG DATE OF SURGERY: 01/28/2017 Revision wound closure of a TMA done earlier today. DATE OF : 1950 PREOPERATIVE DIAGNOSIS: Right foot postop bleeding. POSTOPERATIVE DIAGNOSIS: Right foot postop bleeding. PROCEDURE Irrigation and debridement right foot, removal and reapplication of wound vac, cauterization of all bleeders. SURGEON Dr. Rodriguez. ASSISTANTS Staff. TOURNIQUET None. ANESTHESIA General with 10 ccs of 0.5 Marcaine plain and 1% lidocaine plain injected preoperatively. SPECIMEN No specimens. No culture. CONDITION The patient handled anesthesia well. INDICATION This patient is a 66-year-old female who underwent a open transmetatarsal amputation with wound vac with two episodes of bleeding through the dressing at bedside in her room after the surgery. The patient is requiring surgical intervention for the problem at this time to examine all bleeders, cauterize and ligate any squirting bleeders and re-irrigate and re-apply wound vac. The patient understands the procedure to be performed today as well as potential risk, complications involved. All questions were answered. Risks versus benefits is discussed at length. PROCEDURE The patient was brought to the operating room and placed on the operating room table in the supine position. Pneumatic ankle tourniquet was placed but was never used. The foot was scrubbed, prepped and draped in the usual sterile fashion. First attention was directed in which a Nylon and Vicryl sutures were removed from the transmetatarsal plantar flap. The area was copiously irrigated. Ten minutes was waited to see any squirting bleeders. There was found to be no squirting bleeders, it was gradual oozing of the bone in which bone wax was applied to the bones. Again, the area was copiously flushed and small bleeders were cauterized with adequate time with the leg even in a slightly dependent position, there was no squirting bleeders, the DP had no blood coming from it and the wound was copiously irrigated. Vicryl and Nylon was used to close the lateral portion of the TMA and a wound vac was spanned across the proximal and medial portion of the transmetatarsal amputation site. With the wound vac placed and good pressure, 4 x 4, ABD, cast padding and Brian was used to wrap the foot and the patient handled anesthesia well. TONG Wilkinson/PHYLLISL /7:07 PM /7:59 AM
[2017-01-31] MEDS: SODIUM CHLORIDE 0.9% FLUSH 5 ML FLUSH FLUSH SCH ×2 (09:00→21:00)
--- NOTE | 2017-01-31 09:19 | HHI.PR ---
Subjective Remarks "I want to go home" Pain is controlled. She wants to have equipment needed for home. Objective Vitals Vital Signs Date Time Temp Pulse Resp B/P Pulse Ox O2 Delivery O2 Flow Rate FiO2 01/31/17 04:00 98.5 94 18 145/77 97 01/31/17 00:00 98.9 91 17 108/65 98 01/30/17 20:00 100.4 107 18 129/63 98 01/30/17 17:57 97 21 01/30/17 16:00 97.0 106 22 85/62 97 01/30/17 12:04 97.0 102 22 100/68 98 01/30/17 10:03 94 21 I/O 01/30/17 01/30/17 01/30/17 01/31/17 01/31/17 01/31/17 07:00 15:00 23:00 07:00 15:00 23:00 Intake Total 240 ml 3254 ml 480 ml 240 ml Output Total 1950 ml 800 ml 750 ml 1200 ml Balance -1710 ml 2454 ml -270 ml -960 ml Intake Oral 240 ml 1680 ml 480 ml 240 ml IV Total 1574 ml Output Urine Total 1950 ml 800 ml 750 ml 1200 ml # Bowel Movements 2 1 Result Diagram: 01/30/17 0610 01/30/17 0610 Objective Remarks GENERAL: Patient appear older than stated age, in no apparent distress. CARDIOVASCULAR: Normal rate and regular rhythm without murmurs, gallops, or rubs. RESPIRATORY: Good respiratory efforts. Breath sounds equal and clear to auscultation bilaterally. GASTROINTESTINAL: Abdomen soft, non-tender, non-distended. Normal active bowel sounds MUSCULOSKELETAL: Status post right midfoot amputation. Wound VAC in place. NEURO: Alert & Oriented x4 to person, place, time, situation. Moves all ext x4 PSYCH: Calm A/P Problem List: (1) Sepsis ICD Code: A41.9 Status: Acute (2) Diabetic foot infection ICD Code: E11.69 Status: Acute (3) Hypotension ICD Code: I95.9 Status: Acute (4) Renal insufficiency ICD Code: N28.9 Status: Acute (5) DM (diabetes mellitus) ICD Code: E11.9 Status: Acute Assessment and Plan 66-year-old female with: Sepsis with hypotension: Due to severe diabetic foot infection. Sepsis resolving. See below Diabetic Foot Infection -MRI + for osteomyelitis -s/p Incision drainage expansile right foot with incision bone cortex hallux and 1st metatarsal on 01/21. - Status post right midfoot amputation and wound VAC placement on 01/28/17. Cleared for DC by Podiatry to follow up outpatient, - Pod and ID ff - wound culture from surgery growing Group B beta strep. Blood cultures are so far negative. - Patient on vancomycin, cefepime, and Flagyl per infectious disease Peripheral arterial Disease. - KALYAN was severely abnormal. - Vascular surgery following. Patient had aortogram w/ R LE Angiogram, and R SFA QUEEN'S COUNSEL. Finding included patent B iliac stents and Occluded R SFA - recanalized and QUEEN'S COUNSEL with excellent result and 2 vessel runoff to foot (PT/ peroneal). Acute Renal Insufficiency: Resolved This was most likely prerenal due to sepsis. - Avoid nephrotoxins. Continue to monitor. Cough -on Hycodan. as needed. -on Mucinex Chronic pain: Patient follows with Pain management. She does get Lethargic and Hypotensive with Soma and Xanax. They were discontinued. Advised not to continue these meds on discharge. - Cautious with narcotics. She can be easily oversedated. - Lortab as needed. anxiety -Stable T2DM insulin dependent: Uncontrolled -continue Levemir 35 units in a.m. Blood glucoses better after adding Levemir 10 units daily at bedtime -continue to SSI. -Diabetic diet. DVT Prophylaxis -Chemoprophylaxis when cleared by surgical service. Discharge Planning Patient is refusing rehab for now. Will get PT to reeval. Antibiotics course to be determined by ID. Rodo Osorio MD Jan 31, 2017 09:19
[2017-01-31] MEDS: CLOPIDOGREL 75 MG TAB PO SCH (09:40)
[2017-01-31] MEDS: guaiFENesin E.R. 600 MG TAB PO SCH ×2 (09:40→20:59)
[2017-01-31] MEDS: INSULIN DETEMIR 100 UNITS/ML VIAL SQ SCH ×2 (09:40→21:02)
[2017-01-31] MEDS: GABAPENTIN 400 MG CAP PO SCH ×3 (09:40→15:46)
[2017-01-31] MEDS: ASPIRIN EC 81 MG TABEC PO SCH (09:40)
[2017-01-31] MEDS: cefTRIAXone INJ 2,000 MG in SODIUM CHLORIDE 0.9% INJ 100 ML IV SCH (12:26)
[2017-01-31] MEDS: SODIUM BICARBONATE 8.4% INJ 100 MEQ in DEXTROSE 5% IN WATE 1000ML INJ 1,000 ML IV SCH ×2 (12:33)
--- NOTE | 2017-01-31 15:52 | HHI.IDPN ---
Subjective Subjective Remarks Notes reviewed One low grade temps overnight Cleared by podiatry for D/C Wound vac has not been changed since surgery Still with loose stool C diff negative Does not want to go to rehab Adamant about going home Path report with gangrenous necrosis Last OR C/S still with GBS Pain under control Antibiotics Rocephin Flagyl Lines PIV Past Medical History Diabetes Previous diabetic foot infection Peripheral vascular disease COPD, asthma GERD Anxiety disorder Degenerative disc disease in the back and the neck Retinopathy There was mention at some point that she has neurogenic bladder and problem with urinary retention - There was actually an ED visit November 2016 for a blocked Chavira and her Chavira catheter was changed at that time. - Could not really get any good history from the patient regarding when her Chavira was discontinued since she is quite lethargic. Past Surgical History Hysterectomy Eye surgery for retinopathy Amputation of the right fifth toe for diabetic foot infection Allergies: Coded Allergies: Contrast Media (Verified Allergy, Severe, 01/20/17) Sulfa (Verified Allergy, Unknown, 01/20/17) Penicillin (Verified Adverse Reaction, Severe, NAUSEA,DIZZINESS, 01/20/17) Objective . Vital Signs Date Time Temp Pulse Resp B/P Pulse Ox O2 Delivery O2 Flow Rate FiO2 01/31/17 11:11 99 01/31/17 07:50 95.9 98 20 102/75 94 01/31/17 07:35 Room Air 01/31/17 04:00 98.5 94 18 145/77 97 01/31/17 00:00 98.9 91 17 108/65 98 01/30/17 20:00 100.4 107 18 129/63 98 01/30/17 17:57 97 21 01/30/17 16:00 97.0 106 22 85/62 97 01/30/17 01/30/17 01/31/17 15:00 23:00 07:00 Intake Total 3254 ml 480 ml 240 ml Output Total 800 ml 750 ml 1200 ml Balance 2454 ml -270 ml -960 ml Intake Oral 1680 ml 480 ml 240 ml IV Total 1574 ml Output Urine Total 800 ml 750 ml 1200 ml # Bowel Movements 1 . Laboratory Tests Test 01/30/17 06:10 White Blood Count 11.5 TH/MM3 Red Blood Count 2.82 MIL/MM3 Hemoglobin 7.6 GM/DL Hematocrit 22.7 % Mean Corpuscular Volume 80.4 FL Mean Corpuscular Hemoglobin 27.0 PG Mean Corpuscular Hemoglobin 33.5 % Concent Red Cell Distribution Width 13.6 % Platelet Count 461 TH/MM3 Mean Platelet Volume 8.1 FL Laboratory Tests Test 01/30/17 06:10 Sodium Level 142 MEQ/L Potassium Level 3.6 MEQ/L Chloride Level 107 MEQ/L Carbon Dioxide Level 27.0 MEQ/L Anion Gap 8 MEQ/L Blood Urea Nitrogen 5 MG/DL Creatinine 0.57 MG/DL Estimat Glomerular Filtration 128 ML/MIN Rate Random Glucose 100 MG/DL Calcium Level 7.9 MG/DL Microbiology Date/Time Procedure Status Source Growth 01/29/17 05:25 Aerobic Blood Culture - Preliminary Resulted Blood Peripheral NO GROWTH IN 2 DAYS 01/29/17 05:25 Anaerobic Blood Culture - Preliminary Resulted Blood Peripheral NO GROWTH IN 2 DAYS 01/29/17 05:30 Aerobic Blood Culture - Preliminary Resulted Blood Peripheral NO GROWTH IN 2 DAYS 01/29/17 05:30 Anaerobic Blood Culture - Preliminary Resulted Blood Peripheral NO GROWTH IN 2 DAYS Imaging Last Impressions Foot MRI 01/21/17 0000 Signed Impressions: Service Date/Time: Saturday, January 21, 2017 14:57 - CONCLUSION: 1. Osteomyelitis involving the first medial sesamoid bone. 2. Small focal area of abnormal enhancement and signal in the first metatarsal head also of concern for osteomyelitis. 3. Enhancement of the abductor hallux muscle consistent with infection. 4. Focal ulcer and soft tissue swelling. Tavares Flores MD Foot X-Ray 01/20/17 0000 Signed Impressions: Service Date/Time: Friday, January 20, 2017 15:15 - CONCLUSION: 1. That is post amputation of the fifth digit to the level of the metatarsal head. 2. Mild soft tissue swelling and gas over the medial first metatarsal phalangeal joint with no destructive change. Tavares Flores MD Chest X-Ray 01/20/17 0000 Signed Impressions: Service Date/Time: Friday, January 20, 2017 15:13 - CONCLUSION: No acute disease. Tavares Flores MD Physical Exam GENERAL: awake and alert, NAD SKIN: Warm and dry, no generalized rash. HEENT: [place] conjunctivae. No scleral icterus. Moist oral mucosa, she is edentulous. NECK: Supple, nontender, no meningeal signs. CARDIOVASCULAR: Regular rate and rhythm without murmurs, gallops, or rubs. RESPIRATORY: Clear to auscultation. . Decreased breath sounds at the bases. GASTROINTESTINAL: Abdomen soft, not tender MUSCULOSKELETAL: RLE: has intact dressing R foot with wound vac in place, not a lot of output NEUROLOGICAL: Awake and alert, speech normal. NO Babinski PSYCH: Cooperative : Chavira in place, urine looks clear LINE: PIV with no evidence of infection Assessment & Plan Remarks IMPRESSION Sepsis on admission, due to severe DFI R foot - S/P surgery DFI, R foot, S/P 2 surgery - S/P midfoot amputation and has wound vac in place - repeat C/S pending Fever post-op - prob atelectasis DM, PVD - S/P revasculariztion RLE Urinary retention - previous records mentioned neurogenic blader and problem with urinary retention Renal insufficiency due to sepsis, ?underlying DM nephropathy - resolved Leukocytosis, stable but persistent RECOMMENDATION Stop Flagyl Continue Rocephin Add Lactinex PICC Plan 4 more weeks IV Abx on D/C - end date February 24 Will fill out Abx infusion form If temps ok, and arrangements made for her IV Abx - ok to D/C next day or 2 Follow new C/S Recheck UA and C/S Monitor temps Monitor progress Wound vac per podiatry D/W geriatric case manager Nadja Mendenhall MD Jan 31, 2017 15:52
--- NOTE | 2017-01-31 15:54 | HHI.FF ---
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 [] May leave port accessed during therapy. [] May leave peripheral site accessed for duration of therapy. [x] If patient has SOB or respiratory distress, check oxygen saturation. If less than 90% or clinical signs of respiratory distress, administer oxygen at 2 L/min. via nasal cannula and notify physician. [x] Anaphylaxis/Reaction orders: * Stop infusion. * Keep IV line open with saline flush. * Notify physician. * Monitor vital signs every 15 minutes until symptoms resolve. * Check Oxygen saturation; Oxygen at 2 L/min. via nasal cannula if less than 90% or clinical signs of respiratory distress. * Administer diphenhydramine (Benadryl) 25 mg IV STAT, (unless patient has received as pre-med). May repeat once, if necessary. * Solu-Cortef 250 mg IVP over 30-60 seconds, use 100 mg vials for each dissolution. * Epinephrine (1mg/1 ml) 0.3 mg subcutaneously or IVP now with any signs of respiratory distress. * Check with physician for new additional pre-med orders if patient is re- challenged or re-treated. [x] May remove PICC line when treatment complete, after confirming with Physician. [x] If the patient is admitted to the hospital, the ED, or transferred via [facility] , complete transfer form including medication reconciliation order sheet. Laboratory Tests Weekly Labs: CBC w/diff, Creatinine, LFT's (Hepatic function test) (Labs every Sunday - copy to me) Nadja Mendenhall MD Jan 31, 2017 15:54
[2017-01-31] MEDS: LACTOBACILLUS ACIDOPHILUS TAB PO SCH (16:06)
[2017-01-31 17:20] LABS: BLOOD, URINE NEG (NEG); GLUCOSE,URINE NEG (NEG); KETONE, URINE NEG (NEG); MUCUS URINE FEW /lpf (OCC); NITRITE,URINE NEG (NEG); SQUAMOUS EPITHELIAL CELL URINE <1 /hpf (0-5); URINE COLOR YELLOW (YELLW/STRAW)
[2017-01-31 17:22] LABS: COMMENT (UR) CATH-CULTURE IND; CULTURE IF INDICATED CATH CULTURE IND
[2017-01-31] MEDS: ATORVASTATIN 10 MG TAB PO SCH (20:59)
[2017-02-01] VITALS (17 sets, daily range): BP systolic 84–157; BP diastolic 58–89; PULSE 90–146; RESP 17–28; TEMP 96.5–99.3; O2SAT 75–98
[2017-02-01] MEDS: oxyCODONE/ACETAMINOPHEN 10 MG/325 MG TAB PO PRN ×3 (01:18→09:40)
[2017-02-01] MEDS: HYDROcodone 5 MG/HOMATROPINE 1.5 MG SYRUP 5 ML CUP PO PRN (03:16)
[2017-02-01] MEDS: INSULIN ASPART SUPPLEMENTAL SCALE SQ SCH ×4 (07:00→21:00)
[2017-02-01] MEDS: SODIUM CHLORIDE 0.9% FLUSH 5 ML FLUSH FLUSH SCH ×2 (09:00→19:56)
[2017-02-01] MEDS: ASPIRIN EC 81 MG TABEC PO SCH (09:36)
[2017-02-01] MEDS: cefTRIAXone INJ 2,000 MG in SODIUM CHLORIDE 0.9% INJ 100 ML IV SCH (09:36)
[2017-02-01] MEDS: GABAPENTIN 400 MG CAP PO SCH ×4 (09:36→22:07)
[2017-02-01] MEDS: LACTOBACILLUS ACIDOPHILUS TAB PO SCH ×4 (09:36→22:08)
[2017-02-01] MEDS: guaiFENesin E.R. 600 MG TAB PO SCH ×2 (09:36→19:56)
[2017-02-01] MEDS: CLOPIDOGREL 75 MG TAB PO SCH (09:37)
[2017-02-01] MEDS: INSULIN DETEMIR 100 UNITS/ML VIAL SQ SCH ×2 (09:47→19:57)
[2017-02-01 11:42] LABS: MEAN CELL VOLUME 82.4 FL (80.0-100.0); MEAN CORPUSCULAR HEMOGLOBIN 27.7 PG (27.0-34.0); MEAN CORPUSCULAR HGB CONC 33.6 % (32.0-36.0); PLATELET COUNT 477 TH/MM3 (150-450); RED BLOOD COUNT 2.53 MIL/MM3 (4.00-5.30); WHITE BLOOD COUNT 7.8 TH/MM3 (4.0-11.0)
[2017-02-01 11:46] LABS: REVIEW FLAG FINAL
[2017-02-01 11:48] LABS: HEMATOCRIT 20.8 % (35.0-46.0)
[2017-02-01 12:02] LABS: ALT (GPT) 12 U/L (10-53); ANION GAP 7 MEQ/L (5-15); AST (GOT) 16 U/L (15-37); BICARBONATE 27.9 MEQ/L (21.0-32.0); BLOOD UREA NITROGEN 4 MG/DL (7-18); CHLORIDE 108 MEQ/L (98-107); GLOMERULAR FILTRATION RATE 123 ML/MIN (>89); POTASSIUM 3.5 MEQ/L (3.5-5.1); SODIUM (NA) 143 MEQ/L (136-145)
[2017-02-01 12:04] LABS: ALKALINE PHOSPHATASE 253 U/L (45-117); TOTAL BILIRUBIN ADULT 0.1 MG/DL (0.2-1.0)
--- NOTE | 2017-02-01 14:19 | HHI.PR ---
Subjective Remarks H&H dropped to 7/20.8. Patient inquired again about when she can restart Soma and Xanax. However noted that her pain is controlled. Objective Vitals Vital Signs Date Time Temp Pulse Resp B/P Pulse Ox O2 Delivery O2 Flow Rate FiO2 02/01/17 13:39 Room Air 02/01/17 11:50 99.3 93 20 157/75 98 02/01/17 10:40 93 21 02/01/17 07:50 98.2 92 20 133/64 97 02/01/17 04:00 97.7 90 17 97/73 98 02/01/17 00:00 98.6 97 17 112/79 97 01/31/17 20:04 97 01/31/17 20:00 Room Air 98 01/31/17 20:00 99.0 97 17 139/73 98 01/31/17 17:56 99 21 01/31/17 15:50 98.2 92 20 118/65 100 I/O 01/31/17 01/31/17 01/31/17 02/01/17 02/01/17 02/01/17 07:00 15:00 23:00 07:00 15:00 23:00 Intake Total 240 ml 2519 ml 462 ml Output Total 1200 ml 1300 ml 350 ml 1700 ml Balance -960 ml 1219 ml -350 ml -1238 ml Intake Oral 240 ml 562 ml IV Total 1957 ml 462 ml Output Urine Total 1200 ml 1300 ml 350 ml 1700 ml # Bowel Movements 3 1 Result Diagram: 02/01/17 1125 02/01/17 1125 Objective Remarks GENERAL: Patient appear older than stated age, in no apparent distress. CARDIOVASCULAR: Normal rate and regular rhythm without murmurs, gallops, or rubs. RESPIRATORY: Good respiratory efforts. Breath sounds equal and clear to auscultation bilaterally. GASTROINTESTINAL: Abdomen soft, non-tender, non-distended. Normal active bowel sounds MUSCULOSKELETAL: Status post right midfoot amputation. Wound VAC in place. NEURO: Alert & Oriented x4 to person, place, time, situation. Moves all ext x4 PSYCH: Calm A/P Problem List: (1) Sepsis ICD Code: A41.9 Status: Acute (2) Diabetic foot infection ICD Code: E11.69 Status: Acute (3) Hypotension ICD Code: I95.9 Status: Acute (4) Renal insufficiency ICD Code: N28.9 Status: Acute (5) DM (diabetes mellitus) ICD Code: E11.9 Status: Acute Assessment and Plan 66-year-old female with: Sepsis with hypotension: Due to severe diabetic foot infection. Sepsis resolving. See below Diabetic Foot Infection -MRI + for osteomyelitis -s/p Incision drainage expansile right foot with incision bone cortex hallux and 1st metatarsal on 01/21. - Status post right midfoot amputation and wound VAC placement on 01/28/17. Cleared for DC by Podiatry to follow up outpatient, - Pod and ID ff - wound culture from surgery growing Group B beta strep. Blood cultures are so far negative. - Patient on vancomycin, cefepime, and Flagyl per infectious disease Acute blood loss anemia from surgical procedures: - Transfuse 2 units of PRBC today. Peripheral arterial Disease. - KALYAN was severely abnormal. - Vascular surgery following. Patient had aortogram w/ R LE Angiogram, and R SFA SECURITY SOLUTIONS ARCHITECT. Finding included patent B iliac stents and Occluded R SFA - recanalized and SECURITY SOLUTIONS ARCHITECT with excellent result and 2 vessel runoff to foot (PT/ peroneal). Acute Renal Insufficiency: Resolved This was most likely prerenal due to sepsis. - Avoid nephrotoxins. Continue to monitor. Cough -on Hycodan. as needed. -on Mucinex Chronic pain: Patient follows with Pain management. She does get Lethargic and Hypotensive with Soma and Xanax. They were discontinued. Advised not to continue these meds on discharge. - Cautious with narcotics. She can be easily oversedated. - Lortab as needed. anxiety -Stable T2DM insulin dependent: Uncontrolled -continue Levemir 35 units in a.m. Blood glucoses better after adding Levemir 10 units daily at bedtime -continue to SSI. -Diabetic diet. DVT Prophylaxis -Chemoprophylaxis when cleared by surgical service. Discharge Planning Plan to discharge with home health, IV antibiotics and PT tomorrow if stable. Rodo Osorio MD Feb 01, 2017 14:19
[2017-02-01] MEDS ORDERED: CRUTMIS25 (16:14)
[2017-02-01] MEDS ORDERED: MISCMIS81 (16:14)
[2017-02-01] MEDS ORDERED: ETOMIDATE 20 MG/10 ML VIAL ONE (18:46)
[2017-02-01] MEDS ORDERED: ROCURONIUM INJ 50 MG/5 ML VIAL ONE (18:47)
[2017-02-01] MEDS ORDERED: FUROSEMIDE 40 MG/4 ML VIAL ONE (18:52)
--- NOTE | 2017-02-01 19:18 | PD.CONS ---
[facility] Service Critical Care Medicine Consult Requested By Dr. Osorio Reason for Consult Respiratory distress Primary Care Physician Arjun Lipscomb MD History of Present Illness Date admission: 01/20/17 Date of consult 02/01/17 66-year-old female with past medical history of hypertension, diabetes, peripheral arterial disease, COPD, obesity who was admitted to the [facility] emergency department 01/20/17 with failure of outpatient management of a chronic right foot ulcer. She was septic on admission with hypotension, tachycardia, lactic acid 2.4 that was fluid responsive. She underwent ID of plantar and dorsal aspect of foot and incison right hallux and 1st metatarsal head on 01/[address] Mishra. She ultimately underwent right transported metatarsal amputation and wound VAC placement 01/27/17. She was transfused 1 and a partial 2nd unit of PRBC and developed respiratory distress for which [facility] was called. She was transferred [place] [facility] [place] severe respiratory distress. She is tachycardic in 150s, tachypneic with increased work of breathing, exam c/w pulmonary edema. Past Family Social History Allergies: Coded Allergies: Contrast Media (Verified Allergy, Severe, 01/20/17) Sulfa (Verified Allergy, Unknown, 01/20/17) Penicillin (Verified Adverse Reaction, Severe, NAUSEA,DIZZINESS, 01/20/17) Past Medical History Diabetes mellitus Hypertension Hyperlipidemia Coronary artery disease with prior CABG Chronic systolic heart failure with moderate to severe MR COPD Obesity Peripheral neuropathy Peripheral arterial disease Anxiety GERD Diabetic retinopathy Past Surgical History I&D right axillary hydroadenitis abscess (Dr. Victor Hugo Greene) Right fifth digit amputation 01/03/12 (Dr. Mishra) CABG Hysterectomy Eye surgery for diabetic retinopathy Right external iliac angioplasty and stent 01/01/12 (Dr. Sil Vasquez) RSFA angioplasty 01/25/17 (Dr. Olivier) Right transmetatarsal amputation and wound VAC placement 01/27/17 Reported Medications Home medications: Enalapril 5 mill grams by mouth daily Gabapentin 800 mg by mouth 3 times a day Xanax 1 mg by mouth twice a day Albuterol 1 puff inhaled every 4 hours when necessary shortness of breath Metformin 1000 mg by mouth twice a day Soma 350 mg by mouth twice a day Atorvastatin 10 mg by mouth daily at bedtime Levemir 35 units subcutaneous daily Aspirin 81 mg by mouth daily Percocet 10/325 one by mouth every 6 hours when necessary pain Plavix 75 mg by mouth daily Active Ordered Medications Current Medications Medications (Trade) Dose Ordered Sig/Aliyah Route Start Time Stop Time Status Last Admin (D50w (Vial) Inj) 25 ml UNSCH PRN IV PUSH 01/20/17 19:45 (Glucagon Inj) 1 mg UNSCH PRN OTHER 01/20/17 19:45 (NS Flush) 2 ml UNSCH PRN FLUSH 01/20/17 19:45 (NS Flush) 2 ml BID FLUSH 01/20/17 21:00 01/28/17 09:00 (Zofran Inj) 4 mg Q6H PRN IVP 01/20/17 19:45 01/23/17 06:26 (Tylenol) 650 mg Q6H PRN PO 01/20/17 19:45 01/29/17 00:37 (Proair Hfa Inh) 1 puff Q4H PRN INH 01/20/17 19:45 01/25/17 06:49 (Ecotrin Ec) 81 mg DAILY PO 01/21/17 09:00 02/01/17 09:36 (Lipitor) 10 mg HS PO 01/20/17 21:00 01/31/17 20:59 (Plavix) 75 mg DAILY PO 01/21/17 09:00 02/01/17 09:37 (Neurontin) 800 mg TID PO 01/21/17 09:00 02/01/17 12:50 (Levemir Inj) 35 units DAILY SQ 01/21/17 09:00 02/01/17 09:47 (Mucinex Er) 600 mg BID PO 01/23/17 11:00 02/01/17 09:36 Hydrocodone Bit/ Homatropine Methylb 5 ml 5 ml Q6H PRN PO 01/23/17 11:00 02/01/17 03:16 Ceftriaxone Sodium 2000 mg/ Sodium Chloride 100 ml @ 200 mls/hr Q24H IV 01/24/17 11:00 02/01/17 09:36 (Sodium Bicarbonate 8.4% Inj/D5W 1000 ml Inj) 1,100 ml @ 42 mls/hr Q24H IV 01/25/17 13:00 01/31/17 12:33 (Levemir Inj) 10 units HS SQ 01/26/17 21:00 01/31/17 21:02 (Narcan Inj) 0.4 mg UNSCH PRN IV 01/28/17 08:00 (Percocet 10-325 Mg) 1 tab Q4H PRN PO 01/28/17 23:00 02/01/17 09:40 (Xanax) 0.5 mg BID PRN PO 01/29/17 09:00 Hold 01/29/17 15:08 (Soma) 175 mg BID PO 01/29/17 09:00 Hold 01/29/17 10:05 (Pill Splitter) 1 ea UNSCH PRN OTHER 01/29/17 10:00 (Lactinex) 1 tab TID PO 01/31/17 18:00 02/01/17 12:50 (Lasix Inj) 60 mg ONCE ONCE IV PUSH 02/01/17 20:00 02/01/17 20:01 02/01/17 19:25 Lorazepam 1 mg 1 mg ONCE ONCE IV PUSH 02/01/17 20:00 02/01/17 20:01 02/01/17 19:27 (KCl 20 Meq Premix Inj) 100 ml @ 50 mls/hr Q2H IV 02/01/17 20:00 02/01/17 23:59 (Dulcolax Supp) 10 mg DAILY PRN RECTAL 02/01/17 19:54 Family History Unable to obtain from patient due to clinical condition. Social History Unable to obtain from patient currently due to clinical condition. 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 Unclear if she is still smoking. No EtOH or illicit drug use. Physical Exam Vital Signs Vital Signs Date Time Temp Pulse Resp B/P Pulse Ox O2 Delivery O2 Flow Rate FiO2 02/01/17 16:00 96.5 101 20 127/62 98 02/01/17 15:50 98.3 93 20 156/89 98 02/01/17 15:35 98.6 102 20 126/66 97 02/01/17 13:39 Room Air 02/01/17 11:50 99.3 93 20 157/75 98 02/01/17 10:40 93 21 02/01/17 07:50 98.2 92 20 133/64 97 02/01/17 04:00 97.7 90 17 97/73 98 02/01/17 00:00 98.6 97 17 112/79 97 01/31/17 20:04 97 01/31/17 20:00 Room Air 98 01/31/17 20:00 99.0 97 17 139/73 98 Physical Exam Temp 96.5 blood pressure 135/79 pulse 155 sats 97% on 100% nonrebreather GENERAL: Obese female who is anxious appearing in respiratory distress grasping handrails of bed. SKIN: Warm, mild diaphoresis HEAD: Atraumatic. Normocephalic. EYES: Pupils equal and round. No scleral icterus. ENT: Nonrebreather breather mask in place NECK: Trachea midline. Unable to appreciate JVD with body habitus and accessory muscle use. CARDIOVASCULAR: Regular, tachycardic with rate in the 150s, appear sinus rhythm on the monitor. Murmur is not appreciated RESPIRATORY: Tachypneic with respiratory rate in the high 30s and accessory muscle use. Bilateral rales. GASTROINTESTINAL: Abdomen soft, non-tender, nondistended. Bowel sounds present : Chavira in place with light yellow urine output. MUSCULOSKELETAL: Extremities without clubbing, cyanosis. No significant edema. Right foot with wound VAC in place with serosanguineous output. NEUROLOGICAL: Awake, anxious, unable to assess speech due to the degree of respiratory distress. Moving all extremities without focal deficit. Laboratory Laboratory Tests Test 02/01/17 02/01/17 11:25 13:20 White Blood Count 7.8 Red Blood Count 2.53 Hemoglobin 7.0 Hematocrit 20.8 Mean Corpuscular Volume 82.4 Mean Corpuscular Hemoglobin 27.7 Mean Corpuscular Hemoglobin 33.6 Concent Red Cell Distribution Width 14.0 Platelet Count 477 Mean Platelet Volume 7.7 Sodium Level 143 Potassium Level 3.5 Chloride Level 108 Carbon Dioxide Level 27.9 Anion Gap 7 Blood Urea Nitrogen 4 Creatinine 0.59 Estimat Glomerular Filtration 123 Rate Random Glucose 179 Calcium Level 7.9 Total Bilirubin 0.1 Aspartate Amino Transf 16 (AST/SGOT) Alanine Aminotransferase 12 (ALT/SGPT) Alkaline Phosphatase 253 Total Protein 5.8 Albumin 1.6 Blood Type B POSITIVE Antibody Screen NEGATIVE Crossmatch Leukocyte-Reduced Red Blood Cells Blood Bank Comment Date/Time Procedure Status Source Growth 01/31/17 16:10 Urine Culture - Preliminary Resulted Urine Catheterized Urine NO GROWTH IN 24 HOURS. 01/29/17 05:30 Aerobic Blood Culture - Preliminary Resulted Blood Peripheral NO GROWTH IN 3 DAYS 01/29/17 05:30 Anaerobic Blood Culture - Preliminary Resulted Blood Peripheral NO GROWTH IN 3 DAYS 01/28/17 12:49 Gram Stain - Final Complete Wound Foot 01/28/17 12:49 Wound Culture - Final Complete Group B Beta Strep 01/28/17 12:49 Fungal Smear - Final Resulted Wound Foot NO FUNGAL ELEMENTS SEEN. 01/28/17 12:49 Fungal Culture Resulted Wound Foot Pending 01/28/17 12:49 Acid Fast Stain - Final Resulted Wound Foot NO ACID FAST BACILLI SEEN 01/28/17 12:49 Mycobacterial Culture Resulted Wound Foot Pending Result Diagram: 02/01/17 1125 02/01/17 1125 Assessment and Plan Assessment and Plan NEURO: Peripheral neuropathy Anxiety Chronic pain Continue gabapentin 800 mg by mouth 3 times a day Percocet 10/325 every 4 hours when necessary pain Ativan 1 mg IV now for BiPAP tolerance. Noted Home xanax 1 mg po bid and soma 350 bid have been held. RESP: Acute hypoxemic respiratory failure COPD Tobacco abuse Patient appears to be in respiratory distress from volume overload state. No fever or rash to suggest transfusion reaction. Ativan 1 mg IV for anxiety. Initiate BiPAP 18/8 100% which is achieving TV 550 and wean as tolerated. Lasix 60 mg IV now. Obtain chest x-ray DuoNeb every 6 hour Continue guaifenesin 600 mg by mouth twice a day CV: Hypertension Hyperlipidemia Coronary artery disease Prior CABG Peripheral arterial disease s/p RSFA angioplasty 01/25/17 (Dr. Olivier) Check cardiac markers and BNP. EKG demonstrates sinus tachycardia rate in the 130s. No acute ST or T-wave abnormalities when compared with prior 01/28/17 Follow-up Echo Continue aspirin 81 mg by mouth daily Continue Plavix 75 mg by mouth daily Continue atorvastatin 10 mg by mouth daily at bedtime Noted Echo from 01/17/14 with ejection fraction 45-50%, moderate to severe MR Noted enalapril 5 mg daily has been on hold secondary to acute kidney injury and low blood pressure on admission. Can be resumed when stabilized. GI: Morbid Obesity Nothing by mouth currently while in respiratory distress on BiPAP. Has been on 2000-calorie ADA diet FEN/RENAL: CKD stage III DAMEON on admission is resolved Chavira is in place. Monitor intake and output closely. Monitor electrolytes and replace as indicated. ICU electrolyte replacement protocol. Will give KCl 40 mEq IV now with Lasix 60 mg IV ID: Osteomyelitis right foot Wound cultures from 01/20, 01/21, 01/28 were positive for group B beta strep On Rocephin 2 g IV daily 01/24 #9. Previously on cefepime and vancomycin 01/21-. Ciprofloxacin and clindamycin 01/20. Status post right midfoot amputation. Wound VAC in place right lower extremity. Infectious disease (Dr. Mendenhall) and podiatry following Continue Lactobacillus one tab by mouth 3 times a day HEME: Anemia Reactive Thrombocytosis Status post 1 unit packed red cells 02/01/17 appears hemoglobin drift following multiple procedures. She has had a bowel movement in [facility] without melena. Follow-up hemoglobin posttransfusion 7.0 --> 9.7. Monitor platelets. She is already on aspirin. ENDO: Diabetes mellitus Continue to hold home metformin. Continue detemir 35 units subcutaneous daily a.m., detemir 10 units subcutaneous daily at bedtime. Low-dose insulin sliding scale before meals/at bedtime PROPH: Protonix 40 mg IV daily for stress ulcer prophylaxis. Patient does not appear to be actively bleeding, suspect was secondary to multiple procedures. Therefore, plan to start heparin for DVT prophylaxis if hgb remains stable. ACCESS: Left upper extremity midline catheter. Discussed with [facility] nurse. Discussed with Dr. Osorio. Discussed with bedside RN and RT. CCT 60 minutes exclusive of separately billable procedures. Erin Johnson MD Feb 01, 2017 19:18
[2017-02-01] MEDS ORDERED: POTASSIUM CHLOR 40 MEQ PREMIX 100 ML IV ONE (19:45)
[2017-02-01 19:54] LABS: AUTOMATED NEUTROPHIL # 14.5 TH/MM3 (1.8-7.7); BASOPHIL # 0.1 TH/MM3 (0-0.2); BASOPHIL % 0.3 % (0.0-2.0); EOSINOPHIL # 0.1 TH/MM3 (0-0.4); EOSINOPHIL % 0.7 % (0.0-4.0); HEMATOCRIT 28.6 % (35.0-46.0); HEMO FLAGS DIFF FINAL; LYMPH % 11.3 % (9.0-44.0); MEAN CELL VOLUME 81.7 FL (80.0-100.0); MEAN CORPUSCULAR HEMOGLOBIN 27.8 PG (27.0-34.0); MONO % 4.7 % (0.0-8.0); PLATELET COUNT 708 TH/MM3 (150-450); RED CELL DISTRIBUTION WIDTH 14.2 % (11.6-17.2); WHITE BLOOD COUNT 17.5 TH/MM3 (4.0-11.0)
[2017-02-01] MEDS ORDERED: BISACODYL 10 MG SUPP RECTAL PRN (19:54)
[2017-02-01] MEDS: ATORVASTATIN 10 MG TAB PO SCH (19:56)
[2017-02-01] MEDS: SODIUM BICARBONATE 8.4% INJ 100 MEQ in DEXTROSE 5% IN WATE 1000ML INJ 1,000 ML IV SCH ×2 (20:00)
[2017-02-01] MEDS ORDERED: LORazepam 2 MG/ML VIAL IV PUSH ONE (20:00)
[2017-02-01] MEDS ORDERED: FUROSEMIDE 40 MG/4 ML VIAL IV PUSH ONE (20:00)
[2017-02-01] MEDS: POTASSIUM CHLOR 20 MEQ PREMIX 100 ML IV SCH ×2 (20:04→22:22)
[2017-02-01 20:42] LABS: ANION GAP 9 MEQ/L (5-15); AST (GOT) 23 U/L (15-37); BICARBONATE 27.6 MEQ/L (21.0-32.0); BLOOD UREA NITROGEN 6 MG/DL (7-18); CHLORIDE 102 MEQ/L (98-107); GLOMERULAR FILTRATION RATE 81 ML/MIN (>89); POTASSIUM 3.4 MEQ/L (3.5-5.1); SODIUM (NA) 139 MEQ/L (136-145)
--- NOTE | 2017-02-01 20:44 | RADRPT ---
EXAM DATE/TIME: 02/01/2017 20:17 [facility] COMPARISON: CHEST SINGLE AP, January 20, 2017, 15:13. INDICATIONS : Short of breath. MEDICAL HISTORY : None. SURGICAL HISTORY : CABG. ENCOUNTER: Initial ACUITY: 1 day PAIN SCORE: Non-responsive. LOCATION: Bilateral chest FINDINGS: Median sternotomy wires are noted status post cardiac surgery. The heart is mildly prominent. Moder ate pulmonary vascular congestion is noted bilaterally. CONCLUSION: 1. Moderate pulmonary vascular congestion bilaterally. 2. Mild cardiomegaly. Sami Oglesby MD on February 01, 2017 at 20:36 Board Certified Radiologist. This report was verified electronically.
[2017-02-01 20:45] LABS: ALKALINE PHOSPHATASE 367 U/L (45-117); ALT (GPT) 14 U/L (10-53); TOTAL BILIRUBIN ADULT 0.3 MG/DL (0.2-1.0)
[2017-02-01] MEDS: RESP: ALBUTEROL 2.5 MG/IPRATROPIUM 0.5 MG NEB (SCH) NEB (21:42)
[2017-02-01] MEDS: PANTOPRAZOLE SODIUM 40 MG VIAL IV PUSH SCH (22:21)
[2017-02-02] VITALS (14 sets, daily range): BP systolic 85–114; BP diastolic 58–71; PULSE 87–111; RESP 18–22; TEMP 98–98.7; O2SAT 94–100
[2017-02-02] MEDS: RESP: ALBUTEROL 2.5 MG/IPRATROPIUM 0.5 MG NEB (SCH) NEB ×4 (03:13→19:55)
[2017-02-02] MEDS: oxyCODONE/ACETAMINOPHEN 10 MG/325 MG TAB PO PRN ×2 (04:10→08:42)
[2017-02-02 05:42] LABS: HEMATOCRIT 25.6 % (35.0-46.0); MEAN CELL VOLUME 81.6 FL (80.0-100.0); MEAN CORPUSCULAR HEMOGLOBIN 28.3 PG (27.0-34.0); MEAN CORPUSCULAR HGB CONC 34.7 % (32.0-36.0); PLATELET COUNT 592 TH/MM3 (150-450); RED BLOOD COUNT 3.14 MIL/MM3 (4.00-5.30); RED CELL DISTRIBUTION WIDTH 14.6 % (11.6-17.2); REVIEW FLAG FINAL; WHITE BLOOD COUNT 12.3 TH/MM3 (4.0-11.0)
[2017-02-02 06:04] LABS: BICARBONATE 27.3 MEQ/L (21.0-32.0); POTASSIUM 3.8 MEQ/L (3.5-5.1)
[2017-02-02] MEDS ORDERED: FUROSEMIDE 20 MG/2 ML VIAL IV PUSH ONE (06:30)
[2017-02-02] MEDS: INSULIN ASPART SUPPLEMENTAL SCALE SQ SCH ×4 (07:00→21:00)
[2017-02-02] MEDS: guaiFENesin E.R. 600 MG TAB PO SCH ×2 (08:23→22:27)
[2017-02-02] MEDS: LACTOBACILLUS ACIDOPHILUS TAB PO SCH ×3 (08:23→22:26)
[2017-02-02] MEDS: ASPIRIN EC 81 MG TABEC PO SCH (08:23)
[2017-02-02] MEDS: GABAPENTIN 400 MG CAP PO SCH ×3 (08:24→22:26)
[2017-02-02] MEDS: INSULIN DETEMIR 100 UNITS/ML VIAL SQ SCH ×2 (08:24→22:25)
[2017-02-02] MEDS: CLOPIDOGREL 75 MG TAB PO SCH (08:24)
[2017-02-02] MEDS: SODIUM CHLORIDE 0.9% FLUSH 5 ML FLUSH FLUSH SCH ×2 (08:25→22:26)
--- NOTE | 2017-02-02 12:14 | HHI.PR ---
Subjective Remarks Patient transferred to ICU yesterday evening for respiratory failure. Apparently became fluid overload with second unit of transfusion. She inquired about going home. Denies shortness of breath or chest pain. Objective Vitals Vital Signs Date Time Temp Pulse Resp B/P Pulse Ox O2 Delivery O2 Flow Rate FiO2 02/02/17 10:00 100 02/02/17 08:00 98.3 97 18 90/59 100 02/02/17 08:00 102 02/02/17 07:49 100 21 02/02/17 07:00 100 Room Air 02/02/17 06:00 98 02/02/17 05:10 20 02/02/17 04:00 98.7 111 20 96/58 100 02/02/17 04:00 111 02/02/17 02:00 110 02/02/17 00:00 109 02/02/17 00:00 98.0 106 22 114/71 99 02/01/17 23:00 101 02/01/17 21:08 96 100 02/01/17 20:00 97.8 101 20 124/67 93 02/01/17 19:00 95 Bi-Pap 100 02/01/17 18:55 93 100 02/01/17 18:41 119 28 84/58 75 02/01/17 18:35 146 96 02/01/17 18:30 137 24 122/88 96 02/01/17 18:15 98.2 101 20 123/68 94 02/01/17 16:00 96.5 101 20 127/62 98 02/01/17 15:50 98.3 93 20 156/89 98 02/01/17 15:35 98.6 102 20 126/66 97 02/01/17 13:39 Room Air I/O 02/01/17 02/01/17 02/01/17 02/02/17 02/02/17 02/02/17 07:00 15:00 23:00 07:00 15:00 23:00 Intake Total 462 ml 960 ml 1267 ml 253 ml Output Total 1700 ml 1150 ml 1400 ml 1250 ml Balance -1238 ml -190 ml -133 ml -997 ml Intake Oral 960 ml IV Total 462 ml 1004 ml 253 ml Packed Cells 263 ml Output Urine Total 1700 ml 1150 ml 1300 ml 1200 ml Drainage Total 100 ml 50 ml # Bowel Movements 2 1 0 Result Diagram: 02/02/17 0245 02/02/17 0245 Objective Remarks GENERAL: Patient appear older than stated age, in no apparent distress. CARDIOVASCULAR: Normal rate and regular rhythm without murmurs, gallops, or rubs. RESPIRATORY: Good respiratory efforts. Breath sounds equal and clear to auscultation bilaterally. GASTROINTESTINAL: Abdomen soft, non-tender, non-distended. Normal active bowel sounds MUSCULOSKELETAL: Status post right midfoot amputation. Wound VAC in place. NEURO: Alert & Oriented x4 to person, place, time, situation. Moves all ext x4 PSYCH: Calm A/P Problem List: (1) Sepsis ICD Code: A41.9 Status: Acute (2) Diabetic foot infection ICD Code: E11.69 Status: Acute (3) Hypotension ICD Code: I95.9 Status: Acute (4) Renal insufficiency ICD Code: N28.9 Status: Acute (5) DM (diabetes mellitus) ICD Code: E11.9 Status: Acute Assessment and Plan 66-year-old female admitted with diabetic foot infection. Status post midfoot amputation. Patient has been doing well post amputation except for acute blood loss anemia. She went into respiratory failure on 02/01/17 during blood transfusion apparently from volume overload. She is improving and can be transferred from the ICU today. Discharge planning is for her to go home with home health and IV antibiotics. DME scripts done. Would avoid sedative meds in this patient. She has not been able to tolerate Xanax and Soma. Acute respiratory failure: Resolved. Secondary to volume overload and acute systolic CHF exacerbation. - Responded well to diuretics. - Continue to monitor. Given borderline hypotension. Will order low dose Lasix 20 mg daily and monitor fluid status. Patient has an echo from 2013 with LVEF of 45%. Sepsis: Due to severe diabetic foot infection. Sepsis resolving. See below Diabetic Foot Infection -MRI + for osteomyelitis -s/p Incision drainage expansile right foot with incision bone cortex hallux and 1st metatarsal on 01/21. - Status post right midfoot amputation and wound VAC placement on 01/28/17. Cleared for DC by Podiatry to follow up outpatient, - Pod and ID ff - wound culture from surgery growing Group B beta strep. Blood cultures are so far negative. - Patient has been on vancomycin, cefepime, and Flagyl per infectious disease. Switch to Rocephin per ID. home IV antibiotics already ordered. H/O CABG/Mild Elevation of troponin/CHF: Elevation of troponin likely related to CHF exacerbation and fluid overload. - Continue Plavix. Low dose Lasix as tolerated. BP cannot tolerate ACEI or BB at this point. - Can consider outpatient echo. Acute blood loss anemia from surgical procedures: - Transfuse 2 units of PRBC today. Peripheral arterial Disease. - KALYAN was severely abnormal. - Vascular surgery following. 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 Finding included patent B iliac stents and Occluded R SFA - recanalized and GLASS ETCHER HELPER with excellent result and 2 vessel runoff to foot (PT/ peroneal). Acute Renal Insufficiency: Resolved This was most likely prerenal due to sepsis. - Avoid nephrotoxins. Continue to monitor. Cough -on Hycodan. as needed. -on Mucinex Chronic pain: Patient follows with Pain management. She does get Lethargic and Hypotensive with Soma and Xanax. They were discontinued. Advised not to continue these meds on discharge. - Cautious with narcotics. She can be easily oversedated. - Lortab as needed. anxiety -Stable T2DM insulin dependent: Uncontrolled -continue Levemir 35 units in a.m. Blood glucoses better after adding Levemir 10 units daily at bedtime -continue to SSI. -Diabetic diet. DVT Prophylaxis -Consider chemoprophylaxis tomorrow if H&H remains stable and the patient staying Discharge Planning OK to transfer to floor today if MAP remains >60 If remain stable tomorrow, can consider discharge to home with [facility] as previously arranged. Patient refused rehab placement. Rodo Osorio MD Feb 02, 2017 12:14
[2017-02-02] MEDS: cefTRIAXone INJ 2,000 MG in SODIUM CHLORIDE 0.9% INJ 100 ML IV SCH (12:41)
--- NOTE | 2017-02-02 13:26 | HHI.FF ---
Face to Face Verification Diagnosis: (1) Diabetic foot infection (2) PAD (peripheral artery disease) (3) Amputation at midfoot (4) DM (diabetes mellitus) (5) Congestive heart failure Physical Therapy Order: Evaluate and Treat, Improve ambulation, Strength and gait training Home Health Nursing Order: Medical education Signs/symptoms of disease process Wound care and dressing changes Nursing assessment with vital signs I have seen patient [place] on 02/02/17. My clinical findings support the need for the requested home health care services because: Patient has SOB Deconditioned w/ increased weakness Med compliance is questionable Limited ability to care for self Need for psychosocial assistance High risk of falls I certify that my clinical findings support that this patient is homebound because: Post-op weakness Unsteady gait/balance Unsafe to leave home unassisted Rodo Osorio MD Feb 02, 2017 13:26
--- NOTE | 2017-02-02 17:08 | EKG ---
Date Performed: 02/01/2017 Time Performed: 19:06:46 PTAGE: 66 years EKG: SINUS TACHYCARDIA ANTEROSEPTAL MYOCARDIAL INFARCTION , POSSIBLY ACUTE Compared to PREVIOUS TRACING , anteroseptal infarction changes are present ACUTE GA PREVIOUS TR ACIN01/28/2017 03.08 DOCTOR: Beau Alfonso Interpretating Date/Time 02/02/2017 17:06:40
--- NOTE | 2017-02-02 17:10 | EKG ---
Date Performed: 02/02/2017 Time Performed: 10:39:26 PTAGE: 66 years EKG: Sinus rhythm WITH OCCASIONAL VENTRICULAR PREMATURE COMPLEXES POSSIBLE LEFT ATRIAL ENLARGEMENT NONSPECIFIC T-WAVE ABNORMALITY Compared to prior tracing no significant change BORDERLINE ECGPREVIOUS TRACING : 22.02 DOCTOR: Beau Alfonso Interpretating Date/Time 02/02/2017 17:08:55
--- NOTE | 2017-02-02 17:10 | EKG ---
Date Performed: 02/01/2017 Time Performed: 22:02:04 PTAGE: 66 years EKG: SINUS TACHYCARDIA WITH SHORT NC INTERVAL SEPTAL MYOCARDIAL INFARCTION , OF INDETERMINATE AG E Compared to prior tracing, anteroseptal infarction changes are present ABNORMAL ECG PREVIOUS TRACING : 02/01/2017 19.06 DOCTOR: Beau Alfonso Interpretating Date/Time 02/02/2017 17:08:46
[2017-02-02] MEDS ORDERED: DEXT 5%-NACL 0.9% 500 ML INJ 500 ML IV ONE (22:00)
[2017-02-02] MEDS: PANTOPRAZOLE SODIUM 40 MG VIAL IV PUSH SCH (22:23)
[2017-02-02] MEDS: ATORVASTATIN 10 MG TAB PO SCH (22:25)
[2017-02-03] VITALS (12 sets, daily range): BP systolic 79–110; BP diastolic 50–72; PULSE 93–104; RESP 14–20; TEMP 97.7–99.2; O2SAT 94–100
[2017-02-03] MEDS: RESP: ALBUTEROL 2.5 MG/IPRATROPIUM 0.5 MG NEB (SCH) NEB ×4 (03:43→20:53)
[2017-02-03 04:54] LABS: BICARBONATE 25.9 MEQ/L (21.0-32.0); HEMATOCRIT 26.6 % (35.0-46.0); MEAN CELL VOLUME 83.7 FL (80.0-100.0); MEAN CORPUSCULAR HEMOGLOBIN 28.3 PG (27.0-34.0); MEAN CORPUSCULAR HGB CONC 33.8 % (32.0-36.0); PLATELET COUNT 520 TH/MM3 (150-450); POTASSIUM 3.4 MEQ/L (3.5-5.1); RED BLOOD COUNT 3.18 MIL/MM3 (4.00-5.30); RED CELL DISTRIBUTION WIDTH 14.9 % (11.6-17.2); WHITE BLOOD COUNT 6.8 TH/MM3 (4.0-11.0)
[2017-02-03 05:03] LABS: REVIEW FLAG FINAL
[2017-02-03] MEDS ORDERED: POTASSIUM CHLORIDE 20 MEQ CONTROLLED RELEASE TAB PO ONE (05:30)
[2017-02-03] MEDS: INSULIN ASPART SUPPLEMENTAL SCALE SQ SCH ×4 (06:29→21:33)
[2017-02-03] MEDS: GABAPENTIN 400 MG CAP PO SCH ×3 (08:07→17:23)
[2017-02-03] MEDS: CLOPIDOGREL 75 MG TAB PO SCH (08:07)
[2017-02-03] MEDS: ASPIRIN EC 81 MG TABEC PO SCH (08:08)
[2017-02-03] MEDS: LACTOBACILLUS ACIDOPHILUS TAB PO SCH ×3 (08:08→17:24)
[2017-02-03] MEDS: SODIUM CHLORIDE 0.9% FLUSH 5 ML FLUSH FLUSH SCH ×2 (08:08→21:00)
[2017-02-03] MEDS: guaiFENesin E.R. 600 MG TAB PO SCH ×2 (08:08→21:30)
[2017-02-03] MEDS: FUROSEMIDE 20 MG TAB PO SCH (08:08)
[2017-02-03] MEDS: INSULIN DETEMIR 100 UNITS/ML VIAL SQ SCH (09:00)
--- NOTE | 2017-02-03 10:06 | HHI.PR ---
Subjective Remarks Follow-up fluid overload. Denies shortness of breath currently on room air. Low BP readings patient states she always has low BP. Systolic in the high 70s denies dizziness, chest pain and weakness. Has been out of bed to defecate this morning. Discussed with RN Objective Vitals Vital Signs Date Time Temp Pulse Resp B/P Pulse Ox O2 Delivery O2 Flow Rate FiO2 02/03/17 08:00 99 Room Air 02/03/17 06:00 104 02/03/17 04:00 98.7 98 20 90/54 96 02/03/17 04:00 97 02/03/17 02:00 93 02/03/17 00:00 98 02/03/17 00:00 98.3 93 15 79/50 100 02/02/17 22:00 105 02/02/17 20:00 98.7 98 22 94/67 94 02/02/17 20:00 98 02/02/17 19:58 98 21 02/02/17 19:00 100 Room Air 02/02/17 18:00 104 02/02/17 16:00 100 02/02/17 14:00 87 02/02/17 12:00 89 02/02/17 12:00 98.6 89 20 85/58 100 I/O 02/02/17 02/02/17 02/02/17 02/03/17 02/03/17 02/03/17 07:00 15:00 23:00 07:00 15:00 23:00 Intake Total 253 ml 1245 ml 1503 ml 583 ml Output Total 1250 ml 1445 ml 800 ml 1100 ml Balance -997 ml -200 ml 703 ml -517 ml Intake Oral 800 ml 480 ml 240 ml IV Total 253 ml 445 ml 1023 ml 343 ml Output Urine Total 1200 ml 1445 ml 800 ml 1100 ml Drainage Total 50 ml 0 ml 0 ml 0 ml # Bowel Movements 0 0 1 Result Diagram: 02/03/17 0333 02/03/17 0333 Imaging Last Impressions Chest X-Ray 02/01/17 0000 Signed Impressions: Service Date/Time: January 20:17 - CONCLUSION: 1. Moderate pulmonary vascular congestion bilaterally. 2. Mild cardiomegaly. Sami Oglesby MD Foot X-Ray 01/28/17 0000 Signed Impressions: Service Date/Time: Saturday, January 28, 2017 08:43 - CONCLUSION: Fluoroscopic single view appears to demonstrate distal amputation of the metatarsals just above the level of the MTP joints. Vaishali Ellis MD Upper Extremity Ultrasound 01/23/17 0000 Signed Impressions: Service Date/Time: Monday, January 23, 2017 21:39 - CONCLUSION: Normal examination. Singh Lorenzo MD Lower Extremity Ultrasound 01/23/17 0000 Signed Impressions: Service Date/Time: Monday, January 23, 2017 20:45 - CONCLUSION: Normal examination. Singh Lorenzo MD Foot MRI 01/21/17 0000 Signed Impressions: Service Date/Time: Saturday, January 21, 2017 14:57 - CONCLUSION: 1. Osteomyelitis involving the first medial sesamoid bone. 2. Small focal area of abnormal enhancement and signal in the first metatarsal head also of concern for osteomyelitis. 3. Enhancement of the abductor hallux muscle consistent with infection. 4. Focal ulcer and soft tissue swelling. Tavares Flores MD Objective Remarks GENERAL: Patient appear older than stated age, in no apparent distress. CARDIOVASCULAR: Normal rate and regular rhythm without murmurs, gallops, or rubs. RESPIRATORY: Good respiratory efforts. Breath sounds equal and clear to auscultation bilaterally. GASTROINTESTINAL: Abdomen soft, non-tender, non-distended. Normal active bowel sounds MUSCULOSKELETAL: Status post right midfoot amputation. Wound VAC in place. NEURO: Alert & Oriented x4 to person, place, time, situation. Moves all ext x4 PSYCH: Calm Procedures 01/21/17 PROCEDURE PERFORMED 1. Incision and drainage expansile dorsum of foot and plantar foot. 2. Incision bone cortex of the patient's right hallux and right first metatarsal head. 01/25/17 PROCEDURE 1. Aortogram with right lower extremity angiograms. 2. Right SFA angioplasty with 5-mm balloon. 3. Left common femoral artery closure with AngioSeal. 01/27/17 PROCEDURE 1. Right transmetatarsal amputation. 2. Wound VAC application 01/28/17 PROCEDURE Irrigation and debridement right foot, removal and reapplication of wound vac, cauterization of all bleeders. A/P Problem List: (1) Sepsis ICD Code: A41.9 Status: Acute (2) Diabetic foot infection ICD Code: E11.69 Status: Acute (3) Hypotension ICD Code: I95.9 Status: Acute (4) Renal insufficiency ICD Code: N28.9 Status: Resolved (5) DM (diabetes mellitus) ICD Code: E11.9 Status: Chronic Assessment and Plan 66-year-old female admitted with diabetic foot infection. Status post midfoot amputation. Patient has been doing well post amputation except for acute blood loss anemia. She went into respiratory failure on 02/01/17 during blood transfusion apparently from volume overload. She is improving and can be transferred from the ICU. Discharge planning is for her to go home with home health and IV antibiotics. DME scripts done. Would avoid sedative meds in this patient. She has not been able to tolerate Xanax and Soma. Acute respiratory failure: Resolved. Secondary to volume overload and acute systolic CHF exacerbation. - Responded well to diuretics. - Continue to monitor. Given borderline hypotension will continue low dose Lasix 20 mg daily and monitor fluid status. Patient has an echo from 2013 with LVEF of 45%. Sepsis: Due to severe diabetic foot infection. Sepsis resolving. Continues to have intermittent hypotension though patient asymptomatic. Fluid bolus as needed. See below Diabetic Foot Infection -MRI + for osteomyelitis -s/p Incision drainage expansile right foot with incision bone cortex hallux and 1st metatarsal on 01/21. - Status post right midfoot amputation and wound VAC placement on 01/28/17. Cleared for DC by Podiatry to follow up outpatient, - Pod and ID ff - wound culture from surgery growing Group B beta strep. Blood cultures are so far negative. - Patient has been on vancomycin, cefepime, and Flagyl per infectious disease. Switched to Rocephin per ID. Home IV antibiotics already ordered. H/O CABG/Mild Elevation of troponin/CHF: Elevation of troponin likely related to CHF exacerbation and fluid overload. - Continue Plavix. Low dose Lasix as tolerated. BP cannot tolerate ACEI or BB at this point. - Can consider outpatient echo. Acute blood loss anemia from surgical procedures: - Transfused 2 units of PRBC, improved Peripheral arterial Disease. - KALYAN was severely abnormal. - Vascular surgery following. Patient had aortogram w/ R LE Angiogram, and R SFA QUILL COLLECTOR. Finding included patent B iliac stents and Occluded R SFA - recanalized and QUILL COLLECTOR with excellent result and 2 vessel runoff to foot (PT/ peroneal). Acute Renal Insufficiency: Resolved This was most likely prerenal due to sepsis. - Avoid nephrotoxins. Continue to monitor. Cough -on Hycodan. as needed. -on Mucinex Chronic pain: Patient follows with Pain management. She does get Lethargic and Hypotensive with Soma and Xanax. They were discontinued. Advised not to continue these meds on discharge. - Cautious with narcotics. She can be easily oversedated. -Percocet as needed. anxiety -Stable T2DM insulin dependent: Uncontrolled -continue Levemir 35 units in a.m. Blood glucoses better after adding Levemir 10 units daily at bedtime. We'll increase to 12 units for better control. A1c 11 restart metformin -continue to SSI. -Diabetic diet. DVT Prophylaxis -Start heparin Discharge Planning refused rehab placement. May transfer to floor and discharged with home healthcare possibly in the morning. Not stable for discharge at this time secondary to hypotension Otto Woodson MD Feb 03, 2017 10:06 ICD Code: N28.9 Status: Acute (5) DM (diabetes mellitus) ICD Code: E11.9 Status: Acute Otto Woodson MD Feb 03, 2017 10:06
[2017-02-03] MEDS: HEPARIN SODIUM - SQ 10,000 UNITS/ML VIAL SQ SCH ×2 (10:15→21:31)
[2017-02-03] MEDS: metFORMIN HCL 500 MG TAB PO SCH ×2 (10:15→21:00)
[2017-02-03] MEDS ORDERED: SODIUM CHLOR 0.9% 250 ML INJ 250 ML IV PRN (10:15)
[2017-02-03] MEDS: cefTRIAXone INJ 2,000 MG in SODIUM CHLORIDE 0.9% INJ 100 ML IV SCH (11:00)
[2017-02-03] MEDS ORDERED: LACT PO (11:07)
[2017-02-03] MEDS ORDERED: LEVEMIR SQ (11:07)
[2017-02-03] MEDS: oxyCODONE/ACETAMINOPHEN 10 MG/325 MG TAB PO PRN ×2 (15:00→21:30)
[2017-02-03] MEDS ORDERED: INSULIN DETEMIR 100 UNITS/ML VIAL SQ SCH (21:00)
[2017-02-03] MEDS: ATORVASTATIN 10 MG TAB PO SCH (21:30)
[2017-02-04] VITALS (9 sets, daily range): BP systolic 120–142; BP diastolic 65–82; PULSE 96–114; RESP 18–22; TEMP 97.6–99.1; O2SAT 94–99
[2017-02-04] MEDS: oxyCODONE/ACETAMINOPHEN 10 MG/325 MG TAB PO PRN ×5 (03:34→21:43)
[2017-02-04] MEDS: RESP: ALBUTEROL 2.5 MG/IPRATROPIUM 0.5 MG NEB (SCH) NEB ×4 (03:58→21:38)
[2017-02-04] MEDS: INSULIN ASPART SUPPLEMENTAL SCALE SQ SCH ×4 (07:00→21:00)
[2017-02-04] MEDS: HEPARIN SODIUM - SQ 10,000 UNITS/ML VIAL SQ SCH ×2 (07:36→21:41)
[2017-02-04] MEDS: guaiFENesin E.R. 600 MG TAB PO SCH ×2 (07:36→21:41)
[2017-02-04] MEDS: FUROSEMIDE 20 MG TAB PO SCH (07:36)
[2017-02-04] MEDS: ASPIRIN EC 81 MG TABEC PO SCH (07:36)
[2017-02-04] MEDS: metFORMIN HCL 500 MG TAB PO SCH ×2 (07:37→21:41)
[2017-02-04] MEDS: LACTOBACILLUS ACIDOPHILUS TAB PO SCH ×3 (07:37→16:53)
[2017-02-04] MEDS: CLOPIDOGREL 75 MG TAB PO SCH (07:37)
[2017-02-04] MEDS: SODIUM CHLORIDE 0.9% FLUSH 5 ML FLUSH FLUSH SCH ×2 (07:38→21:00)
[2017-02-04] MEDS: GABAPENTIN 400 MG CAP PO SCH ×3 (07:38→16:53)
[2017-02-04] MEDS: cefTRIAXone INJ 2,000 MG in SODIUM CHLORIDE 0.9% INJ 100 ML IV SCH (09:12)
[2017-02-04] MEDS: INSULIN DETEMIR 100 UNITS/ML VIAL SQ SCH ×2 (09:13→21:43)
--- NOTE | 2017-02-04 09:31 | HHI.PR ---
Subjective Remarks This is a pleasant 66 y/o Female with Hypertension, DM II,l Peripheral Artery disease, COPD, Obesity, who was Hospitalized on 01/20/17, with failure of outpatient management of a chronic right foot ulcer. She was septic on admission with hypotension, tachycardia, lactic acid 2.4 that was fluid responsive. She underwent ID of plantar and dorsal aspect of foot and incision right hallux and 1st metatarsal head on by Dr. Mishra. on 01/27/17 Underwent right transmetatarsal amputation and wound VAC placement 01/27/17. She was transfused 1 and a partial 2nd unit of PRBC and developed respiratory distress transferred to ICU. now stable out of ICU and ready for Discharge. Seen in her bedroom and discussed with nurse Miss Johnson the patient is awaiting for Acid Extractor to get her Wheelchair and Vacuum, awaiting to have arrangements to discharge tomorrow. Objective Vital Signs Date Time Temp Pulse Resp B/P Pulse Ox O2 Delivery O2 Flow Rate FiO2 02/04/17 08:19 98 02/04/17 07:19 96 21 02/04/17 04:00 98.7 103 18 139/71 96 02/04/17 00:00 99.1 114 18 120/65 94 02/03/17 20:56 95 21 02/03/17 20:00 98.4 104 18 97/65 96 02/03/17 16:15 99.2 104 18 94/64 94 02/03/17 16:00 97.8 98 14 110/70 98 02/03/17 16:00 98 02/03/17 12:00 98.4 94 14 106/64 98 02/03/17 10:25 95 02/03/17 10:00 104 I/O 02/03/17 02/03/17 02/03/17 02/04/17 02/04/17 02/04/17 07:00 15:00 23:00 07:00 15:00 23:00 Intake Total 583 ml 710 ml 480 ml 240 ml Output Total 1100 ml 1000 ml 400 ml 1650 ml Balance -517 ml -290 ml 80 ml -1410 ml Intake Oral 240 ml 600 ml 480 ml 240 ml IV Total 343 ml 110 ml 0 ml 0 ml Output Urine Total 1100 ml 1000 ml 200 ml 1600 ml Drainage Total 0 ml 200 ml 50 ml Bladder Scan Volume Amount 999 ml # Voids 1 # Bowel Movements 1 2 2 2 Result Diagram: 02/03/17 0333 02/03/17 0333 Imaging Last Impressions Chest X-Ray 02/01/17 0000 Signed Impressions: Service Date/Time: January 20:17 - CONCLUSION: 1. Moderate pulmonary vascular congestion bilaterally. 2. Mild cardiomegaly. Sami Oglesby MD Foot X-Ray 01/28/17 0000 Signed Impressions: Service Date/Time: Saturday, January 28, 2017 08:43 - CONCLUSION: Fluoroscopic single view appears to demonstrate distal amputation of the metatarsals just above the level of the MTP joints. Vaishali Ellis MD Upper Extremity Ultrasound 01/23/17 0000 Signed Impressions: Service Date/Time: Monday, January 23, 2017 21:39 - CONCLUSION: Normal examination. Singh Lorenzo MD Lower Extremity Ultrasound 01/23/17 0000 Signed Impressions: Service Date/Time: Monday, January 23, 2017 20:45 - CONCLUSION: Normal examination. Singh Lorenzo MD Foot MRI 01/21/17 0000 Signed Impressions: Service Date/Time: Saturday, January 21, 2017 14:57 - CONCLUSION: 1. Osteomyelitis involving the first medial sesamoid bone. 2. Small focal area of abnormal enhancement and signal in the first metatarsal head also of concern for osteomyelitis. 3. Enhancement of the abductor hallux muscle consistent with infection. 4. Focal ulcer and soft tissue swelling. Tavares Flores MD Procedures 01/21/17 PROCEDURE PERFORMED 1. Incision and drainage expansile dorsum of foot and plantar foot. 2. Incision bone cortex of the patient's right hallux and right first metatarsal head. 01/25/17 PROCEDURE 1. Aortogram with right lower extremity angiograms. 2. Right SFA angioplasty with 5-mm balloon. 3. Left common femoral artery closure with AngioSeal. 01/27/17 PROCEDURE 1. Right transmetatarsal amputation. 2. Wound VAC application 01/28/17 PROCEDURE Irrigation and debridement right foot, removal and reapplication of wound vac, cauterization of all bleeders. Other Results Laboratory Tests Test 01/28/17 01/28/17 01/31/17 02/01/17 05:46 06:59 16:10 13:20 Direct Antiglobulin Test NEGATIVE ([place]) Antibody Identification Non-Specific Agglutinin Routine Panel Pathologist Interp Urine Color YELLOW Urine Turbidity CLEAR Urine pH 8.0 Urine Specific [place] 1.009 Urine Protein NEG mg/dL Urine Glucose (UA) NEG mg/dL Urine Ketones NEG mg/dL Urine Occult Blood NEG Urine Nitrite NEG Urine Bilirubin NEG Urine Urobilinogen LESS THAN 2.0 MG/DL Urine Leukocyte Esterase SMALL Urine RBC 2 /hpf Urine WBC 24 /hpf Urine Squamous Epithelial <1 /hpf Cells Urine Mucus FEW /lpf Microscopic Urinalysis Comment CATH-CULTURE IND Blood Type B POSITIVE Antibody Screen NEGATIVE Crossmatch Leukocyte-Reduced Red Blood Cells Blood Bank Comment Test 02/01/17 02/01/17 02/02/17 02/03/17 19:35 19:39 02:45 03:33 Total Bilirubin 0.3 MG/DL Aspartate Amino Transf 23 U/L (AST/SGOT) Alanine Aminotransferase 14 U/L (ALT/SGPT) Alkaline Phosphatase 367 U/L Total Protein 7.1 GM/DL Albumin 1.9 GM/DL Neutrophils (%) (Auto) 83.0 % Lymphocytes (%) (Auto) 11.3 % Monocytes (%) (Auto) 4.7 % Eosinophils (%) (Auto) 0.7 % Basophils (%) (Auto) 0.3 % Neutrophils # (Auto) 14.5 TH/MM3 Lymphocytes # (Auto) 2.0 TH/MM3 Monocytes # (Auto) 0.8 TH/MM3 Eosinophils # (Auto) 0.1 TH/MM3 Basophils # (Auto) 0.1 TH/MM3 CBC Comment DIFF FINAL Differential Comment B-Type Natriuretic Peptide 408 PG/ML Total Creatine Kinase 83 U/L Troponin I 0.68 NG/ML White Blood Count 6.8 TH/MM3 Red Blood Count 3.18 MIL/MM3 Hemoglobin 9.0 GM/DL Hematocrit 26.6 % Mean Corpuscular Volume 83.7 FL Mean Corpuscular Hemoglobin 28.3 PG Mean Corpuscular Hemoglobin 33.8 % Concent Red Cell Distribution Width 14.9 % Platelet Count 520 TH/MM3 Mean Platelet Volume 7.8 FL Sodium Level 142 MEQ/L Potassium Level 3.4 MEQ/L Chloride Level 109 MEQ/L Carbon Dioxide Level 25.9 MEQ/L Anion Gap 7 MEQ/L Blood Urea Nitrogen 4 MG/DL Creatinine 0.68 MG/DL Estimat Glomerular Filtration 105 ML/MIN Rate Random Glucose 218 MG/DL Calcium Level 8.3 MG/DL Magnesium Level 1.9 MG/DL Objective Remarks GENERAL: No Distress. CARDIOVASCULAR: Normal rate and regular rhythm without murmurs, gallops, or rubs. RESPIRATORY: Good respiratory efforts. Breath sounds equal and clear to auscultation bilaterally. GASTROINTESTINAL: Abdomen soft, non-tender, non-distended. Normal active bowel sounds MUSCULOSKELETAL: Status post right midfoot amputation. Wound VAC in place. NEURO: Alert & Oriented x4 to person, place, time, situation. Moves all ext x4 PSYCH: Calm Medications and IVs Current Medications Medications (Trade) Dose Ordered Sig/Aliyah Route Start Time Stop Time Status Last Admin (D50w (Vial) Inj) 25 ml UNSCH PRN IV PUSH 01/20/17 19:45 (Glucagon Inj) 1 mg UNSCH PRN OTHER 01/20/17 19:45 (NS Flush) 2 ml UNSCH PRN FLUSH 01/20/17 19:45 (NS Flush) 2 ml BID FLUSH 01/20/17 21:00 02/04/17 07:38 (Zofran Inj) 4 mg Q6H PRN IVP 01/20/17 19:45 01/23/17 06:26 (Tylenol) 650 mg Q6H PRN PO 01/20/17 19:45 01/29/17 00:37 (Proair Hfa Inh) 1 puff Q4H PRN INH 01/20/17 19:45 01/25/17 06:49 (Ecotrin Ec) 81 mg DAILY PO 01/21/17 09:00 02/04/17 07:36 (Lipitor) 10 mg HS PO 01/20/17 21:00 02/03/17 21:30 (Plavix) 75 mg DAILY PO 01/21/17 09:00 02/04/17 07:37 (Neurontin) 800 mg TID PO 01/21/17 09:00 02/04/17 07:38 (Levemir Inj) 35 units DAILY SQ 01/21/17 09:00 02/04/17 09:13 (Mucinex Er) 600 mg BID PO 01/23/17 11:00 02/04/17 07:36 Hydrocodone Bit/ Homatropine Methylb 5 ml 5 ml Q6H PRN PO 01/23/17 11:00 02/01/17 03:16 (Rocephin Inj/NS Inj) 100 ml @ 200 mls/hr Q24H IV 01/24/17 11:00 02/04/17 09:12 (Narcan Inj) 0.4 mg UNSCH PRN IV 01/28/17 08:00 (Percocet 10-325 Mg) 1 tab Q4H PRN PO 01/28/17 23:00 02/04/17 07:36 (Pill Splitter) 1 ea UNSCH PRN OTHER 01/29/17 10:00 (Lactinex) 1 tab TID PO 01/31/17 18:00 02/04/17 07:37 (Dulcolax Supp) 10 mg DAILY PRN RECTAL 02/01/17 19:54 (Lasix) 20 mg DAILY PO 02/03/17 09:00 02/04/17 07:36 (Levemir Inj) 12 units HS SQ 02/03/17 21:00 02/03/17 21:33 Heparin Sodium (Porcine) 5000 units 5,000 units Q12HR SQ 02/03/17 10:15 02/04/17 07:36 (NS 250 ml Inj) 250 ml @ 250 mls/hr Q6HR PRN IV 02/03/17 10:15 (Glucophage) 1,000 mg BID PO 02/03/17 10:15 02/04/17 07:37 A/P Assessment and Plan 66-year-old female admitted with diabetic foot infection. Status post midfoot amputation. Patient has been doing well post amputation except for acute blood loss anemia. She went into respiratory failure on 02/01/17 during blood transfusion apparently from volume overload. She is improving and can be transferred from the ICU. Discharge planning is for her to go home with home health and IV antibiotics. DME scripts done. Would avoid sedative meds in this patient. She has not been able to tolerate Xanax and Soma. Acute respiratory failure: Resolved. Secondary to volume overload and acute systolic CHF exacerbation. - Responded well to diuretics. - Continue to monitor. Given borderline hypotension will continue low dose Lasix 20 mg daily and monitor fluid status. Patient has an echo from 2013 with LVEF of 45%. Sepsis: Due to severe diabetic foot infection. seen by ID specialist recommended to stop Flagyl, continue Rocephin, added Lactinex, PICC Line, continue antibiotics for 4 more weeks until February 24. Diabetic Foot Infection -MRI + for osteomyelitis -s/p Incision drainage expansile right foot with incision bone cortex hallux and 1st metatarsal on 01/21. - Status post right midfoot amputation and wound VAC placement on 01/28/17. Cleared for DC by Podiatry to follow up outpatient, - Pod and ID ff - wound culture from surgery growing Group B beta strep. Blood cultures are so far negative. - Patient has been on vancomycin, cefepime, and Flagyl, now will continue on Rocephin until February 24 H/O CABG/Mild Elevation of troponin/CHF: Elevation of troponin likely related to CHF exacerbation and fluid overload. - Continue Plavix. Low dose Lasix as tolerated. BP cannot tolerate ACEI or BB at this point. - Can consider outpatient echo. Acute blood loss anemia from surgical procedures: - Transfused 2 units of PRBC, improved Peripheral arterial Disease. - KALYAN was severely abnormal. - Vascular surgery following. Patient had aortogram w/ R LE Angiogram, and R SFA MAINTENANCE AND OPERATIONS SUPERVISOR. Finding included patent B iliac stents and Occluded R SFA - recanalized and MAINTENANCE AND OPERATIONS SUPERVISOR with excellent result and 2 vessel runoff to foot (PT/ peroneal). Acute Renal Insufficiency: Resolved Chronic pain: Patient follows with Pain management. She does get Lethargic and Hypotensive with Soma and Xanax. They were discontinued. Advised not to continue these meds on discharge. - Cautious with narcotics. She can be easily oversedated. -Percocet as needed. anxiety added Xanax 0.5 mg TID PRN Anxiety. T2DM insulin dependent: Better control this morning was 90, Hemoglobin A1C 11 poorly controlled. continue Sliding Scale. ADA Diet. adjusted Levemir to 10 units every 12 hours. DVT Prophylaxis -Start heparin Discharge Planning Expected for tomorrow in am Nikos Duque MD Feb 04, 2017 09:31 -Diabetic diet. DVT Prophylaxis -Start heparin Discharge Planning refused rehab placement. May transfer to floor and discharged with home healthcare possibly in the morning. Not stable for discharge at this time secondary to hypotension Nikos Duque MD Feb 04, 2017 09:31 secondary to hypotension Nikos Duque MD Feb 04, 2017 09:31
[2017-02-04 09:42] LABS: BICARBONATE 24.4 MEQ/L (21.0-32.0); MAGNESIUM 1.8 MG/DL (1.5-2.5); POTASSIUM 3.5 MEQ/L (3.5-5.1)
--- NOTE | 2017-02-04 12:53 | PD.POD ---
Subjective Podiatric Problems s/p Right TMA with Dr Porras. Patient seen at bedside this am. Nursing present. Pain scale used: 0-10 numeric scale Pain score: 3 Past Med/Surg/Social History Social History Smoking Status: Former Smoker Objective Vital Signs Vital Signs Date Time Temp Pulse Resp B/P Pulse Ox O2 Delivery O2 Flow Rate FiO2 02/04/17 08:19 98 02/04/17 08:00 98.0 102 20 134/74 97 02/04/17 07:19 96 21 02/04/17 04:00 98.7 103 18 139/71 96 02/04/17 00:00 99.1 114 18 120/65 94 02/03/17 20:56 95 21 02/03/17 20:00 98.4 104 18 97/65 96 02/03/17 16:15 99.2 104 18 94/64 94 02/03/17 16:00 97.8 98 14 110/70 98 02/03/17 16:00 98 Coded Allergies: Contrast Media (Verified Allergy, Severe, 01/20/17) Sulfa (Verified Allergy, Unknown, 01/20/17) Penicillin (Verified Adverse Reaction, Severe, NAUSEA,DIZZINESS, 01/20/17) Other Results Laboratory Tests Test 01/28/17 01/28/17 01/31/17 02/01/17 05:46 06:59 16:10 13:20 Direct Antiglobulin Test NEGATIVE ([place]) Antibody Identification Non-Specific Agglutinin Routine Panel Pathologist Interp Urine Color YELLOW Urine Turbidity CLEAR Urine pH 8.0 Urine Specific [place] 1.009 Urine Protein NEG mg/dL Urine Glucose (UA) NEG mg/dL Urine Ketones NEG mg/dL Urine Occult Blood NEG Urine Nitrite NEG Urine Bilirubin NEG Urine Urobilinogen LESS THAN 2.0 MG/DL Urine Leukocyte Esterase SMALL Urine RBC 2 /hpf Urine WBC 24 /hpf Urine Squamous Epithelial <1 /hpf Cells Urine Mucus FEW /lpf Microscopic Urinalysis Comment CATH-CULTURE IND Blood Type B POSITIVE Antibody Screen NEGATIVE Crossmatch Leukocyte-Reduced Red Blood Cells Blood Bank Comment Test 02/01/17 02/01/17 02/02/17 02/03/17 19:35 19:39 02:45 03:33 Total Bilirubin 0.3 MG/DL Aspartate Amino Transf 23 U/L (AST/SGOT) Alanine Aminotransferase 14 U/L (ALT/SGPT) Alkaline Phosphatase 367 U/L Total Protein 7.1 GM/DL Albumin 1.9 GM/DL Neutrophils (%) (Auto) 83.0 % Lymphocytes (%) (Auto) 11.3 % Monocytes (%) (Auto) 4.7 % Eosinophils (%) (Auto) 0.7 % Basophils (%) (Auto) 0.3 % Neutrophils # (Auto) 14.5 TH/MM3 Lymphocytes # (Auto) 2.0 TH/MM3 Monocytes # (Auto) 0.8 TH/MM3 Eosinophils # (Auto) 0.1 TH/MM3 Basophils # (Auto) 0.1 TH/MM3 CBC Comment DIFF FINAL Differential Comment B-Type Natriuretic Peptide 408 PG/ML Total Creatine Kinase 83 U/L Troponin I 0.68 NG/ML White Blood Count 6.8 TH/MM3 Red Blood Count 3.18 MIL/MM3 Hemoglobin 9.0 GM/DL Hematocrit 26.6 % Mean Corpuscular Volume 83.7 FL Mean Corpuscular Hemoglobin 28.3 PG Mean Corpuscular Hemoglobin 33.8 % Concent Red Cell Distribution Width 14.9 % Platelet Count 520 TH/MM3 Mean Platelet Volume 7.8 FL Test 02/04/17 09:08 Sodium Level 142 MEQ/L Potassium Level 3.5 MEQ/L Chloride Level 110 MEQ/L Carbon Dioxide Level 24.4 MEQ/L Anion Gap 8 MEQ/L Blood Urea Nitrogen 4 MG/DL Creatinine 0.61 MG/DL Estimat Glomerular Filtration 119 ML/MIN Rate Random Glucose 96 MG/DL Calcium Level 8.5 MG/DL Magnesium Level 1.8 MG/DL Physical Exam Details LLE Intact VAC. Moderate drainage. Assessment & Plan Diagnosis: (1) Osteomyelitis of ankle or foot, right, acute Status: Acute (2) PAD (peripheral artery disease) Status: Chronic (3) Amputation at midfoot Status: Acute A/P OK to d/c per Podiatry. D/C home with wound VAC: change m/w/f F/U with Dr Porras with in 1 week of d/c Dr Bowens will begin coverage 02/05/17 Lili Mercado DPM Feb 04, 2017 12:53
[2017-02-04] MEDS: ALPRAZolam 0.5 MG TAB PO PRN (15:16)
[2017-02-04] MEDS: ATORVASTATIN 10 MG TAB PO SCH (21:40)
[2017-02-05] VITALS (8 sets, daily range): BP systolic 113–166; BP diastolic 64–77; PULSE 99–112; RESP 16–20; TEMP 97.8–99.6; O2SAT 94–97
[2017-02-05] MEDS: RESP: ALBUTEROL 2.5 MG/IPRATROPIUM 0.5 MG NEB (SCH) NEB ×3 (03:18→15:46)
[2017-02-05] MEDS: INSULIN ASPART SUPPLEMENTAL SCALE SQ SCH ×4 (07:00→21:00)
[2017-02-05] MEDS: metFORMIN HCL 500 MG TAB PO SCH ×2 (08:16→21:38)
[2017-02-05] MEDS: CLOPIDOGREL 75 MG TAB PO SCH (08:16)
[2017-02-05] MEDS: guaiFENesin E.R. 600 MG TAB PO SCH ×2 (08:16→21:40)
[2017-02-05] MEDS: ASPIRIN EC 81 MG TABEC PO SCH (08:17)
[2017-02-05] MEDS: GABAPENTIN 400 MG CAP PO SCH ×3 (08:17→16:30)
[2017-02-05] MEDS: LACTOBACILLUS ACIDOPHILUS TAB PO SCH ×3 (08:17→16:30)
[2017-02-05] MEDS: HEPARIN SODIUM - SQ 10,000 UNITS/ML VIAL SQ SCH ×2 (08:17→21:41)
[2017-02-05] MEDS: oxyCODONE/ACETAMINOPHEN 10 MG/325 MG TAB PO PRN ×2 (08:17→18:11)
[2017-02-05] MEDS: FUROSEMIDE 20 MG TAB PO SCH (08:17)
[2017-02-05] MEDS: SODIUM CHLORIDE 0.9% FLUSH 5 ML FLUSH FLUSH SCH ×2 (08:18→21:00)
[2017-02-05] MEDS: INSULIN DETEMIR 100 UNITS/ML VIAL SQ SCH ×2 (09:33→21:00)
[2017-02-05] MEDS: HYDROcodone 5 MG/HOMATROPINE 1.5 MG SYRUP 5 ML CUP PO PRN (09:34)
[2017-02-05] MEDS ORDERED: COMMODE 3-IN-11 MIS (10:43)
--- NOTE | 2017-02-05 12:21 | HHI.IDPN ---
Subjective Subjective Remarks Notes reviewed Temps ok No SOB Pain under control Patient states that she had seen Dr Chin in the past when she had toe infection Antibiotics Rocephin Flagyl Lines PICC Past Medical History Reviewed Allergies: Coded Allergies: Contrast Media (Verified Allergy, Severe, 01/20/17) Sulfa (Verified Allergy, Unknown, 01/20/17) Penicillin (Verified Adverse Reaction, Severe, NAUSEA,DIZZINESS, 01/20/17) Objective . Vital Signs Date Time Temp Pulse Resp B/P Pulse Ox O2 Delivery O2 Flow Rate FiO2 02/05/17 08:05 Room Air 02/05/17 08:00 97.8 102 19 124/64 97 02/05/17 04:00 98.7 102 20 114/64 97 02/05/17 03:21 97 21 02/05/17 00:00 98.2 99 20 115/77 96 02/04/17 20:00 104 02/04/17 20:00 98.9 109 22 138/72 97 02/04/17 16:00 97.8 96 18 136/78 99 02/04/17 15:36 96 21 02/04/17 02/04/17 02/05/17 15:00 23:00 07:00 Intake Total 480 ml 240 ml 320 ml Output Total 400 ml Balance 80 ml 240 ml 320 ml Intake Oral 480 ml 240 ml 320 ml IV Total 0 ml Output Urine Total 360 ml Drainage Total 40 ml Bladder Scan Volume Amount 890 ml # Voids 1 2 # Bowel Movements 2 0 2 . Laboratory Tests Test 02/04/17 09:08 Sodium Level 142 MEQ/L Potassium Level 3.5 MEQ/L Chloride Level 110 MEQ/L Carbon Dioxide Level 24.4 MEQ/L Anion Gap 8 MEQ/L Blood Urea Nitrogen 4 MG/DL Creatinine 0.61 MG/DL Estimat Glomerular Filtration 119 ML/MIN Rate Random Glucose 96 MG/DL Calcium Level 8.5 MG/DL Magnesium Level 1.8 MG/DL Imaging Last Impressions Foot MRI 01/21/17 0000 Signed Impressions: Service Date/Time: Saturday, January 21, 2017 14:57 - CONCLUSION: 1. Osteomyelitis involving the first medial sesamoid bone. 2. Small focal area of abnormal enhancement and signal in the first metatarsal head also of concern for osteomyelitis. 3. Enhancement of the abductor hallux muscle consistent with infection. 4. Focal ulcer and soft tissue swelling. Tavares Flores MD Foot X-Ray 01/20/17 0000 Signed Impressions: Service Date/Time: Friday, January 20, 2017 15:15 - CONCLUSION: 1. That is post amputation of the fifth digit to the level of the metatarsal head. 2. Mild soft tissue swelling and gas over the medial first metatarsal phalangeal joint with no destructive change. Tavares Flores MD Chest X-Ray 01/20/17 0000 Signed Impressions: Service Date/Time: Friday, January 20, 2017 15:13 - CONCLUSION: No acute disease. Tavares Flores MD Physical Exam GENERAL: awake and alert, NAD SKIN: Warm and dry, no generalized rash. HEENT: [place] conjunctivae. No scleral icterus. Moist oral mucosa, she is edentulous. NECK: Supple, nontender, no meningeal signs. CARDIOVASCULAR: Regular rate and rhythm without murmurs, gallops, or rubs. RESPIRATORY: Clear to auscultation. . Decreased breath sounds at the bases. GASTROINTESTINAL: Abdomen soft, not tender MUSCULOSKELETAL: RLE: has intact dressing R foot with wound vac in place, not a lot of output NEUROLOGICAL: Awake and alert, speech normal. NO Babinski PSYCH: Cooperative : Chavira in place, urine looks clear LINE: PICC with no evidence of infection Assessment & Plan Remarks IMPRESSION Sepsis on admission, due to severe DFI R foot - S/P surgery - resolved DFI, R foot, S/P 2 surgery - S/P midfoot amputation and has wound vac in place Fever post-op, resolved DM, PVD - S/P revasculariztion RLE Urinary retention - previous records mentioned neurogenic blader and problem with urinary retention Renal insufficiency due to sepsis, ?underlying DM nephropathy - resolved Leukocytosis, resolved RECOMMENDATION Continue Rocephin - plan till February 24 Informed patient that her foot needs very close monitoring since she is still not out of [place], and there us still high risk that she may need higher amputation She will follow with Dr Chin when she gets D/C Abx form has been filled out last week Nadja Mendenhall MD Feb 05, 2017 12:21
[2017-02-05] MEDS: cefTRIAXone INJ 2,000 MG in SODIUM CHLORIDE 0.9% INJ 100 ML IV SCH (12:56)
--- NOTE | 2017-02-05 14:49 | HHI.PR ---
Subjective Remarks This is a pleasant 66 y/o Female with Hypertension, DM II,l Peripheral Artery disease, COPD, Obesity, who was Hospitalized on 01/20/17, with failure of outpatient management of a chronic right foot ulcer. She was septic on admission with hypotension, tachycardia, lactic acid 2.4 that was fluid responsive. She underwent ID of plantar and dorsal aspect of foot and incision right hallux and 1st metatarsal head on by Dr. Mishra. on 01/27/17 Underwent right transmetatarsal amputation and wound VAC placement 01/27/17. She was transfused 1 and a partial 2nd unit of PRBC and developed respiratory distress transferred to ICU. now stable out of ICU and ready for Discharge. 02/05 Seen in her bedroom discussed with nurse Miss Grady, no nausea, vomit or diarrhea, awaiting for final recommendations by urology specialist, due to that she has Urinary retention asked again for Urology specialist consult by her Primary Urology specialist. Objective Vital Signs Date Time Temp Pulse Resp B/P Pulse Ox O2 Delivery O2 Flow Rate FiO2 02/05/17 12:00 97.8 107 18 126/72 96 02/05/17 08:05 Room Air 02/05/17 08:00 97.8 102 19 124/64 97 02/05/17 04:00 98.7 102 20 114/64 97 02/05/17 03:21 97 21 02/05/17 00:00 98.2 99 20 115/77 96 02/04/17 20:00 104 02/04/17 20:00 98.9 109 22 138/72 97 02/04/17 16:00 97.8 96 18 136/78 99 02/04/17 15:36 96 21 I/O 02/04/17 02/04/17 02/04/17 02/05/17 02/05/17 02/05/17 07:00 15:00 23:00 07:00 15:00 23:00 Intake Total 240 ml 480 ml 240 ml 320 ml Output Total 1650 ml 400 ml Balance -1410 ml 80 ml 240 ml 320 ml Intake Oral 240 ml 480 ml 240 ml 320 ml IV Total 0 ml 0 ml Output Urine Total 1600 ml 360 ml Drainage Total 50 ml 40 ml Bladder Scan Volume Amount 999 ml 890 ml # Voids 1 1 2 # Bowel Movements 2 2 0 2 Result Diagram: 02/03/17 0333 02/04/17 0908 Imaging Last Impressions Chest X-Ray 02/01/17 0000 Signed Impressions: Service Date/Time: January 20:17 - CONCLUSION: 1. Moderate pulmonary vascular congestion bilaterally. 2. Mild cardiomegaly. Sami Oglesby MD Foot X-Ray 01/28/17 0000 Signed Impressions: Service Date/Time: Saturday, January 28, 2017 08:43 - CONCLUSION: Fluoroscopic single view appears to demonstrate distal amputation of the metatarsals just above the level of the MTP joints. Vaishali Ellis MD Upper Extremity Ultrasound 01/23/17 0000 Signed Impressions: Service Date/Time: Monday, January 23, 2017 21:39 - CONCLUSION: Normal examination. Singh Lorenzo MD Lower Extremity Ultrasound 01/23/17 0000 Signed Impressions: Service Date/Time: Monday, January 23, 2017 20:45 - CONCLUSION: Normal examination. Singh Lorenzo MD Foot MRI 01/21/17 0000 Signed Impressions: Service Date/Time: Saturday, January 21, 2017 14:57 - CONCLUSION: 1. Osteomyelitis involving the first medial sesamoid bone. 2. Small focal area of abnormal enhancement and signal in the first metatarsal head also of concern for osteomyelitis. 3. Enhancement of the abductor hallux muscle consistent with infection. 4. Focal ulcer and soft tissue swelling. Tavares Flores MD Procedures 01/21/17 PROCEDURE PERFORMED 1. Incision and drainage expansile dorsum of foot and plantar foot. 2. Incision bone cortex of the patient's right hallux and right first metatarsal head. 01/25/17 PROCEDURE 1. Aortogram with right lower extremity angiograms. 2. Right SFA angioplasty with 5-mm balloon. 3. Left common femoral artery closure with AngioSeal. 01/27/17 PROCEDURE 1. Right transmetatarsal amputation. 2. Wound VAC application 01/28/17 PROCEDURE Irrigation and debridement right foot, removal and reapplication of wound vac, cauterization of all bleeders. Other Results Laboratory Tests Test 02/01/17 02/01/17 02/01/17 02/02/17 13:20 19:35 19:39 02:45 Blood Type B POSITIVE Antibody Screen NEGATIVE Crossmatch Leukocyte-Reduced Red Blood Cells Blood Bank Comment Total Bilirubin 0.3 MG/DL Aspartate Amino Transf 23 U/L (AST/SGOT) Alanine Aminotransferase 14 U/L (ALT/SGPT) Alkaline Phosphatase 367 U/L Total Protein 7.1 GM/DL Albumin 1.9 GM/DL Neutrophils (%) (Auto) 83.0 % Lymphocytes (%) (Auto) 11.3 % Monocytes (%) (Auto) 4.7 % Eosinophils (%) (Auto) 0.7 % Basophils (%) (Auto) 0.3 % Neutrophils # (Auto) 14.5 TH/MM3 Lymphocytes # (Auto) 2.0 TH/MM3 Monocytes # (Auto) 0.8 TH/MM3 Eosinophils # (Auto) 0.1 TH/MM3 Basophils # (Auto) 0.1 TH/MM3 CBC Comment DIFF FINAL Differential Comment B-Type Natriuretic Peptide 408 PG/ML Total Creatine Kinase 83 U/L Troponin I 0.68 NG/ML Test 02/03/17 02/04/17 03:33 09:08 White Blood Count 6.8 TH/MM3 Red Blood Count 3.18 MIL/MM3 Hemoglobin 9.0 GM/DL Hematocrit 26.6 % Mean Corpuscular Volume 83.7 FL Mean Corpuscular Hemoglobin 28.3 PG Mean Corpuscular Hemoglobin 33.8 % Concent Red Cell Distribution Width 14.9 % Platelet Count 520 TH/MM3 Mean Platelet Volume 7.8 FL Sodium Level 142 MEQ/L Potassium Level 3.5 MEQ/L Chloride Level 110 MEQ/L Carbon Dioxide Level 24.4 MEQ/L Anion Gap 8 MEQ/L Blood Urea Nitrogen 4 MG/DL Creatinine 0.61 MG/DL Estimat Glomerular Filtration 119 ML/MIN Rate Random Glucose 96 MG/DL Calcium Level 8.5 MG/DL Magnesium Level 1.8 MG/DL Objective Remarks GENERAL: No Distress. CARDIOVASCULAR: Normal rate and regular rhythm without murmurs, gallops, or rubs. RESPIRATORY: Good respiratory efforts. Breath sounds equal and clear to auscultation bilaterally. GASTROINTESTINAL: Abdomen soft, non-tender, non-distended. Normal active bowel sounds MUSCULOSKELETAL: Status post right midfoot amputation. Wound VAC in place. NEURO: Alert & Oriented x4 to person, place, time, situation. Moves all ext x4 PSYCH: Calm Medications and IVs Current Medications Medications (Trade) Dose Ordered Sig/Aliyah Route Start Time Stop Time Status Last Admin (D50w (Vial) Inj) 25 ml UNSCH PRN IV PUSH 01/20/17 19:45 (Glucagon Inj) 1 mg UNSCH PRN OTHER 01/20/17 19:45 (NS Flush) 2 ml UNSCH PRN FLUSH 01/20/17 19:45 (NS Flush) 2 ml BID FLUSH 01/20/17 21:00 02/05/17 08:18 (Zofran Inj) 4 mg Q6H PRN IVP 01/20/17 19:45 01/23/17 06:26 (Tylenol) 650 mg Q6H PRN PO 01/20/17 19:45 01/29/17 00:37 (Proair Hfa Inh) 1 puff Q4H PRN INH 01/20/17 19:45 01/25/17 06:49 (Ecotrin Ec) 81 mg DAILY PO 01/21/17 09:00 02/05/17 08:17 (Lipitor) 10 mg HS PO 01/20/17 21:00 02/04/17 21:40 (Plavix) 75 mg DAILY PO 01/21/17 09:00 02/05/17 08:16 (Neurontin) 800 mg TID PO 01/21/17 09:00 02/05/17 12:56 (Levemir Inj) 35 units DAILY SQ 01/21/17 09:00 02/05/17 09:33 (Mucinex Er) 600 mg BID PO 01/23/17 11:00 02/05/17 08:16 Hydrocodone Bit/ Homatropine Methylb 5 ml 5 ml Q6H PRN PO 01/23/17 11:00 02/05/17 09:34 (Rocephin Inj/NS Inj) 100 ml @ 200 mls/hr Q24H IV 01/24/17 11:00 02/24/17 23:00 02/05/17 12:56 (Narcan Inj) 0.4 mg UNSCH PRN IV 01/28/17 08:00 (Percocet 10-325 Mg) 1 tab Q4H PRN PO 01/28/17 23:00 02/05/17 08:17 (Pill Splitter) 1 ea UNSCH PRN OTHER 01/29/17 10:00 (Lactinex) 1 tab TID PO 01/31/17 18:00 02/05/17 12:56 (Dulcolax Supp) 10 mg DAILY PRN RECTAL 02/01/17 19:54 (Lasix) 20 mg DAILY PO 02/03/17 09:00 02/05/17 08:17 Heparin Sodium (Porcine) 5000 units 5,000 units Q12HR SQ 02/03/17 10:15 02/05/17 08:17 (NS 250 ml Inj) 250 ml @ 250 mls/hr Q6HR PRN IV 02/03/17 10:15 (Glucophage) 1,000 mg BID PO 02/03/17 10:15 02/05/17 08:16 (Xanax) 0.5 mg Q8H PRN PO 02/04/17 15:15 02/04/17 15:16 (Levemir Inj) 10 units HS SQ 02/04/17 21:00 02/04/17 21:43 A/P Assessment and Plan 66-year-old female admitted with diabetic foot infection. Status post midfoot amputation. Patient has been doing well post amputation except for acute blood loss anemia. She went into respiratory failure on 02/01/17 during blood transfusion apparently from volume overload. She is improving and can be transferred from the ICU. Discharge planning is for her to go home with home health and IV antibiotics. DME scripts done. Would avoid sedative meds in this patient. She has not been able to tolerate Xanax and Soma. Acute respiratory failure: Resolved. Secondary to volume overload and acute systolic CHF exacerbation. - Responded well to diuretics. - Continue to monitor. Given borderline hypotension will continue low dose Lasix 20 mg daily and monitor fluid status. Patient has an echo from 2013 with LVEF of 45%. Sepsis: Due to severe diabetic foot infection. seen by ID specialist recommended to stop Flagyl, continue Rocephin, added Lactinex, PICC Line, continue antibiotics for 4 more weeks until February 24, resolved, Leukocytosis, to continue Rocephin until February 24 2017, recommended to follow with Doctor Chin as outpatient when she gets discharged. antibiotics form already filled out last week. Wound vac in place. Diabetic Foot Infection -MRI + for osteomyelitis -s/p Incision drainage expansile right foot with incision bone cortex hallux and 1st metatarsal on 01/21. - Status post right midfoot amputation and wound VAC placement on 01/28/17. Cleared for DC by Podiatry to follow up outpatient, - Pod and ID following. - wound culture from surgery growing Group B beta strep. Blood cultures are so far negative. - Patient has been on vancomycin, cefepime, and Flagyl, now will continue on Rocephin until February 24 H/O CABG/Mild Elevation of troponin/CHF: Elevation of troponin likely related to CHF exacerbation and fluid overload. - Continue Plavix. Low dose Lasix as tolerated. BP cannot tolerate ACEI or BB at this point. - Can consider outpatient echo. Acute blood loss anemia from surgical procedures: - Transfused 2 units of PRBC, improved Peripheral arterial Disease. - KALYAN was severely abnormal. - Vascular surgery following. Patient had aortogram w/ R LE Angiogram, and R SFA MAIL CARRIER. Finding included patent B iliac stents and Occluded R SFA - recanalized and MAIL CARRIER with excellent result and 2 vessel runoff to foot (PT/ peroneal). Acute Renal Insufficiency: Resolved Chronic pain: Patient follows with Pain management. She does get Lethargic and Hypotensive with Soma and Xanax. They were discontinued. Advised not to continue these meds on discharge. - Cautious with narcotics. She can be easily oversedated. -Percocet as needed. anxiety added Xanax 0.5 mg TID PRN Anxiety. T2DM insulin dependent: Better control this morning was 90, Hemoglobin A1C 11 poorly controlled. continue Sliding Scale. ADA Diet. adjusted Levemir to 10 units every 12 hours. DVT Prophylaxis -Start heparin Discharge Planning Expected for tomorrow in am Nikos Duque MD Feb 05, 2017 14:49
[2017-02-05] MEDS: ATORVASTATIN 10 MG TAB PO SCH (21:40)
[2017-02-06] VITALS: BP 127/58; PULSE 105; RESP 19; TEMP 97.8; O2SAT 96
[2017-02-06] MEDS: oxyCODONE/ACETAMINOPHEN 10 MG/325 MG TAB PO PRN (00:13)
[2017-02-06] MEDS: ALPRAZolam 0.5 MG TAB PO PRN (00:13)
[2017-02-06 04:00] VITALS: BP 94/57; PULSE 101; RESP 19; TEMP 97.7; O2SAT 97
[2017-02-06] MEDS: INSULIN ASPART SUPPLEMENTAL SCALE SQ SCH ×2 (04:15→11:00)
[2017-02-06 08:00] VITALS: BP 130/73; PULSE 98; RESP 16; TEMP 96.4; O2SAT 96
[2017-02-06] MEDS: metFORMIN HCL 500 MG TAB PO SCH (08:59)
[2017-02-06] MEDS: FUROSEMIDE 20 MG TAB PO SCH (09:00)
[2017-02-06] MEDS: HEPARIN SODIUM - SQ 10,000 UNITS/ML VIAL SQ SCH (09:00)
[2017-02-06] MEDS: ASPIRIN EC 81 MG TABEC PO SCH (09:00)
[2017-02-06] MEDS: CLOPIDOGREL 75 MG TAB PO SCH (09:00)
[2017-02-06] MEDS: GABAPENTIN 400 MG CAP PO SCH ×2 (09:00→13:06)
[2017-02-06] MEDS: LACTOBACILLUS ACIDOPHILUS TAB PO SCH ×2 (09:00→13:06)
[2017-02-06] MEDS: SODIUM CHLORIDE 0.9% FLUSH 5 ML FLUSH FLUSH SCH (09:00)
[2017-02-06] MEDS: INSULIN DETEMIR 100 UNITS/ML VIAL SQ SCH (09:00)
[2017-02-06] MEDS: guaiFENesin E.R. 600 MG TAB PO SCH (09:04)
--- NOTE | 2017-02-06 10:36 | PD.CONS ---
[facility] Service Urology Consult Requested By Primary Care Physician Arjun Lipscomb MD Diagnosis: (1) Sepsis ICD Code: A41.9 (2) Diabetic foot infection ICD Code: E11.69 (3) Hypotension ICD Code: I95.9 (4) Renal insufficiency ICD Code: N28.9 (5) DM (diabetes mellitus) ICD Code: E11.9 History of Present Illness 66-year-old pleasant female presented to [facility] emergency room with diabetic right foot ulcer. Last week, patient underwent I & D of the ulcer by her back tender fourdrinier in [place]. She's been having increasing pain and drainage from this area. Over the course of her admission, she has had urinary retention. She states that this is been ongoing for the last 5 months after angioplasty. She was seen in the past by a urologist down in [place] who stated that she was started on Flomax. She is somewhat of a poor historian. After reviewing the clinic chart, she has been to our emergency room a few times for catheter change. She does state she had a urinary tract infection along time ago but is unclear as to when. She has a long history of diabetes with evidence of peripheral neuropathy most likely contributing to a neurogenic bladder. She denies any gross hematuria or stones. She does have vaginal prolapse which can also contribute to urinary retention. She does strain to urinate at times. Review of Systems Constitutional: DENIES: Diaphoretic episodes Eyes: DENIES: Blurred vision Ears, nose, mouth, throat: DENIES: Tinnitus Respiratory: DENIES: Apneas Cardiovascular: DENIES: Chest pain Gastrointestinal: DENIES: Abdominal pain Neurologic: COMPLAINS OF: Abnormal gait Past Family Social History Past Medical History Coronary disease Diabetes mellitus Peripheral neuropathy Hypertension Renal insufficiency COPD Peripheral vascular disease Anxiety GERD Past Surgical History CABG Hysterectomy Transmetatarsal amputation of right foot Eye surgery for diabetic neuropathy Angioplasty of right iliac artery I&D of right axilla hidradenitis Allergies: Coded Allergies: Contrast Media (Verified Allergy, Severe, 01/20/17) Sulfa (Verified Allergy, Unknown, 01/20/17) Penicillin (Verified Adverse Reaction, Severe, NAUSEA,DIZZINESS, 01/20/17) Family History Patient is unclear Social History Prior history of smoking as noted No history of alcohol abuse Physical Exam Vital Signs Date Time Temp Pulse Resp B/P Pulse Ox O2 Delivery O2 Flow Rate FiO2 02/06/17 08:00 96.4 98 16 130/73 96 02/06/17 04:00 97.7 101 19 94/57 97 02/06/17 00:00 97.8 105 19 127/58 96 02/05/17 20:00 99.6 112 19 166/77 96 02/05/17 19:47 104 02/05/17 16:00 99.5 103 16 113/66 94 02/05/17 12:00 97.8 107 18 126/72 96 Physical Exam GENERAL: This is a well-nourished, well-developed patient, in no apparent distress. SKIN: No rashes, ecchymoses or lesions. Cool and dry. HEAD: Atraumatic. Normocephalic. No temporal or scalp tenderness. EYES: Pupils equal round and reactive. Extraocular motions intact. No scleral icterus. No injection or drainage. ENT: Nose without bleeding, purulent drainage or septal hematoma. Throat without erythema, tonsillar hypertrophy or exudate. Uvula midline. Airway patent. NECK: Trachea midline. No JVD or lymphadenopathy. Supple, nontender, no meningeal signs. CARDIOVASCULAR: Regular rate and rhythm without murmurs, gallops, or rubs. RESPIRATORY: Clear to auscultation. Breath sounds equal bilaterally. No wheezes , rales, or rhonchi. GASTROINTESTINAL: Abdomen soft, non-tender, nondistended. No hepato-splenomegaly , or palpable masses. No guarding. GENITOURINARY: Vaginal prolapse is identified. MUSCULOSKELETAL: Extremities without clubbing, cyanosis, or edema. No joint tenderness, effusion, or edema noted. No calf tenderness. Negative Homans sign bilaterally. Right lower extremity diabetic foot ulcer. NEUROLOGICAL: Awake and alert. Normal speech. Result Diagram: 02/03/17 0333 02/04/17 0908 Imaging Last Impressions Chest X-Ray 02/01/17 0000 Signed Impressions: Service Date/Time: January 20:17 - CONCLUSION: 1. Moderate pulmonary vascular congestion bilaterally. 2. Mild cardiomegaly. Sami Oglesby MD Foot X-Ray 01/28/17 0000 Signed Impressions: Service Date/Time: Saturday, January 28, 2017 08:43 - CONCLUSION: Fluoroscopic single view appears to demonstrate distal amputation of the metatarsals just above the level of the MTP joints. Vaishali Ellis MD Upper Extremity Ultrasound 01/23/17 0000 Signed Impressions: Service Date/Time: Monday, January 23, 2017 21:39 - CONCLUSION: Normal examination. Singh Lorenzo MD Lower Extremity Ultrasound 01/23/17 0000 Signed Impressions: Service Date/Time: Monday, January 23, 2017 20:45 - CONCLUSION: Normal examination. Singh Lorenzo MD Foot MRI 01/21/17 0000 Signed Impressions: Service Date/Time: Saturday, January 21, 2017 14:57 - CONCLUSION: 1. Osteomyelitis involving the first medial sesamoid bone. 2. Small focal area of abnormal enhancement and signal in the first metatarsal head also of concern for osteomyelitis. 3. Enhancement of the abductor hallux muscle consistent with infection. 4. Focal ulcer and soft tissue swelling. Tavares Flores MD Assessment and Plan Assessment and Plan 66-year-old female with long history of diabetes, peripheral neuropathy and urinary retention. Urinary retention most likely secondary to peripheral neuropathy from diabetes. Recommend replacement of Chavira catheter for now. Patient to follow-up in the office and to be instructed on clean intermittent catheterization. The you for the consult and for allowing me to precipitate in the care of this patient. Olaf Lipscomb DO Feb 06, 2017 10:36
--- NOTE | 2017-02-06 10:52 | HHI.IDPN ---
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 Mamadou ok Vazquez was removed yesterday Has been having urinary retention and straight cath has been ordered prn Patient has a diagnosis of neurogenic bladder and has chronic vazquez at home Urology saw patient - vazquez to be placed back Pain R foot under control Antibiotics Rocephin Lines PICC Past Medical History Reviewed Allergies: Coded Allergies: Contrast Media (Verified Allergy, Severe, 01/20/17) Sulfa (Verified Allergy, Unknown, 01/20/17) Penicillin (Verified Adverse Reaction, Severe, NAUSEA,DIZZINESS, 01/20/17) Objective . Vital Signs Date Time Temp Pulse Resp B/P Pulse Ox O2 Delivery O2 Flow Rate FiO2 02/06/17 08:00 96.4 98 16 130/73 96 02/06/17 04:00 97.7 101 19 94/57 97 02/06/17 00:00 97.8 105 19 127/58 96 02/05/17 20:00 99.6 112 19 166/77 96 02/05/17 19:47 104 02/05/17 16:00 99.5 103 16 113/66 94 02/05/17 12:00 97.8 107 18 126/72 96 02/05/17 02/05/17 02/06/17 15:00 23:00 07:00 Intake Total 702 ml 240 ml 240 ml Output Total 1500 ml 0 ml 1200 ml Balance -798 ml 240 ml -960 ml Intake Oral 600 ml 240 ml 240 ml IV Total 102 ml Output Urine Total 1450 ml 1200 ml Drainage Total 50 ml 0 ml # Voids 2 3 # Bowel Movements 1 3 4 Imaging Last Impressions Foot MRI 01/21/17 0000 Signed Impressions: Service Date/Time: Saturday, January 21, 2017 14:57 - CONCLUSION: 1. Osteomyelitis involving the first medial sesamoid bone. 2. Small focal area of abnormal enhancement and signal in the first metatarsal head also of concern for osteomyelitis. 3. Enhancement of the abductor hallux muscle consistent with infection. 4. Focal ulcer and soft tissue swelling. Tavares Flores MD Foot X-Ray 01/20/17 0000 Signed Impressions: Service Date/Time: Friday, January 20, 2017 15:15 - CONCLUSION: 1. That is post amputation of the fifth digit to the level of the metatarsal head. 2. Mild soft tissue swelling and gas over the medial first metatarsal phalangeal joint with no destructive change. Tavares Flores MD Chest X-Ray 01/20/17 0000 Signed Impressions: Service Date/Time: Friday, January 20, 2017 15:13 - CONCLUSION: No acute disease. Tavares Flores MD Physical Exam GENERAL: awake and alert, NAD SKIN: Warm and dry, no generalized rash. HEENT: [place] conjunctivae. No scleral icterus. Moist oral mucosa, edentulous. NECK: Supple, nontender, no meningeal signs. CARDIOVASCULAR: Regular rate and rhythm without murmurs, gallops, or rubs. RESPIRATORY: Decreased breath sounds at the bases. GASTROINTESTINAL: Abdomen soft, pain in lower abdomen, due to distended bladder MUSCULOSKELETAL: RLE: has intact dressing R foot with wound vac in place, not a lot of output NEUROLOGICAL: Awake and alert, speech normal. NO Babinski PSYCH: Cooperative LINE: PICC with no evidence of infection Assessment & Plan Remarks IMPRESSION Sepsis on admission, due to severe DFI R foot - S/P surgery - resolved DFI, R foot, S/P 2 surgery - S/P midfoot amputation and has wound vac in place Fever post-op, resolved DM, PVD - S/P revascularization RLE Urinary retention - previous records mentioned neurogenic blader and problem with urinary retention Renal insufficiency due to sepsis, ?underlying DM nephropathy - resolved Leukocytosis, resolved RECOMMENDATION Continue Rocephin - plan till February 24 She will need follow-up with Dr Chin when she gets D/C Abx form has been filled out last week Vazquez to be placed again , and fup with urology as outpatient D/W RN D/W Dr Ruel Leong for D/C from ID standpoint when arrangements made for her IV Abx Nadja Mendenhall MD Feb 06, 2017 10:52
[2017-02-06 12:00] VITALS: BP 134/71; PULSE 101; RESP 17; TEMP 99.3; O2SAT 98
--- NOTE | 2017-02-06 12:08 | HHI.PR ---
Subjective Remarks This is a pleasant 66 y/o Female with Hypertension, DM II,l Peripheral Artery disease, COPD, Obesity, who was Hospitalized on 01/20/17, with failure of outpatient management of a chronic right foot ulcer. She was septic on admission with hypotension, tachycardia, lactic acid 2.4 that was fluid responsive. She underwent ID of plantar and dorsal aspect of foot and incision right hallux and 1st metatarsal head on by Dr. Mishra. on 01/27/17 Underwent right transmetatarsal amputation and wound VAC placement 01/27/17. She was transfused 1 and a partial 2nd unit of PRBC and developed respiratory distress transferred to ICU. now stable out of ICU and ready for Discharge. 02/06 Seen in the room and discussed with Time Motion Analyst and nurse Miss Grady, she is status post Urology specialist consult and recommended to discharge home and follow in his office in one week, no Nausea, vomit or diarrhea. okay to discharge today and will continue antibiotics until February 24 2017, seen by Urology specialist doctor Nate Riggins recommended due to Urinary retention, Chavira cath placement and follow in his office. as per ID specialist okay to continue Rocephin until February 24 2017, follow with Doctor Elsy when she gets Discharge, Objective Vital Signs Date Time Temp Pulse Resp B/P Pulse Ox O2 Delivery O2 Flow Rate FiO2 02/06/17 09:10 Room Air 02/06/17 08:00 96.4 98 16 130/73 96 02/06/17 04:00 97.7 101 19 94/57 97 02/06/17 00:00 97.8 105 19 127/58 96 02/05/17 20:00 99.6 112 19 166/77 96 02/05/17 19:47 104 02/05/17 16:00 99.5 103 16 113/66 94 I/O 02/05/17 02/05/17 02/05/17 02/06/17 02/06/17 02/06/17 07:00 15:00 23:00 07:00 15:00 23:00 Intake Total 320 ml 702 ml 240 ml 240 ml Output Total 1500 ml 0 ml 1200 ml Balance 320 ml -798 ml 240 ml -960 ml Intake Oral 320 ml 600 ml 240 ml 240 ml IV Total 102 ml Output Urine Total 1450 ml 1200 ml Drainage Total 50 ml 0 ml Bladder Scan Volume Amount 890 ml # Voids 2 2 3 # Bowel Movements 2 1 3 4 Result Diagram: 02/03/17 0333 02/04/17 0908 Imaging Last Impressions Chest X-Ray 02/01/17 0000 Signed Impressions: Service Date/Time: January 20:17 - CONCLUSION: 1. Moderate pulmonary vascular congestion bilaterally. 2. Mild cardiomegaly. Sami Oglesby MD Foot X-Ray 01/28/17 0000 Signed Impressions: Service Date/Time: Saturday, January 28, 2017 08:43 - CONCLUSION: Fluoroscopic single view appears to demonstrate distal amputation of the metatarsals just above the level of the MTP joints. Vaishali Ellis MD Upper Extremity Ultrasound 01/23/17 0000 Signed Impressions: Service Date/Time: Monday, January 23, 2017 21:39 - CONCLUSION: Normal examination. Singh Lorenzo MD Lower Extremity Ultrasound 01/23/17 0000 Signed Impressions: Service Date/Time: Monday, January 23, 2017 20:45 - CONCLUSION: Normal examination. Singh Lorenzo MD Foot MRI 01/21/17 0000 Signed Impressions: Service Date/Time: Saturday, January 21, 2017 14:57 - CONCLUSION: 1. Osteomyelitis involving the first medial sesamoid bone. 2. Small focal area of abnormal enhancement and signal in the first metatarsal head also of concern for osteomyelitis. 3. Enhancement of the abductor hallux muscle consistent with infection. 4. Focal ulcer and soft tissue swelling. Tavares Flores MD Procedures 01/21/17 PROCEDURE PERFORMED 1. Incision and drainage expansile dorsum of foot and plantar foot. 2. Incision bone cortex of the patient's right hallux and right first metatarsal head. 01/25/17 PROCEDURE 1. Aortogram with right lower extremity angiograms. 2. Right SFA angioplasty with 5-mm balloon. 3. Left common femoral artery closure with AngioSeal. 01/27/17 PROCEDURE 1. Right transmetatarsal amputation. 2. Wound VAC application 01/28/17 PROCEDURE Irrigation and debridement right foot, removal and reapplication of wound vac, cauterization of all bleeders. Other Results Laboratory Tests Test 02/01/17 02/02/17 02/03/17 02/04/17 13:20 02:45 03:33 09:08 Blood Type B POSITIVE Antibody Screen NEGATIVE Crossmatch Leukocyte-Reduced Red Blood Cells Blood Bank Comment Total Creatine Kinase 83 U/L Troponin I 0.68 NG/ML White Blood Count 6.8 TH/MM3 Red Blood Count 3.18 MIL/MM3 Hemoglobin 9.0 GM/DL Hematocrit 26.6 % Mean Corpuscular Volume 83.7 FL Mean Corpuscular Hemoglobin 28.3 PG Mean Corpuscular Hemoglobin 33.8 % Concent Red Cell Distribution Width 14.9 % Platelet Count 520 TH/MM3 Mean Platelet Volume 7.8 FL Sodium Level 142 MEQ/L Potassium Level 3.5 MEQ/L Chloride Level 110 MEQ/L Carbon Dioxide Level 24.4 MEQ/L Anion Gap 8 MEQ/L Blood Urea Nitrogen 4 MG/DL Creatinine 0.61 MG/DL Estimat Glomerular Filtration 119 ML/MIN Rate Random Glucose 96 MG/DL Calcium Level 8.5 MG/DL Magnesium Level 1.8 MG/DL Objective Remarks GENERAL: No Distress. CARDIOVASCULAR: Normal rate and regular rhythm without murmurs, gallops, or rubs. RESPIRATORY: Good respiratory efforts. Breath sounds equal and clear to auscultation bilaterally. GASTROINTESTINAL: Abdomen soft, non-tender, non-distended. Normal active bowel sounds MUSCULOSKELETAL: Status post right midfoot amputation. Wound VAC in place. NEURO: Alert & Oriented x4 to person, place, time, situation. Moves all ext x4 PSYCH: Calm Medications and IVs Current Medications Medications (Trade) Dose Ordered Sig/Aliyah Route Start Time Stop Time Status Last Admin (D50w (Vial) Inj) 25 ml UNSCH PRN IV PUSH 01/20/17 19:45 (Glucagon Inj) 1 mg UNSCH PRN OTHER 01/20/17 19:45 (NS Flush) 2 ml UNSCH PRN FLUSH 01/20/17 19:45 (NS Flush) 2 ml BID FLUSH 01/20/17 21:00 02/06/17 09:00 (Zofran Inj) 4 mg Q6H PRN IVP 01/20/17 19:45 01/23/17 06:26 (Tylenol) 650 mg Q6H PRN PO 01/20/17 19:45 01/29/17 00:37 (Proair Hfa Inh) 1 puff Q4H PRN INH 01/20/17 19:45 01/25/17 06:49 (Ecotrin Ec) 81 mg DAILY PO 01/21/17 09:00 02/06/17 09:00 (Lipitor) 10 mg HS PO 01/20/17 21:00 02/05/17 21:40 (Plavix) 75 mg DAILY PO 01/21/17 09:00 02/06/17 09:00 (Neurontin) 800 mg TID PO 01/21/17 09:00 02/06/17 09:00 (Levemir Inj) 35 units DAILY SQ 01/21/17 09:00 02/05/17 09:33 (Mucinex Er) 600 mg BID PO 01/23/17 11:00 02/06/17 09:04 Hydrocodone Bit/ Homatropine Methylb 5 ml 5 ml Q6H PRN PO 01/23/17 11:00 02/05/17 09:34 (Rocephin Inj/NS Inj) 100 ml @ 200 mls/hr Q24H IV 01/24/17 11:00 02/24/17 23:00 02/05/17 12:56 (Narcan Inj) 0.4 mg UNSCH PRN IV 01/28/17 08:00 (Percocet 10-325 Mg) 1 tab Q4H PRN PO 01/28/17 23:00 02/06/17 00:13 (Pill Splitter) 1 ea UNSCH PRN OTHER 01/29/17 10:00 (Lactinex) 1 tab TID PO 01/31/17 18:00 02/06/17 09:00 (Dulcolax Supp) 10 mg DAILY PRN RECTAL 02/01/17 19:54 (Lasix) 20 mg DAILY PO 02/03/17 09:00 02/06/17 09:00 Heparin Sodium (Porcine) 5000 units 5,000 units Q12HR SQ 02/03/17 10:15 02/06/17 09:00 (NS 250 ml Inj) 250 ml @ 250 mls/hr Q6HR PRN IV 02/03/17 10:15 (Glucophage) 1,000 mg BID PO 02/03/17 10:15 02/05/17 21:38 (Xanax) 0.5 mg Q8H PRN PO 02/04/17 15:15 02/06/17 00:13 (Levemir Inj) 10 units HS SQ 02/04/17 21:00 02/04/17 21:43 (Urecholine) 25 mg Q8HR PO 02/06/17 14:00 A/P Assessment and Plan 66-year-old female admitted with diabetic foot infection. Status post midfoot amputation. Patient has been doing well post amputation except for acute blood loss anemia. She went into respiratory failure on 02/01/17 during blood transfusion apparently from volume overload. She is improving and can be transferred from the ICU. Discharge planning is for her to go home with home health and IV antibiotics. DME scripts done. Would avoid sedative meds in this patient. She has not been able to tolerate Xanax and Soma. Acute respiratory failure: Resolved. Secondary to volume overload and acute systolic CHF exacerbation. - Responded well to diuretics. - Continue to monitor. Given borderline hypotension will continue low dose Lasix 20 mg daily and monitor fluid status. Patient has an echo from 2013 with LVEF of 45%. Sepsis: Due to severe diabetic foot infection. seen by ID specialist recommended to stop Flagyl, continue Rocephin, added Lactinex, PICC Line, continue antibiotics for 4 more weeks until February 24, resolved, Leukocytosis, to continue Rocephin until February 24 2017, recommended to follow with Doctor Elsy as outpatient when she gets discharged. antibiotics form already filled out last week. Wound vac in place. Diabetic Foot Infection -MRI + for osteomyelitis -s/p Incision drainage expansile right foot with incision bone cortex hallux and 1st metatarsal on 01/21. - Status post right midfoot amputation and wound VAC placement on 01/28/17. Cleared for DC by Podiatry to follow up outpatient, - Pod and ID following. - wound culture from surgery growing Group B beta strep. Blood cultures are so far negative. - Patient has been on vancomycin, cefepime, and Flagyl, now will continue on Rocephin until February 24 H/O CABG/Mild Elevation of troponin/CHF: Elevation of troponin likely related to CHF exacerbation and fluid overload. - Continue Plavix. Low dose Lasix as tolerated. BP cannot tolerate ACEI or BB at this point. - Can consider outpatient echo. Acute blood loss anemia from surgical procedures: - Transfused 2 units of PRBC, improved Peripheral arterial Disease. - KALYAN was severely abnormal. - Vascular surgery following. Patient had aortogram w/ R LE Angiogram, and R SFA MAIL OFFICER. Finding included patent B iliac stents and Occluded R SFA - recanalized and MAIL OFFICER with excellent result and 2 vessel runoff to foot (PT/ peroneal). Acute Renal Insufficiency: Resolved Chronic pain: Patient follows with Pain management. She does get Lethargic and Hypotensive with Soma and Xanax. They were discontinued. Advised not to continue these meds on discharge. - Cautious with narcotics. She can be easily oversedated. -Percocet as needed. anxiety added Xanax 0.5 mg TID PRN Anxiety. T2DM insulin dependent: Better control this morning was 90, Hemoglobin A1C 11 poorly controlled. continue Sliding Scale. ADA Diet. adjusted Levemir reduced 3 units to the total. Urinary retention by doctor Olaf young to place Chavira cath and follow in his office. DVT Prophylaxis -Start heparin Discharge Planning Discharge Home on [facility] now. Nikos Duque MD Feb 06, 2017 12:07
[2017-02-06] MEDS ORDERED: PERC10TA27 PO (12:16)
[2017-02-06] MEDS ORDERED: BETH25 PO (12:16)
[2017-02-06] MEDS ORDERED: MUCI600T PO (12:16)
[2017-02-06] MEDS ORDERED: FURO20TA PO (12:16)
--- NOTE | 2017-02-06 12:19 | HHI.DS ---
Discharge Summary Admission Date Jan 20, 2017 at 16:57 Discharge Date: Feb 06, 2017 Admitting Diagnosis Diabetic Foot Infection (1) Sepsis ICD Code: A41.9 Diagnosis: Principal (2) Diabetic foot infection ICD Code: E11.69 Diagnosis: Principal (3) Hypotension ICD Code: I95.9 Diagnosis: Principal (4) Renal insufficiency ICD Code: N28.9 Diagnosis: Principal (5) DM (diabetes mellitus) ICD Code: E11.9 Diagnosis: Principal Procedures 01/21/17 PROCEDURE PERFORMED 1. Incision and drainage expansile dorsum of foot and plantar foot. 2. Incision bone cortex of the patient's right hallux and right first metatarsal head. 01/25/17 PROCEDURE 1. Aortogram with right lower extremity angiograms. 2. Right SFA angioplasty with 5-mm balloon. 3. Left common femoral artery closure with AngioSeal. 01/27/17 PROCEDURE 1. Right transmetatarsal amputation. 2. Wound VAC application 01/28/17 PROCEDURE Irrigation and debridement right foot, removal and reapplication of wound vac, cauterization of all bleeders. Brief History - From Admission This is a 66-year-old female with a PMH of HTN, DM, Chronic Right Foot Ulcer and PVD who presented to the ER with complaints of right foot drainage. States symptoms started approx 3wks ago, has been following w/ Supervisor Grounds in [place], s/p I&D in office on and has been on Cipro/Clinda for approx 1wk per patient, reports compliance w/ medications. States for the last 2-3 days has had worsening pain and drainage from right foot. Denies fever or chills. On arrival, BP 82/45, HR 114, O2 sat 99% on RA, Afebrile. S/p IVF w/ repeat BP 93/65, HR 96, reports chronic hypotension with baseline BP 90s systolic. WBC 23.4. Creatinine 1.25, previously 1.07 on 08/01/16. BS 610. CO2 21. AG 18. Lactic Acid 2.4, repeat 1.8. CRP 35.4. UA negative for UTI. CXR no acute findings. Foot X-ray status post amputation of fifth digit to level metatarsal head, mild soft tissue swelling Medial First Metatarsophalangeal Joint with no destructive change. S/p Clinda/Cipro IV in ER. CBC/BMP: 02/03/17 0333 02/04/17 0908 Significant Findings Laboratory Tests Test 02/04/17 09:08 Chloride Level 110 MEQ/L (98-107) Blood Urea Nitrogen 4 MG/DL (7-18) Imaging Last Impressions Chest X-Ray 02/01/17 0000 Signed Impressions: Service Date/Time: January 20:17 - CONCLUSION: 1. Moderate pulmonary vascular congestion bilaterally. 2. Mild cardiomegaly. Sami Oglesby MD Foot X-Ray 01/28/17 0000 Signed Impressions: Service Date/Time: Saturday, January 28, 2017 08:43 - CONCLUSION: Fluoroscopic single view appears to demonstrate distal amputation of the metatarsals just above the level of the MTP joints. Vaishali Ellis MD Upper Extremity Ultrasound 01/23/17 0000 Signed Impressions: Service Date/Time: Monday, January 23, 2017 21:39 - CONCLUSION: Normal examination. Singh Lorenzo MD Lower Extremity Ultrasound 01/23/17 0000 Signed Impressions: Service Date/Time: Monday, January 23, 2017 20:45 - CONCLUSION: Normal examination. Singh Lorenzo MD Foot MRI 01/21/17 0000 Signed Impressions: Service Date/Time: Saturday, January 21, 2017 14:57 - CONCLUSION: 1. Osteomyelitis involving the first medial sesamoid bone. 2. Small focal area of abnormal enhancement and signal in the first metatarsal head also of concern for osteomyelitis. 3. Enhancement of the abductor hallux muscle consistent with infection. 4. Focal ulcer and soft tissue swelling. Tavares Flores MD PE at Discharge GENERAL: No Distress. CARDIOVASCULAR: Normal rate and regular rhythm without murmurs, gallops, or rubs. RESPIRATORY: Good respiratory efforts. Breath sounds equal and clear to auscultation bilaterally. GASTROINTESTINAL: Abdomen soft, non-tender, non-distended. Normal active bowel sounds MUSCULOSKELETAL: Status post right midfoot amputation. Wound VAC in place. NEURO: Alert & Oriented x4 to person, place, time, situation. Moves all ext x4 PSYCH: Calm Hospital Course This is a pleasant 66 y/o Female with Hypertension, DM II,l Peripheral Artery disease, COPD, Obesity, who was Hospitalized on 01/20/17, with failure of outpatient management of a chronic right foot ulcer. She was septic on admission with hypotension, tachycardia, lactic acid 2.4 that was fluid responsive. She underwent ID of plantar and dorsal aspect of foot and incision right hallux and 1st metatarsal head on by Dr. Mishra. on 01/27/17 Underwent right transmetatarsal amputation and wound VAC placement 01/27/17. She was transfused 1 and a partial 2nd unit of PRBC and developed respiratory distress transferred to ICU. now stable out of ICU and ready for Discharge. 02/06 Seen in the room and discussed with Straightener And Aligner and nurse Miss Grady, she is status post Urology specialist consult and recommended to discharge home and follow in his office in one week, no Nausea, vomit or diarrhea. okay to discharge today and will continue antibiotics until February 24 2017, seen by Urology specialist doctor Nate Riggins recommended due to Urinary retention, Chavira cath placement and follow in his office. as per ID specialist okay to continue Rocephin until February 24 2017, follow with Doctor Chin when she gets Discharge, Assessment and Plan 66-year-old female admitted with diabetic foot infection. Status post midfoot amputation. Patient has been doing well post amputation except for acute blood loss anemia. She went into respiratory failure on 02/01/17 during blood transfusion apparently from volume overload. She is improving and can be transferred from the ICU. Discharge planning is for her to go home with home health and IV antibiotics. DME scripts done. Would avoid sedative meds in this patient. She has not been able to tolerate Xanax and Soma. Acute respiratory failure: Resolved. Secondary to volume overload and acute systolic CHF exacerbation. - Responded well to diuretics. - Continue to monitor. Given borderline hypotension will continue low dose Lasix 20 mg daily and monitor fluid status. Patient has an echo from 2013 with LVEF of 45%. Sepsis: Due to severe diabetic foot infection. seen by ID specialist recommended to stop Flagyl, continue Rocephin, added Lactinex, PICC Line, continue antibiotics for 4 more weeks until February 24, resolved, Leukocytosis, to continue Rocephin until February 24 2017, recommended to follow with Doctor Elsy as outpatient when she gets discharged. antibiotics form already filled out last week. Wound vac in place. Diabetic Foot Infection -MRI + for osteomyelitis -s/p Incision drainage expansile right foot with incision bone cortex hallux and 1st metatarsal on 01/21. - Status post right midfoot amputation and wound VAC placement on 01/28/17. Cleared for DC by Podiatry to follow up outpatient, - Pod and ID following. - wound culture from surgery growing Group B beta strep. Blood cultures are so far negative. - Patient has been on vancomycin, cefepime, and Flagyl, now will continue on Rocephin until February 24 H/O CABG/Mild Elevation of troponin/CHF: Elevation of troponin likely related to CHF exacerbation and fluid overload. - Continue Plavix. Low dose Lasix as tolerated. BP cannot tolerate ACEI or BB at this point. - Can consider outpatient echo. Acute blood loss anemia from surgical procedures: - Transfused 2 units of PRBC, improved Peripheral arterial Disease. - KALYAN was severely abnormal. - Vascular surgery following. Patient had aortogram w/ R LE Angiogram, and R SFA CAREER SERVICES ASSISTANT. Finding included patent B iliac stents and Occluded R SFA - recanalized and CAREER SERVICES ASSISTANT with excellent result and 2 vessel runoff to foot (PT/ peroneal). Acute Renal Insufficiency: Resolved Chronic pain: Patient follows with Pain management. She does get Lethargic and Hypotensive with Soma and Xanax. They were discontinued. Advised not to continue these meds on discharge. - Cautious with narcotics. She can be easily oversedated. -Percocet as needed. anxiety added Xanax 0.5 mg TID PRN Anxiety. T2DM insulin dependent: Better control this morning was 90, Hemoglobin A1C 11 poorly controlled. continue Sliding Scale. ADA Diet. adjusted Levemir reduced 3 units to the total. Urinary retention by doctor Olaf young to place Chavira cath and follow in his office. DVT Prophylaxis -Start heparin Discharge Planning Discharge Home on [facility] now. Pt Condition on Discharge: Good Discharge Disposition: Disch w/ Home Health Serv Discharge Time: > 30 minutes Discharge Instructions DIET: Follow Instructions for: Heart Healthy Diet, Diabetic Diet Activities you can perform: Regular-No Restrictions Nikos Duque MD Feb 06, 2017 12:19
--- NOTE | 2017-02-06 12:21 | HHI.FF ---
Face to Face Verification Diagnosis: (1) COPD (chronic obstructive pulmonary disease) (2) Benign hypertension (3) Subclavian artery stenosis, left (4) Diabetes mellitus, type II (5) Congestive heart failure (6) Osteomyelitis of ankle or foot, right, acute (7) Amputation at midfoot (8) Urinary retention (9) Sepsis Physical Therapy Order: Evaluate and Treat, Improve ambulation, Strength and gait training Home Health Nursing Order: Medical education Signs/symptoms of disease process Diabetic education CHF education Oxygen administration education Medication education-adverse effect Wound care and dressing changes Nursing assessment with vital signs IV medication administration Chavira catheter maintenance I have seen patient Mayra [place] on 02/06/17. My clinical findings support the need for the requested home health care services because: Ltd mobility - disease progression Patient has SOB Deconditioned w/ increased weakness Limited ability to care for self High risk of falls Injectable med education/admin I certify that my clinical findings support that this patient is homebound because: Post-op weakness Hx COPD- exertion dyspnea/weakness Unsteady gait/balance Unsafe to leave home unassisted Nikos Duque MD Feb 06, 2017 12:21
[2017-02-06] MEDS: cefTRIAXone INJ 2,000 MG in SODIUM CHLORIDE 0.9% INJ 100 ML IV SCH (13:05)
[2017-02-06] MEDS ORDERED: BETHANECHOL CHL 25 MG TAB PO SCH (14:00)
[2017-02-07] MEDS ORDERED: WHEEMIS3 (08:52)
== END 2017-02-06 16:52 | disposition home health service (06) | DRG 853 ==
LOC: NEPA 14:04 → NEDA 16:57 → N04A 22:54 → HCIS 01-21 19:22 → HOCA 01-21 22:38 → HIMW 02-01 18:47 → N07A 02-03 15:53
PROVIDERS: ADMIT Internal Medicine; ATTEND Internal Medicine
PROC: 0KBV0ZZ Excision of Right Foot Muscle, Open Approach (ICD-10-PCS; 2017-01-21)
PROC: 0QBQ0ZX Excision of Right Toe Phalanx, Open Approach, Diagnostic (ICD-10-PCS; 2017-01-21)
PROC: 3E0T3CZ (ICD-10-PCS; 2017-01-21)
PROC: 0QBN0ZX Excision of Right Metatarsal, Open Approach, Diagnostic (ICD-10-PCS; principal; 2017-01-21 18:16)
PROC: 047K3ZZ Dilation of Right Femoral Artery, Percutaneous Approach (ICD-10-PCS; 2017-01-25)
PROC: B41D1ZZ Fluoroscopy of Aorta and Bilateral Lower Extremity Arteries using Low Osmolar Contrast (ICD-10-PCS; 2017-01-25)
PROC: 0Y6M0Z9 Detachment at Right Foot, Partial 1st Ray, Open Approach (ICD-10-PCS; 2017-01-28)
PROC: 0Y6M0ZB Detachment at Right Foot, Partial 2nd Ray, Open Approach (ICD-10-PCS; 2017-01-28)
PROC: 0Y6M0ZC Detachment at Right Foot, Partial 3rd Ray, Open Approach (ICD-10-PCS; 2017-01-28)
PROC: 0Y6M0ZD Detachment at Right Foot, Partial 4th Ray, Open Approach (ICD-10-PCS; 2017-01-28)
PROC: 0Y6M0ZF Detachment at Right Foot, Partial 5th Ray, Open Approach (ICD-10-PCS; 2017-01-28)
PROC: 0Y3M0ZZ Control Bleeding in Right Foot, Open Approach (ICD-10-PCS; 2017-01-28)
PROC: 30233N1 Transfusion of Nonautologous Red Blood Cells into Peripheral Vein, Percutaneous Approach (ICD-10-PCS; 2017-02-01)
DX: A40.1 Sepsis due to streptococcus, group B (principal); J96.01 Acute respiratory failure with hypoxia; N17.9 Acute kidney failure, unspecified; I50.23 Acute on chronic systolic (congestive) heart failure; I95.89 Other hypotension; D62 Acute posthemorrhagic anemia; E11.52 Type 2 diabetes mellitus with diabetic peripheral angiopathy with gangrene; M86.171 Other acute osteomyelitis, right ankle and foot; I13.0 Hypertensive heart and chronic kidney disease with heart failure and stage 1 through stage 4 chronic kidney disease, or unspecified chronic kidney disease; M96.830 Postprocedural hemorrhage of a musculoskeletal structure following a musculoskeletal system procedure; J98.11 Atelectasis; E66.01 Morbid (severe) obesity due to excess calories; E11.22 Type 2 diabetes mellitus with diabetic chronic kidney disease; E11.621 Type 2 diabetes mellitus with foot ulcer; N31.9 Neuromuscular dysfunction of bladder, unspecified; L97.519 Non-pressure chronic ulcer of other part of right foot with unspecified severity; E11.65 Type 2 diabetes mellitus with hyperglycemia; E11.628 Type 2 diabetes mellitus with other skin complications; J44.9 Chronic obstructive pulmonary disease, unspecified; N18.3 Chronic kidney disease, stage 3 (moderate); J45.909 Unspecified asthma, uncomplicated; K21.9 Gastro-esophageal reflux disease without esophagitis; E11.319 Type 2 diabetes mellitus with unspecified diabetic retinopathy without macular edema; L08.89 Other specified local infections of the skin and subcutaneous tissue; E78.5 Hyperlipidemia, unspecified; I25.10 Atherosclerotic heart disease of native coronary artery without angina pectoris; I34.0 Nonrheumatic mitral (valve) insufficiency; E11.69 Type 2 diabetes mellitus with other specified complication; D75.89 Other specified diseases of blood and blood-forming organs; E11.42 Type 2 diabetes mellitus with diabetic polyneuropathy; N81.10 Cystocele, unspecified; I77.1 Stricture of artery; G89.29 Other chronic pain; E87.6 Hypokalemia; M62.838 Other muscle spasm; E11.21 Type 2 diabetes mellitus with diabetic nephropathy; R50.82 Postprocedural fever; F41.9 Anxiety disorder, unspecified; Y92.239 Unspecified place in hospital as the place of occurrence of the external cause; Y83.5 Amputation of limb(s) as the cause of abnormal reaction of the patient, or of later complication, without mention of misadventure at the time of the procedure; Z68.31 Body mass index [BMI] 31.0-31.9, adult; Z79.4 Long term (current) use of insulin; Z87.891 Personal history of nicotine dependence; Z88.0 Allergy status to penicillin; Z88.2 Allergy status to sulfonamides; Z89.421 Acquired absence of other right toe(s); Z91.041 Radiographic dye allergy status; Z95.1 Presence of aortocoronary bypass graft
CPT/HCPCS: 36430; 36556; 36569; 37224; 71010; 73630; 73720; 75625; 75710; 76000; 76937; 80048; 80053; 80202; 81001; 82010; 82550; 82805; 82948; 83036; 83605; 83735; 83880; 84484; 85025; 85027; 85652; 86077; 86140; 86403; 86850; 86870; 86880; 86900; 86901; 86920; 86922; 87015; 87040; 87070; 87086; 87102; 87116; 87186; 87205; 87206; 87493; 88304; 88307; 88311; 93005; 93922; 93923; 93970; 93998; 94002; 94003; 94640; 94664; 96365; 96372; 96375; 96376; A9579; C1725; C1751; C1760; C1769; C1893; C9113; G0269; J0692; J0696; J0744; J1170; J1644; J1815; J1940; J2060; J2250; J2270; J2370; J2405; J2765; J3010; J3370; J3475; J3480; J7030; J7040; J7042; J7050; J7070; J7120; J7512; L2114; P9016; Q0163; Q9967

== ENCOUNTER 2017-02-06 21:44 | Inpatient (IN) | payer MEDICARE, OTHER ==
[~2017-02-06] VITALS: Ht 167.6 cm; Wt 69.8 kg
[2017-02-06] VITALS (7 sets, daily range): BP systolic 93–164; BP diastolic 54–86; PULSE 100–120; RESP 24–35; TEMP 99.6; O2SAT 96–100
[~2017-02-06 21:44] MED LIST changes: -ALBU8I INH; -ALPR1 PO; +ASPI1TAB91 PO; -ATOR10TA PO; +ATOR10TA15 PO; -BACT2OIN TOP; -BENZ100 PO; +BETH25 PO; -CARI350T19 PO; -CLOP75 PO; +COMMODE 3-IN-11 MIS; +CRUTMIS25; -ENAL5TAB PO; +ENAL5TAB98 PO; +FURO20TA PO; +LACT PO; -LIDO 2% TOP; -MACR100C PO; -MACR100C2 PO; -METF-324 PO; +METF1000 PO; +MISCMIS81; +MUCI600T PO; +PLAV75TA29 PO; +SOMA350T PO; +VENTAER INH; +WHEEMIS3; +XANA1TAB2 PO
[2017-02-06] MEDS ORDERED: PROPOFOL 1000 MG/100 ML INJ 100 ML IV SCH (22:00)
--- NOTE | 2017-02-06 22:06 | PD ---
HPI Chief Complaint: Respiratory Distress Time Seen by Provider: 21:56 Travel History International Travel<30 days: No Contact w/Intl Traveler<30days: No Traveled to known affect area: No History of Present Illness HPI The patient is a 66 year old female who presents to the [facility] emergency department with a history of recent forefoot amputation on the right side after having a diabetic ulcer become infected. The patient was discharged from the hospital reportedly yesterday. One hour prior to arrival in the emergency department the patient developed shortness of breath. Upon ambulance services arrival the patient was noted to have a respiratory rate in the 40s with increased work of breathing, O2 saturations on room air in the 80s. The patient was noted to be hypertensive and was given nitroglycerin sublingual 2. The patient was briefly paced on CPAP after the patient was noted to have crackles bilaterally. The patient continued to have shortness of breath and O2 saturations of 85%, therefore the patient was intubated with a 7-1/2 endotracheal tube. The patient was intubated after using etomidate 20 mg IV and 4 mg of Ativan. The patient became agitated on the ventilator and was given another 2 mg of Ativan en route to this facility. The patient has a Chavira catheter with a leg bag. The patient was given 60 mg IV of Lasix. The patient was noted to have a wound VAC over the right forefoot. The patient denied having any chest pain according to ambulance services. The patient was not given aspirin prior to arrival. No other history is able to be obtained from the patient and she is currently intubated. FORMERLY [facility], [facility] Past Medical History Narrative Medical The patient's past medical history is significant for diabetes mellitus, recent diabetic foot ulcer that became infected along the right foot and required forefoot amputation, history of coronary artery disease, peripheral neuropathy, hypertension, chronic renal insufficiency, COPD, peripheral vascular disease, congestive heart failure, anxiety disorder, acid reflux. Hx Anticoagulant Therapy: Yes (plavix) Arthritis: Yes (BILATERAL HANDS) Asthma: Yes Autoimmune Disease: No Anxiety: Yes Depression: Yes Heart Rhythm Problems: No Cancer: No Cardiovascular Problems: Yes (cabg) High Cholesterol: Yes Chest Pain: No Congestive Heart Failure: No COPD: Yes Cerebrovascular Accident: Yes Diabetes: Yes Patient Takes Glucophage: No Diminished Hearing: No GERD: Yes Genitourinary: No Headaches: No Hiatal Hernia: No Hypertension: Yes Implanted Vascular Access Dvce: No Musculoskeletal: Yes ("herniated discs,back and neck") Neurologic: Yes Psychiatric: Yes (GOES TO ACT EVERY 3 MONTHS) Reproductive: Yes (ENLARGED UTERUS) Respiratory: Yes (COPD) Integumentary: Yes (diabetic wound to right foot) Immunizations Current: No Migraines: No Myocardial Infarction: Yes Seizures: No Sleep Apnea: Yes Thyroid Disease: No Ulcer: No Tetanus Vaccination: Unknown Menopausal: Yes : 1 Para: 1 Miscarriage: 0 : 0 Past Surgical History Abdominal Surgery: Yes (CYST REMOVED) Cardiac Surgery: Yes Coronary Artery Bypass Graft: Yes (X3) Ear Surgery: No Endocrine Surgery: Yes (HYSTERECTOMY) Eye Surgery: Yes ("bilateral,retinopathy") Genitourinary Surgery: Yes (retention, damaged bladder) Hysterectomy: Yes Neurologic Surgery: No Oral Surgery: No Thoracic Surgery: No Other Surgery: Yes ("ganglion cyst removed from right arm" "cysts removed from back",axilla) Social History Alcohol Use: No Tobacco Use: No Substance Use: No Allergies-Medications (Allergen,Severity, Reaction): Coded Allergies: Contrast Media (Verified Allergy, Severe, 02/06/17) Sulfa (Verified Allergy, Unknown, 02/06/17) Penicillin (Verified Adverse Reaction, Severe, NAUSEA,DIZZINESS, 02/06/17) Reported Meds & Prescriptions Reported Meds & Active Scripts Active Mucinex ER 12 HR (Guaifenesin) 600 Mg Ernesto 600 Mg PO BID Furosemide 20 Mg Tab 20 Mg PO DAILY Urecholine (Bethanechol Chloride) 25 Mg Tab 25 Mg PO Q8HR Percocet (Oxycodone-Acetaminophen) 10-325 mg Tab 1 Tab PO Q6H PRN Do not use this medicine if you will drive a car or use a machine, only use it when resting at home. Commode 3-in-1 (Device) 1 Mis Mis 1 Ea .ROUTE DIRECTED Acidophilus/l-Sporogenes (Lactobacillus Acidophilus) 1 Tab Tab 1 Tab PO TID Levemir Inj (Insulin Detemir) 1,000 unit/ 10 ML Vial 12 Units SQ HS Crutch/Aluminum/Adult (Device) 1 Mis Mis 1 Ea .ROUTE DIRECTED Rollator Ultra-Light (Device) 1 Mis Mis 1 Ea .ROUTE DIRECTED Wheelchair (Device) 1 Mis Mis 1 Ea .ROUTE DIRECTED Electric wheelchair. Reported Aspirin Adult Low Strength (Aspirin) 81 Mg Tabdr 81 Mg PO DAILY Metformin (Metformin HCl) 1,000 Mg Tab 1,000 Mg PO BID With meals Levemir Inj (Insulin Detemir) 1,000 unit/ 10 ML Vial 35 Units SQ DAILY Do not mix with any other Insulin. Gabapentin 800 Mg Tab 800 Mg PO TID Vasotec (Enalapril Maleate) 5 Mg Tab 5 Mg PO DAILY Plavix (Clopidogrel Bisulfate) 75 Mg Tab 75 Mg PO DAILY Soma (Carisoprodol) 350 Mg Tab 350 Mg PO BID Atorvastatin (Atorvastatin Calcium) 10 Mg Tab 10 Mg PO HS Xanax (Alprazolam) 1 Mg Tab 1 Mg PO BID Ventolin Hfa 18 GM Inh (Albuterol Sulfate) 90 Mcg/Act Aer 1 Puff INH Q4H PRN Physical Exam Narrative General: The patient is a well-developed well-nourished female, currently intubated, however she is not adequately sedated, moving her extremities, coughing against the vent. Head and Neck exam: Head is normocephalic atraumatic. Eyes: EOMI, pupils are equal round and reactive to light. Nose: Midline septum with pink mucous membranes Mouth: Dentition unremarkable. Moist mucus membranes. Posterior oropharynx is not able to be fully visualized as the patient has an endotracheal tube in place. Neck: No palpable lymphadenopathy. No nuchal rigidity. No thyromegaly. Cardiovascular: Sinus tachycardia in the 1 teens to 120s without murmurs, gallops, or rubs. No pulse deficit to the extremities and simultaneous auscultation and palpation of her radial artery. Lungs: Bilateral crackles two thirds up from the bases are noted. No rhonchi, no wheezes. Abdomen: Soft, without tenderness to palpation in all 4 quadrants of the abdomen. No guarding, rebound, or rigidity. Normal bowel sounds are audible. The patient has a Chavira catheter attached to a leg bag with yellow urine noted. Extremities: No clubbing or cyanosis. The patient has 1+ pitting edema of the right leg, trace of the left. The patient has a wound VAC in place on her right lower extremity, status post forefoot amputation. 2+ pulses in all 4 extremities. Neurologic Exam: The patient is ventilated. The patient is coughing against the vent and spontaneously breathing. The patient's airway is being assisted with bag valve endotracheal tube. The patient is moving all of her extremities equally. The patient is not following commands. Skin Exam: No rash noted. Intact skin that is warm and dry. Data Data Last Documented VS Vital Signs Date Time Temp Pulse Resp B/P Pulse Ox O2 Delivery O2 Flow Rate FiO2 02/06/17 22:43 100 26 93/54 100 Ventilator 100 02/06/17 21:49 99.6 Orders Nany-Gastric Tube Insert/Mon (02/06/17 21:57) Propofol 1000 Mg/100 Ml Inj (Diprivan 10 (02/06/17 22:00) ^ Infusion (02/06/17 21:57) RASS (02/06/17 21:57) Neurological Rass Scale ANISH.Q2H (02/06/17 21:57) Electrocardiogram (02/06/17 21:57) Complete Blood Count With Diff (02/06/17 21:57) Comprehensive Metabolic Panel (02/06/17 21:57) Creatine Kinase (Cpk) (02/06/17 21:57) Ckmb (Isoenzyme) Profile (02/06/17 21:57) Troponin I (02/06/17 21:57) B-Type Natriuretic Peptide (02/06/17 21:57) Prothrombin Time / Inr (Pt) (02/06/17 21:57) Act Partial Throm Time (Ptt) (02/06/17 21:57) Blood Culture (02/06/17 21:57) Urinalysis - C+S If Indicated (02/06/17 21:57) Magnesium (Mg) (02/06/17 21:57) Chest, Single Ap (02/06/17 21:57) Iv Access Insert/Monitor (02/06/17 21:57) Ecg Monitoring (02/06/17 21:57) Oximetry (02/06/17 21:57) Lactic Acid Sepsis Protocol (02/06/17 21:57) D-Dimer (02/06/17 21:57) Urine Culture (02/06/17 22:00) Arterial Blood Gas (Abg) (02/06/17 ) Aspirin Supp (Aspirin Supp) (02/06/17 22:30) Nitroglycerin 2% Oint (Nitroglycerin 2% (02/06/17 23:00) Admit Order (Ed Use Only) (02/07/17 00:01) Labs Laboratory Tests Test 02/06/17 02/06/17 22:00 22:45 White Blood Count 8.4 TH/MM3 Red Blood Count 3.37 MIL/MM3 Hemoglobin 9.2 GM/DL Hematocrit 28.8 % Mean Corpuscular Volume 85.4 FL Mean Corpuscular Hemoglobin 27.2 PG Mean Corpuscular Hemoglobin 31.8 % Concent Red Cell Distribution Width 15.6 % Platelet Count 624 TH/MM3 Mean Platelet Volume 7.8 FL Neutrophils (%) (Auto) 53.5 % Lymphocytes (%) (Auto) 35.5 % Monocytes (%) (Auto) 7.9 % Eosinophils (%) (Auto) 2.2 % Basophils (%) (Auto) 0.9 % Neutrophils # (Auto) 4.5 TH/MM3 Lymphocytes # (Auto) 3.0 TH/MM3 Monocytes # (Auto) 0.7 TH/MM3 Eosinophils # (Auto) 0.2 TH/MM3 Basophils # (Auto) 0.1 TH/MM3 CBC Comment DIFF FINAL Differential Comment Prothrombin Time 11.4 SEC Prothromb Time International 1.0 RATIO Ratio Activated Partial 25.7 SEC Thromboplast Time D-Dimer Quantitative (PE/DVT) 5.62 MG/L FEU Urine Color YELLOW Urine Turbidity CLEAR Urine pH 7.0 Urine Specific [place] 1.010 Urine Protein TRACE mg/dL Urine Glucose (UA) NEG mg/dL Urine Ketones NEG mg/dL Urine Occult Blood NEG Urine Nitrite NEG Urine Bilirubin NEG Urine Urobilinogen LESS THAN 2.0 MG/DL Urine Leukocyte Esterase MOD Urine RBC 2 /hpf Urine WBC 26 /hpf Urine Squamous Epithelial <1 /hpf Cells Urine Mucus FEW /lpf Microscopic Urinalysis Comment CULTURE INDICATED Sodium Level 142 MEQ/L Potassium Level 3.8 MEQ/L Chloride Level 108 MEQ/L Carbon Dioxide Level 23.6 MEQ/L Anion Gap 10 MEQ/L Blood Urea Nitrogen 6 MG/DL Creatinine 0.89 MG/DL Estimat Glomerular Filtration 77 ML/MIN Rate Random Glucose 282 MG/DL Calcium Level 8.7 MG/DL Magnesium Level 1.6 MG/DL Total Bilirubin 0.2 MG/DL Aspartate Amino Transf 20 U/L (AST/SGOT) Alanine Aminotransferase 13 U/L (ALT/SGPT) Alkaline Phosphatase 235 U/L Total Creatine Kinase 84 U/L Troponin I 0.16 NG/ML Total Protein 6.9 GM/DL Albumin 2.1 GM/DL Lactic Acid Level 2.9 mmol/L B-Type Natriuretic Peptide 638 PG/ML Blood Gas Puncture Site LT RADIAL Blood Gas Patient Temperature 98.6 Blood Gas HCO3 23 mmol/L Blood Gas Base Excess -1.6 mmol/L Blood Gas Oxygen Saturation 98 % Arterial Blood pH 7.34 Arterial Blood Partial 44 mmHg Pressure CO2 Arterial Blood Partial 325 mmHG Pressure O2 Arterial Blood Oxygen Content 12.1 Vol % Arterial Blood 1.3 % Carboxyhemoglobin Arterial Blood Methemoglobin 0.7 % Blood Gas Hemoglobin 8.2 G/DL Oxygen Delivery Device VENTILATOR Blood Gas Ventilator Setting 14/500/5PEEP Blood Gas Inspired Oxygen 100 % [facility] Medical Decision Making Medical Screen Exam Complete: Yes Emergency Medical Condition: Yes Medical Record Reviewed: Yes Interpretation(s) Last Impressions Chest X-Ray 02/06/172156 Signed Impressions: Service Date/Time: Monday, February 06, 2017 22:24 - CONCLUSION: Radiographic pattern most consistent with pulmonary edema. Ruel Saeed Jr., MD Differential Diagnosis Congestive heart failure exacerbation, versus pulmonary embolism, versus acute coronary syndrome with flash pulmonary edema, versus pneumonia Narrative Course During the course of the patients emergency department visit, the patients history, examination, and differential diagnosis were reviewed with the patient. The patient had IV access obtained and blood work sent for analysis. The patient was placed on a monitoring analyst with oximetry and blood pressure monitoring. An EKG was done on arrival. The patient's EKG shows a sinus tachycardia rate of 110, ST-T wave abnormalities are noted, no acute ST segment elevation is noted. The patient was provided propofol for sedation on the ventilator. The patient was given aspirin 300 mg CO, nitroglycerin 1 inch the chest wall. . The patients laboratory studies were reviewed and remarkable for a white count of 8.4, hemoglobin 9.2, platelets 624 with a normal differential, CMP is remarkable for a chloride of 108, BUN 6, glucose 282, alkaline phosphatase 235, CPK 84, troponin I 0.16, BNP is 638. D-dimer is 5.62, PT PTT within normal limits. The patient has an IV contrast allergy. The patient will likely need a VQ scan or premedicated CTA to rule out PE. Urinalysis shows moderate leukocyte esterase, 2 RBCs, 26 WBCs. This is a catheterized specimen. Radiology studies were reviewed and remarkable for a chest x-ray that shows florid pulmonary edema. The patients results were discussed with the patient, including the plan of care. I explained that further testing and/ or monitoring is indicated based on the patients history, examination, and/ or laboratory findings. Therefore, I recommended admission for additional evaluation. The patient expressed understanding and was agreeable with this plan. The patient was admitted to the hospital in critical condition and sent to a bed under the care of the seismology teacher. Critical Care Narrative Aggregate critical care time was 36 minutes. Time to perform other separately billable procedures was not included in the critical care time. My time did not include minutes spent treating any other patients simultaneously or on activities that did not directly contribute to the patient's treatment. The services I provided to this patient were to treat and/or prevent clinically significant deterioration that could result in: Cardiovascular collapse, versus hypoxemic encephalopathy, versus I provided critical care services requiring my management, as noted below: Chart data review, documentation time, medication orders and management, vital sign assessments/reviewing monitor data, ordering and reviewing lab tests, ordering and interpreting/reviewing x-rays and diagnostic studies, care of the patient and discussion of the patient with the admitting physicians. Physician Communication Physician Communication The patient's case was discussed with Dr. Palma who did agree to admit the patient for further evaluation and treatment at this time. Diagnosis Primary Impression: Acute exacerbation of congestive heart failure Qualified Code: I50.9 - Acute on chronic congestive heart failure, unspecified congestive heart failure type Additional Impression: Respiratory failure Qualified Code: J96.01 - Acute respiratory failure with hypoxia Admitting Information Admitting Physician Requests: Ashlee Virgen MD Feb 06, 2017 22:06
[2017-02-06 22:23] LABS: BLOOD, URINE NEG (NEG); COMMENT (UR) CULTURE INDICATED; CULTURE IF INDICATED CULTURE INDICATED; GLUCOSE,URINE NEG (NEG); KETONE, URINE NEG (NEG); MUCUS URINE FEW /lpf (OCC); NITRITE,URINE NEG (NEG); SQUAMOUS EPITHELIAL CELL URINE <1 /hpf (0-5); URINE COLOR YELLOW (YELLW/STRAW)
[2017-02-06 22:30] LABS: AUTOMATED NEUTROPHIL # 4.5 TH/MM3 (1.8-7.7); BASOPHIL # 0.1 TH/MM3 (0-0.2); BASOPHIL % 0.9 % (0.0-2.0); EOSINOPHIL # 0.2 TH/MM3 (0-0.4); EOSINOPHIL % 2.2 % (0.0-4.0); HEMATOCRIT 28.8 % (35.0-46.0); HEMO FLAGS DIFF FINAL; LYMPH % 35.5 % (9.0-44.0); MEAN CELL VOLUME 85.4 FL (80.0-100.0); MEAN CORPUSCULAR HEMOGLOBIN 27.2 PG (27.0-34.0); MEAN CORPUSCULAR HGB CONC 31.8 % (32.0-36.0); MONO % 7.9 % (0.0-8.0); NEUT % 53.5 % (16.0-70.0); PLATELET COUNT 624 TH/MM3 (150-450); RED BLOOD COUNT 3.37 MIL/MM3 (4.00-5.30); RED CELL DISTRIBUTION WIDTH 15.6 % (11.6-17.2); WHITE BLOOD COUNT 8.4 TH/MM3 (4.0-11.0)
[2017-02-06] MEDS ORDERED: ASPIRIN 300 MG SUPP RECTAL ONE (22:30)
[2017-02-06 22:47] LABS: ALKALINE PHOSPHATASE 235 U/L (45-117); ALT (GPT) 13 U/L (10-53); ANION GAP 10 MEQ/L (5-15); AST (GOT) 20 U/L (15-37); BICARBONATE 23.6 MEQ/L (21.0-32.0); BLOOD UREA NITROGEN 6 MG/DL (7-18); CHLORIDE 108 MEQ/L (98-107); GLOMERULAR FILTRATION RATE 77 ML/MIN (>89); MAGNESIUM 1.6 MG/DL (1.5-2.5); POTASSIUM 3.8 MEQ/L (3.5-5.1); SODIUM (NA) 142 MEQ/L (136-145); TOTAL BILIRUBIN ADULT 0.2 MG/DL (0.2-1.0)
[2017-02-06 22:53] LABS: CREATINE KINASE 84 U/L (26-192)
[2017-02-06 22:56] LABS: BLOOD GAS BASE EXCESS -1.6 mmol/L (-2-2); BLOOD GAS CARBOXYHEMOGLOBIN 1.3 % (0-4); BLOOD GAS HCO3 23 mmol/L (22-26); BLOOD GAS METHEMOGLOBIN 0.7 % (0-2); BLOOD GAS O2 HGB SATURATION 98 % (90-100); BLOOD GAS OXYGEN CONTENT 12.1 Vol % (12.0-20.0); BLOOD GAS PCO2 44 mmHg (38-42); BLOOD GAS PO2 325 mmHG (61-120); BLOOD GAS TOTAL HGB 8.2 G/DL (12.0-16.0); CRITICAL VALUE NO; DRAW SITE LT RADIAL; FIO2 100 %; NUMBER OF ARTERIAL PUNCTURES 1; OXYGEN DEVICE VENTILATOR; TEMP CORR TO 98.6; ULNAR PULSE PRESENT; VENT SETTINGS 14/500/5PEEP
[2017-02-06] MEDS ORDERED: NITROGLYCERIN 2% OINT 1 GM PACKET TOPICAL ONE (23:00)
--- NOTE | 2017-02-06 23:01 | RADRPT ---
EXAM DATE/TIME: 02/06/2017 22:24 [facility] COMPARISON: CHEST SINGLE AP, February 01, 2017, 20:17. INDICATIONS : Post intubation. MEDICAL HISTORY : Myocardial infarction. Hypercholesterolemia. Arthritis. Herniated disc. CVA. Numbness, hands and feet . COPD. HTN. Asthma. Sleep apnea. GERD. Enlarged uterus. Diabetes. Blood clots. Depression. Anxiety. Anticoagulant therapy, Plavix. MRSA. SURGICAL HISTORY : CABG. Hysterectomy. Bilateral retinopathy. Abdominal cyst removed. Genitourinary surgery, damaged angeline dder. Fifth digit amputation. Ganglion cyst removed from right arm. Cysts removed from back. ENCOUNTER: Initial ACUITY: 1 day PAIN SCORE: Non-responsive. LOCATION: Bilateral chest FINDINGS: A single portable frontal view of the chest shows the tip of the endotracheal tube 2 cm proximal to t he nichole. Median sternotomy wires noted. Heart is mildly enlarged. Bilateral pleural effusions and b ibasilar infiltrates. Appearance is similar to the prior study. CONCLUSION: Radiographic pattern most consistent with pulmonary edema. Ruel Saeed Jr., MD on February 06, 2017 at 22:59 Board Certified Radiologist. This report was verified electronically.
[2017-02-06 23:24] LABS: APTT (PATIENT) 25.7 SEC (24.3-30.1); PROTHROMBIN TIME - PATIENT 11.4 SEC (9.8-11.6)
[2017-02-07] VITALS (26 sets, daily range): BP systolic 67–134; BP diastolic 46–75; PULSE 75–98; RESP 14–30; TEMP 98.2–99.9; O2SAT 97–100
[2017-02-07 00:14] LABS: LACTIC ACID GHOST NOT REPORTABLE
[2017-02-07] MEDS ORDERED: ACETAMINOPHEN 325 MG TAB PO PRN (00:15)
[2017-02-07] MEDS ORDERED: ONDANSETRON HCL 4 MG/2 ML VIAL IV PRN (00:15)
[2017-02-07] MEDS ORDERED: SODIUM CHLORIDE 0.9% FLUSH 10 ML FLUSH PRN (00:15)
[2017-02-07] MEDS ORDERED: RESP: ALBUTEROL 2.5 MG/IPRATROPIUM 0.5 MG NEB (PRN) INH (00:15)
[2017-02-07] MEDS ORDERED: SODIUM CHLORIDE 0.9% FLUSH 10 ML FLUSH IV FLUSH PRN (00:15)
[2017-02-07] MEDS ORDERED: MISCELLANEOUS NURSING INFORMATION XX SCH (00:15)
[2017-02-07] MEDS ORDERED: METOCLOPRAMIDE HCL 10 MG/2 ML VIAL IV PRN (00:15)
[2017-02-07] MEDS ORDERED: CHLORHEXIDINE GLUCONATE 2 % 1 PACK (2 CLOTHS) TOP PRN (00:15)
[2017-02-07] MEDS ORDERED: PROPOFOL 1000 MG/100 ML INJ 100 ML IV SCH (00:15)
[2017-02-07] MEDS ORDERED: MORPHINE SULFATE 4 MG/ML INJ IV PRN (00:15)
--- NOTE | 2017-02-07 00:24 | HHI.HP ---
HPI Service Critical Care Medicine Primary Care Physician Arjun Lipscomb MD Admission Diagnosis Respiratory Failure, CHF exacerbation Diagnosis: Travel History International Travel<30 Days: No Contact w/Intl Traveler <30 Da: No Traveled to Known Affected Are: No History of Present Illness 66 year old female presents with a history of recent forefoot amputation on the right side after having a diabetic ulcer infected. The patient was discharged from the hospital yesterday. While at home today she developed shortness of breath. Upon ambulance services arrival the patient was noted to have a respiratory rate in the 40s with increased work of breathing, O2 saturations on room air in the 80s. She was also hypertensive and was given nitroglycerin sublingual 2. The patient was briefly paced on CPAP however she continued to have shortness of breath and O2 saturations of 85%, therefore the patient was intubated with a 7-/2 endotracheal tube ED attending. Review of Systems ROS Unable to obtain patient is sedated and intubated Past Family Social History Allergies: Coded Allergies: Contrast Media (Verified Allergy, Severe, 02/06/17) Sulfa (Verified Allergy, Unknown, 02/06/17) Penicillin (Verified Adverse Reaction, Severe, NAUSEA,DIZZINESS, 02/06/17) Past Medical History Hypertension Diabetes Chronic right foot ulceration Peripheral vascular disease Past Surgical History CABG, 5th Toe Amputation Reported Medications Reported Meds & Active Scripts Active Mucinex ER 12 HR (Guaifenesin) 600 Mg Ernesto 600 Mg PO BID Furosemide 20 Mg Tab 20 Mg PO DAILY Urecholine (Bethanechol Chloride) 25 Mg Tab 25 Mg PO Q8HR Percocet (Oxycodone-Acetaminophen) 10-325 mg Tab 1 Tab PO Q6H PRN Do not use this medicine if you will drive a car or use a machine, only use it when resting at home. Commode 3-in-1 (Device) 1 Mis Mis 1 Ea .ROUTE DIRECTED Acidophilus/l-Sporogenes (Lactobacillus Acidophilus) 1 Tab Tab 1 Tab PO TID Levemir Inj (Insulin Detemir) 1,000 unit/ 10 ML Vial 12 Units SQ HS Crutch/Aluminum/Adult (Device) 1 Mis Mis 1 Ea .ROUTE DIRECTED Rollator Ultra-Light (Device) 1 Mis Mis 1 Ea .ROUTE DIRECTED Wheelchair (Device) 1 Mis Mis 1 Ea .ROUTE DIRECTED Electric wheelchair. Reported Aspirin Adult Low Strength (Aspirin) 81 Mg Tabdr 81 Mg PO DAILY Metformin (Metformin HCl) 1,000 Mg Tab 1,000 Mg PO BID With meals Levemir Inj (Insulin Detemir) 1,000 unit/ 10 ML Vial 35 Units SQ DAILY Do not mix with any other Insulin. Gabapentin 800 Mg Tab 800 Mg PO TID Vasotec (Enalapril Maleate) 5 Mg Tab 5 Mg PO DAILY Plavix (Clopidogrel Bisulfate) 75 Mg Tab 75 Mg PO DAILY Soma (Carisoprodol) 350 Mg Tab 350 Mg PO BID Atorvastatin (Atorvastatin Calcium) 10 Mg Tab 10 Mg PO HS Xanax (Alprazolam) 1 Mg Tab 1 Mg PO BID Ventolin Hfa 18 GM Inh (Albuterol Sulfate) 90 Mcg/Act Aer 1 Puff INH Q4H PRN Active Ordered Medications Current Medications Medications (Trade) Dose Ordered Sig/Aliyah Route PRN Reason Start Time Stop Time Status Last Admin Dose Admin Sodium Chloride (NS Flush) 2 ml BID IV FLUSH 02/07/17 09:00 Sodium Chloride (NS Flush) 2 ml UNSCH PRN IV FLUSH FLUSH AFTER USING IV ACCESS 02/07/17 00:15 Furosemide (Lasix Inj) 40 mg BID@,18 IVP 02/07/17 09:00 Heparin Sodium (Porcine) (Heparin Inj) 5,000 units Q12H SQ 02/07/17 02:00 02/07/17 03:07 Acetaminophen (Tylenol) 650 mg Q6H PRN PO PAIN 1-10 AND/OR FEVER >101F 02/07/17 00:15 02/07/17 03:07 Morphine Sulfate (Morphine Inj) 2 mg Q2H PRN IV PAIN SCALE 6 TO 10 02/07/17 00:15 Famotidine (Pepcid Inj) 20 mg Q12HR IV PUSH 02/07/17 09:00 Midazolam HCl (Versed Inj) 2 mg Q1H PRN IV SEDATION 02/07/17 00:15 02/07/17 03:06 Artificial Tears (Tears Naturale Opth Soln) 1 drop TID EACH EYE 02/07/17 09:00 Ondansetron HCl (Zofran Inj) 4 mg Q6H PRN IV NAUSEA OR VOMITING 02/07/17 00:15 Metoclopramide HCl (Reglan Inj) 10 mg Q6H PRN IV NAUSEA OR VOMITING 02/07/17 00:15 Docusate Sodium (Colace) 100 mg Q12H G-TUBE 02/07/17 02:00 02/07/17 02:19 Miscellaneous Information 1 Q361D XX 02/07/17 00:15 Chlorhexidine Gluconate (Chlorhexidine 2% Cloth) 3 pack Taper DAILY@04 TOP 02/07/17 04:00 02/03/18 03:59 Chlorhexidine Gluconate 3 pack 3 pack UNSCH PRN TOP HYGIENIC CARE 02/07/17 00:15 Propofol (Diprivan 1000 Mg/100ml Inj) 100 ml @ 0 mls/hr TITRATE IV 02/07/17 00:15 02/07/17 03:00 Protein (Beneprotein Powder) 2 pack TID G-TUBE 02/07/17 09:00 Alprazolam (Xanax) 1 mg BID PO 02/07/17 09:00 Aspirin (Ecotrin Ec) 81 mg DAILY PO 02/07/17 09:00 Atorvastatin Calcium (Lipitor) 10 mg HS PO 02/07/17 21:00 Bethanechol Chloride (Urecholine) 25 mg Q8HR PO 02/07/17 06:00 Clopidogrel Bisulfate (Plavix) 75 mg DAILY PO 02/07/17 09:00 Enalapril Maleate (Vasotec) 5 mg DAILY PO 02/07/17 09:00 Insulin Detemir (Levemir Inj) 12 units HS SQ 02/07/17 21:00 Insulin Detemir (Levemir Inj) 35 units DAILY SQ 02/07/17 09:00 Lactobacillus Acidophilus (Lactinex) 1 tab TID PO 02/07/17 09:00 Oxycodone/ Acetaminophen 1 tab 1 tab Q6H PRN PO PAIN 02/07/17 00:30 Fentanyl Citrate (fentaNYL DRIP) 250 ml @ 0 mls/hr TITRATE IV 02/07/17 03:15 02/07/17 03:15 Family History Positive for diabetes and coronary artery disease Social History Denies smoking alcohol or illicit drug abuse Physical Exam Vital Signs Vital Signs Date Time Temp Pulse Resp B/P Pulse Ox O2 Delivery O2 Flow Rate FiO2 02/07/17 00:15 91 14 108/64 100 Ventilator 100 02/06/17 22:43 100 26 93/54 100 Ventilator 100 02/06/17 22:21 108 24 127/65 100 Ventilator 100 02/06/17 22:09 111 28 100 Ventilator 100 02/06/17 22:08 111 24 103/58 100 Ventilator 100 02/06/17 22:04 100 02/06/17 22:04 100 Ventilator 02/06/17 21:59 107 28 120/67 96 Ventilator 02/06/17 21:49 99.6 120 35 164/86 98 Physical Exam GENERAL: Elderly looking woman sedated and intubated. SKIN: Warm and dry. HEAD: Normocephalic. EYES: No scleral icterus. No injection or drainage. NECK: Supple, trachea midline. No JVD or lymphadenopathy. CARDIOVASCULAR: Regular rate and rhythm without murmurs, gallops, or rubs. RESPIRATORY: Breath sounds equal bilaterally. No accessory muscle use. GASTROINTESTINAL: Abdomen soft, non-tender, nondistended. MUSCULOSKELETAL: No cyanosis, or edema. BACK: Nontender without obvious deformity. No CVA tenderness. Laboratory Laboratory Tests Test 02/06/17 02/06/17 22:00 22:45 White Blood Count 8.4 Red Blood Count 3.37 Hemoglobin 9.2 Hematocrit 28.8 Mean Corpuscular Volume 85.4 Mean Corpuscular Hemoglobin 27.2 Mean Corpuscular Hemoglobin 31.8 Concent Red Cell Distribution Width 15.6 Platelet Count 624 Mean Platelet Volume 7.8 Neutrophils (%) (Auto) 53.5 Lymphocytes (%) (Auto) 35.5 Monocytes (%) (Auto) 7.9 Eosinophils (%) (Auto) 2.2 Basophils (%) (Auto) 0.9 Neutrophils # (Auto) 4.5 Lymphocytes # (Auto) 3.0 Monocytes # (Auto) 0.7 Eosinophils # (Auto) 0.2 Basophils # (Auto) 0.1 CBC Comment DIFF FINAL Differential Comment Prothrombin Time 11.4 Prothromb Time International 1.0 Ratio Activated Partial 25.7 Thromboplast Time D-Dimer Quantitative (PE/DVT) 5.62 Urine Color YELLOW Urine Turbidity CLEAR Urine pH 7.0 Urine Specific [place] 1.010 Urine Protein TRACE Urine Glucose (UA) NEG Urine Ketones NEG Urine Occult Blood NEG Urine Nitrite NEG Urine Bilirubin NEG Urine Urobilinogen LESS THAN 2.0 Urine Leukocyte Esterase MOD Urine RBC 2 Urine WBC 26 Urine Squamous Epithelial <1 Cells Urine Mucus FEW Microscopic Urinalysis Comment CULTURE INDICATED Sodium Level 142 Potassium Level 3.8 Chloride Level 108 Carbon Dioxide Level 23.6 Anion Gap 10 Blood Urea Nitrogen 6 Creatinine 0.89 Estimat Glomerular Filtration 77 Rate Random Glucose 282 Calcium Level 8.7 Magnesium Level 1.6 Total Bilirubin 0.2 Aspartate Amino Transf 20 (AST/SGOT) Alanine Aminotransferase 13 (ALT/SGPT) Alkaline Phosphatase 235 Total Creatine Kinase 84 Troponin I 0.16 Total Protein 6.9 Albumin 2.1 Lactic Acid Level 2.9 Blood Gas Puncture Site LT RADIAL Blood Gas Patient Temperature 98.6 Blood Gas HCO3 23 Blood Gas Base Excess -1.6 Blood Gas Oxygen Saturation 98 Arterial Blood pH 7.34 Arterial Blood Partial 44 Pressure CO2 Arterial Blood Partial 325 Pressure O2 Arterial Blood Oxygen Content 12.1 Arterial Blood 1.3 Carboxyhemoglobin Arterial Blood Methemoglobin 0.7 Blood Gas Hemoglobin 8.2 Oxygen Delivery Device VENTILATOR Blood Gas Ventilator Setting 14/500/5PEEP Blood Gas Inspired Oxygen 100 Date/Time Procedure Status Source Growth 02/06/17 22:00 Urine Culture Received Urine Random Urine Pending 02/06/17 22:00 Aerobic Blood Culture Received Blood Peripheral Pending 02/06/17 22:00 Anaerobic Blood Culture Received Blood Peripheral Pending Result Diagram: 02/06/17 2200 02/06/172199 Imaging Last 24 hours Impressions Chest X-Ray 02/06/172156 Signed Impressions: Service Date/Time: Monday, February 06, 2017 22:24 - CONCLUSION: Radiographic pattern most consistent with pulmonary edema. Ruel Saeed Jr., MD Assessment and Plan Assessment and Plan Respiratory failure - Pulmonary edema - Acute on chronic congestive heart failure - Diuresis - Treat blood pressure control - Repeat CXR and ABG in a.m. Acute on chronic congestive heart failure - Repeat echo - Last echo done 2013 with EF 55% - Already LVH pattern - Possible diastolic dysfunction - We'll treat her blood pressure Diabetes - Lantus per home dosing - Insulin sliding scale Coronary artery disease - Aspirin - Probably - Vasotec - Atorvastatin DVT GI prophylaxis - Lovenox - Pepcid Critical Care: The total critical care time was 35 minutes. Time to perform other separately billable procedures was not included in the critical care time. Tim Palma MD Feb 07, 2017 00:24
[2017-02-07] MEDS ORDERED: ALBUMIN HUMAN 25% 25 GM/100 ML BAGP IV ONE (01:15)
[2017-02-07] MEDS: MIDAZOLAM HCL 2 MG/2 ML VIAL IV PRN ×2 (01:25→03:06)
[2017-02-07] MEDS: DOCUSATE SODIUM 100 MG CAP G-TUBE SCH ×2 (02:19→14:00)
[2017-02-07] MEDS ORDERED: fentaNYL DRIP 250 ML ONE (02:19)
[2017-02-07] MEDS: HEPARIN SODIUM - SQ 10,000 UNITS/ML VIAL SQ SCH ×2 (03:07→14:20)
[2017-02-07] MEDS ORDERED: fentaNYL 2,500 MCG/NS 250 ML IV SCH (03:15)
[2017-02-07 03:22] LABS: BLOOD GAS CARBOXYHEMOGLOBIN 1.5 % (0-4); BLOOD GAS HCO3 25 mmol/L (22-26); BLOOD GAS METHEMOGLOBIN 0.5 % (0-2); BLOOD GAS O2 HGB SATURATION 77 % (90-100); BLOOD GAS PCO2 41 mmHg (38-42); BLOOD GAS PO2 46 mmHG (61-120); BLOOD GAS TOTAL HGB 7.3 G/DL (12.0-16.0); TEMP CORR TO 98.6
[2017-02-07 03:23] LABS: CRITICAL VALUE YES; OXYGEN DEVICE VENTILATOR
[2017-02-07 03:24] LABS: DRAW SITE RT RADIAL; FIO2 50 %; NUMBER OF ARTERIAL PUNCTURES 1; STAT NO; ULNAR PULSE PRESENT; VENT SETTINGS 14 500 5PEEP
[2017-02-07] MEDS: CHLORHEXIDINE GLUCONATE 2 % 1 PACK (2 CLOTHS) TOP SCH (03:59)
[2017-02-07] MEDS: BETHANECHOL CHL 25 MG TAB PO SCH ×3 (06:32→20:49)
[2017-02-07] MEDS ORDERED: WHEEMIS3 (08:52)
[2017-02-07] MEDS ORDERED: ALPRAZolam 1 MG TAB PO SCH (09:00)
[2017-02-07] MEDS ORDERED: SODIUM CHLORIDE 0.9% FLUSH 10 ML FLUSH SCH (09:00)
--- NOTE | 2017-02-07 09:15 | EKG ---
Date Performed: 02/06/2017 Time Performed: 22:12:14 PTAGE: 66 years EKG: SINUS TACHYCARDIA POSSIBLE LEFT ATRIAL ENLARGEMENT ST DEVIATION AND MODERATE T-WAVE ABNORMA LITY, CONSIDER ANTERIOR ISCHEMIA ABNORMAL ECG PREVIOUS TRACING : 02/06/2017 21.56 DOCTOR: Dung Clemons Interpretating Date/Time 02/07/2017 09:13:43
--- NOTE | 2017-02-07 09:16 | EKG ---
Date Performed: 02/06/2017 Time Performed: 21:56:13 PTAGE: 66 years EKG: SINUS TACHYCARDIA SEPTAL MYOCARDIAL INFARCTION nonspecific ST/T wave abnormality PREVIOUS TRACING : 02/02/2017 10.39 DOCTOR: Dung Clemons Interpretating Date/Time 02/07/2017 09:14:31
--- NOTE | 2017-02-07 10:34 | EC ---
Study Study Date:02/07/2017 STUDY CONCLUSIONS SUMMARY - Procedure narrative: Transthoracic echocardiography. Image quality was adequate. Scanning was performed from the parasternal, apical, and subcostal acoustic windows. - Left ventricle: The cavity size was normal. Wall thickness was increased in a pattern of mild LVH. Systolic function was low normal. The estimated ejection fraction was 50%. Akinesis of the mid to basal inferior wall. - Aortic valve: Moderate leaflet sclerosis. Mild regurgitation. Mean gradient: 5mm Hg (S). - Mitral valve: Moderately calcified annulus. Mildly thickened leaflets, . Moderate regurgitation. - Tricuspid valve: Mild regurgitation. - Pulmonary arteries: PA peak pressure: 32mm Hg (S). - Pericardium, extracardiac: There was a left pleural effusion. If LV function is below 40, please consider prescribing an ACEI or ARB or document rationale for non-use. PROCEDURE DATA STUDY STATUS: Elective. Procedure: Transthoracic echocardiography. Image quality was adequate. Scanning was performed from the parasternal, apical, and subcostal acoustic windows. Study completion: The patient tolerated the procedure well. Transthoracic echocardiography. M-mode, complete 2D, complete spectral Doppler, and color Doppler. Height: Height: 66in. Weight: Weight: 153.7lb. Body mass index: BMI: 24.9kg/m^2. Body surface area: BSA: 1.79m^2. Patient status: Inpatient. CARDIAC ANATOMY LEFT VENTRICLE: The cavity size was normal. Wall thickness was increased in a pattern of mild LVH. Systolic function was low normal. The estimated ejection fraction was 50%. Akinesis of the mid to basal inferior wall. AORTIC VALVE: Moderate leaflet sclerosis. Doppler: Transvalvular velocity was within the normal range. There was no stenosis. Mild regurgitation. Valve area: 1.17cm^2(VTI). Indexed valve area: 0.65cm^2/m^2 (VTI). Valve area: 1.17cm^2 (Vmax). Indexed valve area: 0.65cm^2/m^2 (Vmax). Mean gradient: 5mm Hg (S). Peak gradient: 11mm Hg (S). AORTA: Aortic root: The aortic root was normal in size. MITRAL VALVE: Moderately calcified annulus. Mildly thickened leaflets, . Doppler: Transvalvular velocity was within the normal range. There was no evidence for stenosis. Moderate regurgitation. Valve area by pressure half-time: 3.38cm^2. Indexed valve area by pressure half-time: 1.89cm^2/m^2. Valve area by continuity equation (using LVOT flow): 0.67cm^2. Indexed valve area by continuity equation (using LVOT flow): 0.37cm^2/m^2. Mean gradient: 6mm Hg (D). Peak gradient: 16mm Hg (D). LEFT ATRIUM: The atrium was normal in size. RIGHT VENTRICLE: The cavity size was normal. Wall thickness was normal. PULMONIC VALVE: Doppler: Transvalvular velocity was within the normal range. There was no evidence for stenosis. No regurgitation. TRICUSPID VALVE: Structurally normal valve. Doppler: Transvalvular velocity was within the normal range. Mild regurgitation. Peak gradient: 32mm Hg (D). PULMONARY ARTERY: The main pulmonary artery was normal-sized. Systolic pressure was within the normal range. RIGHT ATRIUM: The atrium was normal in size. PERICARDIUM: There was no pericardial effusion. SYSTEMIC VEINS: Inferior vena cava: The vessel was normal in size. Pleura: There was a left pleural effusion. Patient weight: 153.7lb _Ejection fraction:_ 65-75% _Fractional shortening:_ 32% up to 5Kg 5-11.5Kg 11.6-22.9Kg 23-45Kg 45-57Kg Aortic Root 7-13 <17 13-22 17-27 17-27 LA diam 6-13 <23 24-38 33-47 37-40 RVID 10-17 7-15 7-15 7-18 8-17 LVIDd 12-22 <32 24-38 33-47 37-40 LVPW 2-4 3-6 5-7 6-8 7-8 IVS 2-4 3-6 5-7 6-8 7-8 BASIC MEASUREMENTS ADULT NORMAL Left ventricle LV internal dimension, ED, chordal *40 mm 43-52 level, PLAX LV internal dimension, ES, chordal *38.1 mm 23-38 level, PLAX Fractional shortening, chordal level, *5 % >29 PLAX LV posterior wall thickness, ED 13.3 mm IVS/LVPW ratio, ED 1.01 <1.3 Volume, ED, MOD, 1-plane 74 ml Volume, ES, MOD, 1-plane 54 ml Ejection fraction, MOD, 1-plane 27 % Stroke volume, MOD, 1-plane 20 ml Volume index, ED, MOD, 1-plane 41 ml/m^2 Volume index, ES, MOD, 1-plane 30 ml/m^2 Stroke index, MOD, 1-plane 11.2 ml/m^2 Ventricular septum Septal thickness, ED 13.4 mm Aortic valve Leaflet separation *13 mm 15-26 Left atrium Anterior-posterior dimension 39 mm Anterior-posterior dimension index 2.18 cm/m^2 <2.2 Right ventricle RV internal dimension, ED, PLAX 32.8 mm 19-38 BASIC MEASUREMENTS ADULT NORMAL Aortic valve Leaflet separation *13 mm 15-26 Aorta Root diameter, ED 28 mm 20-37 DOPPLER MEASUREMENTS ADULT NORMAL Main pulmonary artery Pressure, S *32 mm Hg =30 Aortic valve Peak velocity, S 163 cm/s Mean velocity, S 102 cm/s VTI, S 53.3 cm Mean gradient, S 5 mm Hg Peak gradient, S 11 mm Hg Valve area, VTI 1.17 cm^2 Valve area index, VTI 0.65 cm^2/m^2 Valve area, Vmax 1.17 cm^2 Valve area index, Vmax 0.65 cm^2/m^2 Regurgitant velocity, ED 385 cm/s Regurgitant deceleration 3370 cm/s^2 Regurgitant pressure half-time 335 ms Regurgitant gradient, ED 59 mm Hg Mitral valve Peak E-wave velocity 173 cm/s Peak A-wave velocity 141 cm/s Mean velocity, D 114 cm/s Pressure half-time 65 ms Mean gradient, D 6 mm Hg Peak gradient, D 16 mm Hg Peak E/A ratio 1.2 Valve area, pressure half-time 3.38 cm^2 Valve area index, pressure half-time 1.89 cm^2/m^2 Valve area, LVOT continuity 0.67 cm^2 Valve area index, LVOT continuity 0.37 cm^2/m^2 Tricuspid valve Peak gradient, D 32 mm Hg Maximal inflow velocity 285 cm/s Regurgitant peak velocity 248 cm/s Peak RV-RA gradient, S 25 mm Hg Systemic veins Estimated CVP 10 mm Hg Right ventricle RV pressure, S *35 mm Hg <30 Pulmonic valve Peak velocity, S 80.1 cm/s LEGEND: Mean values are shown as u=mean value. Asterisk (*) zhong values outside specified normal range. Prepared and signed by Frankie Martinez [id number]
[2017-02-07] MEDS: ARTIFICIAL TEARS OPTH SOLN 15 ML BTL EACH EYE SCH ×3 (10:41→17:42)
[2017-02-07] MEDS: FAMOTIDINE 20 MG/2 ML VIAL IV PUSH SCH ×2 (10:43→20:49)
[2017-02-07] MEDS: SODIUM CHLORIDE 0.9% FLUSH 10 ML FLUSH IV FLUSH SCH ×2 (10:43→20:50)
[2017-02-07] MEDS: BENEPROTEIN POWDER 1 PACK G-TUBE SCH ×3 (10:43→17:42)
[2017-02-07] MEDS: ASPIRIN EC 81 MG TABEC PO SCH (10:44)
[2017-02-07] MEDS: FUROSEMIDE 40 MG/4 ML VIAL IVP SCH ×2 (10:44→17:42)
[2017-02-07] MEDS: LACTOBACILLUS ACIDOPHILUS TAB PO SCH ×3 (10:44→17:43)
[2017-02-07] MEDS: INSULIN DETEMIR 100 UNITS/ML VIAL SQ SCH ×2 (10:45→20:49)
[2017-02-07] MEDS: CLOPIDOGREL 75 MG TAB PO SCH (10:45)
[2017-02-07] MEDS: ENALAPRIL MALEATE 5 MG TAB PO SCH (10:45)
[2017-02-07] MEDS ORDERED: FUROSEMIDE 40 MG/4 ML VIAL IV PUSH ONE (11:00)
[2017-02-07] MEDS ORDERED: HALOPERIDOL LACTATE 5 MG/ML AMP IV PRN (13:00)
[2017-02-07] MEDS: OLANZapine ODT 5 MG TAB PO SCH ×2 (14:00→20:49)
[2017-02-07] MEDS: ATORVASTATIN 10 MG TAB PO SCH (20:49)
[2017-02-08] VITALS (11 sets, daily range): BP systolic 117–154; BP diastolic 60–79; PULSE 78–106; RESP 14–24; TEMP 97.8–99.4; O2SAT 92–100
[2017-02-08] MEDS ORDERED: DEXTROSE 50% IN WATER 50 ML VIAL(D50) IV PUSH ONE (01:50)
[2017-02-08] MEDS: DOCUSATE SODIUM 100 MG CAP G-TUBE SCH ×2 (02:00→15:08)
[2017-02-08] MEDS: HEPARIN SODIUM - SQ 10,000 UNITS/ML VIAL SQ SCH ×2 (02:12→15:09)
[2017-02-08] MEDS: CHLORHEXIDINE GLUCONATE 2 % 1 PACK (2 CLOTHS) TOP SCH (04:00)
[2017-02-08 05:11] LABS: AUTOMATED NEUTROPHIL # 2.8 TH/MM3 (1.8-7.7); BASOPHIL % 1.1 % (0.0-2.0); EOSINOPHIL # 0.2 TH/MM3 (0-0.4); EOSINOPHIL % 3.3 % (0.0-4.0); HEMATOCRIT 23.6 % (35.0-46.0); HEMO FLAGS DIFF FINAL; LYMPH % 25.7 % (9.0-44.0); LYMPHOCYTE # 1.2 TH/MM3 (1.0-4.8); MEAN CELL VOLUME 82.5 FL (80.0-100.0); MEAN CORPUSCULAR HEMOGLOBIN 27.8 PG (27.0-34.0); MEAN CORPUSCULAR HGB CONC 33.8 % (32.0-36.0); MONO % 8.4 % (0.0-8.0); NEUT % 61.5 % (16.0-70.0); PLATELET COUNT 416 TH/MM3 (150-450); RED BLOOD COUNT 2.86 MIL/MM3 (4.00-5.30); RED CELL DISTRIBUTION WIDTH 15.6 % (11.6-17.2); WHITE BLOOD COUNT 4.5 TH/MM3 (4.0-11.0)
[2017-02-08 05:16] LABS: PROTHROMBIN TIME - PATIENT 11.4 SEC (9.8-11.6)
[2017-02-08 05:42] LABS: ALKALINE PHOSPHATASE 171 U/L (45-117); ALT (GPT) 12 U/L (10-53); ANION GAP 7 MEQ/L (5-15); AST (GOT) 19 U/L (15-37); BLOOD UREA NITROGEN 5 MG/DL (7-18); CHLORIDE 110 MEQ/L (98-107); GLOMERULAR FILTRATION RATE 128 ML/MIN (>89); MAGNESIUM 1.7 MG/DL (1.5-2.5); POTASSIUM 3.4 MEQ/L (3.5-5.1); SODIUM (NA) 145 MEQ/L (136-145); TOTAL BILIRUBIN ADULT 0.3 MG/DL (0.2-1.0)
[2017-02-08] MEDS: BETHANECHOL CHL 25 MG TAB PO SCH ×3 (06:30→20:23)
[2017-02-08] MEDS: OLANZapine ODT 5 MG TAB PO SCH ×3 (06:30→20:24)
[2017-02-08] MEDS: BENEPROTEIN POWDER 1 PACK G-TUBE SCH ×3 (09:00→18:00)
[2017-02-08] MEDS: ARTIFICIAL TEARS OPTH SOLN 15 ML BTL EACH EYE SCH ×3 (09:00→18:21)
[2017-02-08] MEDS: INSULIN DETEMIR 100 UNITS/ML VIAL SQ SCH ×2 (09:00→20:21)
[2017-02-08] MEDS: FAMOTIDINE 20 MG/2 ML VIAL IV PUSH SCH ×2 (10:20→20:22)
[2017-02-08] MEDS: FUROSEMIDE 40 MG/4 ML VIAL IVP SCH ×2 (10:20→18:05)
[2017-02-08] MEDS: ASPIRIN EC 81 MG TABEC PO SCH (10:21)
[2017-02-08] MEDS: LACTOBACILLUS ACIDOPHILUS TAB PO SCH ×3 (10:21→18:06)
[2017-02-08] MEDS: CLOPIDOGREL 75 MG TAB PO SCH (10:21)
[2017-02-08] MEDS: ENALAPRIL MALEATE 5 MG TAB PO SCH (10:21)
[2017-02-08] MEDS: SODIUM CHLORIDE 0.9% FLUSH 10 ML FLUSH IV FLUSH SCH ×2 (10:22→20:23)
[2017-02-08] MEDS: oxyCODONE/ACETAMINOPHEN 10 MG/325 MG TAB PO PRN (14:00)
--- NOTE | 2017-02-08 14:43 | HHI.PR ---
Subjective Remarks Follow-up shortness of breathing. Patient stated her shortness breathing has improved. Denies any cough. Patient has no complaints. Objective Vitals Vital Signs Date Time Temp Pulse Resp B/P Pulse Ox O2 Delivery O2 Flow Rate FiO2 02/08/17 14:32 99.3 99 16 122/62 95 02/08/17 14:32 97 Nasal Cannula 1.00 02/08/17 12:00 99.4 106 24 154/67 94 02/08/17 12:00 106 02/08/17 10:00 84 02/08/17 08:00 98.9 81 18 117/60 97 02/08/17 08:00 78 02/08/17 06:00 81 02/08/17 04:00 78 02/08/17 04:00 97.8 78 18 127/65 100 02/08/17 02:00 78 02/08/17 01:24 95 Nasal Cannula 2.00 02/08/17 00:00 89 02/08/17 00:00 98.5 89 24 125/61 93 02/07/17 22:00 86 02/07/17 20:57 98 Nasal Cannula 2.00 02/07/17 20:00 91 02/07/17 20:00 99.0 91 24 134/75 98 02/07/17 18:00 93 02/07/17 16:00 87 02/07/17 16:00 98.2 87 30 115/65 99 I/O 02/07/17 02/07/17 02/07/17 02/08/17 02/08/17 02/08/17 07:00 15:00 23:00 07:00 15:00 23:00 Intake Total 128 ml 100 ml 240 ml Output Total 450 ml 2250 ml 1600 ml 200 ml Balance -322 ml -2150 ml -1360 ml -200 ml Intake Oral 240 ml IV Total 128 ml 100 ml Output Urine Total 450 ml 2250 ml 1600 ml 200 ml # Bowel Movements 1 0 Result Diagram: 02/08/1743602/08/17436 Objective Remarks GENERAL: In no acute distress SKIN: Warm and dry. HEAD: Normocephalic. EYES: No scleral icterus. No injection or drainage. NECK: Supple, trachea midline. No JVD or lymphadenopathy. CARDIOVASCULAR: Regular rate and rhythm without murmurs, gallops, or rubs. RESPIRATORY: Breath sounds equal bilaterally. No accessory muscle use. GASTROINTESTINAL: Abdomen soft, non-tender, nondistended. MUSCULOSKELETAL: Right foot shows midfoot amputation. Wound is dry clean and intact showing pink coloration. BACK: Nontender without obvious deformity. No CVA tenderness. Medications and IVs Current Medications Propofol (Diprivan 1000 Mg/100ml Inj) 100 ml @ 0 mls/hr TITRATE IV Last administered on 02/06/17 22:42; Start 02/06/17 at 22:00; Stop 02/07/17 at 00:56; Status DC Aspirin (Aspirin Supp) 300 mg ONCE ONCE RECTAL Last administered on 02/06/17 23:02; Start 02/06/17 at 22:30; Stop 02/06/17 at 22:31; Status DC Nitroglycerin (Nitroglycerin 2% Oint) 1 inch ONCE ONCE TOPICAL Last administered on 02/06/17 23:02; Start 02/06/17 at 23:00; Stop 02/06/17 at 23:01; Status DC Sodium Chloride (NS Flush) 2 ml BID IV FLUSH Last administered on 02/08/17 10: 22; Start 02/07/17 at 09:00 Sodium Chloride (NS Flush) 2 ml UNSCH PRN IV FLUSH FLUSH AFTER USING IV ACCESS ; Start 02/07/17 at 00:15 Furosemide (Lasix Inj) 40 mg BID@09,18 IVP Last administered on 02/08/17 10:20 ; Start 02/07/17 at 09:00 Heparin Sodium (Porcine) (Heparin Inj) 5,000 units Q12H SQ Last administered on 02/08/17 02:12; Start 02/07/17 at 02:00 Sodium Chloride (NS Flush) 2 ml UNSCH PRN .XX FLUSH AFTER USING IV ACCESS; Start 02/07/17 at 00:15; Stop 02/07/17 at 00:58; Status DC Sodium Chloride (NS Flush) 2 ml BID .XX ; Start 02/07/17 at 09:00; Stop 02/07/17 at 09:00; Status DC Acetaminophen (Tylenol) 650 mg Q6H PRN PO PAIN 1-10 AND/OR FEVER >101F Last administered on 02/07/17 03:07; Start 02/07/17 at 00:15 Morphine Sulfate (Morphine Inj) 2 mg Q2H PRN IV PAIN SCALE 6 TO 10; Start at 00:15 Famotidine (Pepcid Inj) 20 mg Q12HR IV PUSH Last administered on 02/08/17 10:20 ; Start 02/07/17 at 09:00 Midazolam HCl (Versed Inj) 2 mg Q1H PRN IV SEDATION Last administered on 03:06; Start 02/07/17 at 00:15; Stop 02/07/17 at 12:53; Status DC Artificial Tears (Tears Naturale Opth Soln) 1 drop TID EACH EYE Last administered on 02/07/17 10:41; Start 02/07/17 at 09:00 Ondansetron HCl (Zofran Inj) 4 mg Q6H PRN IV NAUSEA OR VOMITING; Start 02/07/17 at 00:15 Metoclopramide HCl (Reglan Inj) 10 mg Q6H PRN IV NAUSEA OR VOMITING; Start 02/07 at 00:15 Docusate Sodium (Colace) 100 mg Q12H G-TUBE Last administered on 02/07/17 02:19 ; Start 02/07/17 at 02:00 Albuterol/ Ipratropium (Duoneb Neb) 1 ampule Q2HR NEB PRN INH WHEEZING; Start 02/07/17 at 00:15 Miscellaneous Information 1 Q361D XX ; Start 02/07/17 at 00:15 Chlorhexidine Gluconate (Chlorhexidine 2% Cloth) 3 pack Taper DAILY@04 TOP Last administered on 02/08/17 04:00; Start 02/07/17 at 04:00; Stop 02/03/18 at 03: 59 Chlorhexidine Gluconate 3 pack 3 pack UNSCH PRN TOP HYGIENIC CARE; Start at 00:15 Propofol (Diprivan 1000 Mg/100ml Inj) 100 ml @ 0 mls/hr TITRATE IV Last administered on 02/07/17 03:00; Start 02/07/17 at 00:15; Stop 02/07/17 at 12:53; Status DC Protein (Beneprotein Powder) 2 pack TID G-TUBE Last administered on 02/07/17 10 :43; Start 02/07/17 at 09:00 Alprazolam (Xanax) 1 mg BID PO ; Start 02/07/17 at 09:00; Stop 02/07/17 at 10:40; Status DC Aspirin (Ecotrin Ec) 81 mg DAILY PO Last administered on 02/08/17 10:21; Start 02/07/17 at 09:00 Atorvastatin Calcium (Lipitor) 10 mg HS PO Last administered on 02/07/17 20:49 ; Start 02/07/17 at 21:00 Bethanechol Chloride (Urecholine) 25 mg Q8HR PO Last administered on 02/08/17 06:30; Start 02/07/17 at 06:00 Clopidogrel Bisulfate (Plavix) 75 mg DAILY PO Last administered on 02/08/17 10: 21; Start 02/07/17 at 09:00 Enalapril Maleate (Vasotec) 5 mg DAILY PO Last administered on 02/08/17 10:21; Start 02/07/17 at 09:00 Insulin Detemir (Levemir Inj) 12 units HS SQ ; Start 02/07/17 at 21:00 Insulin Detemir (Levemir Inj) 35 units DAILY SQ Last administered on 02/07/17 10:45; Start 02/07/17 at 09:00 Lactobacillus Acidophilus (Lactinex) 1 tab TID PO Last administered on 10:21; Start 02/07/17 at 09:00 Oxycodone/ Acetaminophen (Percocet 10-325 Mg) 1 tab Q6H PRN PO PAIN Last administered on 02/08/17 14:00; Start 02/07/17 at 00:30 Albumin Human 25 gm 25 gm ONCE ONCE IV Last administered on 02/07/17 02:19; Start 02/07/17 at 01:15; Stop 02/07/17 at 01:16; Status DC Fentanyl Citrate 250 ml @ As Directed STK-MED ONCE .ROUTE ; Start 02/07/17 at 02 :19; Stop 02/07/17 at 02:20; Status DC Fentanyl Citrate (fentaNYL DRIP) 250 ml @ 0 mls/hr TITRATE IV Last administered on 02/07/17 03:15; Start 02/07/17 at 03:15; Stop 02/07/17 at 12:53; Status DC Furosemide (Lasix Inj) 40 mg ONCE ONCE IV PUSH Last administered on 02/07/17 11:45; Start 02/07/17 at 11:00; Stop 02/07/17 at 11:01; Status DC Haloperidol Lactate (Haldol Inj) 5 mg Q4H PRN IV agitation Last administered on 02/07/17 13:50; Start 02/07/17 at 13:00 Olanzapine (ZyPREXA ZYDIS ODT) 5 mg Q8HR PO Last administered on 02/08/17 06:30 ; Start 02/07/17 at 14:00 Dextrose 50 ml 50 ml NOW ONCE IV PUSH Last administered on 02/08/17 02:08; Start 02/08/17 at 01:50; Stop 02/08/17 at 02:00; Status DC Ceftriaxone Sodium/Sodium Chloride (Rocephin Inj/NS Inj) 100 ml @ 200 mls/hr Q24H IV ; Start 02/08/17 at 14:00 A/P Assessment and Plan Respiratory failure secondary to pulmonary edema. -Chest x-ray suggests pulmonary edema. - Improving continue with Lasix IV. Acute on chronic congestive heart failure - Last echo done 2013 with EF 55% -Repeat echo done on 02/07/17 showed mild LVH, EF 50%, akinesis mid to basal inferior wall. -Continue Lasix. Diabetes - Lantus per home dosing - Insulin sliding scale Coronary artery disease - Patient on Aspirin, Plavix, Atorvastatin, and enalapril. Osteomyelitis of the right foot -Status post right midfoot amputation and wound VAC placement on 01/28/17. -Wound care is following. -will continue her Rocephin in which infectious disease said to continue to . Elevated troponins -During patient's last admission it was said to be due to CHF exacerbation. -Troponins actually trending down compared to levels on her previous admission. Urinary retention -per Olaf young to place Chavira cath and follow in his office. Peripheral arterial Disease. -s/p aortogram w/ R LE Angiogram, and R SFA PLEATER. Finding included patent B iliac stents and Occluded R SFA - recanalized and PLEATER with excellent result and 2 vessel runoff to foot (PT/peroneal). -On aspirin and Plavix. DVT GI prophylaxis - Lovenox - Pepcid Diamond Arboledauy MD Feb 08, 2017 14:43
[2017-02-08] MEDS: cefTRIAXone INJ 1,000 MG in SODIUM CHLORIDE 0.9% INJ 100 ML IV SCH (15:08)
[2017-02-08] MEDS: ATORVASTATIN 10 MG TAB PO SCH (20:22)
[2017-02-09] VITALS (8 sets, daily range): BP systolic 122–155; BP diastolic 77–90; PULSE 98–109; RESP 14–18; TEMP 98.4–99.6; O2SAT 95–99
[2017-02-09] MEDS: DOCUSATE SODIUM 100 MG CAP G-TUBE SCH ×2 (01:33→12:52)
[2017-02-09] MEDS: HEPARIN SODIUM - SQ 10,000 UNITS/ML VIAL SQ SCH ×2 (01:33→12:52)
[2017-02-09] MEDS: oxyCODONE/ACETAMINOPHEN 10 MG/325 MG TAB PO PRN ×2 (01:35→12:51)
[2017-02-09] MEDS: BETHANECHOL CHL 25 MG TAB PO SCH ×2 (03:57→12:52)
[2017-02-09] MEDS: OLANZapine ODT 5 MG TAB PO SCH ×2 (03:57→12:52)
[2017-02-09 07:00] LABS: HEMATOCRIT 26.8 % (35.0-46.0); MEAN CELL VOLUME 82.4 FL (80.0-100.0); MEAN CORPUSCULAR HEMOGLOBIN 27.7 PG (27.0-34.0); MEAN CORPUSCULAR HGB CONC 33.6 % (32.0-36.0); PLATELET COUNT 438 TH/MM3 (150-450); RED BLOOD COUNT 3.26 MIL/MM3 (4.00-5.30); RED CELL DISTRIBUTION WIDTH 15.6 % (11.6-17.2); REVIEW FLAG FINAL; WHITE BLOOD COUNT 5.1 TH/MM3 (4.0-11.0)
[2017-02-09 07:18] LABS: BICARBONATE 28.8 MEQ/L (21.0-32.0); MAGNESIUM 1.9 MG/DL (1.5-2.5)
[2017-02-09] MEDS: ENALAPRIL MALEATE 5 MG TAB PO SCH (08:51)
[2017-02-09] MEDS: LACTOBACILLUS ACIDOPHILUS TAB PO SCH ×2 (08:51→12:51)
[2017-02-09] MEDS: CLOPIDOGREL 75 MG TAB PO SCH (08:51)
[2017-02-09] MEDS: ASPIRIN EC 81 MG TABEC PO SCH (08:51)
[2017-02-09] MEDS: FUROSEMIDE 40 MG/4 ML VIAL IVP SCH ×2 (08:52→08:55)
[2017-02-09] MEDS: FAMOTIDINE 20 MG/2 ML VIAL IV PUSH SCH (08:52)
[2017-02-09] MEDS: ARTIFICIAL TEARS OPTH SOLN 15 ML BTL EACH EYE SCH ×2 (08:54→12:53)
[2017-02-09] MEDS: SODIUM CHLORIDE 0.9% FLUSH 10 ML FLUSH IV FLUSH SCH (08:54)
[2017-02-09] MEDS: INSULIN DETEMIR 100 UNITS/ML VIAL SQ SCH (08:55)
[2017-02-09] MEDS: cefTRIAXone INJ 1,000 MG in SODIUM CHLORIDE 0.9% INJ 100 ML IV SCH (12:51)
[2017-02-09] MEDS ORDERED: POTASSIUM CHLORIDE 10 MEQ CONTROLLED RELEASE TAB PO ONE (13:00)
[2017-02-09] MEDS ORDERED: GABAPENTIN 400 MG CAP PO SCH (13:00)
--- NOTE | 2017-02-09 14:45 | HHI.FF ---
cc: Nadja Mendenhall MD Infusion Therapy Location of Infusion Therapy: [facility] IV Infusion Order Patient Information Appointment Date: Feb 10, 2017 Patient Weight 69.8 kg Diagnosis: (1) GBS severe infection of right foot Coded Allergies: Contrast Media (Verified Allergy, Severe, 02/06/17) Sulfa (Verified Allergy, Unknown, 02/06/17) Penicillin (Verified Adverse Reaction, Severe, NAUSEA,DIZZINESS, 02/06/17) Administer Medication Ceftriaxone 2 grams IV q 24 hours Stop Treatment: Feb 24, 2017 Additional Information Venous access: PICC Line Additional Instructions [x] Peripheral flush and dressing changes per protocol [x] Implanted port and central online health and fitness coach: * Implanted port: 10 ml Normal Saline followed by 5 ml Heparin 100 units/ml Heparin flush after each use and monthly to maintain. [] May leave port accessed during therapy. [] May leave peripheral site accessed for duration of therapy. [x] If patient has SOB or respiratory distress, check oxygen saturation. If less than 90% or clinical signs of respiratory distress, administer oxygen at 2 L/min. via nasal cannula and notify physician. [x] Anaphylaxis/Reaction orders: * Stop infusion. * Keep IV line open with saline flush. * Notify physician. * Monitor vital signs every 15 minutes until symptoms resolve. * Check Oxygen saturation; Oxygen at 2 L/min. via nasal cannula if less than 90% or clinical signs of respiratory distress. * Administer diphenhydramine (Benadryl) 25 mg IV STAT, (unless patient has received as pre-med). May repeat once, if necessary. * Solu-Cortef 250 mg IVP over 30-60 seconds, use 100 mg vials for each dissolution. * Epinephrine (1mg/1 ml) 0.3 mg subcutaneously or IVP now with any signs of respiratory distress. * Check with physician for new additional pre-med orders if patient is re- challenged or re-treated. [x] May remove PICC line when treatment complete, after confirming with Physician. [x] If the patient is admitted to the hospital, the ED, or transferred via [facility] , complete transfer form including medication reconciliation order sheet. Laboratory Tests Weekly Labs: CBC w/diff, Creatinine, LFT's (Hepatic function test) Additional Information Labs every Sunday copy to Diamond Ogden MD Feb 09, 2017 14:45
--- NOTE | 2017-02-09 14:46 | HHI.FF ---
Face to Face Verification Diagnosis: (1) Congestive heart failure (2) GBS severe infection of right foot (3) Amputation at midfoot (4) Osteomyelitis of ankle or foot, right, acute (5) PAD (peripheral artery disease) (6) Acute exacerbation of congestive heart failure (7) DM (diabetes mellitus) (8) COPD (chronic obstructive pulmonary disease) (9) Urinary retention (10) Respiratory failure Physical Therapy Order: Evaluate and Treat, Improve ambulation, Strength and gait training Home Health Nursing Order: Medical education Signs/symptoms of disease process Diabetic education CHF education Medication education-adverse effect Wound care and dressing changes Nursing assessment with vital signs IV medication administration Chavira catheter maintenance I have seen patient Mayra LakeCatherine on 02/09/17. My clinical findings support the need for the requested home health care services because: Ltd mobility - disease progression Patient has SOB Deconditioned w/ increased weakness Limited ability to care for self High risk of falls Infection w/ risk of complications I certify that my clinical findings support that this patient is homebound because: Hx COPD- exertion dyspnea/weakness Unsteady gait/balance Poor cardiac reserve Diamond Arboleda MD Feb 09, 2017 14:46
[2017-02-09] MEDS ORDERED: POTA-163 PO (14:49)
[2017-02-09] MEDS ORDERED: FURO1TAB62 PO (14:49)
--- NOTE | 2017-02-09 17:01 | HHI.DS ---
Discharge Summary Admission Date Feb 07, 2017 at 00:10 Discharge Date: Feb 09, 2017 Admitting Diagnosis Respiratory Failure, CHF exacerbation (1) Acute exacerbation of congestive heart failure ICD Code: I50.9 Diagnosis: Principal (2) Respiratory distress ICD Code: R06.00 Diagnosis: Principal Procedures ECHO Brief History - From Admission 66 year old female presents with a history of recent forefoot amputation on the right side after having a diabetic ulcer infected. The patient was discharged from the hospital yesterday. While at home today she developed shortness of breath. Upon ambulance services arrival the patient was noted to have a respiratory rate in the 40s with increased work of breathing, O2 saturations on room air in the 80s. She was also hypertensive and was given nitroglycerin sublingual 2. The patient was briefly paced on CPAP however she continued to have shortness of breath and O2 saturations of 85%, therefore the patient was intubated with a 7-/2 endotracheal tube ED attending. CBC/BMP: 02/09/17 0545 02/09/17 0545 Significant Findings Laboratory Tests Test 02/06/17 02/06/17 02/07/17 02/07/17 22:00 22:45 01:55 03:10 Red Blood Count 3.37 MIL/MM3 (4.00-5.30) Hemoglobin 9.2 GM/DL (11.6-15.3) Hematocrit 28.8 % (35.0-46.0) Mean Corpuscular Hemoglobin 31.8 % Concent (32.0-36.0) Platelet Count 624 TH/MM3 (150-450) D-Dimer Quantitative (PE/DVT) 5.62 MG/L FEU (0.00-0.50) Urine Leukocyte Esterase MOD (NEG) Urine WBC 26 /hpf (0-5) Urine Mucus FEW /lpf (OCC) Chloride Level 108 MEQ/L (98-107) Blood Urea Nitrogen 6 MG/DL (7-18) Estimat Glomerular Filtration 77 ML/MIN (>89) Rate Random Glucose 282 MG/DL (74-106) Alkaline Phosphatase 235 U/L (45-117) Troponin I 0.16 NG/ML 0.17 NG/ML (0.02-0.05) (0.02-0.05) Albumin 2.1 GM/DL (3.4-5.0) Lactic Acid Level 2.9 mmol/L (0.4-2.0) B-Type Natriuretic Peptide 638 PG/ML (0-100) Arterial Blood pH 7.34 (7.380-7.420) Arterial Blood Partial 44 mmHg (38-42) Pressure CO2 Arterial Blood Partial 325 mmHG 46 mmHG Pressure O2 (61-120) (61-120) Blood Gas Hemoglobin 8.2 G/DL 7.3 G/DL (12.0-16.0) (12.0-16.0) Blood Gas Oxygen Saturation 77 % (90-100) Arterial Blood Oxygen Content 8.0 Vol % (12.0-20.0) Test 02/07/17 02/08/17 02/09/17 03:45 04:37 05:45 Troponin I 0.17 NG/ML (0.02-0.05) Red Blood Count 2.86 MIL/MM3 3.26 MIL/MM3 (4.00-5.30) (4.00-5.30) Hemoglobin 8.0 GM/DL 9.0 GM/DL (11.6-15.3) (11.6-15.3) Hematocrit 23.6 % 26.8 % (35.0-46.0) (35.0-46.0) Monocytes (%) (Auto) 8.4 % (0.0-8.0) Potassium Level 3.4 MEQ/L 3.0 MEQ/L (3.5-5.1) (3.5-5.1) Chloride Level 110 MEQ/L 108 MEQ/L (98-107) (98-107) Blood Urea Nitrogen 5 MG/DL (7-18) 5 MG/DL (7-18) Calcium Level 8.3 MG/DL (8.5-10.1) Alkaline Phosphatase 171 U/L (45-117) Total Protein 6.3 GM/DL (6.4-8.2) Albumin 2.2 GM/DL (3.4-5.0) Sodium Level 147 MEQ/L (136-145) Imaging Last Impressions Chest X-Ray 02/06/17 6041 Signed Impressions: Service Date/Time: Monday, February 06, 2017 22:24 - CONCLUSION: Radiographic pattern most consistent with pulmonary edema. Ruel Saeed Jr., MD PE at Discharge GENERAL: In no acute distress SKIN: Warm and dry. HEAD: Normocephalic. EYES: No scleral icterus. No injection or drainage. NECK: Supple, trachea midline. No JVD or lymphadenopathy. CARDIOVASCULAR: Regular rate and rhythm without murmurs, gallops, or rubs. RESPIRATORY: Breath sounds equal bilaterally. No accessory muscle use. GASTROINTESTINAL: Abdomen soft, non-tender, nondistended. MUSCULOSKELETAL: Right foot shows midfoot amputation. Wound is dry clean and intact showing pink coloration. BACK: Nontender without obvious deformity. No CVA tenderness. Pt update on day of discharge Follow up for shortness of breathing due to pulmonary edema. Patient denies any more shortness of breathing. She denies any cough. Patient stated that she wants to go home today. Patient stated that she will not go to any rehabilitation center. She is off oxygen and doing well. Patient is asking for wound care to return and to fix her wound VAC. Wound care return and stated that it was dressed properly. During patient's hospital admission her wound VAC currently she's got thrown away. Her nurse called the home wound care nurse and she stated that patient can have a wet-to-dry dressing and she will redo her wound VAC tomorrow. Hospital Course Respiratory failure secondary to pulmonary edema. -Patient was hypoxic and was intubated in emergency department. She was transferred to the ICU. -Chest x-ray suggests pulmonary edema. Patient was given IV Lasix with improvement so she was extubated successfully. -Patient was weaned off oxygen quickly. Acute on chronic congestive heart failure - Last echo done 2013 with EF 55% -Repeat echo done on 02/07/17 showed mild LVH, EF 50%, akinesis mid to basal inferior wall. -Continue Lasix. Patient home Lasix dose increased to 20 mg by mouth twice a day. Potassium also given since patient has been hypokalemic while on Lasix. Diabetes - Lantus per home dosing - Insulin sliding scale Coronary artery disease - Patient on Aspirin, Plavix, Atorvastatin, and enalapril. Osteomyelitis of the right foot -Status post right midfoot amputation and wound VAC placement on 01/28/17. -Patient recently was getting wound VAC basement on Sunday and Sunday. She had replaced yesterday. Her home health nurse will replace it tomorrow. [id number] place. -Also infusion was also placed. So continue Rocephin 2 g IV until 02/24/17. Elevated troponins -Patient was asymptomatic. -During patient's last admission it was said to be due to CHF exacerbation. -Troponins actually trending down compared to levels on her previous admission. -Continue with medical management. Urinary retention -per Olaf young to place Chavira cath and follow in his office. Peripheral arterial Disease. -s/p aortogram w/ R LE Angiogram, and R SFA NEWSPAPER MANAGING EDITOR. Finding included patent B iliac stents and Occluded R SFA - recanalized and NEWSPAPER MANAGING EDITOR with excellent result and 2 vessel runoff to foot (PT/peroneal). -On aspirin and Plavix. Pt Condition on Discharge: Stable Discharge Disposition: Disch w/ Home Health Serv Discharge Time: > 30 minutes Discharge Instructions DIET: Follow Instructions for: Heart Healthy Diet, Diabetic Diet Activities you can perform: Regular-No Restrictions Follow up Referrals: Infectious Disease - 3-5 Days with Ayden Chin MD PCP Follow-up - 1 Week Podiatry - 3-5 Days Urology - 1 Week with Olaf Lipscomb DO New Medications: Furosemide (Lasix) 20 Mg Tab 20 MG PO BID congestive heart failure #60 Ref 0 TAB Potassium Chloride ER (Potassium Chloride ER) 20 Meq Tab 20 MEQ PO DAILY take while on lasix Electrolyte Replacement #30 Ref 0 TAB Continued Medications: Albuterol 18 GM Inh (Ventolin Hfa 18 GM Inh) 90 Mcg/Act Aer 1 PUFF INH Q4H PRN SHORTNESS OF BREATH #1 Ref 0 INHALER Alprazolam (Xanax) 1 Mg Tab 1 MG PO BID Anxiety Ref [address] (Aspirin Adult Low Strength) 81 Mg Tabdr 81 MG PO DAILY TAB Atorvastatin (Atorvastatin) 10 Mg Tab 10 MG PO HS Cholesterol Management #30 Ref 0 TAB Bethanechol (Urecholine) 25 Mg Tab 25 MG PO Q8HR Urinary retention #90 Ref 0 TAB Carisoprodol (Soma) 350 Mg Tab 350 MG PO BID Pain Management Ref 0 TAB Clopidogrel (Plavix) 75 Mg Tab 75 MG PO DAILY Blood Clot Prevention #30 Ref 0 TAB Enalapril (Vasotec) 5 Mg Tab 5 MG PO DAILY #30 Ref 0 TAB Gabapentin (Gabapentin) 800 Mg Tab 800 MG PO TID Pain Management #90 Ref 0 TAB Insulin Detemir Inj (Levemir Inj) 1,000 unit/ 10 ML Vial 35 UNITS SQ DAILY Do not mix with any other Insulin. Blood Sugar Management Ref 0 VIAL Insulin Detemir Inj (Levemir Inj) 1,000 unit/ 10 ML Vial 12 UNITS SQ HS Blood Sugar Management #30 INJECTION Lactobacillus Acidophilus (Acidophilus/l-Sporogenes) 1 Tab Tab 1 TAB PO TID Bowel Management #180 TAB Metformin (Metformin) 1,000 Mg Tab 1000 MG PO BID With meals Blood Sugar Management #60 Ref 0 TAB Oxycodone-Acetaminophen (Percocet) 10-325 mg Tab 1 TAB PO Q6H Do not use this medicine if you will drive a car or use a machine, only use it when resting at home. PRN PAIN #30 Ref 0 TAB Discontinued Medications: Furosemide (Furosemide) 20 Mg Tab 20 MG PO DAILY Overload #30 Ref 0 TAB Guaifenesin ER 12 HR (Mucinex ER 12 HR) 600 Mg Ernesto 600 MG PO BID COPD #30 Ref 0 TAB Diamond Arboleda MD Feb 09, 2017 17:01
[2017-02-09] MEDS ORDERED: metFORMIN HCL 500 MG TAB PO SCH (21:00)
[2017-02-09] MEDS ORDERED: PERC5TAB12 PO (21:53)
[2017-02-15 10:58] LABS: STAT YES
== END 2017-02-09 18:42 | disposition home health service (06) | DRG 208 ==
LOC: NEPE 21:44 → NEDA 02-07 00:10 → HIME 02-07 04:40 → HCIS 02-08 14:28
PROVIDERS: ADMIT Family Medicine; ATTEND Family Medicine
PROC: 5A1935Z Respiratory Ventilation, Less than 24 Consecutive Hours (ICD-10-PCS; principal; 2017-02-06)
PROC: 0BH17EZ Insertion of Endotracheal Airway into Trachea, Via Natural or Artificial Opening (ICD-10-PCS; 2017-02-06)
PROC: 0T9B70Z Drainage of Bladder with Drainage Device, Via Natural or Artificial Opening (ICD-10-PCS; 2017-02-06)
DX: J96.01 Acute respiratory failure with hypoxia (principal); I50.33 Acute on chronic diastolic (congestive) heart failure; J44.9 Chronic obstructive pulmonary disease, unspecified; E11.22 Type 2 diabetes mellitus with diabetic chronic kidney disease; E11.42 Type 2 diabetes mellitus with diabetic polyneuropathy; E11.69 Type 2 diabetes mellitus with other specified complication; Z91.041 Radiographic dye allergy status; R00.0 Tachycardia, unspecified; Z89.431 Acquired absence of right foot; N18.9 Chronic kidney disease, unspecified; I12.9 Hypertensive chronic kidney disease with stage 1 through stage 4 chronic kidney disease, or unspecified chronic kidney disease; E11.319 Type 2 diabetes mellitus with unspecified diabetic retinopathy without macular edema; I25.10 Atherosclerotic heart disease of native coronary artery without angina pectoris; I73.9 Peripheral vascular disease, unspecified; J45.909 Unspecified asthma, uncomplicated; Z86.73 Personal history of transient ischemic attack (TIA), and cerebral infarction without residual deficits; K21.9 Gastro-esophageal reflux disease without esophagitis; Z79.82 Long term (current) use of aspirin; Z95.1 Presence of aortocoronary bypass graft; M19.042 Primary osteoarthritis, left hand; M19.041 Primary osteoarthritis, right hand; E78.00 Pure hypercholesterolemia, unspecified; F41.9 Anxiety disorder, unspecified; F32.9 Major depressive disorder, single episode, unspecified; G47.30 Sleep apnea, unspecified; I25.2 Old myocardial infarction; Z88.0 Allergy status to penicillin; Z88.2 Allergy status to sulfonamides; R74.8 Abnormal levels of other serum enzymes; R33.9 Retention of urine, unspecified; E87.6 Hypokalemia; Z79.4 Long term (current) use of insulin
CPT/HCPCS: 31500; 36600; 71010; 80048; 80053; 81001; 82550; 82805; 82948; 83605; 83735; 83880; 84100; 84484; 85025; 85027; 85379; 85610; 85730; 87040; 87086; 87641; 93005; 93306; 94002; 94003; 94150; 94640; 94667; 94668; 96365; J0696; J1630; J1644; J1940; J2250; J3010; P9047

== ENCOUNTER 2017-02-09 20:33 | Emergency (ER) | payer MEDICARE, OTHER ==
[~2017-02-09] VITALS: Ht 160 cm; Wt 62.0 kg
[~2017-02-09 20:33] MED LIST changes: +FURO1TAB62 PO; +POTA-163 PO
[2017-02-09 20:39] VITALS: BP 166/104; PULSE 113; RESP 15; TEMP 98.5; O2SAT 98
--- NOTE | 2017-02-09 20:54 | PD ---
Physical Exam Date Seen by Provider: Feb 09, 2017 Time Seen by Provider: 20:51 Narrative 66 year old female presents to the emergency department for evaluation of right foot injury. Patient was discharged today after amputation of half of the right foot. When she fell, she thinks she busted open the sutures as she is having bleeding and worsening pain. Patient awaiting bed placement. Data Data Last Documented VS Vital Signs Date Time Temp Pulse Resp B/P Pulse Ox O2 Delivery O2 Flow Rate FiO2 02/09/17 20:39 98.5 113 15 166/104 98 Room Air [facility] Supervised Visit with HANSA: Haley Quan Feb 09, 2017 20:53
--- NOTE | 2017-02-09 21:13 | PD ---
HPI Chief Complaint: Skin Problem Time Seen by Provider: 21:14 Travel History International Travel<30 days: No Contact w/Intl Traveler<30days: No Traveled to known affect area: No History of Present Illness HPI 66-year-old Afro-[place]ian female presents the emergency department with problems with her right foot. Patient was just discharged earlier today status post partial right foot amputation secondary to vascular issues secondary to her diabetes. Patient states that her wound VAC does not appear to be working as it reportedly does not appropriate battery. Patient also "dakota" her right foot while transferring from her wheelchair in her home earlier this evening. She is now complaining of increased pain and bleeding from the wound site. She denies any other issues. She is allergic to contrast media, penicillin, and sulfa. PFSH Past Medical History Hx Anticoagulant Therapy: Yes (PLAVIX) Arthritis: Yes (BILATERAL HANDS) Asthma: Yes Autoimmune Disease: No Anxiety: Yes Depression: Yes Heart Rhythm Problems: No Cancer: No Cardiovascular Problems: Yes (CABGx3/MIx1/STENTx2) High Cholesterol: Yes Chest Pain: No Congestive Heart Failure: No COPD: Yes Cerebrovascular Accident: Yes Diabetes: Yes (INSULIN DEPENDENT) Diminished Hearing: No GERD: Yes Genitourinary: No Headaches: No Hiatal Hernia: No Hypertension: Yes Implanted Vascular Access Dvce: No Musculoskeletal: Yes ("herniated discs,back and neck") Neurologic: Yes Psychiatric: Yes (GOES TO ACT EVERY 3 MONTHS) Reproductive: Yes (ENLARGED UTERUS) Respiratory: Yes (COPD) Integumentary: Yes (diabetic wound to right foot) Immunizations Current: No Migraines: No Myocardial Infarction: Yes Seizures: No Sleep Apnea: Yes Thyroid Disease: No Ulcer: No Menopausal: Yes : 1 Para: 1 Miscarriage: 0 : 0 Past Surgical History Abdominal Surgery: Yes (CYST REMOVED) Cardiac Surgery: Yes Coronary Artery Bypass Graft: Yes (X3) Ear Surgery: No Endocrine Surgery: Yes (HYSTERECTOMY) Eye Surgery: Yes ("bilateral,retinopathy") Genitourinary Surgery: Yes (retention, damaged bladder) Hysterectomy: Yes Neurologic Surgery: No Oral Surgery: No Thoracic Surgery: No Other Surgery: Yes ("ganglion cyst removed from right arm" "cysts removed from back",axilla) Social History Alcohol Use: No Tobacco Use: No Substance Use: No Allergies-Medications (Allergen,Severity, Reaction): Coded Allergies: Contrast Media (Verified Allergy, Severe, 02/09/17) Sulfa (Verified Allergy, Unknown, 02/09/17) Penicillin (Verified Adverse Reaction, Severe, NAUSEA,DIZZINESS, 02/09/17) Reported Meds & Prescriptions Reported Meds & Active Scripts Active Percocet (Oxycodone-Acetaminophen) 5-325 mg Tab 1 Tab PO Q6H PRN Potassium Chloride ER (Potassium Chloride) 20 Meq Tab 20 Meq PO DAILY take while on lasix Lasix (Furosemide) 20 Mg Tab 20 Mg PO BID Wheelchair Elevated Leg (Device) 1 Mis Mis 1 Ea .ROUTE DIRECTED Urecholine (Bethanechol Chloride) 25 Mg Tab 25 Mg PO Q8HR Percocet (Oxycodone-Acetaminophen) 10-325 mg Tab 1 Tab PO Q6H PRN Do not use this medicine if you will drive a car or use a machine, only use it when resting at home. Commode 3-in-1 (Device) 1 Mis Mis 1 Ea .ROUTE DIRECTED Acidophilus/l-Sporogenes (Lactobacillus Acidophilus) 1 Tab Tab 1 Tab PO TID Levemir Inj (Insulin Detemir) 1,000 unit/ 10 ML Vial 12 Units SQ HS Crutch/Aluminum/Adult (Device) 1 Mis Mis 1 Ea .ROUTE DIRECTED Rollator Ultra-Light (Device) 1 Mis Mis 1 Ea .ROUTE DIRECTED Reported Aspirin Adult Low Strength (Aspirin) 81 Mg Tabdr 81 Mg PO DAILY Metformin (Metformin HCl) 1,000 Mg Tab 1,000 Mg PO BID With meals Levemir Inj (Insulin Detemir) 1,000 unit/ 10 ML Vial 35 Units SQ DAILY Do not mix with any other Insulin. Gabapentin 800 Mg Tab 800 Mg PO TID Vasotec (Enalapril Maleate) 5 Mg Tab 5 Mg PO DAILY Plavix (Clopidogrel Bisulfate) 75 Mg Tab 75 Mg PO DAILY Soma (Carisoprodol) 350 Mg Tab 350 Mg PO BID Atorvastatin (Atorvastatin Calcium) 10 Mg Tab 10 Mg PO HS Xanax (Alprazolam) 1 Mg Tab 1 Mg PO BID Ventolin Hfa 18 GM Inh (Albuterol Sulfate) 90 Mcg/Act Aer 1 Puff INH Q4H PRN Review of Systems Except as stated in HPI: all other systems reviewed are Neg General / Constitutional: No: Fever Eyes: No: Visual changes HENT: No: Headaches Cardiovascular: No: Chest Pain or Discomfort Respiratory: No: Shortness of Breath Gastrointestinal: No: Abdominal Pain Genitourinary: No: Dysuria Musculoskeletal: No: Pain Skin: No Rash Neurologic: No: Weakness Psychiatric: No: Depression Endocrine: No: Polydipsia Hematologic/Lymphatic: No: Easy Bruising Physical Exam Narrative GENERAL: Patient appears in mild distress. SKIN: Warm and dry. Normal color. Decreased turgor. Right foot has wide open wound with dehiscence to two thirds of the skin flap from previous partial mid metatarsal amputation. Bleeding is minimal. No signs of obvious infection. HEAD: Atraumatic. Normocephalic. EYES: Pupils equal and round. No scleral icterus. No injection or drainage. ENT: No nasal bleeding or discharge. Mucous membranes pink and moist. Pharynx is normal. Airway is patent NECK: Trachea midline. No JVD. Supple nontender. CARDIOVASCULAR: Regular rate and rhythm. RESPIRATORY: No accessory muscle use. Clear to auscultation. Breath sounds equal bilaterally. GASTROINTESTINAL: Abdomen soft, non-tender, nondistended. Hepatic and splenic margins not palpable. MUSCULOSKELETAL: Extremities without clubbing, cyanosis, or edema. No obvious deformities. SEE SKIN. NEUROLOGICAL: Awake and alert. No obvious cranial nerve deficits. Motor grossly within normal limits. Five out of 5 muscle strength in the arms and legs. Normal speech. PSYCHIATRIC: Appropriate mood and affect; insight and judgment normal. Data Data Last Documented VS Vital Signs Date Time Temp Pulse Resp B/P Pulse Ox O2 Delivery O2 Flow Rate FiO2 02/09/17 20:39 98.5 113 15 166/104 98 Room Air Orders Oxycodone-Acetamin 10-325 Mg (Percocet 1 (02/09/17 21:30) Crutches (02/09/17 21:52) MDM Medical Decision Making Medical Screen Exam Complete: Yes Emergency Medical Condition: Yes Medical Record Reviewed: Yes Differential Diagnosis Wound dehiscence. Bleeding. Postop complication of partial foot amputation. Narrative Course Patient is medically stable at time of exam. Call was placed to Dr. Bowens, the director's on-call the patient is discussed. Dr. Lynch recommends removing the wound VAC, and applying a Xeroform gauze and bulky bandage dressing in place. Patient was given Percocet 10/325 by mouth once. Dressing was taken down and wound was redressed with Percocet, bulky Sampson dressing,, with jeanne 2. Patient is given crutches and is not to ambulate with any pressure on the right foot. Patient is given a prescription for Percocet 5/325 one tab every 6 hours #12. Patient is to call home health tomorrow and the disc inspector as well to ensure close follow-up. Patient can return to the emergency Department with worsening symptoms as needed. Diagnosis Primary Impression: Osteomyelitis of ankle or foot, right, acute Additional Impression: Postoperative wound dehiscence Qualified Code: T81.31XD - Postoperative wound dehiscence, subsequent encounter Referrals: [facility] Advanced Wound Healing Commercial Intelligence Manager Patient Instructions: Crutch Instructions (ED), General Instructions Additional Instructions: Patient is given crutches and is not to ambulate with any pressure on the right foot. Patient is given a prescription for Percocet 5/325 one tab every 6 hours #12. Patient is to call home health tomorrow and the disc inspector as well to ensure close follow-up. Patient can return to the emergency Department with worsening symptoms as needed. Med/Other Pt SpecificInfo: Prescription(s) given, Wound Care Scripts Oxycodone-Acetaminophen (Percocet)5-325 mg Tab1 Tab PO Q6H PRN (PAIN) #12 TAB Ref 0 Prov:Anahy Dougherty MD 02/09/17 Disposition: 01 DISCHARGE HOME Condition: Stable Duc Boyce Feb 09, 2017 21:13
[2017-02-09] MEDS ORDERED: oxyCODONE/ACETAMINOPHEN 10 MG/325 MG TAB PO ONE (21:30)
[2017-02-09] MEDS ORDERED: PERC5TAB12 PO (21:53)
== END 2017-02-09 22:29 | disposition home or self-care (01) ==
LOC: NEPC 20:33
DX: S99.921A Unspecified injury of right foot, initial encounter (principal); M86.9 Osteomyelitis, unspecified; T81.31XA Disruption of external operation (surgical) wound, not elsewhere classified, initial encounter; E11.9 Type 2 diabetes mellitus without complications; I10 Essential (primary) hypertension; Z79.01 Long term (current) use of anticoagulants; W22.8XXA Striking against or struck by other objects, initial encounter; Y93.89 Activity, other specified; Y92.009 Unspecified place in unspecified non-institutional (private) residence as the place of occurrence of the external cause
CPT/HCPCS: 99283; E0113

== ENCOUNTER → 2017-05-31 | Day surgery (SDC) | payer MEDICARE, MEDICAID ==
--- NOTE | 2017-05-30 17:11 | MH ---
cc: MINERVA DINH DATE OF ADMISSION 05/31/2017 REASON FOR ADMISSION A 66-year-old female with significant otitis media for bilateral myringotomy and tube placement. PAST MEDICAL HISTORY Unremarkable. PAST SURGICAL HISTORY Unremarkable other than previous amputation. REVIEW OF SYSTEMS Unremarkable. FAMILY HISTORY AND SOCIAL HISTORY Unremarkable. PHYSICAL EXAMINATION GENERAL: Well-appearing patient no acute distress noted. HEENT: Exam reveals fluid behind each eardrum. LUNGS: Clear. HEART: Regular rate and rhythm. ABDOMEN: Soft and nontender. EXTREMITIES: Without cyanosis, clubbing or edema. NEUROLOGIC: Alert, oriented, nonfocal neurologic exam. IMPRESSION Patient with chronic otitis media for tubes. Instructed as to method of surgery and possible complication including anesthetic complications, cardiac difficulty, pulmonary difficulty, stroke, or even . Surgical complications bleeding, infection. The patient appeared to agree, accept and understand above-mentioned risks and benefits. In addition no guarantees or warranties regarding outcome were given. We will therefore proceed with surgery. MD LILLIAM Miles/BROOKS /4:53 PM /5:01 PM
[~2017-05-31] VITALS: Ht 160 cm; Wt 68.0 kg
[~2017-05-31] MED LIST changes: +ACETAMINOPHEN/HYDROcodone 325 MG/7.5 MG TAB ONE; +CHLORHEXIDINE GLUCONATE 2 % 1 PACK (2 CLOTHS) TOPICAL PRN; +DO NOT ADM ANY ANTICOAGULANT DRUGS PRN; +FAMOTIDINE 20 MG/2 ML VIAL ONE; -FURO20TA PO; +HYDR-2374 PO; +INSULIN HUMAN REGULAR 1,000 UNITS/10 ML VIAL SQ PRN; +LACTATED RINGER'S 1000 ML IV PRN; +METOPROLOL TARTRATE 25 MG TAB PO PRN; +MORPHINE SULFATE 4 MG/ML INJ IV PUSH PRN; -MUCI600T PO; +OFLOXACIN 0.3% OPTH SOLN 5 ML BTL ONE; +PERC5TAB12 PO; +PROPOFOL 200 MG/20 ML AMP IV ONE; +SODIUM CHLORID 0.9% 500 ML IV PRN
[2017-05-31 08:38] VITALS: BP 108/73; PULSE 80; RESP 18; TEMP 97.9; O2SAT 100
[2017-05-31 12:15] VITALS: BP 138/92; PULSE 84; RESP 16; TEMP 97.5; O2SAT 99
--- NOTE | 2017-06-01 16:15 | MP ---
cc: MINERVA DINH DATE OF SURGERY: 05/31/2017. PREOPERATIVE DIAGNOSIS: Chronic otitis media PROCEDURE: Bilateral myringotomy and tube placement. SURGEON: Minerva Dinh MD ANESTHESIA: General anesthesia. ESTIMATED BLOOD LOSS: Minimal. COMPLICATIONS: No complication. OPERATIVE PROCEDURE PERFORMED: Prepped, draped usual fashion. Anterior-inferior radial myringotomy incision made under microscopic visualization right side. Fluid suctioned from middle ear cavity. Tympanostomy T-tube placed in good position along with Oflox. similar fashion opposite side anterior-inferior radial myringotomy incision made under microscopic visualization. Fluid suctioned from middle ear cavity. Tympanostomy T-tube placed in good position along with Oflox. The patient tolerated the procedure well. Minerva Dinh MD [facility] /10:59 AM /4:06 PM
== END | disposition home or self-care (01) ==
LOC: HSDC 07:41
PROVIDERS: ATTEND Specialist
DX: H66.93 Otitis media, unspecified, bilateral (principal)
CPT/HCPCS: 00126; 69436; 82948; J7120

== ENCOUNTER 2017-06-17 10:18 | Emergency (ER) | payer MEDICARE, MEDICAID ==
[~2017-06-17] VITALS: Ht 160 cm; Wt 67.5 kg
[~2017-06-17 10:18] MED LIST changes: -ACETAMINOPHEN/HYDROcodone 325 MG/7.5 MG TAB ONE; -BETH25 PO; -CHLORHEXIDINE GLUCONATE 2 % 1 PACK (2 CLOTHS) TOPICAL PRN; -COMMODE 3-IN-11 MIS; -CRUTMIS25; -DO NOT ADM ANY ANTICOAGULANT DRUGS PRN; -FAMOTIDINE 20 MG/2 ML VIAL ONE; -FURO1TAB62 PO; -INSULIN HUMAN REGULAR 1,000 UNITS/10 ML VIAL SQ PRN; -LACT PO; -LACTATED RINGER'S 1000 ML IV PRN; -METOPROLOL TARTRATE 25 MG TAB PO PRN; -MISCMIS81; -MORPHINE SULFATE 4 MG/ML INJ IV PUSH PRN; -OFLOXACIN 0.3% OPTH SOLN 5 ML BTL ONE; -PERC10TA27 PO; -PERC5TAB12 PO; -POTA-163 PO; -PROPOFOL 200 MG/20 ML AMP IV ONE; -SODIUM CHLORID 0.9% 500 ML IV PRN; -WHEEMIS3
[2017-06-17 10:20] VITALS: BP 112/79; PULSE 86; RESP 24; TEMP 98.7; O2SAT 100
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
[2017-06-17] MEDS ORDERED: ALBU6.7H INH (10:43)
[2017-06-17] MEDS ORDERED: MEDR4PAK PO (10:43)
[2017-06-17] MEDS ORDERED: CIPR500T2 PO (10:43)
[2017-06-17] MEDS ORDERED: DOXYCYCLINE HYCLATE 100 MG CAP PO ONE (10:45)
[2017-06-17] MEDS ORDERED: RESP: ALBUTEROL 2.5 MG/IPRATROPIUM 0.5 MG NEB (SCH) INH ONE (10:45)
[2017-06-17] MEDS ORDERED: DEXAMETHASONE SOD PHOS 4 MG/ML VIAL IM ONE (10:45)
--- NOTE | 2017-06-17 10:53 | RADRPT ---
EXAM DATE/TIME: 06/17/2017 10:32 [facility] COMPARISON: CHEST SINGLE AP, February 06, 2017, 22:24. INDICATIONS : Wheezing, cough MEDICAL HISTORY : Chronic obstructive pulmonary disease. Hypertension Diverticulitis. SURGICAL HISTORY : CABG. ENCOUNTER: Initial ACUITY: 4 - 6 days PAIN SCORE: 0/10 LOCATION: chest FINDINGS: A single view of the chest demonstrates the lungs to be symmetrically aerated without evidence of mas s, infiltrate or effusion. The cardiomediastinal contours are unremarkable. Osseous structures are intact status post median sternotomy. CONCLUSION: No acute disease. There is no evidence of pneumonia Tavares Flores MD on June 17, 2017 at 10:51 Board Certified Radiologist. This report was verified electronically.
== END 2017-06-17 12:32 | disposition home or self-care (01) ==
LOC: NEPD 10:18
DX: J44.1 Chronic obstructive pulmonary disease with (acute) exacerbation (principal); E11.9 Type 2 diabetes mellitus without complications; I10 Essential (primary) hypertension; Z79.4 Long term (current) use of insulin; Z79.02 Long term (current) use of antithrombotics/antiplatelets; Z79.84 Long term (current) use of oral hypoglycemic drugs
CPT/HCPCS: 71010; 94664; 96372; 99284; J1100

== ENCOUNTER 2017-11-10 02:33 | Observation (INO) | payer MEDICARE, MEDICAID ==
[~2017-11-10] VITALS: Ht 160 cm; Wt 57.0 kg
[2017-11-10] VITALS (7 sets, daily range): BP systolic 95–224; BP diastolic 57–102; PULSE 89–111; RESP 15–20; TEMP 95.3–98.1; O2SAT 65–100
[~2017-11-10 02:33] MED LIST changes: +ALBU6.7H INH; -ASPI1TAB91 PO; +ASPI81TA16 PO; +CIPR500T2 PO; +MEDR4PAK PO
[2017-11-10 03:47] LABS: AUTOMATED NEUTROPHIL # 7.7 TH/MM3 (1.8-7.7); BASOPHIL # 0.1 TH/MM3 (0-0.2); BASOPHIL % 0.7 % (0.0-2.0); EOSINOPHIL % 0.3 % (0.0-4.0); HEMATOCRIT 42.1 % (35.0-46.0); HEMOGLOBIN 14.3 GM/DL (11.6-15.3); LYMPH % 13.8 % (9.0-44.0); LYMPHOCYTE # 1.3 TH/MM3 (1.0-4.8); MEAN CELL VOLUME 80.5 FL (80.0-100.0); MEAN CORPUSCULAR HEMOGLOBIN 27.3 PG (27.0-34.0); MEAN PLATELET VOLUME 8.9 FL (7.0-11.0); MONO % 5.3 % (0.0-8.0); MONOCYTE # 0.5 TH/MM3 (0-0.9); NEUT % 79.9 % (16.0-70.0); PLATELET COUNT 294 TH/MM3 (150-450); RED BLOOD COUNT 5.23 MIL/MM3 (4.00-5.30); RED CELL DISTRIBUTION WIDTH 13.7 % (11.6-17.2); WHITE BLOOD COUNT 9.7 TH/MM3 (4.0-11.0)
[2017-11-10 03:52] LABS: BILIRUBIN, URINE NEG (NEG); BLOOD, URINE TRACE (NEG); GLUCOSE,URINE 1000 mg/dL (NEG); KETONE, URINE 10 mg/dL (NEG); NITRITE,URINE NEG (NEG); PH, URINE 5.5 (5.0-8.5); SQUAMOUS EPITHELIAL CELL URINE 4 /hpf (0-5); URINE COLOR LIGHT-YELLOW (YELLW/STRAW); URINE LEUKOCYTE ESTERASE NEG (NEG)
[2017-11-10 04:01] LABS: ALBUMIN 3.4 GM/DL (3.4-5.0); ALT (GPT) 17 U/L (10-53); AST (GOT) 9 U/L (15-37); BICARBONATE 22.2 MEQ/L (21.0-32.0); BLOOD UREA NITROGEN 11 MG/DL (7-18); CALCIUM 9.1 MG/DL (8.5-10.1); CHLORIDE 106 MEQ/L (98-107); CREATININE 0.94 MG/DL (0.50-1.00); GLOMERULAR FILTRATION RATE 72 ML/MIN (>89); GLUCOSE,RANDOM 377 MG/DL (74-106); LIPASE 115 U/L (73-393); SODIUM (NA) 139 MEQ/L (136-145)
[2017-11-10 04:04] LABS: ALKALINE PHOSPHATASE 181 U/L (45-117); TOTAL BILIRUBIN ADULT 0.4 MG/DL (0.2-1.0); TOTAL PROTEIN 8.1 GM/DL (6.4-8.2)
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
[2017-11-10] MEDS ORDERED: FAMOTIDINE 20 MG/2 ML VIAL IV PUSH SCH (05:15)
[2017-11-10] MEDS ORDERED: ASPIRIN 81 MG CHEW TAB CHEW ONE (05:15)
[2017-11-10] MEDS ORDERED: NITROGLYCERIN 2% OINT 1 GM PACKET TOPICAL ONE (06:00)
[2017-11-10] MEDS ORDERED: INSULIN HUMAN REGULAR 1,000 UNITS/10 ML VIAL SQ ONE (06:00)
[2017-11-10] MEDS ORDERED: SODIUM CHLOR 0.9% 1000 ML INJ 1,000 ML IV ONE (06:00)
[2017-11-10] MEDS ORDERED: ACETAMINOPHEN 325 MG TAB PO PRN (06:15)
[2017-11-10] MEDS ORDERED: DEXTROSE 50% IN WATER 50 ML VIAL(D50) IV PUSH PRN (06:15)
[2017-11-10] MEDS ORDERED: GLUCAGON 1 MG/ML VIAL OTHER PRN (06:15)
[2017-11-10] MEDS ORDERED: MORPHINE SULFATE 2 MG/ML INJ IV PUSH PRN (06:15)
[2017-11-10] MEDS ORDERED: MAGNESIUM HYDROXIDE SUSP 30 ML CUP PO PRN (06:15)
[2017-11-10] MEDS ORDERED: ONDANSETRON HCL 4 MG/2 ML VIAL IVP PRN (06:15)
[2017-11-10] MEDS ORDERED: LACTULOSE SYRUP 20 GM/30 ML CUP PO PRN (06:15)
[2017-11-10] MEDS ORDERED: BISACODYL 10 MG SUPP RECTAL PRN (06:15)
[2017-11-10] MEDS ORDERED: SODIUM CHLORIDE 0.9% FLUSH 10 ML FLUSH IV FLUSH PRN (06:15)
[2017-11-10] MEDS ORDERED: ACETAMINOPHEN/HYDROcodone 325 MG/5 MG TAB PO PRN (06:15)
--- NOTE | 2017-11-10 06:22 | RADRPT ---
EXAM DATE/TIME: 11/10/2017 06:06 [facility] COMPARISON: No previous studies available for comparison. INDICATIONS : Chest pain. MEDICAL HISTORY : Chronic obstructive pulmonary disease. Hypertension Diverticulitis. SURGICAL HISTORY : CABG. ENCOUNTER: Initial ACUITY: 1 day PAIN SCORE: 10 LOCATION: Left chest FINDINGS: PA and lateral views of the chest. Median sternotomy wires are present. The lungs are clear. Cardiome diastinal silhouette within normal limits. No evidence of pleural effusion or pneumothorax. CONCLUSION: No acute cardiopulmonary disease identified. Abhinav Horan MD on November 10, 2017 at 6:16 Board Certified Radiologist. This report was verified electronically.
[2017-11-10] MEDS: INSULIN ASPART SUPPLEMENTAL SCALE SQ SCH ×4 (08:00→21:00)
[2017-11-10] MEDS: SODIUM CHLORIDE 0.9% FLUSH 10 ML FLUSH IV FLUSH SCH ×2 (09:00→21:00)
--- NOTE | 2017-11-10 09:06 | HHI.HP ---
[facility] Primary Care Physician Arjun Lipscomb MD Admission Diagnosis CHEST PAIN TROP ELEV Diagnoses: Travel History International Travel<30 Days: No Contact w/Intl Traveler <30 Da: No Traveled to Known Affected Are: No History of Present Illness 67F with h/o DM2, CABGx3, PVD, neurogenic bladder, and anxiety disorder presented to the ER last night after calling EMS for perceived chest pain. It all began last afternoon when she failed twice at voiding urine. Over the next few hours she developed right side abdominal pressure that began to cause discomfort, pain. The pain moved into her epigastrium and eventually into her chest. Fearing the heart might be involved, she called EMS for ER evaluation. Upon arrival to the ER a urinary catheter was placed which produced 800cc of urine. She still has some residual abdominal discomfort but denies any current chest pain. She has a history of neurogenic bladder which was worked up extensively by her urologist in [place]. She moved recently to [place]. She has had a recent productive cough, but denies any fevers, denies nausea or vomiting. Review of Systems Constitutional: DENIES: Diaphoretic episodes, Fatigue, Fever, Weight gain, Weight loss Endocrine: DENIES: Polydipsia, Polyuria Eyes: DENIES: Diplopia Ears, nose, mouth, throat: DENIES: Hearing loss, Vertigo, Running Nose Respiratory: COMPLAINS OF: Cough, DENIES: Apneas, Wheezing, Shortness of breath Cardiovascular: COMPLAINS OF: Chest pain, DENIES: Palpitations, Syncope, Dyspnea on Exertion, Lower Extremity Edema Musculoskeletal: COMPLAINS OF: Joint pain, Stiffness, Neck pain Neurologic: DENIES: Localized weakness, Seizures, Speech Problems Psychiatric: COMPLAINS OF: Anxiety, DENIES: Mood changes, Depression Past Family Social History Past Medical History DM2, CAD, PVD, neurogenic bladder, neuropathy, anxiety Past Surgical History CABG x 3, 2014 Right foot amputation, January 2017 Hysterectomy 1975 Allergies: Coded Allergies: diatrizoate meglumine (Unverified Allergy, Severe, 06/19/17) gadobenic acid (Unverified Allergy, Severe, 06/19/17) gadodiamide (Unverified Allergy, Severe, 06/19/17) gadoteridol (Unverified Allergy, Severe, 06/19/17) iodixanol (Unverified Allergy, Severe, 06/19/17) iohexol (Unverified Allergy, Severe, 06/19/17) Sulfa (Sulfonamide Antibiotics) (Unverified Allergy, Unknown, 06/19/17) penicillin G (Unverified Adverse Reaction, Severe, NAUSEA,DIZZINESS, ) Family History CAD, Prostate CA Social History denies tobacco or alcohol use Physical Exam Vital Signs Vital Signs Date Time Temp Pulse Resp B/P (MAP) Pulse Ox O2 Delivery O2 Flow Rate FiO2 11/10/17 06:51 100 16 107/62 (77) 99 Room Air 11/10/17 05:44 104 18 163/76 (105) 100 Room Air 11/10/17 02:39 110 18 11/10/17 02:35 98.1 111 18 224/102 (142) 98 Physical Exam GENERAL: This is a weakened but well appearing female in no apparent distress SKIN: No rashes, scars on right fregoso. Cool and dry. HEAD: Atraumatic. Normocephalic. No temporal or scalp tenderness. EYES: Pupils equal round and reactive. Extraocular motions intact. No scleral icterus. No injection or drainage. ENT: Nose without bleeding, purulent drainage or septal hematoma. Throat without erythema, tonsillar hypertrophy or exudate. Uvula midline. Airway patent. NECK: Trachea midline. No JVD or lymphadenopathy. Supple, nontender, no meningeal signs. CARDIOVASCULAR: Regular rate and rhythm, 2/6 MIRYAM, No gallops, or rubs. RESPIRATORY: Atelectasis sounds in bases. Breath sounds equal bilaterally. No wheezes, rales, or rhonchi. GASTROINTESTINAL: Abdomen soft, palpation of epigastrium produced reflux, nondistended. No hepato-splenomegaly, or palpable masses. No guarding. MUSCULOSKELETAL: Extremities without clubbing, cyanosis, or edema. No joint tenderness, effusion, or edema noted. Amputation dressing over right foot. NEUROLOGICAL: Awake and alert. Cranial nerves II through XII intact. Motor and sensory grossly within normal limits. Five out of 5 muscle strength in all muscle groups. Normal speech. Laboratory Laboratory Tests Test 11/10/17 03:30 11/10/17 03:32 White Blood Count 9.7 Red Blood Count 5.23 Hemoglobin 14.3 Hematocrit 42.1 Mean Corpuscular Volume 80.5 Mean Corpuscular Hemoglobin 27.3 Mean Corpuscular Hemoglobin Concent 34.0 Red Cell Distribution Width 13.7 Platelet Count 294 Mean Platelet Volume 8.9 Neutrophils (%) (Auto) 79.9 Lymphocytes (%) (Auto) 13.8 Monocytes (%) (Auto) 5.3 Eosinophils (%) (Auto) 0.3 Basophils (%) (Auto) 0.7 Neutrophils # (Auto) 7.7 Lymphocytes # (Auto) 1.3 Monocytes # (Auto) 0.5 Eosinophils # (Auto) 0.0 Basophils # (Auto) 0.1 CBC Comment DIFF FINAL Differential Comment Blood Urea Nitrogen 11 Creatinine 0.94 Random Glucose 377 Total Protein 8.1 Albumin 3.4 Calcium Level 9.1 Alkaline Phosphatase 181 Aspartate Amino Transf (AST/SGOT) 9 Alanine Aminotransferase (ALT/SGPT) 17 Total Bilirubin 0.4 Sodium Level 139 Potassium Level 3.7 Chloride Level 106 Carbon Dioxide Level 22.2 Anion Gap 11 Estimat Glomerular Filtration Rate 72 Total Creatine Kinase 94 Troponin I 0.09 Lipase 115 Urine Color LIGHT-YELLOW Urine Turbidity CLEAR Urine pH 5.5 Urine Specific Wayne 1.019 Urine Protein 30 Urine Glucose (UA) 1000 Urine Ketones 10 Urine Occult Blood TRACE Urine Nitrite NEG Urine Bilirubin NEG Urine Urobilinogen LESS THAN 2.0 Urine Leukocyte Esterase NEG Urine RBC 2 Urine WBC 1 Urine Squamous Epithelial Cells 4 Microscopic Urinalysis Comment CULT NOT INDICATED Result Diagram: 11/10/1732911/10/17 0330 Caprini VTE Risk Assessment Caprini VTE Risk Assessment: Mod/High Risk (score >= 2) Caprini Risk Assessment Model Point Value = 1 Point Value = 2 Point Value = 3 Point Value = 5 Age 41-60 Minor surgery BMI > 25 kg/m2 Swollen legs Varicose veins or History of unexplained or recurrent spontaneous Oral contraceptives or hormone replacement Sepsis (< 1 month) Serious lung disease, including pneumonia (< 1 month) Abnormal pulmonary function Acute myocardial infarction Congestive heart failure (< 1 month) History of inflammatory bowel disease Medical patient at bed rest Age 61-74 Arthroscopic surgery Major open surgery (> 45 min) Laparoscopic surgery (> 45 min) Malignancy Confined to bed (> 72 hours) Immobilizing plaster cast Central venous access Age >= 75 History of VTE Family history of VTE Factor V Leiden Prothrombin [id number] Lupus anticoagulant Anticardiolipin antibodies Elevated serum homocysteine Heparin-induced thrombocytopenia Other congenital or acquired thrombophilia Stroke (< 1 month) Elective arthroplasty Hip, pelvis, or leg fracture Acute spinal cord injury (< 1 month) Prophylaxis Regimen Total Risk Factor Score Risk Level Prophylaxis Regimen 0-1 Low Early ambulation 2 Moderate Order ONE of the following: *Sequential Compression Device (SCD) *Heparin 5000 units SQ BID 3-4 Higher Order ONE of the following medications: *Heparin 5000 units SQ TID *Enoxaparin/Lovenox 40 mg SQ daily (WT < 150 kg, CrCl > 30 mL/min) *Enoxaparin/Lovenox 30 mg SQ daily (WT < 150 kg, CrCl > 10-29 mL/min) *Enoxaparin/Lovenox 30 mg SQ BID (WT < 150 kg, CrCl > 30 mL/min) AND/OR *Sequential Compression Device (SCD) 5 or more Highest Order ONE of the following medications: *Heparin 5000 units SQ TID (Preferred with Epidurals) *Enoxaparin/Lovenox 40 mg SQ daily (WT < 150 kg, CrCl > 30 mL/min) *Enoxaparin/Lovenox 30 mg SQ daily (WT < 150 kg, CrCl > 10-29 mL/min) *Enoxaparin/Lovenox 30 mg SQ BID (WT < 150 kg, CrCl > 30 mL/min) AND *Sequential Compression Device (SCD) Assessment and Plan Problem List: (1) Urinary retention ICD Code: R33.9 - Retention of urine, unspecified Status: Acute (2) Elevated troponin ICD Code: R74.8 - Abnormal levels of other serum enzymes (3) Diabetes mellitus, type II ICD Code: E11.9 - Diabetes mellitus, type II Status: Acute (4) Amputation at midfoot ICD Code: S98.319A - Complete traumatic amputation of unspecified midfoot, initial encounter Status: Acute Assessment and Plan Urinary Retention Chronic 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 Worked up in [place] Doing fine with catheter in place now. Will attempt to wean from catheter prior to discharge. 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) Diabetic Amputation of right foot Wound care consult Type 2 Diabetes Sliding scale insulin coverage for accuchecks Diabetic Diet GERD Protonix Cough First cover for GERD Add Antibiotic (such as Keflex) to cover for bronchitis if cough persists DVT Prophylaxis Heparin SQ Oleg Boyer MD Nov 10, 2017 09:06
[2017-11-10] MEDS: GABAPENTIN 400 MG CAP PO SCH ×3 (09:53→18:08)
[2017-11-10] MEDS: INSULIN DETEMIR 100 UNITS/ML VIAL SQ SCH (11:36)
[2017-11-10] MEDS: HEPARIN SODIUM - SQ 10,000 UNITS/ML VIAL SQ SCH ×2 (11:39→23:38)
[2017-11-10] MEDS: CLOPIDOGREL 75 MG TAB PO SCH (11:42)
[2017-11-10] MEDS: SENNOSIDES 8.6 MG TAB PO PRN ×2 (11:42→23:38)
[2017-11-10] MEDS: PANTOPRAZOLE SOD 40 MG DELAYED RELEASE TAB PO SCH (11:43)
[2017-11-10] MEDS: ALPRAZolam 1 MG TAB PO SCH ×2 (11:43→23:37)
[2017-11-10] MEDS: ASPIRIN EC 81 MG TABEC PO SCH (11:44)
[2017-11-10] MEDS: DOCUSATE SODIUM 50 MG/SENNA 8.6 MG TAB PO SCH ×2 (11:44→21:00)
[2017-11-10] MEDS: ACETAMINOPHEN/HYDROcodone 325 MG/10 MG TAB PO PRN (11:53)
[2017-11-10] MEDS: SODIUM CHLOR 0.9% 1000 ML INJ 1,000 ML IV SCH ×2 (12:00→16:04)
--- NOTE | 2017-11-10 13:42 | EKG ---
Date Performed: 11/10/2017 Time Performed: 05:19:10 PTAGE: 67 years EKG: SINUS TACHYCARDIA POSSIBLE RIGHT ATRIAL ENLARGEMENT MODERATE T-WAVE ABNORMALITY, CONSIDER L ATERAL ISCHEMIA ABNORMAL ECG PREVIOUS TRACING : 02/06/2017 22.12 DOCTOR: Jose Daniel Pan Interpretating Date/Time 11/10/2017 13:40:46
--- NOTE | 2017-11-10 19:04 | MB ---
cc: KOBI ORELLANA M.D. 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 She presented to the emergency room with chief complaint of abdominal pain radiating to her epigastric area and then substernal chest area with cough, had to go to the ER. Apparently, she had some degree of bladder outlet obstruction which was related to the Chavira catheter placement, 800 mL of urine was removed. The patient's symptoms improved dramatically and clinically. Initially, her blood pressure was extremely elevated at 224/102. This improved again after the bladder outlet obstruction was removed. Currently, the nurses is at the bedside. The patient is heavily sedated after being given Xanax which is a change from her baseline mental status. I cannot really obtain a coherent history from her given her sedation status. She does not appear to be focal. REVIEW OF SYSTEMS Otherwise obtained from the chart. PAST MEDICAL HISTORY 1. History of neurogenic bladder, 2. Neuropathy, 3. Anxiety 4. Coronary artery bypass graft times three 2014 5. Right foot amputation 2016 6. Hysterectomy. ALLERGIES DIATRIZOZTE MEGLUMINE GADOBENIC ACID GADODIAMIDE GADOTERIDOL IODIXANOL IOHEXOL SULFA PENICILLIN G SOCIAL HISTORY Denies tobacco or alcohol use MEDICATIONS In the hospital 1. Atorvastatin 10 mg at bedtime 2. Pantoprazole 40 daily, 3. Heparin 5000 subcu q.12 h 4. Aspirin 81 mg daily 6. Clopidigrel 75 mg daily, 7. Neurontin 800 mg t.i.d. 8. Insulin 38 units daily. 9. Femotidine 20 mg IV push once. PHYSICAL EXAMINATION VITAL SIGNS: Temperature 95.3, pulse ranging between 93 and 104, respiratory rate 20, blood pressure 95/57, sats 96% on room air. GENERAL: She is sedated. Speech is mostly incoherent. NECK: Supple. No JVD or bruit. CARDIOVASCULAR: S1, S2, no murmurs, rubs or gallops. LUNGS: Clear to auscultation bilaterally ABDOMEN: Soft, nontender, nondistended with positive bowel sounds. EXTREMITIES: No lower extremity edema. LABORATORY DATA White count 9.7, hemoglobin 14.3, hematocrit 42.1, platelet count 294. Sodium 139, potassium 3.7, chloride 106, bicarb 22.2, BUN 11, creatinine 0.94, glucose 377, troponin is 0.09 followed by 0.10. CARDIOLOGY STUDIES EKG shows sinus tachycardia at 103 beats per minute. Nonspecific ST-T wave changes. DIAGNOSES 1. Non-STEMI 2. Hypertension. 3. Coronary artery disease 4. Peripheral vascular disease 5. Diabetes mellitus 6. Bladder outlet obstruction 7. Neurogenic bladder. DISCUSSION Troponin elevation secondary to severe hypotension related to bladder outlet obstruction and urinary retention. I doubt this is a primary obstructive event, although she does have multiple cardiac risk factors. I agree with atorvastatin 10 mg h.s., aspirin 81 mm daily, Clopidigrel 75 mg. Blood pressure is improved, good relief of Bladder outlet obstruction. We will continue to follow and recommend telemetry. MD SHANICE Westbrook/ /5:06 PM /6:28 PM
[2017-11-10] MEDS: ATORVASTATIN 10 MG TAB PO SCH (23:37)
[2017-11-11 00:29] VITALS: BP 108/66; PULSE 81; RESP 17; TEMP 98.5; O2SAT 96
[2017-11-11] MEDS: SODIUM CHLOR 0.9% 1000 ML INJ 1,000 ML IV SCH ×3 (02:04→22:04)
[2017-11-11 04:21] VITALS: BP 125/67; PULSE 81; RESP 17; TEMP 98.1; O2SAT 97
[2017-11-11 05:56] LABS: AUTOMATED NEUTROPHIL # 1.6 TH/MM3 (1.8-7.7); EOSINOPHIL # 0.2 TH/MM3 (0-0.4); EOSINOPHIL % 4.5 % (0.0-4.0); HEMATOCRIT 36.1 % (35.0-46.0); HEMOGLOBIN 12.1 GM/DL (11.6-15.3); LYMPH % 49.2 % (9.0-44.0); LYMPHOCYTE # 2.2 TH/MM3 (1.0-4.8); MEAN CELL VOLUME 79.7 FL (80.0-100.0); MEAN CORPUSCULAR HEMOGLOBIN 26.8 PG (27.0-34.0); MEAN CORPUSCULAR HGB CONC 33.6 % (32.0-36.0); MEAN PLATELET VOLUME 8.6 FL (7.0-11.0); MONO % 10.3 % (0.0-8.0); MONOCYTE # 0.5 TH/MM3 (0-0.9); PLATELET COUNT 235 TH/MM3 (150-450); RED BLOOD COUNT 4.53 MIL/MM3 (4.00-5.30); RED CELL DISTRIBUTION WIDTH 13.8 % (11.6-17.2); WHITE BLOOD COUNT 4.6 TH/MM3 (4.0-11.0)
[2017-11-11 06:27] LABS: ALBUMIN 2.4 GM/DL (3.4-5.0); ALKALINE PHOSPHATASE 138 U/L (45-117); ALT (GPT) 10 U/L (10-53); AST (GOT) 11 U/L (15-37); BLOOD UREA NITROGEN 11 MG/DL (7-18); CALCIUM 8.4 MG/DL (8.5-10.1); CHLORIDE 110 MEQ/L (98-107); CREATININE 0.67 MG/DL (0.50-1.00); GLOMERULAR FILTRATION RATE 106 ML/MIN (>89); GLUCOSE,RANDOM 51 MG/DL (74-106); SODIUM (NA) 142 MEQ/L (136-145); TOTAL BILIRUBIN ADULT 0.2 MG/DL (0.2-1.0); TOTAL PROTEIN 6.3 GM/DL (6.4-8.2)
[2017-11-11 07:20] VITALS: PULSE 81
[2017-11-11] MEDS: INSULIN ASPART SUPPLEMENTAL SCALE SQ SCH ×2 (08:00→21:00)
[2017-11-11 08:15] VITALS: BP 168/86; PULSE 82; RESP 20; TEMP 98.2; O2SAT 97
[2017-11-11] MEDS: ASPIRIN EC 81 MG TABEC PO SCH (08:50)
[2017-11-11] MEDS: GABAPENTIN 400 MG CAP PO SCH ×3 (08:50→18:34)
[2017-11-11] MEDS: PANTOPRAZOLE SOD 40 MG DELAYED RELEASE TAB PO SCH (08:50)
[2017-11-11] MEDS: CLOPIDOGREL 75 MG TAB PO SCH (08:50)
[2017-11-11] MEDS: ALPRAZolam 1 MG TAB PO SCH (08:50)
[2017-11-11] MEDS: HEPARIN SODIUM - SQ 10,000 UNITS/ML VIAL SQ SCH ×2 (08:50→22:53)
[2017-11-11] MEDS: DOCUSATE SODIUM 50 MG/SENNA 8.6 MG TAB PO SCH ×2 (08:50→22:53)
[2017-11-11] MEDS: SODIUM CHLORIDE 0.9% FLUSH 10 ML FLUSH IV FLUSH SCH ×2 (08:51→21:00)
[2017-11-11] MEDS: INSULIN DETEMIR 100 UNITS/ML VIAL SQ SCH (09:00)
[2017-11-11] MEDS: ACETAMINOPHEN/HYDROcodone 325 MG/10 MG TAB PO PRN (10:35)
--- NOTE | 2017-11-11 10:57 | HHI.PR ---
Subjective Remarks in no acute distress. however somewhat lethargic, easily arousable. noted a drop in blood sugar earlier this morning; 162 at the time of my evaluation. d/w the RN at the bedside. Objective Vitals Vital Signs Date Time Temp Pulse Resp B/P (MAP) Pulse Ox O2 Delivery O2 Flow Rate FiO2 11/11/17 08:15 98.2 82 20 168/86 (113) 97 11/11/17 04:21 98.1 81 17 125/67 (86) 97 11/11/17 00:29 98.5 81 17 108/66 (80) 96 11/10/17 20:17 97.6 89 15 98/61 (73) 95 11/10/17 16:00 95.3 93 20 95/57 (70) 96 I/O 11/10/17 11/10/17 11/10/17 11/11/17 11/11/17 11/11/17 07:00 15:00 23:00 07:00 15:00 23:00 Intake Total 1000 ml 104 ml 200 ml Output Total 1100 ml 550 ml Balance -1100 ml 1000 ml -446 ml 200 ml Intake Oral 100 ml 200 ml IV Total 1000 ml 4 ml Output Urine Total 1100 ml 550 ml # Bowel Movements 0 Result Diagram: 11/11/17 0517 11/11/17 0517 Imaging Last Impressions Chest X-Ray 11/10/17 0000 Signed Impressions: Service Date/Time: Friday, November 10, 2017 06:06 - CONCLUSION: No acute cardiopulmonary disease identified. Abhinav Horan MD Objective Remarks GENERAL: This is a well-nourished, well-developed patient, in no apparent distress. CARDIOVASCULAR: Regular rate and regular rhythm without murmurs, gallops, or rubs. RESPIRATORY: Clear to auscultation. Breath sounds equal bilaterally. No wheezes , rales, or rhonchi. GASTROINTESTINAL: Abdomen soft, non-tender, nondistended. Normal, active bowel sounds MUSCULOSKELETAL: Extremities without clubbing, cyanosis, or edema. NEURO: lethargic but easily arousable. Medications and IVs Inpatient Medications Acetaminophen (Tylenol) 650 mg Q6H PRN PO FEVER/PAIN SCALE 1 TO 2; Start at 06:15 Acetaminophen/ Hydrocodone Bitart ([place] 5-325 Mg) 1 tab Q4H PRN PO PAIN SCALE 3 TO 5; Start 11/10/17 at 06:15; Stop 11/10/17 at 09:18; Status DC Acetaminophen/ Hydrocodone Bitart ([place] 10-325 Mg) 1 tab Q6H PRN PO PAIN SCALE 4 TO 10 Last administered on 11/11/17at 10:35; Start 11/10/17 at 09:30 Albuterol Sulfate (Proair Hfa Inh) 1 puff Q4H PRN INH SHORTNESS OF BREATH; Start 11/10/17 at 06:15 Alprazolam (Xanax) 1 mg BID PO Last administered on 11/11/17at 08:50; Start at 09:00 Aspirin (Aspirin Chew) 324 mg ONCE ONCE CHEW Last administered on 11/10/17at 05: 28; Start 11/10/17 at 05:15; Stop 11/10/17 at 05:16; Status DC Aspirin (Ecotrin Ec) 81 mg DAILY PO Last administered on 11/11/17at 08:50; Start 11/10/17 at 09:00 Atorvastatin Calcium (Lipitor) 10 mg HS PO Last administered on 11/10/17at 23:37 ; Start 11/10/17 at 21:00 Bisacodyl (Dulcolax Supp) 10 mg DAILY PRN RECTAL SEVERE CONSITIPATION/ IF NPO; Start 11/10/17 at 06:15 Clopidogrel Bisulfate (Plavix) 75 mg DAILY PO Last administered on 11/11/17at 08: 50; Start 11/10/17 at 09:00 Dextrose (D50w (Vial) Inj) 50 ml UNSCH PRN IV PUSH HYPOGLYCEMIA-SEE COMMENTS; Start 11/10/17 at 06:15 Famotidine (Pepcid Inj) 20 mg ONCE IV PUSH Last administered on 11/10/17at 05:28 ; Start 11/10/17 at 05:15 Gabapentin (Neurontin) 800 mg TID PO Last administered on 11/11/17at 08:50; Start 11/10/17 at 09:00 Glucagon (Glucagon Inj) 1 mg UNSCH PRN OTHER HYPOGLYCEMIA-SEE COMMENTS; Start 11/10/17 at 06:15 Heparin Sodium (Porcine) (Heparin Inj) 5,000 units Q12H SQ Last administered on 11/11/17at 08:50; Start 11/10/17 at 09:00 Insulin Aspart (NovoLOG SUPPLEMENTAL SCALE) 1 ACHS SLIDING SCALE SQ Last administered on 11/10/17at 18:05; Start 11/10/17 at 08:00 Insulin Detemir (Levemir Inj) 38 units DAILY SQ Last administered on 11/10/17at 11:36; Start 11/10/17 at 09:00 Insulin Human Regular (NovoLIN R INJ) 3 units ONCE ONCE SQ Last administered on 11/10/17at 06:02; Start 11/10/17 at 06:00; Stop 11/10/17 at 06:01; Status DC Lactulose (Lactulose Liq) 30 ml DAILY PRN PO SEVERE CONSITIPATION / IF PO; Start 11/10/17 at 06:15 Magnesium Hydroxide (Milk Of Magnesia Liq) 30 ml Q12H PRN PO Mild constipation ; Start 11/10/17 at 06:15 Morphine Sulfate (Morphine Inj) 2 mg Q3H PRN IV PUSH PAIN 6-10; Start 11/10/17 at 06:15; Stop 11/10/17 at 09:18; Status DC Nitroglycerin (Nitroglycerin 2% Oint) 0.5 inch ONCE ONCE TOPICAL Last administered on 11/10/17at 06:49; Start 11/10/17 at 06:00; Stop 11/10/17 at 06:05; Status DC Ondansetron HCl (Zofran Inj) 4 mg Q6H PRN IVP NAUSEA OR VOMITING; Start at 06:15 Pantoprazole Sodium (Protonix) 40 mg DAILY PO Last administered on 11/11/17at 08: 50; Start 11/10/17 at 09:30 Senna/Docusate Sodium (Sarika-Colace) 1 tab BID PO Last administered on 11/11/17at 08:50; Start 11/10/17 at 09:00 Sennosides (Senokot) 17.2 mg Q12H PRN PO Moderate constipation Last administered on 11/10/17at 23:38; Start 11/10/17 at 06:15 Sodium Chloride (NS Flush) 2 ml BID IV FLUSH Last administered on 11/11/17at 08: 51; Start 11/10/17 at 09:00 A/P Problem List: (1) Urinary retention ICD Code: R33.9 - Retention of urine, unspecified Status: Acute (2) Elevated troponin ICD Code: R74.8 - Abnormal levels of other serum enzymes (3) Diabetes mellitus, type II ICD Code: E11.9 - Diabetes mellitus, type II Status: Acute (4) Amputation at midfoot ICD Code: S98.319A - Complete traumatic amputation of unspecified midfoot, initial encounter Status: Acute Assessment and Plan Urinary Retention Chronic 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 Worked up in [facility] Doing fine with catheter in place now. Will attempt to wean from catheter prior to discharge. No sign of UTI on sample Elevated Troponin History of PVD and CABGx3 Her renal function is within normal limits cardiology consult appreciated and no intervention at this time. continue aspirin,plavix and statin. acute encephalopath check CT head hold sedatives neuro-checks Diabetic Amputation of right foot Wound care consult Type 2 Diabetes hypoglycemic episode hold insulin for now will monitor the accu-check closely. Diabetic Diet GERD Protonix Cough will Add Antibiotic (such as Keflex) to cover for bronchitis if cough persists Yi Aguirre MD Nov 11, 2017 10:57
--- NOTE | 2017-11-11 12:05 | RADRPT ---
EXAM DATE/TIME: 11/11/2017 11:41 [place] COMPARISON: No previous studies available for comparison. INDICATIONS : Altered mental status. RADIATION DOSE: 56.35 CTDIvol (mGy) MEDICAL HISTORY : Stroke. Myocardial infarction. SURGICAL HISTORY : Hysterectomy. CABG ENCOUNTER: Initial ACUITY: 1 day PAIN SCALE: Non-responsive LOCATION: Bilateral head TECHNIQUE: Multiple contiguous axial images were obtained of the head. Using automated exposure control and adj ustment of the mA and/or kV according to patient size, radiation dose was kept as low as reasonably a chievable to obtain optimal diagnostic quality images. DICOM format image data is available electro nically for review and comparison. FINDINGS: CEREBRUM: The ventricles are normal for age. No evidence of midline shift, mass lesion, hemorrhage or acute in farction. No extra-axial fluid collections are seen. Cavum septum pellucidum and cavum vergae are no kranthi. POSTERIOR FOSSA: The cerebellum and brainstem are intact. The 4th ventricle is midline. The cerebellopontine angle i s unremarkable. EXTRACRANIAL: The visualized portion of the orbits is intact. SKULL: The calvaria is intact. No evidence of skull fracture. CONCLUSION: No acute disease. Sami Oglesby MD on November 11, 2017 at 12:02 Board Certified Radiologist. This report was verified electronically.
--- NOTE | 2017-11-11 12:29 | PD.CARD.PN ---
Subjective Subjective Remarks sedated Objective Medications Current Medications Medications (Trade) Dose Ordered Sig/Aliyah Route Start Time Stop Time Status Last Admin (Pepcid Inj) 20 mg ONCE IV PUSH 11/10/17 05:15 11/10/17 05:28 (D50w (Vial) Inj) 50 ml UNSCH PRN IV PUSH 11/10/17 06:15 (Glucagon Inj) 1 mg UNSCH PRN OTHER 11/10/17 06:15 (NovoLOG SUPPLEMENTAL SCALE) 1 ACHS SLIDING SCALE SQ 11/10/17 08:00 Future Hold 11/10/17 18:05 Sodium Chloride 1,000 ml @ 100 mls/hr Q10H IV 11/10/17 06:04 11/10/17 12:00 (NS Flush) 2 ml UNSCH PRN IV FLUSH 11/10/17 06:15 (NS Flush) 2 ml BID IV FLUSH 11/10/17 09:00 11/11/17 08:51 (Zofran Inj) 4 mg Q6H PRN IVP 11/10/17 06:15 (Heparin Inj) 5,000 units Q12H SQ 11/10/17 09:00 11/11/17 08:50 (Tylenol) 650 mg Q6H PRN PO 11/10/17 06:15 (Sarkia-Colace) 1 tab BID PO 11/10/17 09:00 11/11/17 08:50 (Milk Of Magnesia Liq) 30 ml Q12H PRN PO 11/10/17 06:15 (Senokot) 17.2 mg Q12H PRN PO 11/10/17 06:15 11/10/17 23:38 (Dulcolax Supp) 10 mg DAILY PRN RECTAL 11/10/17 06:15 (Lactulose Liq) 30 ml DAILY PRN PO 11/10/17 06:15 (Proair Hfa Inh) 1 puff Q4H PRN INH 11/10/17 06:15 (Xanax) 1 mg BID PO 11/10/17 09:00 11/11/17 08:50 (Ecotrin Ec) 81 mg DAILY PO 11/10/17 09:00 11/11/17 08:50 (Lipitor) 10 mg HS PO 11/10/17 21:00 11/10/17 23:37 (Plavix) 75 mg DAILY PO 11/10/17 09:00 11/11/17 08:50 (Neurontin) 800 mg TID PO 11/10/17 09:00 11/11/17 08:50 (Levemir Inj) 38 units DAILY SQ 11/10/17 09:00 Future Hold 11/10/17 11:36 ([facility] 10-325 Mg) 1 tab Q6H PRN PO 11/10/17 09:30 11/11/17 10:35 (Protonix) 40 mg DAILY PO 11/10/17 09:30 11/11/17 08:50 Vital Signs / I&O Vital Signs Date Time Temp Pulse Resp B/P (MAP) Pulse Ox O2 Delivery O2 Flow Rate FiO2 11/11/17 08:15 98.2 82 20 168/86 (113) 97 11/11/17 07:20 81 11/11/17 04:21 98.1 81 17 125/67 (86) 97 11/11/17 00:29 98.5 81 17 108/66 (80) 96 11/10/17 20:17 97.6 89 15 98/61 (73) 95 11/10/17 16:00 95.3 93 20 95/57 (70) 96 I/O 11/10/17 11/10/17 11/10/17 11/11/17 11/11/17 11/11/17 07:00 15:00 23:00 07:00 15:00 23:00 Intake Total 1000 ml 104 ml 200 ml Output Total 1100 ml 550 ml Balance -1100 ml 1000 ml -446 ml 200 ml Intake Oral 100 ml 200 ml IV Total 1000 ml 4 ml Output Urine Total 1100 ml 550 ml # Bowel Movements 0 Physical Exam GENERAL: SKIN: Warm and dry. HEAD: Normocephalic. EYES: No scleral icterus. No injection or drainage. NECK: Supple, trachea midline. No JVD or lymphadenopathy. CARDIOVASCULAR: Regular rate and rhythm without murmurs, gallops, or rubs. RESPIRATORY: Breath sounds equal bilaterally. No accessory muscle use. GASTROINTESTINAL: Abdomen soft, non-tender, nondistended. MUSCULOSKELETAL: No cyanosis, or edema. BACK: Nontender without obvious deformity. No CVA tenderness. Laboratory Laboratory Tests Test 11/10/17 16:18 11/10/17 22:05 11/11/17 05:17 Troponin I 0.10 NG/ML 0.09 NG/ML White Blood Count 4.6 TH/MM3 Red Blood Count 4.53 MIL/MM3 Hemoglobin 12.1 GM/DL Hematocrit 36.1 % Mean Corpuscular Volume 79.7 FL Mean Corpuscular Hemoglobin 26.8 PG Mean Corpuscular Hemoglobin Concent 33.6 % Red Cell Distribution Width 13.8 % Platelet Count 235 TH/MM3 Mean Platelet Volume 8.6 FL Neutrophils (%) (Auto) 35.0 % Lymphocytes (%) (Auto) 49.2 % Monocytes (%) (Auto) 10.3 % Eosinophils (%) (Auto) 4.5 % Basophils (%) (Auto) 1.0 % Neutrophils # (Auto) 1.6 TH/MM3 Lymphocytes # (Auto) 2.2 TH/MM3 Monocytes # (Auto) 0.5 TH/MM3 Eosinophils # (Auto) 0.2 TH/MM3 Basophils # (Auto) 0.0 TH/MM3 CBC Comment DIFF FINAL Differential Comment Blood Urea Nitrogen 11 MG/DL Creatinine 0.67 MG/DL Random Glucose 51 MG/DL Total Protein 6.3 GM/DL Albumin 2.4 GM/DL Calcium Level 8.4 MG/DL Alkaline Phosphatase 138 U/L Aspartate Amino Transf (AST/SGOT) 11 U/L Alanine Aminotransferase (ALT/SGPT) 10 U/L Total Bilirubin 0.2 MG/DL Sodium Level 142 MEQ/L Potassium Level 3.4 MEQ/L Chloride Level 110 MEQ/L Carbon Dioxide Level 25.0 MEQ/L Anion Gap 7 MEQ/L Estimat Glomerular Filtration Rate 106 ML/MIN Imaging Last [address] 11/11/17 0000 Signed Impressions: Service Date/Time: Saturday, November 11, 2017 11:41 - CONCLUSION: No acute disease. Sami Oglesby MD Assessment and Plan Problem List: (1) Hypertension ICD Codes: I10 - Essential (primary) hypertension (2) Non-ST elevation [place] (NSTEMI) ICD Codes: I21.4 - Non-ST elevation [place] (NSTEMI) Status: Acute (3) Hyperglycemia due to type 2 diabetes mellitus ICD Codes: E11.65 - Type 2 diabetes mellitus with hyperglycemia Status: Acute (4) Renal insufficiency ICD Codes: N28.9 - Disorder of kidney and ureter, unspecified Status: Resolved (5) Congestive heart failure ICD Codes: I50.9 - Congestive heart failure Status: Acute (6) DM (diabetes mellitus) ICD Codes: E11.9 - Type 2 diabetes mellitus without complications Status: Chronic (7) Urinary retention ICD Codes: R33.9 - Retention of urine, unspecified Status: Acute (8) Elevated troponin ICD Codes: R74.8 - Abnormal levels of other serum enzymes Assessment and Plan 1.) CAD/CHF/HTN - suspect trop elevation due to htn due to urinary retention, history remains difficult to obtain as patient is on scheduled xanax; bp remains labile possibly due to urinary retention issues; continue aspirin, plavix, station, lopressor, lisinopril Tulio Shelton MD Nov 11, 2017 12:29
[2017-11-11] MEDS ORDERED: CARVEDILOL 3.125 MG TAB PO ONE (12:30)
[2017-11-11] MEDS ORDERED: LISINOPRIL 5 MG TAB PO ONE (12:30)
[2017-11-11 12:49] VITALS: BP 160/80; PULSE 68; RESP 20; TEMP 98.2; O2SAT 95
[2017-11-11] MEDS: CARVEDILOL 3.125 MG TAB PO SCH (22:53)
[2017-11-11] MEDS: ATORVASTATIN 10 MG TAB PO SCH (22:53)
[2017-11-12] VITALS: BP 164/84; PULSE 92; RESP 18; TEMP 97.7; O2SAT 97
[2017-11-12] MEDS: ALBUTEROL SULFATE 90 MCG/ACT HFA 8 GM INHALER INH PRN ×2 (02:17→09:22)
[2017-11-12 04:00] VITALS: BP 152/68; PULSE 77; RESP 18; TEMP 97.7; O2SAT 98
[2017-11-12 07:15] VITALS: PULSE 93
[2017-11-12 08:00] VITALS: BP 139/107; PULSE 104; RESP 20; TEMP 98.3; O2SAT 97
[2017-11-12] MEDS ORDERED: LISINOPRIL 5 MG TAB PO SCH (09:00)
[2017-11-12] MEDS: CARVEDILOL 3.125 MG TAB PO SCH (09:23)
[2017-11-12] MEDS: INSULIN ASPART SUPPLEMENTAL SCALE SQ SCH ×2 (09:23→13:42)
[2017-11-12] MEDS: HEPARIN SODIUM - SQ 10,000 UNITS/ML VIAL SQ SCH (09:23)
[2017-11-12] MEDS: CLOPIDOGREL 75 MG TAB PO SCH (09:24)
[2017-11-12] MEDS: GABAPENTIN 400 MG CAP PO SCH ×2 (09:24→13:42)
[2017-11-12] MEDS: PANTOPRAZOLE SOD 40 MG DELAYED RELEASE TAB PO SCH (09:24)
[2017-11-12] MEDS: DOCUSATE SODIUM 50 MG/SENNA 8.6 MG TAB PO SCH (09:24)
[2017-11-12] MEDS: ASPIRIN EC 81 MG TABEC PO SCH (09:24)
[2017-11-12] MEDS: SODIUM CHLORIDE 0.9% FLUSH 10 ML FLUSH IV FLUSH SCH (09:25)
[2017-11-12] MEDS: SODIUM CHLOR 0.9% 1000 ML INJ 1,000 ML IV SCH (09:25)
[2017-11-12] MEDS ORDERED: hydrALAZINE HCL 10 MG TAB PO PRN (11:00)
--- NOTE | 2017-11-12 11:02 | HHI.PR ---
Subjective Remarks in no acute distress. looks and feels much more alert and comfortable today. denies chest pain or sob. blood sugar trend noted. family at the bedside. d/w the RN. Objective Vitals Vital Signs Date Time Temp Pulse Resp B/P (MAP) Pulse Ox O2 Delivery O2 Flow Rate FiO2 11/12/17 08:00 98.3 104 20 139/107 (118) 97 11/12/17 04:00 97.7 77 18 152/68 (96) 98 11/12/17 00:00 97.7 92 18 164/84 (110) 97 11/11/17 12:49 98.2 68 20 160/80 (106) 95 I/O 11/11/17 11/11/17 11/11/17 11/12/17 11/12/17 11/12/17 07:00 15:00 23:00 07:00 15:00 23:00 Intake Total 200 ml 720 ml 300 ml Output Total 1200 ml Balance 200 ml 720 ml -900 ml Intake Oral 200 ml 720 ml 300 ml Output Urine Total 1200 ml Result Diagram: 11/11/17 0517 11/11/17 0517 Imaging Last Impressions Head CT 11/11/17 0000 Signed Impressions: Service Date/Time: Saturday, November 11, 2017 11:41 - CONCLUSION: No acute disease. Sami Oglesby MD Chest X-Ray 11/10/17 0000 Signed Impressions: Service Date/Time: Friday, November 10, 2017 06:06 - CONCLUSION: No acute cardiopulmonary disease identified. Abhinav Horan MD Objective Remarks GENERAL: This is a well-nourished, well-developed patient, in no apparent distress. CARDIOVASCULAR: Regular rate and regular rhythm without murmurs, gallops, or rubs. RESPIRATORY: Clear to auscultation. Breath sounds equal bilaterally. No wheezes , rales, or rhonchi. GASTROINTESTINAL: Abdomen soft, non-tender, nondistended. Normal, active bowel sounds MUSCULOSKELETAL: Extremities without clubbing, cyanosis, or edema. NEURO: lethargic but easily arousable. Medications and IVs Inpatient Medications Acetaminophen (Tylenol) 650 mg Q6H PRN PO FEVER/PAIN SCALE 1 TO 2; Start at 06:15 Acetaminophen/ Hydrocodone Bitart ([place] 5-325 Mg) 1 tab Q4H PRN PO PAIN SCALE 3 TO 5; Start 11/10/17 at 06:15; Stop 11/10/17 at 09:18; Status DC Acetaminophen/ Hydrocodone Bitart ([place] 10-325 Mg) 1 tab Q6H PRN PO PAIN SCALE 4 TO 10 Last administered on 11/11/17at 10:35; Start 11/10/17 at 09:30; Status Future Hold Albuterol Sulfate (Proair Hfa Inh) 1 puff Q4H PRN INH SHORTNESS OF BREATH Last administered on 11/12/17 09:22; Start 11/10/17 at 06:15 Alprazolam (Xanax) 1 mg BID PO Last administered on 11/11/17 08:50; Start at 09:00; Status Future Hold Aspirin (Aspirin Chew) 324 mg ONCE ONCE CHEW Last administered on 11/10/17 05: 28; Start 11/10/17 at 05:15; Stop 11/10/17 at 05:16; Status DC Aspirin (Ecotrin Ec) 81 mg DAILY PO Last administered on 11/12/17 09:24; Start 11/10/17 at 09:00 Atorvastatin Calcium (Lipitor) 10 mg HS PO Last administered on 11/11/17 22:53 ; Start 11/10/17 at 21:00 Bisacodyl (Dulcolax Supp) 10 mg DAILY PRN RECTAL SEVERE CONSITIPATION/ IF NPO; Start 11/10/17 at 06:15 Carvedilol (Coreg) 3.125 mg Q12HR PO Last administered on 11/12/17 09:23; Start 11/11/17 at 21:00 Clopidogrel Bisulfate (Plavix) 75 mg DAILY PO Last administered on 11/12/17 09: 24; Start 11/10/17 at 09:00 Dextrose (D50w (Vial) Inj) 50 ml UNSCH PRN IV PUSH HYPOGLYCEMIA-SEE COMMENTS; Start 11/10/17 at 06:15 Famotidine (Pepcid Inj) 20 mg ONCE IV PUSH Last administered on 11/10/17at 05:28 ; Start 11/10/17 at 05:15 Gabapentin (Neurontin) 800 mg TID PO Last administered on 11/12/17 09:24; Start 11/10/17 at 09:00 Glucagon (Glucagon Inj) 1 mg UNSCH PRN OTHER HYPOGLYCEMIA-SEE COMMENTS; Start 11/10/17 at 06:15 Heparin Sodium (Porcine) (Heparin Inj) 5,000 units Q12H SQ Last administered on 11/12/17at 09:23; Start 11/10/17 at 09:00 Insulin Aspart (NovoLOG SUPPLEMENTAL SCALE) 1 ACHS SLIDING SCALE SQ Last administered on 11/12/17at 09:23; Start 11/10/17 at 08:00; Status Future hold Insulin Detemir (Levemir Inj) 38 units DAILY SQ Last administered on 11/10/17at 11:36; Start 11/10/17 at 09:00; Status Future Hold Insulin Human Regular (NovoLIN R INJ) 3 units ONCE ONCE SQ Last administered on 11/10/17at 06:02; Start 11/10/17 at 06:00; Stop 11/10/17 at 06:01; Status DC Lactulose (Lactulose Liq) 30 ml DAILY PRN PO SEVERE CONSITIPATION / IF PO; Start 11/10/17 at 06:15 Lisinopril (Prinivil) 2.5 mg DAILY PO Last administered on 11/12/17at 09:25; Start 11/12/17 at 09:00 Magnesium Hydroxide (Milk Of Magnesia Liq) 30 ml Q12H PRN PO Mild constipation ; Start 11/10/17 at 06:15 Morphine Sulfate (Morphine Inj) 2 mg Q3H PRN IV PUSH PAIN 6-10; Start 11/10/17 at 06:15; Stop 11/10/17 at 09:18; Status DC Nitroglycerin (Nitroglycerin 2% Oint) 0.5 inch ONCE ONCE TOPICAL Last administered on 11/10/17at 06:49; Start 11/10/17 at 06:00; Stop 11/10/17 at 06:05; Status DC Ondansetron HCl (Zofran Inj) 4 mg Q6H PRN IVP NAUSEA OR VOMITING; Start at 06:15 Pantoprazole Sodium (Protonix) 40 mg DAILY PO Last administered on 11/12/17at 09: 24; Start 11/10/17 at 09:30 Senna/Docusate Sodium (Sarika-Colace) 1 tab BID PO Last administered on 11/12/17at 09:24; Start 11/10/17 at 09:00 Sennosides (Senokot) 17.2 mg Q12H PRN PO Moderate constipation Last administered on 11/10/17at 23:38; Start 11/10/17 at 06:15 Sodium Chloride (NS Flush) 2 ml BID IV FLUSH Last administered on 11/11/17at 08: 51; Start 11/10/17 at 09:00 A/P Problem List: (1) Urinary retention ICD Code: R33.9 - Retention of urine, unspecified Status: Acute (2) Elevated troponin ICD Code: R74.8 - Abnormal levels of other serum enzymes (3) Diabetes mellitus, type II ICD Code: E11.9 - Diabetes mellitus, type II Status: Acute (4) Amputation at midfoot ICD Code: S98.319A - Complete traumatic amputation of unspecified midfoot, initial encounter Status: Acute Assessment and Plan Urinary Retention Chronic 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 Worked up in [facility] will remove vazquez cath today with voiding trial. No sign of UTI on sample Elevated Troponin History of PVD and CABGx3 Her renal function is within normal limits cardiology consult appreciated and no intervention at this time. continue aspirin,plavix,BB and statin. acute encephalopathy-resolved. CT head negative for acute process. hold sedatives neuro-checks Diabetic Amputation of right foot Wound care consulted. Type 2 Diabetes hypoglycemic episode- with no recurrence. long-acting insulin on hold- will monitor the accu-check closely. Diabetic Diet GERD Protonix Discharge Planning dc home later today after she voids . ( if she doesn't void, she will be discharged with vazquez cath in place and outpatient f/u with her Urologist-this was d/w the patient and granddaughters). Yi Aguirre MD Nov 12, 2017 11:02
[2017-11-12] MEDS ORDERED: CARV3.125 PO (11:28)
[2017-11-12] MEDS ORDERED: LEVEMIR SQ (11:28)
[2017-11-12] MEDS ORDERED: ENAL5TAB98 PO (11:28)
[2017-11-12 12:00] VITALS: BP 112/83; PULSE 89; RESP 20; TEMP 97.7; O2SAT 97
[2017-11-12] MEDS ORDERED: LISINOPRIL 5 MG TAB PO ONE (12:00)
[2017-11-12] MEDS ORDERED: WALKER WHEELS/F1 MIS ×2 (12:19→14:08)
--- NOTE | 2017-11-12 12:22 | HHI.FF ---
Face to Face Verification Diagnosis: (1) Physical deconditioning (2) Urinary retention (3) Amputation at midfoot Physical Therapy Order: Evaluate and Treat, Improve ambulation, Strength and gait training I have seen patient Mayra [place] on 11/12/17. My clinical findings support the need for the requested home health care services because: Deconditioned w/ increased weakness Med compliance is questionable Limited ability to care for self Impaired cognition/judgement High risk of falls I certify that my clinical findings support that this patient is homebound because: Impaired cognitive ability/safety Unsteady gait/balance Unsafe to leave home unassisted Unable to use public transportation Esther Henley Nov 12, 2017 12:22
--- NOTE | 2017-11-12 15:16 | PD.CARD.PN ---
Subjective Subjective Remarks alert, upset bc family cant pick her up, wants to go home, denies chest pain or dyspnea Objective Medications Current Medications Medications (Trade) Dose Ordered Sig/Aliyah Route Start Time Stop Time Status Last Admin (Pepcid Inj) 20 mg ONCE IV PUSH 11/10/17 05:15 11/10/17 05:28 (D50w (Vial) Inj) 50 ml UNSCH PRN IV PUSH 11/10/17 06:15 (Glucagon Inj) 1 mg UNSCH PRN OTHER 11/10/17 06:15 (NovoLOG SUPPLEMENTAL SCALE) 1 ACHS SLIDING SCALE SQ 11/10/17 08:00 Future hold 11/12/17 13:42 Sodium Chloride 1,000 ml @ 100 mls/hr Q10H IV 11/10/17 06:04 11/11/17 17:20 (NS Flush) 2 ml UNSCH PRN IV FLUSH 11/10/17 06:15 (NS Flush) 2 ml BID IV FLUSH 11/10/17 09:00 11/11/17 08:51 (Zofran Inj) 4 mg Q6H PRN IVP 11/10/17 06:15 (Heparin Inj) 5,000 units Q12H SQ 11/10/17 09:00 11/12/17 09:23 (Tylenol) 650 mg Q6H PRN PO 11/10/17 06:15 (Sarika-Colace) 1 tab BID PO 11/10/17 09:00 11/12/17 09:24 (Milk Of Magnesia Liq) 30 ml Q12H PRN PO 11/10/17 06:15 (Senokot) 17.2 mg Q12H PRN PO 11/10/17 06:15 11/10/17 23:38 (Dulcolax Supp) 10 mg DAILY PRN RECTAL 11/10/17 06:15 (Lactulose Liq) 30 ml DAILY PRN PO 11/10/17 06:15 (Proair Hfa Inh) 1 puff Q4H PRN INH 11/10/17 06:15 11/12/17 09:22 (Xanax) 1 mg BID PO 11/10/17 09:00 Future Hold 11/11/17 08:50 (Ecotrin Ec) 81 mg DAILY PO 11/10/17 09:00 11/12/17 09:24 (Lipitor) 10 mg HS PO 11/10/17 21:00 11/11/17 22:53 (Plavix) 75 mg DAILY PO 11/10/17 09:00 11/12/17 09:24 (Neurontin) 800 mg TID PO 11/10/17 09:00 11/12/17 13:42 (Levemir Inj) 38 units DAILY SQ 11/10/17 09:00 Future Hold 11/10/17 11:36 ([place] 10-325 Mg) 1 tab Q6H PRN PO 11/10/17 09:30 Future Hold 11/11/17 10:35 (Protonix) 40 mg DAILY PO 11/10/17 09:30 11/12/17 09:24 (Coreg) 3.125 mg Q12HR PO 11/11/17 21:00 11/12/17 09:23 (Prinivil) 2.5 mg DAILY PO 11/12/17 09:00 11/12/17 09:25 (Apresoline) 10 mg Q6HR PRN PO 11/12/17 11:00 Vital Signs / I&O Vital Signs Date Time Temp Pulse Resp B/P (MAP) Pulse Ox O2 Delivery O2 Flow Rate FiO2 11/12/17 12:00 97.7 89 20 112/83 (93) 97 11/12/17 08:00 98.3 104 20 139/107 (118) 97 11/12/17 07:15 93 11/12/17 04:00 97.7 77 18 152/68 (96) 98 11/12/17 00:00 97.7 92 18 164/84 (110) 97 I/O 11/11/17 11/11/17 11/11/17 11/12/17 11/12/17 11/12/17 07:00 15:00 23:00 07:00 15:00 23:00 Intake Total 200 ml 720 ml 300 ml Output Total 1200 ml Balance 200 ml 720 ml -900 ml Intake Oral 200 ml 720 ml 300 ml Output Urine Total 1200 ml Physical Exam GENERAL: SKIN: Warm and dry. HEAD: Normocephalic. EYES: No scleral icterus. No injection or drainage. NECK: Supple, trachea midline. No JVD or lymphadenopathy. CARDIOVASCULAR: Regular rate and rhythm without murmurs, gallops, or rubs. RESPIRATORY: Breath sounds equal bilaterally. No accessory muscle use. GASTROINTESTINAL: Abdomen soft, non-tender, nondistended. MUSCULOSKELETAL: No cyanosis, or edema. BACK: Nontender without obvious deformity. No CVA tenderness. Assessment and Plan Problem List: (1) Hypertension ICD Codes: I10 - Essential (primary) hypertension (2) Non-ST elevation [place] (NSTEMI) ICD Codes: I21.4 - Non-ST elevation [place] (NSTEMI) Status: Acute (3) Hyperglycemia due to type 2 diabetes mellitus ICD Codes: E11.65 - Type 2 diabetes mellitus with hyperglycemia Status: Acute (4) Renal insufficiency ICD Codes: N28.9 - Disorder of kidney and ureter, unspecified Status: Resolved (5) Congestive heart failure ICD Codes: I50.9 - Congestive heart failure Status: Acute (6) DM (diabetes mellitus) ICD Codes: E11.9 - Type 2 diabetes mellitus without complications Status: Chronic (7) Urinary retention ICD Codes: R33.9 - Retention of urine, unspecified Status: Acute (8) Elevated troponin ICD Codes: R74.8 - Abnormal levels of other serum enzymes Assessment and Plan 1.) CAD/CHF/HTN - suspect trop elevation due to htn due to urinary retention, assymptomatic; bp remains labile possibly due to urinary retention issues; continue aspirin, plavix, station, lopressor, lisinopril; f/u with me in my office Tulio Gupta MD Nov 12, 2017 15:16
== END 2017-11-12 18:12 | disposition home or self-care (01) ==
LOC: NEPE 02:33 → NEDA 06:08 → NEPHCDU 10:43
PROVIDERS: ADMIT Internal Medicine; ATTEND Internal Medicine
DX: I21.4 Non-ST elevation (NSTEMI) myocardial infarction (principal); I11.0 Hypertensive heart disease with heart failure; I50.9 Heart failure, unspecified; I25.10 Atherosclerotic heart disease of native coronary artery without angina pectoris; N28.9 Disorder of kidney and ureter, unspecified; E86.0 Dehydration; E11.65 Type 2 diabetes mellitus with hyperglycemia; N32.0 Bladder-neck obstruction; N31.9 Neuromuscular dysfunction of bladder, unspecified; S98.3 Traumatic amputation of midfoot; E78.00 Pure hypercholesterolemia, unspecified; G93.40 Encephalopathy, unspecified; G47.30 Sleep apnea, unspecified; J44.9 Chronic obstructive pulmonary disease, unspecified; K21.9 Gastro-esophageal reflux disease without esophagitis; I25.2 Old myocardial infarction; Z79.4 Long term (current) use of insulin; Z95.1 Presence of aortocoronary bypass graft; Z86.73 Personal history of transient ischemic attack (TIA), and cerebral infarction without residual deficits; Z90.710 Acquired absence of both cervix and uterus
CPT/HCPCS: 70450; 71046; 80053; 81001; 82550; 82948; 83690; 84484; 85025; 93005; 96361; 96372; 96374; 97162; 99285; G0378; G8987; G8988; J1644; J1815; J7030

== ENCOUNTER 2017-11-23 23:39 | Emergency (ER) | payer MEDICARE, MEDICAID ==
[~2017-11-23] VITALS: Ht 160 cm; Wt 67.7 kg
[~2017-11-23 23:39] MED LIST changes: -ALBU6.7H INH; +CARV3.125 PO; -CIPR500T2 PO; -HYDR-2374 PO; -MEDR4PAK PO; -SOMA350T PO; +WALKER WHEELS/F1 MIS; -XANA1TAB2 PO
[2017-11-23 23:40] VITALS: BP 107/79; PULSE 107; RESP 16; TEMP 98.5; O2SAT 95
[2017-11-24] MEDS ORDERED: RESP: ALBUTEROL 2.5 MG/IPRATROPIUM 0.5 MG NEB (SCH) NEB ONE (02:15)
[2017-11-24] MEDS ORDERED: ACETAMINOPHEN/HYDROcodone 325 MG/10 MG TAB PO ONE (02:15)
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
[2017-11-24] MEDS ORDERED: CLINDAMYCIN 150 MG CAP PO ONE (03:30)
[2017-11-24] MEDS ORDERED: CLIN300C5 PO (03:38)
== END 2017-11-24 03:48 | disposition home or self-care (01) ==
LOC: NEPC 23:39
DX: G89.18 Other acute postprocedural pain (principal); R05 Cough; J44.9 Chronic obstructive pulmonary disease, unspecified; E11.9 Type 2 diabetes mellitus without complications; I10 Essential (primary) hypertension; E78.00 Pure hypercholesterolemia, unspecified; G47.30 Sleep apnea, unspecified; I25.2 Old myocardial infarction; Z98.890 Other specified postprocedural states; Z79.01 Long term (current) use of anticoagulants; Z79.4 Long term (current) use of insulin; Z87.39 Personal history of other diseases of the musculoskeletal system and connective tissue; Z86.59 Personal history of other mental and behavioral disorders; Z87.19 Personal history of other diseases of the digestive system; Z87.448 Personal history of other diseases of urinary system; Z86.73 Personal history of transient ischemic attack (TIA), and cerebral infarction without residual deficits
CPT/HCPCS: 94664; 99284